=== PATIENT | male | born 1945 | race Caucasian/White ===

== ENCOUNTER 2017-11-22 08:45 | Day surgery (SDC) | payer OTHER ==
[2017-11-22] MEDS ORDERED: NS 1,000 ML IV (09:00)
[2017-11-22] MEDS ORDERED: PROPOFOL 200 MG/20 ML VIAL As Ordered (10:19)
[2017-11-22] MEDS ORDERED: LIDOCAINE 2% INJ 100 MG/5 ML SDV (FOR ANES.) As Ordered (10:19)
== END 2017-11-22 11:26 | disposition home or self-care (01) ==
LOC: M OPP 08:45
DX: Z12.11 Encounter for screening for malignant neoplasm of colon (principal); D12.3 Benign neoplasm of transverse colon; K64.0 First degree hemorrhoids; K57.30 Diverticulosis of large intestine without perforation or abscess without bleeding; I25.10 Atherosclerotic heart disease of native coronary artery without angina pectoris; I10 Essential (primary) hypertension; I25.2 Old myocardial infarction; Z95.5 Presence of coronary angioplasty implant and graft; E78.5 Hyperlipidemia, unspecified; I73.9 Peripheral vascular disease, unspecified; R23.3 Spontaneous ecchymoses; M19.90 Unspecified osteoarthritis, unspecified site; J44.9 Chronic obstructive pulmonary disease, unspecified; F17.210 Nicotine dependence, cigarettes, uncomplicated; Z79.82 Long term (current) use of aspirin; Z79.899 Other long term (current) drug therapy
CPT/HCPCS: 45385

== ENCOUNTER 2020-08-03 09:31 | Emergency (ER) | payer MEDICARE, OTHER ==
[~2020-08-03] VITALS: Ht 170.2 cm; Wt 62.2 kg
[~2020-08-03 09:31] MED LIST: AMLO1TAB24; ASPI-255; CILO100T; METO1TAB7; PRESCAP6 PO; ROSU20TA5
[2020-08-03 10:20] LABS: BASO % 0.2 % (0.0-1.0); HEMOGLOBIN 12.3 g/dl (13.5-17.5); LYMPH # 0.7 10^3/uL (1.5-5.0); LYMPH % 4.9 % (24.0-44.0); MEAN CORPUSCULAR HEMOGLOBIN 28.7 pg (27.0-33.0); MEAN CORPUSCULAR HGB CONC 32.4 g/dl (32.0-36.5); MEAN CORPUSCULAR VOLUME 88.8 fl (80.0-96.0); MONO % 6.7 % (0.0-5.0); NEUTROPHILS # 12.5 10^3/uL (1.5-8.5); NEUTROPHILS % 87.8 % (36.0-66.0); PLATELET COUNT, AUTOMATED 436 10^3/uL (150-450); RED BLOOD COUNT 4.28 10^6/uL (4.30-6.10); WHITE BLOOD COUNT 14.2 10^3/uL (4.0-10.0)
--- NOTE | 2020-08-03 10:38 | REP ---
INDICATION: CHEST PAIN. COMPARISON: Comparison chest x-rays, the most recent of which is from September 14, 2012.. TECHNIQUE: Single portable chest x-ray. FINDINGS: There is a nodular opacity in the right upper perihilar region measuring approximately 2.7 cm. There is blunting of the right lateral pleural angle and some fibrotic changes are seen at the right base suggesting chronic blunting. There is some pleural thickening along the right lateral chest wall. The azygos vein region is somewhat prominent in the right paratracheal zone suggesting adenopathy. These findings are new compared with the 2012 prior exam. The left lung is clear. Heart is not enlarged. The aorta is calcific and somewhat tortuous. There is slight fullness in the azygos node region of the mediastinum on the right. Mild degenerative changes are seen in the thoracic spine. IMPRESSION: 2.7 cm nodular opacity in the right upper lobe with a fullness in the right mediastinum question lung malignancy. Recommend chest CT study, preferably with IV contrast. <Electronically signed by Kenneth Hazel > 08/03/20 [id number]
[2020-08-03 10:58] LABS: ALBUMIN 2.9 GM/DL (3.2-5.2); BILIRUBIN,DIRECT 0.2 MG/DL (0.0-0.2); BILIRUBIN,TOTAL 0.5 MG/DL (0.2-1.0); FREE T4 1.23 NG/DL (0.76-1.46); THYROID STIMULATING HORMONE 1.36 uIU/ML (0.358-3.740); TOTAL PROTEIN 7.5 GM/DL (6.4-8.2)
[2020-08-03] MEDS ORDERED: ISOVUE-370 76% 100ML VIAL As Ordered ONE (11:20)
--- NOTE | 2020-08-03 11:59 | REP ---
INDICATION: dyspnea, nodularity. COMPARISON: None. TECHNIQUE: CT angiogram chest performed following the intravenous administration of 100 cc of Isovue 370. Sagittal and coronal reconstruction images are performed. FINDINGS: The contrast opacified pulmonary arteries demonstrate no evidence of filling defect, and no evidence of pulmonary embolism. There is no thoracic aortic aneurysm or dissection. Heart is normal in size. There are atherosclerotic calcifications of the thoracic aorta. There is a large right paratracheal lymph node 3.4 x 2.4 cm. There is adjacent confluent right hilar adenopathy extending into the right infrahilar region. No Left hilar adenopathy is seen. There is mild right pleural fluid and thickening. There is minor pericardial fluid and thickening. There is biapical pleural thickening. A lobulated irregular soft tissue mass is seen in the right perihilar region superiorly measuring about 4.1 by 4.0 x 3.1 cm. There are diffuse fibro atelectatic changes in both lungs. There are degenerative changes of the spine. There is mild diffuse thickening of the adrenal glands. IMPRESSION: No CT evidence of pulmonary embolism.There is a large right paratracheal lymph node 3.4 x 2.4 cm. There is adjacent confluent right hilar adenopathy extending into the right infrahilar region. A lobulated irregular soft tissue mass is seen in the right perihilar region superiorly measuring about 4.1 by 4.0 x 3.1 cm. <Electronically signed by Enoch Wells > 08/03/20 [id number]
[2020-08-03] MEDS ORDERED: GI COCKTAIL 50ML BTL(HYOSCYAMINE/MAALOX/LIDOCAINE VISCOUS)(1:3:1) PO ONE (12:15)
[2020-08-03] MEDS ORDERED: OMEP40CA97 PO (12:40)
[2020-08-03 12:45] VITALS: BP 139/63
--- NOTE | 2020-08-04 09:16 | ECGEPIP ---
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
== END 2020-08-03 12:56 | disposition home or self-care (01) ==
LOC: M ED 09:31
DX: K29.70 Gastritis, unspecified, without bleeding (principal); R07.89 Other chest pain; R91.8 Other nonspecific abnormal finding of lung field; R06.02 Shortness of breath; I10 Essential (primary) hypertension; E78.5 Hyperlipidemia, unspecified; I25.2 Old myocardial infarction; J44.9 Chronic obstructive pulmonary disease, unspecified; Z95.5 Presence of coronary angioplasty implant and graft; I71.9 Aortic aneurysm of unspecified site, without rupture; F17.210 Nicotine dependence, cigarettes, uncomplicated; Z86.79 Personal history of other diseases of the circulatory system; Z88.0 Allergy status to penicillin; Z79.899 Other long term (current) drug therapy; Z79.82 Long term (current) use of aspirin
CPT/HCPCS: 36415; 71045; 71275; 80047; 80076; 83605; 83690; 83880; 84439; 84443; 84484; 85025; 93005; 93041; 94760; 99285; Q9967

== ENCOUNTER → 2020-08-16 | Outpatient (CLI) | payer MEDICARE ==
[~2020-08-16] MED LIST changes: +OMEP40CA97 PO
== END ==
LOC: M LABSMTC 11:22
PROVIDERS: ATTEND Internal Medicine Pulmonary Disease
DX: Z01.812 Encounter for preprocedural laboratory examination (principal); Z20.828 Contact with and (suspected) exposure to other viral communicable diseases

== ENCOUNTER → 2020-09-09 | Outpatient (CLI) | payer MEDICARE ==
--- NOTE | 2020-09-09 14:18 | RADONC.CN ---
Radiation Oncology Hx/Consult Radiation Oncology Consult Date of Service: Sep 09, 2020 Pt Identifier Leander Troncoso is a 74 year old male former 60 pack year smoker with prior CAD/NC, who was recently diagnosed with [id number] NSCLC of the RUL and mediastinum. He is seen for consideration of chemoradiation. Diagnosis/Treatment History Oncologic History Patient smoked 1 ppd for 60 years. On 08/01/20 he was hunting and became SOB, later in the day he had epigastric pain, this led to an ED visit the following day during which he underwent CT chest showing a RUL mass lesion right level 4 and 10 adenopathy. He underwent EBUS biopsy on 08/21/20 at [facility] which showed adenocarcinoma. He was referred to [facility] to pursue treatment closer to home. PET-CT 09/15/20 pending MRI head 09/18/20 pending PFTs 08/12/20 FEV1/FVC 59% FEV1 81% FVC 103% DLCO 54% Interval History Reports he feels well. Chest discomfort has subsided. HOOVER remains, noticeable going up stairs. No HOOVER when he walks on a level surface. He lost 10lbs this year. Recently though has gained 4-5 lbs back. Appetite and weight are stable. He has an occasional cough, productive of clear mucus, no hemoptysis. No fevers or chills. Past Medical History: AAA CAD/NC with stents 1996 HPL HTN Past Surgical History: Cataract surgery PCI Colonoscopy Appendectomy Family History: No family history of cancer Social History: Former smoker quit 07/2020 smoked for 60+ years Drinks per 4-5 cans per week Allergies / Meds Allergies: Coded Allergies: Penicillins (Verified Allergy, Intermediate, itch, 08/03/20) Home Meds Reported Medications Preservision Areds 2 (Preservision Areds 2) 1 Cap Cap, 1 CAP PO BID, CAP 11/16/17 Aspirin (Aspirin EC) 325 Mg Tabec, DAILY 11/16/17 Amlodipine Besylate (Amlodipine Besylate) 5 Mg Tab, DAILY 11/16/17 Cilostazol (Cilostazol) 100 Mg Tab, BID 11/16/17 Rosuvastatin Calcium (Rosuvastatin Calcium) 20 Mg Tab, DAILY 11/16/17 Metoprolol Succinate (Metoprolol Succinate) 50 Mg Tab, DAILY 11/16/17 Discontinued Scripts Omeprazole (Omeprazole) 40 Mg Capsule., 1 CAP PO DAILY for 30 Days, #30 CAP Prov:EMI ROJAS DO 08/03/20 Review of Systems Constitutional: Denies: Chills, Fever, Night Sweats Eyes: Denies: Pain, Vision change HEENT: Denies: Head Aches, Dysphagia, Sore Throat Skin: Denies: Rash, Lesions, Bruising Pulmonary: Reports: Dyspnea; Denies: Cough, Pleuritic Chest Pain Cardiovascular: Denies: Chest Pain, Palpitations, Edema Gastrointestinal: Denies: Nausea, Vomiting, Abdominal Pain, Diarrhea Genitourinary: Denies: Dysuria, Frequency, Incontinence Hematologic: Denies: Bruising, Petecchia, Enlarged Lymph Nodes Musculoskeletal: Denies: Neck pain, Back pain Neurological: Denies: Weakness, Numbness, Incoordination Psych: Reports: Mood Normal; Denies: Memory Issues, Thoughts of Self Harm Vital Signs Ht 67" Wt 138 lb BMI 21.6 T 97.2 P 77 RR 18 BP 156/75 O2 100% General Exam: Positive: Alert, Cooperative, No Acute Distress Eye Exam: Positive: PERRLA, EOMI ENT EXAM: Positive: Mucous membr. moist/pink, Pharynx Normal Neck Exam: Negative: Thyromegaly, Lymphadenopathy Chest Exam: Positive: Normal air movement; Negative: Rales, Rhonchi, Wheezing Heart Exam: Positive: Rate Normal, Regular Rhythm Abdomen Exam: Positive: Soft; Negative: Tenderness, Mass Extremity Exam: Negative: Edema, Tenderness Skin Exam: Positive: Nl turgor and temperature; Negative: Rash Neuro Exam: Positive: Normal Gait, Normal Speech, Cranial Nerves 3-12 NL Psych Exam: Positive: Mental status NL, Mood NL, Memory Intact Diagnostic and Laboratory Diagnostic Review Radiologic images, relevant labs and pathology reports were personally reviewed and discussed with Mr. Troncoso. Assessment and Plan Impression Mr. Troncoso is a 74 year old male former 60 pack year smoker with prior CAD/NC, who was recently diagnosed with [id number] NSCLC of the RUL and mediastinum. He is seen for consideration of chemoradiation. Stage [id number] Stage IIIA NSCLC of the RUL Performance Status ECOG 0 Plan We had an extensive discussion with Mr. Troncoso regarding the diagnosis at hand and available therapeutic options. He is quite functional, and minimally symptomatic from his tumor. He has staging studies, PET and MRI brain next week. Barring evidence of distant disease on these he is a stage IIIA I recommend chemoradiation 60 Gy in 30 fractions with 4DCT/ITV simulation to minimize dose to normal lung and VMAT planning to spare adjacent critical structures including heart (he has an NC history), esophagus, and great vessels. I will place referral to medical oncology here for this. I also explained that he may be eligible for adjuvant immunotherapy post chemoradiation and that his medical oncologist would consider this. We discussed the logistics of receiving radiation therapy in detail including the need for a 1-time planning session. Planning can proceed as soon as next week after his staging scans are complete. We reviewed the side effects of treatment including fatigue, pneumonitis, fibrosis and esophagitis. After discussing the risks, benefits and alternatives to radiation therapy, Mr. Troncoso was amenable to pursuing radiotherapy. All questions were answered to the patient's satisfaction. We instructed the patient that if there were any questions,concerns or changes in clinical status in the interim to contact us. Recommendations Chemoradiation 60 Gy in 30 fractions with 4DCT/VMAT Simulation in the coming week Referral to medical oncology KEILY CAMPUZANO MD Sep 09, 2020 14:18
== END ==
LOC: M ONCR 12:37
PROVIDERS: ATTEND General Practice
DX: C34.90 Malignant neoplasm of unspecified part of unspecified bronchus or lung (principal)

== ENCOUNTER → 2020-09-15 | Outpatient (CLI) | payer MEDICARE ==
[~2020-09-15] MED LIST changes: -AMLO1TAB24; +AMLO1TAB24 PO; -ASPI-255; +ASPI-255 PO; -CILO100T; +CILO100T PO; +DECA4TAB PO; -METO1TAB7; +METO1TAB7 PO; +ONDA8TAB8 PO; +PRES10CA2 PO; -ROSU20TA5; +ROSU20TA5 PO
--- NOTE | 2020-09-16 11:05 | REP ---
INDICATION: STAGING LUNG CANCER C34.91. Large right perihilar adenocarcinoma. This is unchanged from comparison sonography September 24, 2018. COMPARISON: Comparison CT study of the chest August 03, 2020.. TECHNIQUE: Fifty minutes following the intravenous injection of a 7.95 mCi dose of F-18 FDG, three-dimensional PET scintigraphy is acquired from the skull base to the proximal thighs. Triplanar noncontrast CT scanning is acquired through the same anatomic range for attenuation correction, and image registration with scan parameters optimized to minimize radiation exposure to the patient. PET scintigraphy and CT datasets were fused and displayed on a workstation with multiplanar and projection display capability. FINDINGS: Incidental findings include a 4.2 x 4.5 cm infrarenal abdominal aortic aneurysm. This is unchanged from comparison sonography September 24, 2018. Head and neck soft tissues are unremarkable. There is non hypermetabolic mild biapical pleuroparenchymal fibrosis right more so than left. The large right upper lobe perihilar mass is hypermetabolic, maximum standard uptake value 6.12. There is hypermetabolic right hilar adenopathy with maximum standard uptake value 4.99. There is hypermetabolic precarinal and subcarinal adenopathy, maximum SUV value 3.96 and 4.86 respectively. There is also some visible pleural thickening and pleural at FDG accumulation at the base of the major fissure on the right adjacent to the middle lobe where maximum SUV values 2.14 and in the right posterior pleural space where maximum SUV values 2.37. There is no abnormal adrenal uptake. In the abdomen and pelvis, normal hepatic, splenic, gastrointestinal, and genitourinary FDG accumulation is seen. No abnormal hypermetabolic uptake focus is seen in the abdomen or pelvis. IMPRESSION: Hypermetabolic uptake noted in the large right upper lobe perihilar mass as well as hypermetabolic right hilar and mediastinal lymphadenopathy. There also some ipsilateral pleural changes on the right with visible but not frankly hypermetabolic fluoro deoxy glucose accumulation. I cannot exclude early no other abnormal hypermetabolic uptake is seen. Pleural involvement. <Electronically signed by Kenneth Hazel > 09/16/20 [id number]
== END ==
LOC: M PLARAD 12:31
PROVIDERS: ATTEND Radiology Radiation Oncology
DX: C34.11 Malignant neoplasm of upper lobe, right bronchus or lung (principal)
CPT/HCPCS: 78815; A9552

== ENCOUNTER → 2020-09-18 | Outpatient (CLI) | payer MEDICARE ==
[~2020-09-18] MED LIST changes: +PROHANCE 279.3MG/ML 15ML VIAL As Ordered ONE
--- NOTE | 2020-09-18 09:30 | REPVR ---
PROCEDURE INFORMATION: Exam: MR Head Without and With Contrast Exam date and time: 09/18/2020 8:36 AM Age: 74 years old Clinical indication: Condition or disease; History of cancer (specify primary cancer site): ; Patient HX: Lung CA possible mets; Additional info: Lung CA, mets? TECHNIQUE: Imaging protocol: MR of the head without and with intravenous contrast. Contrast material: PROHANCE; Contrast volume: 12 ml; Contrast route: INTRAVENOUS (IV); COMPARISON: No relevant prior studies available. FINDINGS: Brain: Generalized parenchymal atrophy. Scattered foci of T2/FLAIR signal prolongation involving periventricular and subcortical white matter bilaterally likely represent sequela of microvascular ischemic disease. No enhancing intracranial masses Cerebral ventricles: Normal. No ventriculomegaly. Bones/joints: Unremarkable. Paranasal sinuses: Normal as visualized. No acute sinusitis. Mastoid air cells: Normal as visualized. No mastoid effusion. Orbits: Unremarkable. Soft tissues: Unremarkable. IMPRESSION: No acute intracranial pathology. Electronically signed by: Aneesh Garrett On 09/18/2020 09:30:31 AM
== END ==
LOC: M RAD 07:11
PROVIDERS: ATTEND Radiology Radiation Oncology
DX: C34.91 Malignant neoplasm of unspecified part of right bronchus or lung (principal)
CPT/HCPCS: 70553; A9576

== ENCOUNTER → 2020-09-24 | Outpatient (CLI) | payer MEDICARE ==
[~2020-09-24] MED LIST changes: +LIDOCAINE 1% MDV 20ML VIAL As Ordered ONE; +MIDAZOLAM INJ 2MG/2ML VIAL (J2250 PER 1MG) As Ordered ONE; -PROHANCE 279.3MG/ML 15ML VIAL As Ordered ONE; +VANCOMYCIN 500MG/10ML VIAL As Ordered ONE; +diphenhydrAMINE 50MG/ML VIAL (J1200) As Ordered ONE; +fentaNYL 100 MCG/2 ML INJECTION (J3010) As Ordered ONE
--- NOTE | 2020-09-24 08:35 | IRHP ---
[facility] IR Pre-Procedure H & P General Date of Service: Sep 24, 2020 Procedure: Same Day Surgery Interval History and Physical I have seen the patient and reviewed last H & P performed within 30 days. There is no significant interval change. History of Present Illness Chief Complaint The patient is a 74-year-old male admitted with a reason for visit of Rt Lung Ca. PRE-PROCEDURE DIAGNOSIS:lung cancer HEART: normal rate. LUNGS: normal breathing at rest. ASA Classification ASA Classification: III-Severe systemic dis. Mallampati Score: II NPO: Yes Problems with prior sedation: No Obstructive Sleep Apnea: No Plan moderate sedation Allergies Coded Allergies: Penicillins (Verified Allergy, Intermediate, itch, 08/03/20) Home Medications Scheduled Amlodipine Besylate (Amlodipine Besylate), 1 TAB PO DAILY, (Reported) Aspirin (Aspirin EC), 1 TAB PO DAILY, (Reported) Cilostazol (Cilostazol), 1 TAB PO BID, (Reported) Dexamethasone (Decadron), 2 TAB PO BID Metoprolol Succinate (Metoprolol Succinate), 1 TAB PO DAILY, (Reported) Ondansetron (Ondansetron Odt), 8 MG PO TID Rosuvastatin Calcium (Rosuvastatin Calcium), 1 TAB PO DAILY, (Reported) Vit C/E/Zn/Coppr/Lutein/Zeaxan (Preservision Areds 2 Softgel), 1 EACH PO DAILY, (Reported) VS, I&O, 24H, Fishbone Vital Signs/I&O Vital Signs Date Time Temp Pulse Resp B/P (MAP) Pulse Ox O2 Delivery O2 Flow Rate FiO2 09/24/20 07:30 97.5 85 18 99 Room Air EDEL MOHAMUD MD Sep 24, 2020 08:35
[2020-09-24 11:20] VITALS: BP 121/62
--- NOTE | 2020-09-25 09:35 | POST-OPPD ---
Postoperative Procedure Note Date Of Procedure: Sep 24, 2020 Time Of Procedure: 16:00 IR ultrasound and fluoroscopy guided port placement IR Ultrasound of the neck. IR Moderate sedation. Clinical indication: Lung cancer. Physician: Dr. Burt. Procedure: The patient was advised of the benefits, risks, and alternatives of the procedure and informed consent was obtained. A time-out was performed with verification of the patient's name, MRN, site of procedure and type of procedure to be performed. The patient was positioned in the supine position on the angiographic table. The site was prepped and draped in the usual sterile fashion. Moderate sedation was performed by the physician including the presence of an independent trained RN who assisted and monitored the patient's level of consciousness and physiologic status. Following the administration of fentanyl and Versed , the physician spent 45 minutes of continuous face to face time with the patient. Ultrasound of the neck reveals a patent and compressible right internal jugular vein. A vendor management consultant radiograph reveals right lung mass. The neck and anterior chest wall were anesthetized with lidocaine. The right internal jugular vein was accessed using a microintroducer needle under ultrasound guidance, via a lateral approach. An 018 wire was advanced into the superior vena cava, the needle was removed and a microsheath was placed. An Amplatz wire was then passed into the inferior vena cava. An incision at the internal jugular vein access site and anterior chest wall were made using a scalpel. An incision was made at the anterior chest wall. A small pocket was created using a combination of blunt and sharp dissection. A tunneling device was then used to pass the catheter from the pocket to the neck puncture site. An 8- [place] Ang[employer] [place] [employer] Smart power port was then positioned in the pocket. The catheter was then measured and cut. The introducer sheath was exchanged for a peel-away sheath. The catheter was passed through the peel-away sheath into the internal jugular vein and the peel- away sheath was removed. The port tip was positioned at the cavoatrial junction. The port was then accessed with a Garland needle. The port flushes and aspirates well. The puncture site in the neck was closed. The chest wall incision was then closed with 2-0 Vicryl and 4-0 Monocryl. Glue and Steri- Strips were applied. A sterile dressing was then applied. The patient tolerated the procedure well and was returned to the PRU in stable condition. Estimated blood loss: <5 ml. Complications: None. Conclusion: 1. Successful placement of an 8-Lao [employer] Smart power port via the right internal jugular vein. The port is ready for immediate use. 2. Patient to follow up in IR clinic in 2 weeks. Thank you for this referral. EDEL BURT MD Sep 25, 2020 09:35
== END ==
LOC: M IRPRO 07:17
PROVIDERS: ATTEND Internal Medicine Hematology & Oncology
DX: C34.91 Malignant neoplasm of unspecified part of right bronchus or lung (principal)
CPT/HCPCS: 36561; 99152; 99153; C1769; C1788; C1894; J1200; J1642; J1644; J2250; J3010; J3370

== ENCOUNTER → 2020-10-08 | Outpatient (RCR) | payer MEDICARE ==
--- NOTE | 2020-09-22 10:12 | RADENCPD ---
Date/Time of Encounter Date of Encounter: Sep 22, 2020 Time of Encounter: 10:11 Encounter MRI and PET-CT results to patient and his , no brain metastases, no extrathoracic disease. Will proceed with chemoradiation as planned. KEILY CAMPUZANO MD Sep 22, 2020 10:12
[~2020-10-08] MED LIST changes: -LIDOCAINE 1% MDV 20ML VIAL As Ordered ONE; +MAGICMW PO; +METO5TAB2 PO; -MIDAZOLAM INJ 2MG/2ML VIAL (J2250 PER 1MG) As Ordered ONE; -VANCOMYCIN 500MG/10ML VIAL As Ordered ONE; -diphenhydrAMINE 50MG/ML VIAL (J1200) As Ordered ONE; -fentaNYL 100 MCG/2 ML INJECTION (J3010) As Ordered ONE
== END ==
LOC: M ONCR 09-16 08:14
PROVIDERS: ATTEND General Practice
DX: C34.11 Malignant neoplasm of upper lobe, right bronchus or lung (principal)

== ENCOUNTER → 2020-10-13 | Outpatient (POV) | payer MEDICARE ==
--- NOTE | 2020-10-19 12:41 | IRPN ---
[facility] IR Progress Note IR Progress Note DATE: Oct 13, 2020 Patient agreed to this telephone follow-up. Duration of call 5 minutes. FOLLOW-UP: Patient status post port placement. Patient denies any fevers, chills, pain at site or discharge. Patient states port was used without any issues. ON EXAMINATION: No video on patient side. IMPRESSION: Status post port placement, patient doing well. No further follow-up scheduled unless initiated by patient and/or referring provider. Thank you for this referral Allergies Coded Allergies: Penicillins (Verified Allergy, Intermediate, itch, 08/03/20) EDEL MOHAMUD MD Oct 19, 2020 12:41
== END ==
LOC: M TMIRPOV 11:31
PROVIDERS: ATTEND Radiology Diagnostic Radiology
DX: Z45.2 Encounter for adjustment and management of vascular access device (principal)

== ENCOUNTER 2020-11-06 13:53 | Outpatient (RCR) | payer MEDICARE ==
[~2020-11-06 13:53] MED LIST changes: +PEPC1TAB5 PO
== END 2020-11-08 ==
LOC: M ONCR 13:53
PROVIDERS: ATTEND General Practice
DX: C34.11 Malignant neoplasm of upper lobe, right bronchus or lung (principal)

== ENCOUNTER 2020-11-11 13:57 | Outpatient (RCR) | payer MEDICARE | END 2020-12-06 | LOC: M ONCR 13:57 | PROVIDERS: ATTEND General Practice | DX: C34.11 Malignant neoplasm of upper lobe, right bronchus or lung (principal) ==

== ENCOUNTER 2020-12-23 13:07 | Inpatient (IN) | payer MEDICARE ==
[~2020-12-23] VITALS: Ht 170.2 cm; Wt 59.0 kg
[2020-12-23] MEDS: IPRATROPIUM 0.5MG/ALBUTEROL 2.5MG INH SOL UD 3ML (DUONEB) NEB SCH (05:54)
[~2020-12-23 13:07] MED LIST changes: +ROLLMIS8 XX
[2020-12-23] MEDS ORDERED: GUAISYP9 PO (13:51)
[2020-12-23] MEDS ORDERED: FAMO1TAB11 PO (13:51)
[2020-12-23] MEDS ORDERED: NS 1,000 ML IV ONE ×3 (13:55→17:15)
[2020-12-23 14:07] LABS: BASO % 1.1 % (0.0-1.0); HEMATOCRIT 23.2 % (42.0-52.0); HEMOGLOBIN 7.3 g/dl (13.5-17.5); LYMPH # 0.1 10^3/uL (1.5-5.0); LYMPH % 6.7 % (24.0-44.0); MEAN CORPUSCULAR HEMOGLOBIN 28.1 pg (27.0-33.0); MEAN CORPUSCULAR HGB CONC 31.5 g/dl (32.0-36.5); MEAN CORPUSCULAR VOLUME 89.2 fl (80.0-96.0); MONO # 0.3 10^3/uL (0.0-0.8); MONO % 31.5 % (2.0-8.0); NEUTROPHILS % 60.7 % (36.0-66.0); PLATELET COUNT, AUTOMATED 275 10^3/uL (150-450)
--- NOTE | 2020-12-23 14:16 | REP ---
INDICATION: weakness, RUL Ca. COMPARISON: 08/03/2020. TECHNIQUE: Upright PA and lateral chest. FINDINGS: There is a faintly visible lung nodule in the right suprahilar zone. This appears slightly decreased in size from the comparison study. There is a right IJ Xbgyue-L-Aumu catheter with the tip in the superior vena cava in satisfactory position, as an interval change. There is diffuse interstitial coarsening as an interval change. There are no focal infiltrates or pleural effusions. The cardiac size is normal. The shell, mediastinum, and skeletal structures are unremarkable. IMPRESSION: Right lung nodule as described. New right IJ Niduiv-H-Ryrm catheter. Diffuse bilateral interstitial coarsening. <Electronically signed by Enoch Bartholomew > 12/23/20 [id number]
[2020-12-23 14:29] LABS: BLOOD UREA NITROGEN 35 MG/DL (7-18); CALCIUM LEVEL 9.2 MG/DL (8.8-10.2); CARBON DIOXIDE LEVEL 24 MEQ/L (21-32); CHLORIDE LEVEL 102 MEQ/L (98-107); CREATININE FOR GFR 1.07 MG/DL (0.70-1.30); GLOMERULAR FILTRATION RATE > 60.0 (>42); GLUCOSE, FASTING 165 MG/DL (70-100); POTASSIUM SERUM 3.5 MEQ/L (3.5-5.1); SODIUM LEVEL 136 MEQ/L (136-145)
[2020-12-23 14:57] LABS: NEUTROPHILS # 0.5 10^3/uL (1.5-8.5)
[2020-12-23 15:00] LABS: WHITE BLOOD COUNT 0.9 10^3/uL (4.0-10.0)
[2020-12-23] MEDS ORDERED: SODIUM CHLORIDE 0.9% INJ 10 ML SYR IV PRN (15:05)
[2020-12-23] MEDS ORDERED: ONDA8TAB8 PO (18:41)
[2020-12-23 19:28] LABS: RSV AMPLIFICATION NEGATIVE (NEGATIVE)
[2020-12-23] MEDS ORDERED: ALBUTEROL SULFATE 2.5 MG/0.5 ML INH NEB SOLN NEB SCH (20:00)
[2020-12-23] MEDS ORDERED: LR 1,000 ML IV ONE (20:00)
[2020-12-23] MEDS ORDERED: MAALOX 30 ML SUSP *UDC PO PRN (20:00)
[2020-12-23] MEDS ORDERED: ACETAMINOPHEN TAB 650MG DOSE (2X325MG) PO PRN (20:00)
[2020-12-23] MEDS ORDERED: MOM 30ML SUSPENSION UDC PO PRN (20:00)
--- NOTE | 2020-12-23 20:18 | HPEPDOC ---
[facility] Medical History & Physical Date of Admission Dec 23, 2020 Date of Service: Dec 23, 2020 Primary Care Physician: Shannon Monge Attending Physician: AURELIO MENARD MD History and Physical TIME OF SERVICE: 837pm CHIEF COMPLAINT: malaise HISTORY OF PRESENT ILLNESS: This 75 yr old M was sent from office for evaluation because in his words he has been feeling blah for 4 days. While walking down the stairs out on the way to his appointment he slipped on and landed on the stairs in a sitting position. He didnt hit his head or loose consciousness. He denied hull ving chest pain, feeling dizzy, vomiting, having blood in his stools or having dark sticky stools. His denied noticing that he looked more pale than usual. The patient admitted to feeling more short of breath for the last 4 days and added that he has COPD but doesnt use inhalers at home; he reported not eating anythign for the last few days because his appetite has decreased. After completing radiation therapy he developed a cough which was told was likely a side-effect of radiation. diagnosed him with symptomatic anemia ordered 1unit of PRBCs. REVIEW OF SYSTEMS: 12-point review of systems negative except as listed in HPI PAST MEDICAL/ SURGICAL HISTORY: Stage 2a / T2N2 RUL PDL-1 neg, EGFR neg BRAF neg adenocarcinoma of the lung (s/p 30 sessions of radiation therapy and 76 sessions of chemo (his last session of chemo is on January 07)). 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 He doesnt drink alcohol. FAMILY HISTORY: Mother of CAD, Father in WW2, Uncle as a result of a ruptured aorta ALLERGIES: Please see below. HOME MEDICATIONS: Please see below. PHYSICAL EXAMINATION: Vital Signs Date Time Temp Pulse Resp B/P (MAP) Pulse Ox O2 Delivery O2 Flow Rate FiO2 12/23/20 13:07 98.1 133 15 99/52 (68) 93 Room Air 12/23/20 19:45 1.0 GENERAL APPEARANCE: well nourished and developed/ NAD HEENT: EOMI / NC in place CARDIOVASCULAR: tachycardic / NMRG LUNGS: occasionally coughs / not using accessory muscles / tachypneic / has expiratory wheezing MUSCULOSKELETAL: NCAT/ BHUPINDER x 4 INTEGUMENT: not pale / extremities acyanotic NEUROLOGICAL: CN 2-12 except hearing grossly intact PSYCHIATRIC: A&Ox 3 / able to understand and follow all commands LABORATORY DATA: 12/23/20 13:52 Immature Granulocyte % (Auto) 0.0, Neutrophils (%) (Auto) 60.7, Lymphocytes (%) (Auto) 6.7L, Monocytes (%) (Auto) 31.5H, Eosinophils (%) (Auto) 0.0, Basophils (%) (Auto) 1.1H, Neutrophils # (Auto) 0.5L, Lymphocytes # (Auto) 0.1L, Monocytes # (Auto) 0.3, Eosinophils # (Auto) 0.0, Basophils # (Auto) 0.0, Nucleated Red Blood Cells % (auto) 0.0, Anion Gap 10, Glomerular Filtration Rate > 60.0, Lactic Acid Level 2.5*H, Calcium Level 9.2 12/23/20 16:31: Urine Color SERA, Urine Appearance CLOUDYH, Urine pH 5.0, Urine Specific [place] 1.019, Urine Protein 2+H, Urine Glucose (UA) 1+H, Urine Ketones TRACEH, Urine Blood NEGATIVE, Urine Nitrite NEGATIVE, Urine Bilirubin NEGATIVE, Urine Urobilinogen 4.0H, Urine Leukocyte Esterase NEGATIVE, Urine WBC (Auto) 5H, Urine RBC (Auto) 3, Urine Hyaline Casts (Auto) 2, Urine Bacteria (Auto) NEGATIVE, Urine Squamous Epithelial Cells 1, Urine Amorphous Sediment SMALLH, Urine Gra nular Casts (Auto) 5, Urine Mucus (Auto) SMALL, Urine Sperm (Auto) IMAGING: Chest xray IMPRESSION: Right lung nodule as described. New right IJ Fznmzl-Q-Wzve catheter. Diffuse bilateral interstitial coarsening. MICROBIOLOGY: Coronavirus (COVID-19)(PCR) NEGATIVE, Influenza Type A (RT-PCR) NEGATIVE, Influenza Type B (RT-PCR) NEGATIVE, Respiratory Syncytial Virus (PCR) NEGATIVE / blood cx pending ASSESSMENT: is a 75 yr old w a hx of COPD, lung adenocarcinoma, HTN, & CAD who was sent from office for evaluation of malaise and will be admitted for management of symptomatic anemia, acute COPD and dehydration. PLAN: 1 Symptomatic normocytic normochromic anemia I suspect this is likely due to a combination of chemo and cancer associated anemia At the time of my visit the 1st unit of PRBCs was running Plan: admit to medical floor / f/u serial Hg (target Hg 8) / pending iron studies, ferritin, stool occult and soluble transferrin receptor (sTfR) the day time team may consider Venofer 2 Acute COPD Trigger may be bacterial infection or aspiration or change in the whether Plan: admit to PCU / supplemental O2 / continuous pulse oximetry / aspiration precautions / COPD diet / f/u VBG / Solumedrol now and switch to PO Prednisone tomorrow w PPI / DuoNeb Q6H, Albuterol Q1HP/ Tessalon Pearls PRN / the pt should be referred Pulmonary Rehab when he is ready for discharge which has been shown to reduce exacerbation & mortality if patient attends within 4 weeks of an episode of acute COPD / he can f/u with his PCP for his vaccines 3 Dehydration 2/2 to poor PO intake He has hyaline casts Plan: IVF 4 SIRS SIRS criteria include tachycardia and neutropenia. The UA, chest xray and respiratory panel were unrevealing He doesnt have a fever; if he develops a fever that is sustained for 15 min we will treat him for neutropenic fever. 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 Plan: rosuvastatin 9 GERD Plan: hold famotidine while he is on a PPI DVT px w SCDs Dispo: home after at least 2 midnights stay Home Medications Scheduled Amlodipine Besylate (Amlodipine Besylate) 5 Mg Tab, 5 MG PO DAILY Aspirin (Aspirin EC) 325 Mg Tabec, 325 MG PO DAILY Cilostazol (Cilostazol) 100 Mg Tab, 100 MG PO BID Famotidine (Famotidine) 20 Mg Tablet, 20 MG PO BID Metoprolol Succinate (Metoprolol Succinate) 50 Mg Tab, 50 MG PO DAILY Pantoprazole Sodium (Pantoprazole Sodium) 40 Mg Tablet.dr, 40 MG PO DAILY Rosuvastatin Calcium (Rosuvastatin Calcium) 20 Mg Tab, 20 MG PO DAILY Tiotropium [place] (Spiriva) 18 Mcg Cap.w.dev, 18 MCG INH DAILY Vit C/E/Zn/Coppr/Lutein/Zeaxan (Preservision Areds 2 Softgel) 1 Each Capsule, 1 EACH PO BID Scheduled PRN Albuterol Sulfate (Ventolin Hfa) 18 Gm Hfa.aer.ad, 2 PUFF INH Q4-6HP PRN for wheezing Codeine Phosphate/Guaifenesin (Guaiatussin AC Liquid) 118 Ml Liquid, 5 ML PO Q6H PRN for COUGH Ondansetron (Ondansetron Odt) 8 Mg Tab.rapdis, 8 MG PO TID PRN for NAUSEA OR VOMITING Allergies Coded Allergies: Penicillins (Verified Allergy, Intermediate, itch, 08/03/20) A-FIB/CHADSVASC A-FIB History Current/History of A-Fib/PAF?: No Current PO Anticoag Therapy: No AURELIO MENARD MD Dec 23, 2020 20:18
[2020-12-23 20:30] VITALS: BP 124/62
[2020-12-23 20:45] VITALS: BP 126/61
[2020-12-23 20:47] LABS: INR 1.17; PROTHROMBIN TIME 15.2 SECONDS (12.5-14.3)
[2020-12-23 20:48] LABS: PARTIAL THROMBOPLASTIN TIME 47.4 SECONDS (24.2-38.5)
[2020-12-23 20:57] LABS: FERRITIN 5770 NG/ML (26-388); IRON (FE) 18 UG/DL (65-175); PERCENT SATURATION 13.6 % (19.7-50.0); TOTAL IRON BINDING CAPACITY 132 UG/DL (250-450); VITAMIN B12 LEVEL 1786 PG/ML
[2020-12-23] MEDS ORDERED: methylPREDNISolone 125MG 2ML VIAL IV STA (21:26)
[2020-12-23 21:55] VITALS: BP 124/60
[2020-12-23] MEDS ORDERED: LR 1,000 ML IV SCH (22:00)
[2020-12-23 22:10] VITALS: BP 124/60
[2020-12-23 22:11] VITALS: O2SAT 90
[2020-12-23 23:00] VITALS: O2SAT 95
[2020-12-23] MEDS ORDERED: ALBUTEROL SULFATE 2.5 MG/0.5 ML INH NEB SOLN NEB PRN (23:00)
[2020-12-23] MEDS ORDERED: BENZONATATE 100 MG CAP PO PRN (23:00)
[2020-12-24] VITALS (19 sets, daily range): BP systolic 101–127; BP diastolic 55–61; O2SAT 93–95
--- NOTE | 2020-12-24 01:01 | ECGEPIP ---
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
[2020-12-24 01:48] LABS: NT-PRO BNP 799 PG/ML (<450); TROPONIN I < 0.02 NG/ML (< 0.10)
[2020-12-24] MEDS: IPRATROPIUM 0.5MG/ALBUTEROL 2.5MG INH SOL UD 3ML (DUONEB) NEB SCH ×3 (05:55→13:20)
[2020-12-24 07:13] LABS: VENOUS BASE EXCESS -2.1 (-2.0-2.0); VENOUS HCO3 21.5 MEQ/L (23.0-27.0); VENOUS O2 SATURATION 93.5 % (60.0-80.0); VENOUS PARTIAL PRESSURE CO2 32.5 mmHg (38.0-50.0); VENOUS PARTIAL PRESSURE O2 66.3 mmHg (30.0-50.0); VENOUS PH 7.439 UNITS (7.330-7.430); VENOUS STANDARD HCO3 22.7 MEQ/L; VENOUS TOTAL CO2 22.5 MEQ/L (24.0-28.0)
[2020-12-24 07:26] LABS: HEMATOCRIT 27.5 % (42.0-52.0); HEMOGLOBIN 9.2 g/dl (13.5-17.5); MEAN CORPUSCULAR HEMOGLOBIN 28.9 pg (27.0-33.0); MEAN CORPUSCULAR HGB CONC 33.5 g/dl (32.0-36.5); MEAN CORPUSCULAR VOLUME 86.5 fl (80.0-96.0); PLATELET COUNT, AUTOMATED 221 10^3/uL (150-450); RED BLOOD COUNT 3.18 10^6/uL (4.30-6.10)
[2020-12-24] MEDS ORDERED: CILOSTAZOL 100 MG TAB (PLETAL) PO SCH (07:30)
[2020-12-24 07:46] LABS: BLOOD UREA NITROGEN 28 MG/DL (7-18); CALCIUM LEVEL 8.2 MG/DL (8.8-10.2); CARBON DIOXIDE LEVEL 24 MEQ/L (21-32); CHLORIDE LEVEL 110 MEQ/L (98-107); CREATININE FOR GFR 0.63 MG/DL (0.70-1.30); GLOMERULAR FILTRATION RATE > 60.0 (>42); GLUCOSE, FASTING 169 MG/DL (70-100); POTASSIUM SERUM 3.5 MEQ/L (3.5-5.1); SODIUM LEVEL 142 MEQ/L (136-145)
[2020-12-24] MEDS ORDERED: ROSUVASTATIN 10 MG TAB (CRESTOR) PO SCH (09:00)
[2020-12-24] MEDS ORDERED: METOPROLOL SUCC (TopROL XL) 50MG **XL** TAB PO SCH (09:00)
[2020-12-24] MEDS ORDERED: ASPIRIN ENTERIC 325 MG TAB PO SCH (09:00)
[2020-12-24] MEDS ORDERED: predniSONE 20 MG TAB PO SCH (09:00)
[2020-12-24] MEDS ORDERED: PANTOPRAZOLE 40MG TAB (PROTONIX) PO SCH (09:00)
[2020-12-24] MEDS ORDERED: VENTAER INH (13:03)
[2020-12-24] MEDS ORDERED: PANT40TA29 PO (13:03)
[2020-12-24] MEDS ORDERED: SPIR1CAP INH (13:04)
--- NOTE | 2020-12-24 16:55 | DS.PDOC ---
Discharge Summary General Date of Admission Dec 23, 2020 at 20:00 Date of Discharge 12/24/20 Discharge Summary PROCEDURES PERFORMED DURING STAY: [None]. ADMITTING DIAGNOSES: Symptomatic normocytic normochromic anemia Acute COPD Dehydration 2/2 to poor PO intake SIRS Lactic acidosis Stage 2a / T2N2 RUL PDL-1 neg, EGFR neg BRAF neg adenocarcinoma of the lung Essential HTN CAD/DE w placement of stent / DLP GERD DISCHARGE DIAGNOSES: Symptomatic normocytic normochromic anemia Acute COPD Dehydration 2/2 to poor PO intake SIRS Lactic acidosis Stage 2a / T2N2 RUL PDL-1 neg, EGFR neg BRAF neg adenocarcinoma of the lung Essential HTN CAD/DE w placement of stent / DLP GERD COMPLICATIONS/CHIEF COMPLAINT: Dehydrated,Lactic Acid Acidosis, Sirs. HISTORY OF PRESENT ILLNESS:This 75 yr old M was sent from office for evaluation because in his words he has been feeling blah for 4 days. While walking down the stairs out on the way to his appointment he slipped on and landed on the stairs in a sitting position. He didnt hit his head or loose consciousness. He denied having chest pain, feeling dizzy, vomiting, having blood in his stools or having dark sticky stools. His denied noticing that he looked more pale than usual. The patient admitted to feeling more short of breath for the last 4 days and added that he has COPD but doesnt use inhalers at home; he reported not eating anythign for the last few days because his appetite has decreased. After completing radiation therapy he developed a cough which was told was likely a side-effect of radiation. diagnosed him with symptomatic anemia ordered 1unit of PRBCs. HOSPITAL COURSE: During the hospital stay following showed addressed 1 Symptomatic normocytic normochromic anemia combination of chemo and cancer associated anemia Patient received 1st unit of PRBCs. Hemoglobin in the morning 9.2 2 Acute COPD Trigger may be bacterial infection or aspiration or change in the whether Patient received inhalers with positive effect 3 Dehydration 2/2 to poor PO intake He has hyaline casts IVF 4 SIRS SIRS criteria include tachycardia and neutropenia. The UA, chest xray and respiratory panel were unrevealing He doesnt have a fever. Stage 2a / T2N2 RUL PDL-1 neg, EGFR neg BRAF neg adenocarcinoma of the lung (s/p 30 sessions of radiation therapy and 76 sessions of chemo (his last session of chemo is on January 07)) Plan: f/u w Oncologist as scheduled DISCHARGE MEDICATIONS: Please see below. ALLERGIES: Please see below. PHYSICAL EXAMINATION ON DISCHARGE: VITAL SIGNS: Please see below. GENERAL APPEARANCE: well nourished and developed/ NAD HEENT: EOMI / NC in place CARDIOVASCULAR: S1-S2 LUNGS: occasionally coughs / not using accessory muscles / tachypneic / has expiratory wheezing MUSCULOSKELETAL: NCAT/ BHUPINDER x 4 INTEGUMENT: not pale / extremities acyanotic NEUROLOGICAL: CN 2-12 except hearing grossly intact PSYCHIATRIC: A&Ox 3 / able to understand and follow all commands LABORATORY DATA: Please see below. IMAGING: [facility] NAME: GISELA VILLA DATE OF : 1945 AGE: 75 SEX: M REPORT #: [id number] ROOM: ED TECHNOLOGIST: JAIR DOCTOR: Antonio Adan M.D. Ordered for Date&Time: 12/23/20 1347 cc: [~ rep ct ivnm] Service Date&Time: This report is in Signed status. If this report is in a DRAFT status it has not yet been reviewed by the radiologist for accuracy. Thank you for having your radiology procedures performed at [facility] RADIOLOGY REPORT Date&Time printed: [~ rep prt dt last] [~ rep prt tm last] Page 2 of 2 [place] [address] RADIOLOGY REPORT This report is in Signed status. If this report is in a DRAFT status it has not yet been reviewed by the radiologist for accuracy. Thank you for having your radiology procedures performed at [facility] RADIOLOGY REPORT Date&Time printed: [~ rep prt dt last] [~ rep prt tm last] Page 1 of 1 COMPARISON: 08/03/2020. TECHNIQUE: Upright PA and lateral chest. FINDINGS: There is a faintly visible lung nodule in the right suprahilar zone. This appears slightly decreased in size from the comparison study. There is a right IJ Jygkbd-P-Dblw catheter with the tip in the superior vena c sita in satisfactory position, as an interval change. There is diffuse interstitial coarsening as an interval change. There are no focal infiltrates or pleural effusions. The cardiac size is normal. The shell, mediastinum, and skeletal structures are unremarkable. IMPRESSION: Right lung nodule as described. New right IJ Qvrges-A-Qeqg catheter. Diffuse bilateral interstitial coarsening. <Electronically signed by Enoch Bartholomew > 12/23/201411 DD: Enoch Bartholomew MD 12/23/201406 DT: TESSY 12/23/201411 DS: EBONIE 12/23/20140612/23/20 140 [~ rep ct labl] PROGNOSIS: Guarded ACTIVITY: [As tolerated]. DIET: Cardiac DISPOSITION: 06 Home Health Service. DISCHARGE INSTRUCTIONS: Continue physical therapy for next week's ITEMS TO FOLLOWUP ON ON OUTPATIENT: Follow-up with oncologist and PCP DISCHARGE CONDITION: [Stable]. TIME SPENT ON DISCHARGE: 30 minutes. Vital Signs/I&Os Vital Signs Date Time Temp Pulse Resp B/P (MAP) Pulse Ox O2 Delivery O2 Flow Rate FiO2 12/24/20 12:00 1.0 12/24/20 11:40 97.8 105 18 123/56 (78) 91 Room Air I&O- Last 24 Hours up to 6 AM 12/24/20 06:00 Intake Total 4400 ml Output Total 450 ml Balance 3950 ml Laboratory Data Labs 24H Laboratory Tests 2 12/23/20 18:37: Coronavirus (COVID-19)(PCR) NEGATIVE, Influenza Type A (RT-PCR) NEGATIVE, Influenza Type B (RT-PCR) NEGATIVE, Respiratory Syncytial Virus (PCR) NEGATIVE 12/23/20 20:39: Prothrombin Time 15.2H, Prothromb Time International Ratio 1.17, Activated Partial Thromboplast Time 47.4H 12/24/20 00:06: Lactic Acid Level 1.1 12/24/20 01:20: Bedside Glucose (Misc Panel) 128H 12/24/20 06:41: Bedside Glucose (Misc Panel) 170H 12/24/20 06:44: 12/24/20 07:07: Nucleated Red Blood Cells % (auto) 0.0, Blood Gas Puncture Site UNKNOWN, Blood Gas Bicarbonate Standard 22.7, Venous Blood pH 7.439H, Venous Blood Partial Pressure CO2 32.5L, Venous Blood Partial Pressure O2 66.3H, Venous Blood Total Carbon Dioxide 22.5L, Venous Blood HCO3 21.5L, Venous Blood Oxygen Saturation 93.5H, Venous Blood Base Excess -2.1L, Anion Gap 8, Glomerular Filtration Rate > 60.0, Calcium Level 8.2L CBC/BMP Laboratory Tests 12/24/20 00:06 12/24/20 07:07 FSBS Laboratory Tests Test 12/24/20 01:20 12/24/20 06:41 Range/Units Bedside Glucose (Misc Panel) 128 170 83-110 MG/DL Microbiology Microbiology 12/23/20 Blood Culture - Preliminary, Resulted No growth after 24 hours . All specim... 12/23/20 Blood Culture - Preliminary, Resulted No growth after 24 hours . All specim... Discharge Medications Scheduled Amlodipine Besylate (Amlodipine Besylate) 5 Mg Tab, 5 MG PO DAILY, (Reported) Aspirin (Aspirin EC) 325 Mg Tabec, 325 MG PO DAILY, (Reported) Cilostazol (Cilostazol) 100 Mg Tab, 100 MG PO BID, (Reported) Famotidine (Famotidine) 20 Mg Tablet, 20 MG PO BID, (Reported) Metoprolol Succinate (Metoprolol Succinate) 50 Mg Tab, 50 MG PO DAILY, (Reporte d) Pantoprazole Sodium (Pantoprazole Sodium) 40 Mg Tablet.dr, 40 MG PO DAILY Rosuvastatin Calcium (Rosuvastatin Calcium) 20 Mg Tab, 20 MG PO DAILY, (Reported) Tiotropium [place] (Spiriva) 18 Mcg Cap.w.dev, 18 MCG INH DAILY Vit C/E/Zn/Coppr/Lutein/Zeaxan (Preservision Areds 2 Softgel) 1 Each Capsule, 1 EACH PO BID, (Reported) Scheduled PRN Albuterol Sulfate (Ventolin Hfa) 18 Gm Hfa.aer.ad, 2 PUFF INH Q4-6HP PRN for wheezing Codeine Phosphate/Guaifenesin (Guaiatussin AC Liquid) 118 Ml Liquid, 5 ML PO Q6H PRN for COUGH, (Reported) Ondansetron (Ondansetron Odt) 8 Mg Tab.rapdis, 8 MG PO TID PRN for NAUSEA OR VOMITING, (Reported) Allergies Coded Allergies: Penicillins (Verified Allergy, Intermediate, itch, 08/03/20) VIVIAN LAGOS DO Dec 24, 2020 16:55
== END 2020-12-24 14:56 | disposition home health service (06) | DRG 812 ==
LOC: M ED 13:07 → M ED INP 20:00 → M PCU 21:55
PROVIDERS: ADMIT Internal Medicine; ATTEND Internal Medicine
PROC: 30233N1 Transfusion of Nonautologous Red Blood Cells into Peripheral Vein, Percutaneous Approach (ICD-10-PCS; principal; 2020-12-23)
DX: D64.81 Anemia due to antineoplastic chemotherapy (principal); J44.1 Chronic obstructive pulmonary disease with (acute) exacerbation; C34.91 Malignant neoplasm of unspecified part of right bronchus or lung; E87.2 Acidosis; D63.0 Anemia in neoplastic disease; I10 Essential (primary) hypertension; I25.10 Atherosclerotic heart disease of native coronary artery without angina pectoris; K21.9 Gastro-esophageal reflux disease without esophagitis; I25.2 Old myocardial infarction; H35.30 Unspecified macular degeneration; Z90.49 Acquired absence of other specified parts of digestive tract; Z98.49 Cataract extraction status, unspecified eye; Z95.5 Presence of coronary angioplasty implant and graft; Z20.822 Contact with and (suspected) exposure to COVID-19; E86.0 Dehydration; Z79.82 Long term (current) use of aspirin; Z79.899 Other long term (current) drug therapy; Z88.0 Allergy status to penicillin; Z95.828 Presence of other vascular implants and grafts

== ENCOUNTER 2020-12-26 08:32 | Inpatient (IN) | payer MEDICARE ==
[2020-12-26] VITALS (10 sets, daily range): BP systolic 118–161; BP diastolic 61–84; O2SAT 88–93
[~2020-12-26] VITALS: Ht 170.2 cm; Wt 51.9 kg
[~2020-12-26 08:32] MED LIST changes: +FAMO1TAB11 PO; +GUAISYP9 PO; +PANT40TA29 PO; +SPIR1CAP INH; +VENTAER INH
[2020-12-26] MEDS ORDERED: PANTOPRAZOLE 40MG TAB (PROTONIX) PO SCH (09:00)
[2020-12-26 09:27] LABS: ABG BASE EXCESS 1.4 (-2.0-2.0); ABG HCO3 23.9 MEQ/L (22.0-26.0); ABG O2 SATURATION 90.9 % (95.0-99.0); ABG PARTIAL PRESSURE CO2 30.7 mmHg (35.0-45.0); ABG STANDARD HCO3 25.6 MEQ/L (22.0-26.0); ABG TOTAL CO2 24.8 MEQ/L (23.0-31.0); ABG pH (ARTERIAL) 7.509 UNITS (7.350-7.450)
[2020-12-26] MEDS ORDERED: ISOVUE-370 76% 100ML VIAL As Ordered ONE (09:33)
--- NOTE | 2020-12-26 09:38 | REP ---
INDICATION: DYSPNEA/COUGH. COMPARISON: Portable chest dated 12/23/2020. TECHNIQUE: Portable AP chest with the patient sitting. FINDINGS: There is a focal infiltrate in the right upper lobe as an interval change. There is a focal infiltrate inferiorly in the right lung as an interval change. There is a focal infiltrate medially in the left upper lobe as an interval change. The patient's right upper lobe lung nodule is obscured by the infiltrate. The right IJ Qqkobt-R-Okbi catheter is unchanged with the tip in the superior vena cava. No pleural effusions are identified. IMPRESSION: Bilateral infiltrates as described as an interval change. <Electronically signed by Enoch Bartholomew > 12/26/20 0934
[2020-12-26 09:46] LABS: HEMATOCRIT 32.4 % (42.0-52.0); HEMOGLOBIN 10.5 g/dl (13.5-17.5); MEAN CORPUSCULAR HEMOGLOBIN 28.6 pg (27.0-33.0); MEAN CORPUSCULAR HGB CONC 32.4 g/dl (32.0-36.5); MEAN CORPUSCULAR VOLUME 88.3 fl (80.0-96.0); PLATELET COUNT, AUTOMATED 237 10^3/uL (150-450); RED BLOOD COUNT 3.67 10^6/uL (4.30-6.10)
[2020-12-26 09:55] LABS: INR 1.28; PROTHROMBIN TIME 16.3 SECONDS (12.5-14.3)
[2020-12-26 10:19] LABS: ALBUMIN 1.8 GM/DL (3.2-5.2); ALT/SGPT 248 U/L (12-78); BILIRUBIN,DIRECT 0.6 MG/DL (0.0-0.2); BILIRUBIN,TOTAL 0.7 MG/DL (0.2-1.0); BLOOD UREA NITROGEN 21 MG/DL (7-18); CALCIUM LEVEL 8.2 MG/DL (8.8-10.2); CARBON DIOXIDE LEVEL 28 MEQ/L (21-32); CHLORIDE LEVEL 107 MEQ/L (98-107); CPK CREATINE PHOSPHOKINASE 53 U/L (39-308); CREATININE FOR GFR 0.74 MG/DL (0.70-1.30); GLOMERULAR FILTRATION RATE > 60.0 (>42); GLUCOSE, FASTING 145 MG/DL (70-100); MB/CK RELATIVE INDEX 3.77 (< OR =4); NT-PRO BNP 3765 PG/ML (<450); POTASSIUM SERUM 3.1 MEQ/L (3.5-5.1); SODIUM LEVEL 142 MEQ/L (136-145); THYROID STIMULATING HORMONE 0.798 uIU/ML (0.358-3.740); THYROXINE (T4) 9.1 UG/DL (4.5-12.0); TOTAL PROTEIN 5.4 GM/DL (6.4-8.2); TROPONIN I 0.02 NG/ML (< 0.10)
--- NOTE | 2020-12-26 10:27 | REP ---
INDICATION: hypoxia, recent hospitalization. COMPARISON: Chest CT with IV contrast dated 08/03/2020. TECHNIQUE: Chest CT with IV contrast. FINDINGS: There are no emboli in the pulmonary trunk or central pulmonary arteries. There are no emboli in the pulmonary artery lobar segment branches. There is a right suprahilar mass, right paratracheal mass and right hilar adenopathy, all cyst not significantly changed. There is a small right pleural effusion, slightly increased in size. However, there are now bilateral upper lobe infiltrates The thoracic aorta is unremarkable. Cardiac size is normal. There is no pericardial effusion. The visualized upper abdominal contents are unremarkable except for fatty atrophy of the pancreas. This is unchanged. There is no adrenal mass or nodule. And bilateral lower lobe infiltrates as changes from the comparison study. There is a tiny left pleural effusion as an interval change. IMPRESSION: There are bilateral upper lobe and bilateral lower lobe infiltrates as interval changes. There is a small right pleural effusion is slightly increased There is a small left pleural effusion as an interval change. The known right suprahilar lung mass, paratracheal mass and right hilar adenopathy are unchanged. There are no pulmonary emboli. <Electronically signed by Enoch Bartholomew > 12/26/20 1029
[2020-12-26 10:40] LABS: DOHLE BODIES 1+; LYMPHOCYTES 4 % (16-44); METAMYELOCYTES 1 % (0-0); MONOCYTES 1 % (0-5); MYELOCYTES 1 % (0-0); NEUTROPHILS 82 % (28-66); PLATELET ESTIMATE NORMAL (NORMAL); TOXIC GRANULATION 1+
[2020-12-26 10:41] LABS: ANISOCYTOSIS 1+; POLYCHROMASIA 1+
[2020-12-26 10:42] LABS: OVALOCYTES 1+; POIKILOCYTOSIS 1+
[2020-12-26] MEDS ORDERED: NS 500 ML IV ONE (11:45)
[2020-12-26] MEDS ORDERED: CEFEPIME HCL 2 GM in D5W MINI-BAG PLUS 50 ML IV ONE (11:45)
[2020-12-26] MEDS ORDERED: MEROPENEM INJ 500 MG in IV 1 EA IV SCH (12:05)
[2020-12-26] MEDS ORDERED: POTASSIUM CHLORIDE 10 MEQ SR TABLET PO ONE (12:30)
[2020-12-26] MEDS ORDERED: metOLazone 5 MG TAB PO ONE (13:00)
[2020-12-26] MEDS ORDERED: ENOXAPARIN 40MG/0.4ML SYRINGE (J1650 PER 10MG) SC ONE (13:00)
[2020-12-26] MEDS ORDERED: FUROSEMIDE 100MG/10ML VIAL (J1940) IV ONE (13:30)
[2020-12-26] MEDS ORDERED: TIOT18INH INH (13:32)
[2020-12-26] MEDS ORDERED: PANT-23 PO (13:32)
[2020-12-26] MEDS ORDERED: VENTAER INH (13:32)
[2020-12-26] MEDS ORDERED: SLF 3 ML SYR IV PRN (15:30)
[2020-12-26] MEDS: VANCOMYCIN HCL 1,000 MG, VIAL MATE ADAPTER 1 EACH in NS 250 ML IV SCH (16:05)
[2020-12-26] MEDS ORDERED: guaiFENesin/CODEINE SYRUP 5 ML UDC PO PRN (16:15)
[2020-12-26] MEDS ORDERED: ONDANSETRON 4 MG ORAL DISINTEGRATING TAB PO PRN (16:15)
[2020-12-26] MEDS: ROSUVASTATIN 10 MG TAB (CRESTOR) PO SCH (16:43)
[2020-12-26] MEDS: ASPIRIN ENTERIC 325 MG TAB PO SCH (16:43)
[2020-12-26] MEDS ORDERED: atenoloL 25 MG TAB PO ONE (17:00)
[2020-12-26] MEDS: MEROPENEM INJ 1 GM in IV 1 EA IV SCH (18:18)
[2020-12-26] MEDS: CILOSTAZOL 100 MG TAB (PLETAL) PO SCH (18:19)
[2020-12-26 18:52] LABS: BLOOD UREA NITROGEN 20 MG/DL (7-18); CALCIUM LEVEL 8.4 MG/DL (8.8-10.2); CARBON DIOXIDE LEVEL 29 MEQ/L (21-32); CHLORIDE LEVEL 104 MEQ/L (98-107); CK-MB VALUE MASS 1.4 NG/ML (<3.6); CPK CREATINE PHOSPHOKINASE 64 U/L (39-308); CREATININE FOR GFR 0.92 MG/DL (0.70-1.30); GLOMERULAR FILTRATION RATE > 60.0 (>42); GLUCOSE, FASTING 138 MG/DL (70-100); MB/CK RELATIVE INDEX 2.19 (< OR =4); POTASSIUM SERUM 3.1 MEQ/L (3.5-5.1); SODIUM LEVEL 143 MEQ/L (136-145); TROPONIN I 0.03 NG/ML (< 0.10)
--- NOTE | 2020-12-26 18:52 | HPEPDOC ---
[facility] Medical History & Physical Date of Admission Dec 26, 2020 Date of Service: Dec 26, 2020 History and Physical H&P dictated job#[id number]. 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 a/p: HCAP copd exacerbation possible fluid overload with new onset CHF,unknown EF qizpa1M adenoca of lung HTN dyslipidemia h/o CAD/coronary stents lowk,mg, ca plan: iv meropenem iv vanco-dc if mrsa neg iv solumedrol strict i/o weigh daily fluid restrict supplemented electrolytes. titrate o2 90-92% Vital Signs Vital Signs Date Time Temp Pulse Resp B/P (MAP) Pulse Ox O2 Delivery O2 Flow Rate FiO2 12/26/20 18:00 91 Nasal Cannula 6.0 12/26/20 17:27 132 119/66 12/26/20 16:00 98.6 20 Laboratory Data Labs 24H Laboratory Tests 2 12/26/20 09:07: Immature Granulocyte % (Auto) , Neutrophils (%) (Auto) , Nucleated Red Blood Cells % (auto) 0.5H, Neutrophils 82H, Band Neutrophils 11, Lymphocytes (Manual) 4L, Monocytes (Manual) 1, Metamyelocytes 1H, Myelocytes 1H, Polychromasia 1+, Poikilocytosis 1+, Basophilic Stippling 1+, Anisocytosis 1+, Ovalocytes 1+, Toxic Granulation 1+, Dohle Bodies 1+, Platelet Estimate NORMAL, Prothrombin Time 16.3H, Prothromb Time International Ratio 1.28, Anion Gap 7L, Glomerular Filtration Rate > 60.0, Lactic Acid Level 2.1*H, Calcium Level 8.2L, Total Bilirubin 0.7, Direct Bilirubin 0.6H, Aspartate Amino Transf (AST/SGOT) 189H, Alanine Aminotransferase (ALT/SGPT) 248H, Alkaline Phosphatase 192H, Total Creatine Kinase 53, Creatine Kinase MB 2.0, Creatine Kinase MB Relative Index 3.77, Troponin I 0.02, HA-Fub-V-Type Natriuretic Peptide 3765H, Total Protein 5.4L, Albumin 1.8L, Albumin/Globulin Ratio 0.5, Thyroid Stimulating Hormone (TSH) 0.798, Thyroxine (T4) 9.1 12/26/20 09:13: Blood Gas Bicarbonate Standard 25.6, Arterial Blood pH 7.509H, Arterial Blood Partial Pressure CO2 30.7L, Arterial Blood Partial Pressure O2 57.0L, Arterial Blood Total CO2 24.8, Arterial Blood HCO3 23.9, Arterial Blood Base Excess 1.4, Arterial Blood Oxygen Saturation 90.9L 12/26/20 09:24: POC Glucose (Misc Panel) 147H, POC Sodium (Misc Panel) 142, POC Potassium (Misc Panel) 2.9*L, POC Chloride (Misc Panel) 100, POC Total CO2 (Misc Panel) 29.0H, POC Blood Urea Nitrogen (Misc Panel 18, POC Ionized Calcium (Misc Panel) 4.7, POC Creatinine (Misc Panel) 0.7, POC Hematocrit (Misc Panel) 31.0L 12/26/20 14:38: Lactic Acid Followup at 4 Hours 1.7 12/26/20 18:02: Whole Blood Ionized Calcium 4.4L, Magnesium Level 1.4L CBC/BMP Laboratory Tests 12/26/20 09:07 Microbiology Microbiology 12/26/20 Respiratory Virus Panel (PCR) (CHARLETTE) - Final, Complete 12/26/20 Blood Culture, Received Pending 12/26/20 Gram Stain - Final, Resulted 12/26/20 Sputum Culture, Resulted Pending 12/26/20 Blood Culture, Received Pending Home Medications Scheduled Amlodipine Besylate (Amlodipine Besylate) 5 Mg Tab, 5 MG PO DAILY Aspirin (Aspirin EC) 325 Mg Tabec, 325 MG PO DAILY Cilostazol (Cilostazol) 100 Mg Tab, 100 MG PO BID Famotidine (Famotidine) 20 Mg Tablet, 20 MG PO BID Metoprolol Succinate (Metoprolol Succinate) 50 Mg Tab, 50 MG PO DAILY Pantoprazole Sodium (Pantoprazole Sodium) 40 Mg Tablet.dr, 40 MG PO DAILY Rosuvastatin Calcium (Rosuvastatin Calcium) 20 Mg Tab, 20 MG PO DAILY Tiotropium [place] Monohydrate (Spiriva) 18 Mcg Cap.w.dev, 1 PUFF INH DAILY Vit C/E/Zn/Coppr/Lutein/Zeaxan (Preservision Areds 2 Softgel) 1 Each Capsule, 1 EACH PO BID Scheduled PRN Albuterol Sulfate (Ventolin Hfa) 18 Gm Hfa.aer.ad, 2 PUFF INH QID PRN for SOB/WHEEZING Codeine Phosphate/Guaifenesin (Guaiatussin AC Liquid) 118 Ml Liquid, 5 ML PO Q6H PRN for COUGH Ondansetron (Ondansetron Odt) 8 Mg Tab.rapdis, 8 MG PO TID PRN for NAUSEA OR VOMITING Allergies Coded Allergies: Penicillins (Verified Allergy, Intermediate, itch, 08/03/20) A-FIB/CHADSVASC A-FIB History Current/History of A-Fib/PAF?: No Age/Risk Factor Scoring CHADSVASC: CHADSVASC Response (Comments) Value Age Risk Factor Age >/= 75 years old 2 Gender Risk Factor Male 0 Hx of CHF No 0 Hx of HTN Yes 1 Hx of Stroke/TIA/or VTE No 0 Hx of Diabetes No 0 Hx of Vascular Disease No 0 Total 3 Treatment Treatment ordered: NONE JEREMIAS TIAN MD Dec 26, 2020 18:52
[2020-12-26] MEDS: methylPREDNISolone 125MG 2ML VIAL IV SCH (19:35)
[2020-12-26] MEDS ORDERED: MAG SULF 1GM/100ML (MAG RUN) 1 GM in IV 1 EA IV ONE (20:00)
--- NOTE | 2020-12-26 20:12 | HPE ---
HISTORY AND PHYSICAL DATE OF ADMISSION: 12/26/2020 CHIEF COMPLAINT: Cough, shortness of breath. HISTORY OF PRESENT ILLNESS: This is a 75-year-old male with a history of stage IIA adenocarcinoma of the lung, undergoing chemotherapy, status post radiation, COPD, hypertension, CAD and mild dyslipidemia, stent, thoracic aortic aneurysm, reflux, macular degeneration, presents to the emergency room after being recently admitted for symptomatic anemia, now with cough which is dry, difficult to expectorate with chills and shortness of breath at rest. The patient denies any headaches, nausea, vomiting, diarrhea. He admits to decrease in appetite and some weight loss but he did not quantify how much weight loss. He denies any dysuria, urgency, frequency, denies any changes in vision. In the ER, CT chest shows no pulmonary embolism but bilateral infiltrates. He is saturating 92% on chronic six liters of oxygen, was found to be tachycardic with sinus tachycardia, rate of 132, slight white count of 13,000 and was given intravenous cefepime in the ER and continued on meropenem and vancomycin with MRSA screen pending on hospital admission. The patient is being admitted for HCAP. PAST MEDICAL HISTORY: 1. Stage IIA lung cancer, undergoing chemoradiation, follows at the [facility]. Next chemo will be in two weeks. 2. COPD. 3. Hypertension. 4. Chronic hypoxic respiratory failure on six liters of oxygen. 5. Hypertension. 6. Thoracic aneurysm. 7. CAD, [place], stent. 8. Dyslipidemia. 9. Reflux. 10. Macular degeneration. PAST SURGICAL HISTORY: 1. Coronary stents. 2. Appendectomy. 3. Cataract surgery. 4. Gvfjvo-s-Dwkt. HOME MEDICATIONS: 1. Albuterol two puffs q.i.d. as needed. 2. Norvasc 5 mg daily. 3. Spiriva one puff inhaled daily. 4. PreserVision AREDS one p.o. b.i.d. 5. Aspirin 81 daily. 6. colace 100 b.i.d. 7. Guaifenesin AC liquid 5 mL q.6 as needed. 8. Famotidine 20 b.i.d. 9. Metoprolol 50 daily. 10. Zofran 8 mg b.i.d. as needed. 11. Protonix 40 daily. 12. Rosuvastatin 20 mg daily. ALLERGIES: PENICILLIN CAUSING RASH. SOCIAL HISTORY: Former smoker, two packs a day for over 60 years, 120 pack year history of smoking, no alcohol, recreational drug use. FAMILY HISTORY: Mother of CAD. Father in World War II due to ruptured aorta. REVIEW OF SYSTEMS: As per HPI, 12-point system otherwise negative. PHYSICAL EXAMINATION: VITAL SIGNS: Temperature 98.6, pulse 132, sinus rhythm, respiratory rate 20, blood pressure 119/66, 90% on six liters nasal cannula. GENERAL: The patient is in distress, mild, positive use of respiratory accessory muscles but able to speak in full sentences with eight word conversational dyspnea, NECK: No JVD, no thyromegaly, no stridor or carotid bruits. HEART: S1, S2, tachycardic, irregular. LUNGS: Diminished bilateral crackles, faint expiratory wheezing. ABDOMEN: Soft, nontender, nondistended. Positive bowel sounds. EXTREMITIES: No cyanosis, clubbing or pitting edema. LABORATORY DATA: White count 13, hemoglobin 10, hematocrit 32, platelet count 237. Sodium 142, potassium 3.1, chloride 107, bicarb 28, BUN 21, creatinine 0.74, glucose 145. Lactic acid 2.1, calcium 8.2, T bili 0.7, direct bili 0.6. AST 189, ALT 248, alk phos 192, total CK 53, MB fraction 2. Troponin 0.02, BNP 3765, total protein 5.4, albumin 1.8. Repeat lactic acid 1.7, ionized calcium 4.4, magnesium of 1.4. IMAGING STUDIES: CT, chest: No pulmonary embolism, bilateral infiltrates. ASSESSMENT AND PLAN: This is a 75-year-old male with history of CAD, coronary stents, COPD, hypertension, 120 pack history of smoking, stage II lung CA, adenocarcinoma, undergoing chemotherapy and radiation, hypertension, thoracic aneurysm, reflux, macular degeneration, presents to the emergency room with complaints of cough which is dry, shortness of breath since last , admitted for possible healthcare-associated pneumonia due to recent hospital admission. IMPRESSION: 1. Healthcare-associated pneumonia. The patient has been given intravenous meropenem due to penicillin allergy and vancomycin. If MRSA screen is negative, vancomycin can be discontinued. Respiratory panel is negative. 2. Electrolyte abnormalities with hypokalemia, hypomagnesemia, hypocalcemia. The patient has been given supplemental potassium, magnesium and ionized calcium intravenously. 3. COPD with wheezing on examination. The patient had been given Solu-Medrol 60 IV q.6 hourly and antibiotics as well. 4. Elevated BNP, possible fluid overload with congested liver with abnormal liver function tests. The patient does not have any known history of liver metastasis but currently has congested liver with elevated beta natriuretic peptide of 3765. Troponins are negative. EKG had no acute ST-T wave changes. The patient has been given one dose of Zaroxolyn and Lasix, strict Is and Os daily with two liter of fluid restriction due to lactic acidosis an active infection. We will clinically reassess him to determine the need for further Lasix. Strict Is and Os will be kept as well as monitoring of patient's electrolytes which we will supplement if needed. The patient is kept on telemetry and cardiac markers will be cycled q.6 hours. 5. Sinus tachycardia most likely due to MAT due to worsening respiratory distress from his lung cancer, COPD. CT, chest is negative for PE. 6. Lactic acidosis. The patient has been given IV antibiotics. Repeat lactic acid is within normal limits. 7. Hypertension. Monitor patient's blood pressure q.6 hourly and hold further diuretics until he is reassessed in the morning. 8. History of CAD, dyslipidemia, coronary stents. The patient is resumed on his home medications, metoprolol, rosuvastatin. 9. Gastroesophageal reflux disease on PPI. 10. DVT prophylaxis with SCD. DISPOSITION: The patient will need an inpatient stay due to significant owoap-fo-[id number] hypoxic respiratory failure and healthcare-associated pneumonia. We will await blood cultures and sputum culture results prior to hospital discharge. [place]
[2020-12-26] MEDS ORDERED: CALCIUM GLUCONATE 1,000 MG in D5W MINI-BAG PLUS 100 ML IV ONE (21:00)
[2020-12-26] MEDS: FAMOTIDINE 20 MG TAB PO SCH (21:45)
[2020-12-26] MEDS: SLF 3 ML SYR IV SCH (23:03)
[2020-12-27] VITALS (13 sets, daily range): BP systolic 88–150; BP diastolic 51–70; O2SAT 90–92
[2020-12-27 00:41] LABS: MB/CK RELATIVE INDEX 2.27 (< OR =4); TROPONIN I 0.03 NG/ML (< 0.10)
--- NOTE | 2020-12-27 00:58 | ECGEPIP ---
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
[2020-12-27] MEDS: MEROPENEM INJ 1 GM in IV 1 EA IV SCH ×3 (02:53→18:26)
[2020-12-27] MEDS: methylPREDNISolone 125MG 2ML VIAL IV SCH (02:54)
[2020-12-27] MEDS: VANCOMYCIN HCL 1,000 MG, VIAL MATE ADAPTER 1 EACH in NS 250 ML IV SCH (05:08)
[2020-12-27] MEDS: SLF 3 ML SYR IV SCH ×3 (05:09→20:56)
[2020-12-27 05:35] LABS: HEMATOCRIT 33.3 % (42.0-52.0); HEMOGLOBIN 10.7 g/dl (13.5-17.5); MEAN CORPUSCULAR HGB CONC 32.1 g/dl (32.0-36.5); MEAN CORPUSCULAR VOLUME 87.2 fl (80.0-96.0); PLATELET COUNT, AUTOMATED 227 10^3/uL (150-450); RED BLOOD COUNT 3.82 10^6/uL (4.30-6.10); WHITE BLOOD COUNT 16.1 10^3/uL (4.0-10.0)
[2020-12-27 06:15] LABS: BLOOD UREA NITROGEN 23 MG/DL (7-18); CALCIUM LEVEL 8.3 MG/DL (8.8-10.2); CARBON DIOXIDE LEVEL 30 MEQ/L (21-32); CHLORIDE LEVEL 103 MEQ/L (98-107); CK-MB VALUE MASS < 1.0 NG/ML (<3.6); CPK CREATINE PHOSPHOKINASE 46 U/L (39-308); CREATININE FOR GFR 0.87 MG/DL (0.70-1.30); GLOMERULAR FILTRATION RATE > 60.0 (>42); GLUCOSE, FASTING 163 MG/DL (70-100); MAGNESIUM LEVEL 1.8 MG/DL (1.8-2.4); MB/CK RELATIVE INDEX 2.17 (< OR =4); POTASSIUM SERUM 2.7 MEQ/L (3.5-5.1); SODIUM LEVEL 143 MEQ/L (136-145); TROPONIN I < 0.02 NG/ML (< 0.10)
[2020-12-27] MEDS ORDERED: KCL 10MEQ/100ML SWI (KRUN) 10 MEQ in IV 1 EA IV ONE (06:20)
[2020-12-27] MEDS ORDERED: POTASSIUM CHLORIDE 10 MEQ SR TABLET PO ONE (06:20)
[2020-12-27 06:52] LABS: LYMPHOCYTES 4 % (16-44); MYELOCYTES 1 % (0-0); NEUTROPHILS 85 % (28-66)
[2020-12-27 06:53] LABS: PLATELET ESTIMATE NORMAL (NORMAL)
[2020-12-27 06:54] LABS: ANISOCYTOSIS 1+; MICROCYTOSIS 1+; OVALOCYTES 1+; POIKILOCYTOSIS 1+
--- NOTE | 2020-12-27 08:10 | REP ---
INDICATION: sob. COMPARISON: 12/26/2020. TECHNIQUE: Portable AP chest with the patient sitting. FINDINGS: The right upper lung infiltrate is unchanged. The infiltrate inferiorly in the right lung is slightly less dense than on the comparison study. The infiltrate superiorly in the left lung has increased in size and density. No new infiltrates are identified. No pleural effusions are identified. The right IJ central venous catheter is unchanged. IMPRESSION: Bilateral infiltrates with changes as described. <Electronically signed by Enoch Bartholomew > 12/27/20 [id number]
--- NOTE | 2020-12-27 08:12 | ECGEPIP ---
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
[2020-12-27] MEDS ORDERED: LEVALBUTEROL 1.25 MG/0.5 ML CONCENTRATE NEB INH PRN (08:25)
--- NOTE | 2020-12-27 08:25 | IPNPDOC ---
Date Seen The patient was seen on 12/27/20. Progress Note Hospitalist progress note dictated job #[id number]. 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 VS, I&O, 24H, Fishbone Vital Signs/I&O Vital Signs Date Time Temp Pulse Resp B/P (MAP) Pulse Ox O2 Delivery O2 Flow Rate FiO2 12/27/20 07:19 96.9 102 19 113/53 (73) 90 Nasal Cannula 6.0 I&O- Last 24 Hours up to 6 AM 12/27/20 06:00 Intake Total 0 ml Output Total 2600 ml Balance -2600 ml Laboratory Data 24H LABS Laboratory Tests 2 12/26/20 09:07: Immature Granulocyte % (Auto) , Neutrophils (%) (Auto) , Nucleated Red Blood Cells % (auto) 0.5H, Neutrophils 82H, Band Neutrophils 11, Lymphocytes (Manual) 4L, Monocytes (Manual) 1, Metamyelocytes 1H, Myelocytes 1H, Polychromasia 1+, Poikilocytosis 1+, Basophilic Stippling 1+, Anisocytosis 1+, Ovalocytes 1+, Toxic Granulation 1+, Dohle Bodies 1+, Platelet Estimate NORMAL, Prothrombin Time 16.3H, Prothromb Time International Ratio 1.28, Anion Gap 7L, Glomerular Filtration Rate > 60.0, Lactic Acid Level 2.1*H, Calcium Level 8.2L, Total Bilirubin 0.7, Direct Bilirubin 0.6H, Aspartate Amino Transf (AST/SGOT) 189H, Alanine Aminotransferase (ALT/SGPT) 248H, Alkaline Phosphatase 192H, Total Creatine Kinase 53, Creatine Kinase MB 2.0, Creatine Kinase MB Relative Index 3.77, Troponin I 0.02, MM-Vhv-R-Type Natriuretic Peptide 3765H, Total Protein 5.4L, Albumin 1.8L, Albumin/Globulin Ratio 0.5, Thyroid Stimulating Hormone (TSH) 0.798, Thyroxine (T4) 9.1 12/26/20 09:13: Blood Gas Bicarbonate Standard 25.6, Arterial Blood pH 7.509H, Arterial Blood Partial Pressure CO2 30.7L, Arterial Blood Partial Pressure O2 57.0L, Arterial Blood Total CO2 24.8, Arterial Blood HCO3 23.9, Arterial Blood Base Excess 1.4, Arterial Blood Oxygen Saturation 90.9L 12/26/20 09:24: POC Glucose (Misc Panel) 147H, POC Sodium (Misc Panel) 142, POC Potassium (Misc Panel) 2.9*L, POC Chloride (Misc Panel) 100, POC Total CO2 (Misc Panel) 29.0H, POC Blood Urea Nitrogen (Misc Panel 18, POC Ionized Calcium (Misc Panel) 4.7, POC Creatinine (Misc Panel) 0.7, POC Hematocrit (Misc Panel) 31.0L 12/26/20 14:38: Lactic Acid Followup at 4 Hours 1.7 12/26/20 18:02: Anion Gap 10, Glomerular Filtration Rate > 60.0, Lactic Acid Level 2.2*H, Calcium Level 8.4L, Whole Blood Ionized Calcium 4.4L, Magnesium Level 1.4L, Total Creatine Kinase 64, Creatine Kinase MB 1.4, Creatine Kinase MB Relative Index 2.19, Troponin I 0.03# 12/26/20 22:22: Lactic Acid Followup at 4 Hours 1.8 12/26/20 23:56: Total Creatine Kinase 44, Creatine Kinase MB 1.0, Creatine Kinase MB Relative Index 2.27, Troponin I 0.03 12/27/20 04:53: Anion Gap 10, Glomerular Filtration Rate > 60.0, Calcium Level 8.3L, Magnesium Level 1.8, Total Creatine Kinase 46, Creatine Kinase MB < 1.0, Creatine Kinase MB Relative Index 2.17, Troponin I < 0.02#, Immature Granulocyte % (Auto) , Neutrophils (%) (Auto) , Nucleated Red Blood Cells % (auto) 0.1H, Neutrophils 85H, Band Neutrophils 10, Lymphocytes (Manual) 4L, Myelocytes 1H, Poikilocytosis 1+, Anisocytosis 1+, Microcytosis 1+, Ovalocytes 1+, Platelet Estimate NORMAL CBC/BMP Laboratory Tests 12/26/20 09:07 12/26/20 18:02 12/27/20 04:53 Microbiology Microbiology 12/26/20 Respiratory Virus Panel (PCR) ([facility]) - Final, Complete 12/26/20 Blood Culture, Received Pending 12/26/20 Gram Stain - Final, Resulted 12/26/20 Sputum Culture, Resulted Pending 12/26/20 Blood Culture, Received Pending JEREMIAS TIAN MD Dec 27, 2020 08:25
[2020-12-27] MEDS ORDERED: metOLazone 5 MG TAB PO ONE (08:30)
[2020-12-27] MEDS: ROSUVASTATIN 10 MG TAB (CRESTOR) PO SCH (08:40)
[2020-12-27] MEDS: FAMOTIDINE 20 MG TAB PO SCH ×2 (08:40→20:57)
[2020-12-27] MEDS: METOPROLOL SUCC (TopROL XL) 50MG **XL** TAB PO SCH ×2 (08:41→20:57)
[2020-12-27] MEDS: ASPIRIN ENTERIC 325 MG TAB PO SCH (08:41)
[2020-12-27] MEDS: ENOXAPARIN 40MG/0.4ML SYRINGE (J1650 PER 10MG) SC SCH (08:42)
[2020-12-27] MEDS ORDERED: METOPROLOL SUCC (TopROL XL) 50MG **XL** TAB PO SCH (09:00)
[2020-12-27] MEDS ORDERED: MAG SULF 1GM/100ML (MAG RUN) 1 GM in IV 1 EA IV ONE (09:00)
[2020-12-27] MEDS ORDERED: FUROSEMIDE 100MG/10ML VIAL (J1940) IV ONE (09:00)
[2020-12-27] MEDS: LEVALBUTEROL 1.25 MG/0.5 ML CONCENTRATE NEB INH SCH ×3 (11:08→20:56)
[2020-12-27] MEDS: methylPREDNISolone 40MG 1ML VIAL IV SCH ×2 (12:09→18:26)
[2020-12-27] MEDS: CILOSTAZOL 100 MG TAB (PLETAL) PO SCH ×2 (12:10→16:47)
--- NOTE | 2020-12-27 14:08 | IPN ---
PROGRESS NOTE DATE: 12/27/2020 SUBJECTIVE: The patient says that he feels better today. His lungs are clear. He is diuresed 2.15 liters yesterday with current weight of 62.2 kilograms, no chest pain, pressure, tightness. He has a cough productive of thick white sputum, no chills. Telemetry was sinus tachycardia, improved on one dose of atenolol. He is continued on metoprolol 50 mg b.i.d. The patient's blood pressure is well maintained at 113 systolic. He otherwise denies any lightheadedness or dizziness but has not ambulated out of bed this morning. OBJECTIVE: PHYSICAL EXAM: Vitals: Temperature 96.9, pulse 102, sinus, respiratory rate 19, blood pressure 113/53, 90% on six liters nasal cannula. General: The patient is awake, alert and oriented to person, place and time, answering questions appropriately. He has no conversational dyspnea, no pursed lips, no tripod positioning. Neck: No JVD, thyromegaly or cervical lymphadenopathy. HEENT: Dry mucous membranes. Lungs: Diminished. Fine crackles at the bases but no wheezing or rales. Heart: S1, S2, sinus tachycardia. Abdomen: Soft, nontender and nondistended. Extremities: He has no pitting edema. LABORATORY DATA: White count 16.1, hemoglobin 10, hematocrit 33, platelet count of 27, 85% neutrophils. Sodium 143, potassium 2.7, chloride 103, bicarb 30, BUN 23, creatinine 0.87, glucose of 163, calcium of 8.3, magnesium 1.8. Troponin less than 0.02. Respiratory panel, 12/26: Negative for coronavirus. Blood culture is pending. Sputum culture pending. Many gram positive cocci in pairs and clusters. Moderate WBCs, many gram negative cocci. IMAGING STUDIES: 12/27/2020 chest x-ray: Bilateral infiltrates with changes, no pleural effusions, no infiltrates. Infiltrate superiorly in the left lung has increased in size and density. The infiltrate inferiorly in the right lung is slightly less than seen on the comparison. Right upper lung infiltrate is unchanged. Beta natriuretic peptide was 3765. Echocardiogram is pending. ASSESSMENT AND PLAN: This is a 75-year-old male with stage IIA adenocarcinoma of the lung, undergoing chemotherapy and radiation, COPD, hypertension, CAD, dyslipidemia, stent, thoracic aortic aneurysm, macular degeneration, admitted on 12/26/2020 due to worsening shortness of breath, was found to have bilateral infiltrates on CT of chest, admitted for healthcare-associated pneumonia with possible fluid overload and BNP level of 2765. IMPRESSION: 1. Efwxr-gy-mfbhkgr hypoxic respiratory failure secondary to healthcare-associated pneumonia, possible COPD exacerbation and new onset of congestive heart failure with fluid overload. The patient is currently receiving intravenous antibiotics, vancomycin and meropenem due to penicillin allergy. Vancomycin can be discontinued if MRSA is negative. We are awaiting sputum culture. Blood cultures are still negative. 2. COPD exacerbation. The patient had wheezing on examination yesterday with sputum production and shortness of breath. The patient's Solu-Medrol will be decreased today from 60 mg IV q.6 hourly to 40 mg IV q.8 hourly. The patient is continued on supplemental oxygen, antibiotics. No albuterol will be given due to significant sinus tachycardia. The patient may receive Xopenex q.i.d. while awake and q.1 hourly as needed for wheezing. 3. Stage IIA lung CA, outpatient chemoradiation. The patient is due for radiation in two weeks time. The patient will need to complete seven days of antibiotics for HCAP. 4. Hypokalemia secondary to Lasix. The patient will be given potassium, magnesium supplementation. 5. History of CAD, coronary stents. Troponins are negative. 6. Dyslipidemia. Continued on home medications. 7. History of thoracic aortic aneurysm, currently with controlled blood pressure. 8. DVT prophylaxis with compression stockings and Lovenox 40 mg subcu daily. MTDD
[2020-12-27] MEDS: POTASSIUM CHLORIDE 10 MEQ SR TABLET PO SCH ×2 (16:47→20:57)
[2020-12-28] MEDS: methylPREDNISolone 40MG 1ML VIAL IV SCH (02:01)
[2020-12-28] MEDS: MEROPENEM INJ 1 GM in IV 1 EA IV SCH ×3 (02:01→17:38)
[2020-12-28] MEDS: SLF 3 ML SYR IV SCH ×3 (02:02→20:42)
[2020-12-28 06:00] VITALS: BP 126/66
[2020-12-28 06:25] LABS: HEMATOCRIT 31.3 % (42.0-52.0); HEMOGLOBIN 10.3 g/dl (13.5-17.5); MEAN CORPUSCULAR HEMOGLOBIN 28.7 pg (27.0-33.0); MEAN CORPUSCULAR HGB CONC 32.9 g/dl (32.0-36.5); MEAN CORPUSCULAR VOLUME 87.2 fl (80.0-96.0); PLATELET COUNT, AUTOMATED 215 10^3/uL (150-450); RED BLOOD COUNT 3.59 10^6/uL (4.30-6.10); WHITE BLOOD COUNT 28.9 10^3/uL (4.0-10.0)
[2020-12-28 06:46] LABS: ANISOCYTOSIS 1+; NEUTROPHILS 100 % (28-66); PLATELET ESTIMATE NORMAL (NORMAL)
[2020-12-28 06:47] LABS: OVALOCYTES 1+
[2020-12-28 06:51] LABS: CALCIUM LEVEL 8.4 MG/DL (8.8-10.2); CREATININE FOR GFR 1.76 MG/DL (0.70-1.30); GLOMERULAR FILTRATION RATE 40.2 (>42); POTASSIUM SERUM 2.8 MEQ/L (3.5-5.1)
[2020-12-28] MEDS: LEVALBUTEROL 1.25 MG/0.5 ML CONCENTRATE NEB INH SCH ×4 (07:01→20:13)
[2020-12-28] MEDS ORDERED: NS 1,000 ML IV SCH (07:15)
[2020-12-28] MEDS: CILOSTAZOL 100 MG TAB (PLETAL) PO SCH ×2 (07:47→17:38)
[2020-12-28] MEDS ORDERED: POTASSIUM CHLORIDE 10 MEQ SR TABLET PO ONE ×2 (08:00→09:00)
[2020-12-28] MEDS: METOPROLOL SUCC (TopROL XL) 50MG **XL** TAB PO SCH (09:00)
--- NOTE | 2020-12-28 09:15 | IPNPDOC ---
Date Seen The patient was seen on 12/28/20. Progress Note Hospitalist progress has been dictated . If note is needed urgently. Please have breaker unit assembler call hyper-type at [phone] stat resolution rep VS, I&O, 24H, Fishbone Vital Signs/I&O Vital Signs Date Time Temp Pulse Resp B/P (MAP) Pulse Ox O2 Delivery O2 Flow Rate FiO2 12/28/20 06:00 97.4 98 18 126/66 (86) 88 Nasal Cannula 5.0 I&O- Last 24 Hours up to 6 AM 12/28/20 06:00 Intake Total 1010 ml Output Total 500 ml Balance 510 ml Laboratory Data 24H LABS Laboratory Tests 2 12/27/20 12:20: Methicillin-Resist S.aureus DNA PCR NOT DETECTED 12/28/20 05:53: Immature Granulocyte % (Auto) , Neutrophils (%) (Auto) , Nucleated Red Blood Cells % (auto) 0.1H, Neutrophils 100H, Anisocytosis 1+, Ovalocytes 1+, Platelet Estimate NORMAL, Anion Gap 9, Glomerular Filtration Rate 40.2L, Calcium Level 8.4L, Magnesium Level 2.0 CBC/BMP Laboratory Tests 12/28/20 05:53 Microbiology Microbiology 12/26/20 Respiratory Virus Panel (PCR) ([facility]) - Final, Complete 12/26/20 Blood Culture - Preliminary, Resulted No growth after 24 hours . All specim... 12/26/20 Gram Stain - Final, Resulted 12/26/20 Sputum Culture, Resulted Pending 12/26/20 Blood Culture - Preliminary, Resulted No growth after 24 hours . All specim... JEREMIAS TIAN MD Dec 28, 2020 09:15
[2020-12-28] MEDS: predniSONE 20 MG TAB PO SCH (09:34)
[2020-12-28] MEDS: FAMOTIDINE 20 MG TAB PO SCH ×2 (09:34→20:42)
[2020-12-28] MEDS: ROSUVASTATIN 10 MG TAB (CRESTOR) PO SCH (09:34)
[2020-12-28] MEDS: ASPIRIN ENTERIC 325 MG TAB PO SCH (09:34)
[2020-12-28] MEDS: ENOXAPARIN 40MG/0.4ML SYRINGE (J1650 PER 10MG) SC SCH (09:35)
[2020-12-28 09:37] VITALS: BP 99/54
--- NOTE | 2020-12-28 09:56 | IPN ---
PROGRESS NOTE DATE: 12/28/2020 SUBJECTIVE: Patient is seen and examined at the bedside. Chart has been reviewed. The patient complains of a productive cough of yellow thick sputum which is decreased from yesterday. Shortness of breath is improved. He complains of fatigue and generalized weakness without fever or chills, chest pain, pressure, tightness, lightheadedness or dizziness, nausea, vomiting, or diarrhea. He is tolerating a diet well but with decreased appetite and does not like hospital food. He has requested his to bring in food from home. OBJECTIVE: VITAL SIGNS: Temperature is 97.4, pulse 98, respiratory rate 18, blood pressure 126/66, 88% on 5 liters nasal cannula. GENERAL: The patient is awake, alert and oriented x3. Positive use of respiratory accessory muscles. Mild conversational dyspnea. Able to speak about seven words and become dyspneic and has to take 2 seconds to 3 seconds to recover. HEENT: Patient has no pursed lips. No tripod positioning. He is not cyanotic. There is no pallor. There is no icterus or jaundice. NECK: No JVD. LUNGS: Diminished, bilateral crackles, air entry is equal. HEART: S1 and S2, sinus rhythm but tachycardic. No murmurs, rubs or gallops. ABDOMEN: Soft, nontender, nondistended. Positive bowel sounds. EXTREMITIES: No cyanosis, clubbing or pitting edema. Output yesterday was 650. Patient is incontinent of urine. Current weight is 58.4 kg. LABORATORY DATA: White count is 28.9, hemoglobin is 10, hematocrit 31, platelet count 215,000. Sodium is 140, potassium is 2.8, chloride 101, bicarbonate is 30, BUN is 38, creatinine is 1.76, glucose of 277. ASSESSMENT AND PLAN: This is a 75-year-old male with Stage IIA adenocarcinoma of the lung undergoing chemotherapy and radiation, COPD, hypertension, CAD, dyslipidemia, stent, thoracic aortic aneurysm, macular degeneration, chronic hypoxic respiratory failure, admitted on 12/26/2020 due to worsening shortness of breath, found to have bilateral infiltrates and CT of chest and BNP of 2765. Patient was given two doses of diuretics, Lasix and Zaroxolyn with interval development of acute kidney injury. IMPRESSION: 1. Acute on chronic hypoxic respiratory secondary to health care associated pneumonia, possible COPD exacerbation. Patient was given IV Vancomycin and Meropenem due to penicillin allergy, MRSA screen was negative and Vancomycin was discontinued. We are awaiting a sputum culture result. Blood culture results are still negative. 2. Acute COPD exacerbation, improved on IV Solu-Medrol but developed significant leukocytosis and hyperglycemia, currently with no wheezing on exam and IV Solu-Medrol has been discontinued and currently now on p.o. Prednisone 40 mg, supplemental oxygen to keep saturation 88 to 92%. 3. Stage IIA lung CA, outpatient chemoradiation. Patient is due for chemo again in two weeks time, being treated for HCAP. 4. Hypokalemia secondary to Lasix diuresis, given potassium and magnesium supplementation. Continue on telemetry monitoring. 5. Elevated BNP with questionable fluid overload. Patient received two doses of Zaroxolyn and Lasix, now developed acute kidney injury with a creatinine of 1.7. No further diuresis, awaiting echocardiogram. 6. Acute kidney injury secondary to Lasix. Patient will be given IV fluids over the next 24 hours, repeat basic metabolic panel this evening. 7. History of CAD and coronary stents, troponins are negative. 8. Dyslipidemia, continued on home medications. 9. History of thoracic aortic aneurysm, control blood pressure. 10.DVT prophylaxis with compression stockings and Lovenox. MTDD
--- NOTE | 2020-12-28 10:12 | ECHO ---
DATE OF PROCEDURE: 12/27/2020 Age: 75 Gender: Male REFERRING PHYSICIAN: Marian Berger MD PATIENT LOCATION: Room 3213. REASON FOR STUDY: Congestive heart failure. 2D MEASUREMENTS: IVS 0.8 cm LV 5.1cm LVPW 0.9 cm LA 2.6 cm Aorta 3.4 cm RV 2.2 cm IVC 1.6 cm DOPPLER MEASUREMENT Peak velocity across the aortic valve 1.0 m/s Peak velocity across the LVOT 1.0 m/s Mitral E 0.5 Mitral A 0.77 with a ratio of 0.6 Maximum tricuspid valve velocity 2.9 m/s 2D COMMENTS: 1. Normal left ventricular size, wall thickness, and normal global left ventricular systolic function. The estimated left ventricular systolic ejection fraction is 60% to 65%. 2. Normal left atrium. Normal right atrium and right ventricle. 3. The atrial septum appeared to be normal without evidence of defect or shunt. 4. Normal aortic root. 5. Trace pericardial effusion noted. No evidence of cardiac tamponade. 6. Mildly calcified aortic valve with normal leaflet excursion. Normal mitral valve, tricuspid valve, and pulmonic valve. The proximal pulmonary artery branches were not well visualized. The inferior vena cava was normal in size, central venous pressure is most likely normal. DOPPLER: It detects mild aortic regurgitation, trace mitral regurgitation, mild tricuspid regurgitation. The calculated pulmonary artery systolic pressure varies between 30 to 40 mmHg. Abnormal relaxation pattern was noted across the mitral valve leaflets, as well as the mitral valve annulus consistent with features of grade 1 left ventricular diastolic dysfunction. IMPRESSION: 1. Normal global left ventricular systolic function. Not mentioned above, the basal portion of the posterior wall appeared to be hypokinetic. 2. There are features of left ventricular diastolic dysfunction manifested by abnormal relaxation, grade 1. 3. Aortic valve sclerosis with mild aortic regurgitation. 4. Trace mitral regurgitation. 5. Mild tricuspid regurgitation with mild pulmonary hypertension. 6. Trace pericardial effusion, no evidence of cardiac tamponade. [facility]
--- NOTE | 2020-12-28 12:50 | IPNPDOC ---
Date Seen The patient was seen on 12/28/20. Progress Note RN called re: HR 140-150 , sbp99/54, 84%on room air plan: -dc ivfluids -midodrine to increase blood pressure -iv digoxin and tx to [facility] tele. -12lead ekg -cxr r/o fluid overload -ct chest: no PE. VS, I&O, 24H, Fishbone Vital Signs/I&O Vital Signs Date Time Temp Pulse Resp B/P (MAP) Pulse Ox O2 Delivery O2 Flow Rate FiO2 12/28/20 09:37 101 99/54 (69) 12/28/20 06:00 97.4 18 88 Nasal Cannula 5.0 I&O- Last 24 Hours up to 6 AM 12/28/20 06:00 Intake Total 1010 ml Output Total 500 ml Balance 510 ml Laboratory Data 24H LABS Laboratory Tests 2 12/28/20 05:53: Immature Granulocyte % (Auto) , Neutrophils (%) (Auto) , Nucleated Red Blood Cells % (auto) 0.1H, Neutrophils 100H, Anisocytosis 1+, Ovalocytes 1+, Platelet Estimate NORMAL, Anion Gap 9, Glomerular Filtration Rate 40.2L, Calcium Level 8.4L, Magnesium Level 2.0 CBC/BMP Laboratory Tests 12/28/20 05:53 Microbiology Microbiology 12/26/20 Respiratory Virus Panel (PCR) ([facility]) - Final, Complete 12/26/20 Blood Culture - Preliminary, Resulted No Growth after 48 hours. All Specime... 12/26/20 Gram Stain - Final, Resulted 12/26/20 Sputum Culture, Resulted Pending 12/26/20 Blood Culture - Preliminary, Resulted No Growth after 48 hours. All Specime... JEREMIAS TIAN MD Dec 28, 2020 12:50
[2020-12-28] MEDS ORDERED: DIGOXIN INJ 0.5 MG/2 ML AMP (J1160) IV ONE (13:00)
--- NOTE | 2020-12-28 13:08 | REP ---
INDICATION: sob. COMPARISON: 12/27/2020. TECHNIQUE: SINGLE PORTABLE AP VIEW OF THE CHEST WAS PERFORMED. FINDINGS: There are diffuse bilateral infiltrates unchanged. The heart and mediastinum unchanged. There is a right central venous catheter with the tip in the superior vena cava. IMPRESSION: Stable diffuse bilateral infiltrates. <Electronically signed by Enoch Wells > 12/28/20 [id number]
[2020-12-28] MEDS: MIDODRINE 5 MG TAB PO SCH ×2 (13:15→15:53)
[2020-12-28 13:51] VITALS: BP 99/54
[2020-12-28] MEDS ORDERED: AMIODARONE HCL 150 MG in IV 1 EA IV ONE (14:00)
[2020-12-28] MEDS ORDERED: AMIODARONE HCL 360 MG in IV 1 EA IV ONE ×2 (14:20→20:21)
[2020-12-28] MEDS: OMEPRAZOLE 20 MG CAP PO SCH (15:53)
[2020-12-28 16:00] VITALS: BP 99/52
[2020-12-28 18:35] LABS: CALCIUM LEVEL 8.6 MG/DL (8.8-10.2); CREATININE FOR GFR 1.82 MG/DL (0.70-1.30); GLOMERULAR FILTRATION RATE 38.6 (>42); POTASSIUM SERUM 3.5 MEQ/L (3.5-5.1)
--- NOTE | 2020-12-28 19:20 | ECGEPIP ---
[facility] Test Date: 2020-12-28 Pat Name: GISELA VILLA Department: Room: [place] [address] Gender: Male Search Specialist: steven : 1945 Requested By: JEREMIAS Carreon Order Number: [id number] Reading MD: Joe Contreras Measurements Intervals [place] Rate: 134 P: DE: QRS: 54 QRSD: 78 T: 5 QT: 290 QTc: 433 Interpretive Statements Atrial flutter/fibrillation with rapid ventricular response with premature ventricular or aberrantly conducted complexes Nonspecific ST and T wave abnormality Compared to prior tracing of 12/26/2020, there is an apparent rhythm change Electronically Signed on 12-28-2020 19:19:46 EDT by Joe Contreras
[2020-12-28 20:00] VITALS: BP 126/59
[2020-12-28] MEDS: APIXABAN 2.5 MG TAB (ELIQUIS) PO SCH (20:42)
[2020-12-28] MEDS ORDERED: APIXABAN 5 MG TAB (ELIQUIS) PO SCH (21:00)
[2020-12-29] VITALS (10 sets, daily range): BP systolic 93–137; BP diastolic 54–62; O2SAT 88–99
[2020-12-29] MEDS: MEROPENEM INJ 1 GM in IV 1 EA IV SCH ×2 (02:51→08:33)
[2020-12-29 04:28] LABS: HEMOGLOBIN 9.2 g/dl (13.5-17.5); MEAN CORPUSCULAR HEMOGLOBIN 27.5 pg (27.0-33.0); MEAN CORPUSCULAR HGB CONC 31.7 g/dl (32.0-36.5); MEAN CORPUSCULAR VOLUME 86.8 fl (80.0-96.0); PLATELET COUNT, AUTOMATED 204 10^3/uL (150-450); RED BLOOD COUNT 3.34 10^6/uL (4.30-6.10)
[2020-12-29 04:33] LABS: WHITE BLOOD COUNT 33.5 10^3/uL (4.0-10.0)
[2020-12-29 05:02] LABS: CALCIUM LEVEL 8.5 MG/DL (8.8-10.2); CREATININE FOR GFR 1.79 MG/DL (0.70-1.30); DIGOXIN LEVEL 0.5 NG/ML (0.5-2.0); GLOMERULAR FILTRATION RATE 39.4 (>42); MAGNESIUM LEVEL 1.9 MG/DL (1.8-2.4); POTASSIUM SERUM 3.1 MEQ/L (3.5-5.1)
[2020-12-29 05:29] LABS: ATYPICAL LYMPH 1 % (0-5); LYMPHOCYTES 2 % (16-44); MONOCYTES 1 % (0-5); NEUTROPHILS 95 % (28-66)
[2020-12-29 05:30] LABS: ANISOCYTOSIS 1+; PLATELET ESTIMATE NORMAL (NORMAL); POIKILOCYTOSIS 1+; POLYCHROMASIA 1+
[2020-12-29 05:31] LABS: OVALOCYTES 1+
[2020-12-29] MEDS: SLF 3 ML SYR IV SCH ×3 (05:47→20:50)
[2020-12-29] MEDS: FAMOTIDINE 20 MG TAB PO SCH ×2 (07:38→20:50)
[2020-12-29] MEDS: ASPIRIN ENTERIC 325 MG TAB PO SCH (07:38)
[2020-12-29] MEDS: OMEPRAZOLE 20 MG CAP PO SCH (07:38)
[2020-12-29] MEDS: APIXABAN 2.5 MG TAB (ELIQUIS) PO SCH ×2 (07:39→20:50)
[2020-12-29] MEDS: predniSONE 20 MG TAB PO SCH (07:39)
[2020-12-29] MEDS: CILOSTAZOL 100 MG TAB (PLETAL) PO SCH ×2 (07:39→16:58)
[2020-12-29] MEDS: MIDODRINE 5 MG TAB PO SCH ×2 (07:39→11:55)
[2020-12-29] MEDS: ROSUVASTATIN 10 MG TAB (CRESTOR) PO SCH (07:39)
[2020-12-29] MEDS: LEVALBUTEROL 1.25 MG/0.5 ML CONCENTRATE NEB INH SCH ×4 (07:43→20:32)
[2020-12-29] MEDS: guaiFENesin ER 600 MG TAB PO SCH ×2 (08:32→20:49)
[2020-12-29] MEDS: POTASSIUM CHLORIDE 10 MEQ SR TABLET PO SCH ×2 (08:32→11:45)
[2020-12-29] MEDS ORDERED: ATOVAQUONE SUSP 750MG/5ML 210 ML BTL PO SCH (09:00)
[2020-12-29 09:05] LABS: ABG HCO3 28.2 MEQ/L (22.0-26.0); ABG O2 SATURATION 84.1 % (95.0-99.0); ABG PARTIAL PRESSURE CO2 31.8 mmHg (35.0-45.0); ABG STANDARD HCO3 29.7 MEQ/L (22.0-26.0); ABG TOTAL CO2 29.1 MEQ/L (23.0-31.0); ABG pH (ARTERIAL) 7.565 UNITS (7.350-7.450)
[2020-12-29 09:08] LABS: ABG PARTIAL PRESSURE O2 46.2 mmHg (75.0-100.0)
--- NOTE | 2020-12-29 09:24 | REP ---
INDICATION: worsening SOB. COMPARISON: Comparison chest x-ray December 28, 2020 and December 27, 2020. TECHNIQUE: Two views.. FINDINGS: There is a right-sided [id number] remaining in place and monitoring electrodes are seen. Extensive infiltrates are again noted bilaterally in the upper and lower lung odom in a distribution similar to the previous studies. There appears to be more perihilar consolidation or opacification on the left consistent with an interval increase [place] infiltrate. Extensive consolidation persists in the right upper lobe and both lower lobes which allowing for differences in technique are felt to be essentially unchanged. Pleural angles remain sharp. Heart is not enlarged. IMPRESSION: Increased parenchymal infiltrate in the left perihilar region.. <Electronically signed by Kenneth Hazel > 12/29/20 [id number]
[2020-12-29] MEDS ORDERED: VANCOMYCIN HCL 750 MG, VIAL MATE ADAPTER 1 EACH in NS 250 ML IV ONE (10:00)
[2020-12-29] MEDS ORDERED: FUROSEMIDE 100MG/10ML VIAL (J1940) IV ONE (10:00)
[2020-12-29] MEDS ORDERED: VANCOMYCIN HCL 500 MG in D5W MINI-BAG PLUS 100 ML IV ONE (11:00)
[2020-12-29] MEDS: methylPREDNISolone 40MG 1ML VIAL IV SCH ×2 (11:09→18:09)
[2020-12-29 11:31] LABS: CALCIUM LEVEL 8.6 MG/DL (8.8-10.2); CREATININE FOR GFR 1.65 MG/DL (0.70-1.30); GLOMERULAR FILTRATION RATE 43.3 (>42); POTASSIUM SERUM 3.2 MEQ/L (3.5-5.1)
[2020-12-29] MEDS: HumaLOG INSULIN (NovoLOG) PER UNIT SC SCH ×2 (12:00→16:58)
--- NOTE | 2020-12-29 14:23 | IPNPDOC ---
Date Seen The patient was seen on 12/29/20. Progress Note SUBJECTIVE: Worsened respiratory alkalosis on ABG, BNP not worsened, PE ruled out on CTA chest several days ago. CXR done today showed Increased parenchymal infiltrate in the left perihilar region. Added vancomycin to meropenem, consulted pulmonary and ID to evaluate while waiting on sputum cx. Patient started on vapotherm, appears more comfortable but still lethargic. Had level of care discussion with pulmonary (Dr. Lebron) who confirmed he wants to be DNR/DNI, updated MOLST form completed. He denies chest pain, fevers, chills, n/v/d. OBJECTIVE: PHYSICAL EXAM: VITAL SIGNS: Please see below GENERAL: lethargic but awake, O x3. SOB with conversation. HEENT: AT/NC, PERRLA, EOM intact NECK: No JVD. LUNGS: Diminished, bilateral crackles in post lung odom. No wheezing, rhonchi, rales HEART: S1 and S2, sinus tachycardia. No murmurs, rubs or gallops. ABDOMEN: Soft, nontender, nondistended. Positive bowel sounds. EXTREMITIES: No cyanosis, clubbing or pitting edema. NEURO: CN 2-12 intact, no focal deficits. LABORATORY: Please see below MICROBIOLOGY: BCx NG x 2 sets at 72 H Sputum GS: QUALITY: GOOD, MODERATE WBCS, MANY GRAM POSITIVE COCCI IN PAIRS AND CHAINS, MANY GRAM NEGATIVE COCCI Sputum Cx: pending IMAGING: CXR: Increased parenchymal infiltrate in the left perihilar region. Echocardiogram 12/26/20: EF 60-65% Normal global left ventricular systolic function. Not mentioned above, the basal portion of the posterior wall appeared to be hypokinetic. There are features of left ventricular diastolic dysfunction manifested by abnormal relaxation, grade 1. Aortic valve sclerosis with mild aortic regurgitation. Trace mitral regurgitation. Mild tricuspid regurgitation with mild pulmonary hypertension. Trace pericardial effusion, no evidence of cardiac tamponade. ASSESSMENT: 75-year-old male with Stage IIA adenocarcinoma of the lung undergoing chemotherapy and radiation, COPD, hypertension, CAD, HLD, stent, thoracic aortic aneurysm, macular degeneration, chronic hypoxic respiratory failure, admitted on 12/26/2020 for acute on chronic hypoxic respiratory failure likely multifactorial 2/2 to HCAP, COPD exacerbation, CHF exacerbation, r/o developing ARDS. PLAN: Acute on chronic hypoxic respiratory failure likely multifactorial 2/2 to HCAP, COPD exacerbation, CHF exacerbation, r/o developing ARDS. -Currently worsening respiratory alkalosis on ABG this AM, increasing O2 demand -CXR worsened above -Currently saturating well on 20% Vapotherm -Pulmonary consulted and following closely -Please see individual treatment of issues below CAP vs. HCAP, r/o developing ARDs , sepsis -WBC worsened at 33.5K, despite decreased steroids, worsened CXR above, tachycardia, afebrile -MRSA neg; however, discussed with pulmonary and suggested adding vancomycin to meropenem while awaiting sputum cx results -BCx NG -F/u sputum culture, lactic acid -C/w abx above, f/u ID input Acute COPD exacerbation -Previously on higher steroids, restarted by pulmonary -Started back on methylprednisone 40 mg IV Q8H, levalbuterol ATC and PRN -Monitor for uncontrolled BS as previously HFpEF with mild exacerbation possible -BNP 3700--> 2200 today -Worsening CXR -Echo above: preserved EF, grade 1 diastolic dysfunction -Given one time dose 60 mg IV lasix today, patterson catheter placed -Monitor I&O's closely, daily wt Acute kidney injury secondary to medications -received lasix previously early admission -Cr improving; however, with current CXR and issues above will give another 60 mg IV x 1 -Monitor daily labs, U/O closely -Avoid other nephrotoxic medications. If worsens, consider nephrology consult Atrial fibrillation with RVR possibly 2/2 to sepsis- resolved -Currently HR 101, NSR -Transferred to PCU overnight for atrial fib with RVR, HR 150's -Given amiodarone gtt, IV digoxin -TSH wnl this hospital stay -BP improved once controlled. -Monitor on tele -Currently on eliquis BID, renally dosed. Hypotension likely 2/2 to atrial fib with RVR- resolved -midodrine started to help with this overnight? -Will d/c today and see what pressures look like -With sepsis, monitor closely Hyperglycemia likely 2/2 to steroid use -BS 170's today ;however, up to >300 this hospital stay -F/u HbA1c, lipid panel -Restarted methylprednisolone today so anticipate this increasing -Started on ISS Q6H while NPO except ice chips, FS. Hypokalemia secondary to diuresis, poor PO intake -K 3.1 this AM -Supplemented 60 mEq -Follow BID electrolytes with diuresis again occuring -Monitor on tele Transaminitis -No known hx of liver issues -No pain on exam of abdomen -Seen on 12/26/20 labs, not been checked since -F/u CMP today, liver ultrasound Stage IIA lung CA -Treated o/p with chemoradiation History of CAD and coronary stents -Stable, c/w current meds Dyslipidemia -Holding statin with transaminitis History of thoracic aortic aneurysm -BP controlled -No abdominal pain GERD -PPI DVT px -Eliquis BID, teds, SCD DISPOSITION: Discussed case with ID and Pulmonary, both who are consulted. Re fredo in PCU, level of care changed to DNR/DNI with updated MOLST. VS, I&O, 24H, Fishbone Vital Signs/I&O Vital Signs Date Time Temp Pulse Resp B/P (MAP) Pulse Ox O2 Delivery O2 Flow Rate FiO2 12/29/20 12:00 97.5 119 20 110/57 (74) 96 HVNI-Vapotherm 15.0 100 I&O- Last 24 Hours up to 6 AM 12/29/20 06:00 Intake Total 1410 ml Output Total 200 ml Balance 1210 ml Laboratory Data 24H LABS Laboratory Tests 2 12/28/20 17:43: Anion Gap 9, Glomerular Filtration Rate 38.6L, Calcium Level 8.6L 12/29/20 03:35: Anion Gap 7L, Glomerular Filtration Rate 39.4L, Calcium Level 8.5L, Neutrophils (%) (Auto) , Nucleated Red Blood Cells % (auto) 0.1H, Neutrophils 95H, Band Neutrophils 1, Lymphocytes (Manual) 2L, Monocytes (Manual) 1, Atypical Lymphocytes 1, Polychromasia 1+, Poikilocytosis 1+, Anisocytosis 1+, Ovalocytes 1+, Platelet Estimate NORMAL, Magnesium Level 1.9, Lactate Dehydrogenase 442H, UL-Gtl-P-Type Natriuretic Peptide 2293H, Digoxin Level 0.5 12/29/20 07:39: 12/29/20 08:53: Blood Gas Bicarbonate Standard 29.7H, Arterial Blood pH 7.565H, Arterial Blood Partial Pressure CO2 31.8L, Arterial Blood Partial Pressure O2 46.2*L, Arterial Blood Total CO2 29.1, Arterial Blood HCO3 28.2H, Arterial Blood Base Excess 6.0H, Arterial Blood Oxygen Saturation 84.1L 12/29/20 10:14: Anion Gap 6L, Glomerular Filtration Rate 43.3, Calcium Level 8.6L CBC/BMP Laboratory Tests 12/28/20 17:43 12/29/20 03:35 12/29/20 10:14 Microbiology Microbiology 12/26/20 Respiratory Virus Panel (PCR) (CHARLETTE) - Final, Complete 12/26/20 Blood Culture - Preliminary, Resulted No Growth after 72 hours. All specime... 12/26/20 Gram Stain - Final, Resulted 12/26/20 Sputum Culture - Preliminary, Resulted Streptococcus Pneumoniae Strep Agalactiae Group B 12/26/20 Blood Culture - Preliminary, Resulted No Growth after 72 hours. All specime... Current Medications Current Medications Medications (Trade) Dose Ordered Sig/Laura Route PRN Reason Start Time Stop Time Status Last Admin Dose Admin Apixaban (Eliquis) 2.5 mg BID PO 12/28/20 21:00 12/29/20 07:39 Apixaban (Eliquis) 5 mg BID PO 12/28/20 21:00 12/28/20 14:50 DC Aspirin (Ecotrin) 325 mg DAILY PO 12/26/20 09:00 12/29/20 07:38 Atovaquone (Mepron 750mg/ 5ml Suspension) 1,500 mg DAILY PO 12/29/20 09:00 12/29/20 11:45 Cilostazol (Pletal) 100 mg BID@0730,1730 PO 12/26/20 17:30 12/29/20 07:39 Codeine Phosphate/ Guaifenesin (Robitussin Ac) 5 ml Q6H PRN PO COUGH 12/26/20 16:15 12/26/20 17:27 Enoxaparin Sodium (Lovenox) 40 mg DAILY SC 12/27/20 09:00 12/28/20 14:46 DC 12/28/20 09:35 Famotidine (Pepcid) 20 mg BID PO 12/26/20 21:00 12/29/20 07:38 Guaifenesin (Mucinex Tab Er) 1,200 mg BID PO 12/29/20 09:00 12/29/20 08:32 Home Med (Med Rec Complete!) ASDIRECTED XX 12/26/20 13:35 12/26/20 13:39 DC Levalbuterol HCl (Xopenex Neb) 1.25 mg Q1HP PRN INH SHORTNESS OF BREATH 12/27/20 08:25 Levalbuterol HCl (Xopenex Neb) 1.25 mg RQID INH 12/27/20 12:00 12/29/20 11:28 Meropenem 1 gm/IV Miscellaneous Supplies 50 ml @ 100 mls/hr Q12H IV 12/29/20 20:00 01/02/21 08:29 Meropenem 1 gm/IV Miscellaneous Supplies 50 ml @ 100 mls/hr Q8H IV 12/26/20 18:00 12/29/20 09:30 DC 12/29/20 08:33 Meropenem 500 mg/ IV Miscellaneous Supplies 50 ml @ 100 mls/hr Q8H IV 12/26/20 12:05 12/26/20 13:26 DC Methylprednisolone (SOLU medrol) 40 mg Q8H IV 12/27/20 11:00 12/28/20 07:23 DC 12/28/20 02:01 Methylprednisolone (SOLU medrol) 40 mg Q8H IV 12/29/20 11:00 12/29/20 11:09 Methylprednisolone (SOLUmedrol) 60 mg Q6H IV 12/26/20 20:00 12/27/20 08:23 DC 12/27/20 02:54 Metoprolol Succinate (TopROL XL) 50 mg BID PO 12/27/20 07:20 12/28/20 12:48 DC 12/27/20 20:57 Metoprolol Succinate (TopROL XL) 50 mg DAILY PO 12/27/20 09:00 12/27/20 07:17 DC Midodrine (Proamatine) 10 mg 08,12,16 PO 12/28/20 12:00 12/29/20 11:55 Omeprazole (PriLOSEC) 40 mg DAILY PO 12/28/20 09:00 12/29/20 07:38 Ondansetron HCl (Zofran Odt) 8 mg TID PRN PO NAUSEA OR VOMITING 12/26/20 16:15 Pantoprazole Sodium (Protonix) 40 mg DAILY PO 12/26/20 09:00 12/27/20 07:18 DC 12/26/20 16:43 Potassium Chloride (Micro-K Extencaps) 30 meq BID@0900,1200 PO 12/29/20 09:00 12/29/20 12:01 DC 12/29/20 11:45 Potassium Chloride (Micro-K Extencaps) 40 meq TID PO 12/27/20 16:00 12/28/20 07:16 DC 12/27/20 20:57 Prednisone (Deltasone) 40 mg DAILY PO 12/28/20 09:00 12/29/20 10:34 DC 12/29/20 07:39 Rosuvastatin Calcium (Crestor) 20 mg DAILY PO 12/26/20 09:00 12/29/20 07:39 Sodium Chloride 1,000 ml @ 100 mls/hr Q10H IV 12/28/20 07:15 12/28/20 12:46 DC 12/28/20 07:48 Sodium Chloride (Saline Lock Flush) 2 ml ASDIRECTED PRN IV SEE LABEL COMMENTS 12/26/20 15:30 Sodium Chloride (Saline Lock Flush) 2 ml SLF IV 12/26/20 22:00 12/29/20 11:55 Vancomycin HCl 1000 mg/IV Miscellaneous Supplies 1 each/ Sodium Chloride 270 ml @ 270 mls/hr Q12H IV 12/26/20 16:00 12/27/20 15:10 DC 12/27/20 05:08 Vancomycin HCl 1000 mg/IV Miscellaneous Supplies 1 each/ Sodium Chloride 270 ml @ 270 mls/hr Q24H IV 12/30/20 10:00 Allergies Coded Allergies: Penicillins (Verified Allergy, Intermediate, itch, 08/03/20) Evelia Gonzalez MD Dec 29, 2020 14:23
[2020-12-29] MEDS ORDERED: DEXTROSE 50% 50 ML SYRINGE IV PRN (14:30)
[2020-12-29] MEDS ORDERED: GLUCAGON INJ 1MG VIAL SC PRN (14:30)
[2020-12-29] MEDS ORDERED: GLUCOSE 4GM CHEW TABLET PO PRN (14:30)
[2020-12-29 14:40] LABS: C REACTIVE PROTEIN QUANTITATIV 11.8 MG/DL (0.00-0.30)
[2020-12-29 15:19] LABS: ALBUMIN 1.7 GM/DL (3.2-5.2); BILIRUBIN,TOTAL 0.5 MG/DL (0.2-1.0); CHOLESTEROL RISK RATIO 6.23 (<5); TOTAL PROTEIN 5.2 GM/DL (6.4-8.2)
[2020-12-29] MEDS ORDERED: HumaLOG INSULIN (NovoLOG) PER UNIT SC SCH ×2 (17:30→21:00)
[2020-12-29] MEDS: cefTRIAXone SOD 2 GM in D5W MINI-BAG PLUS 50 ML IV SCH (18:09)
[2020-12-29 18:37] LABS: ALBUMIN 1.7 GM/DL (3.2-5.2); BILIRUBIN,TOTAL 0.4 MG/DL (0.2-1.0); CALCIUM LEVEL 8.6 MG/DL (8.8-10.2); CREATININE FOR GFR 1.84 MG/DL (0.70-1.30); GLOMERULAR FILTRATION RATE 38.2 (>42); POTASSIUM SERUM 3.3 MEQ/L (3.5-5.1); TOTAL PROTEIN 5.2 GM/DL (6.4-8.2)
[2020-12-29] MEDS ORDERED: POTASSIUM CHLORIDE 10 MEQ SR TABLET PO ONE (19:30)
[2020-12-29] MEDS ORDERED: MEROPENEM INJ 1 GM in IV 1 EA IV SCH (20:00)
[2020-12-30] VITALS (18 sets, daily range): BP systolic 99–113; BP diastolic 51–56; O2SAT 93–99
--- NOTE | 2020-12-30 00:43 | REPVR ---
PROCEDURE INFORMATION: Exam: US Abdomen, Limited; Right Upper Quadrant Exam date and time: 12/30/2020 12:13 AM Age: 75 years old Clinical indication: Abnormal findings; Abnormal lab test; Other: Transaminitis TECHNIQUE: Imaging protocol: US abdomen. Real time ultrasound with image documentation. Limited exam focused on the right upper quadrant. COMPARISON: PT PET/CT Skull/mid thigh 09/15/2020 2:17 PM FINDINGS: Liver: Unremarkable. Gallbladder: No gallstones. No gallbladder wall thickening or pericholecystic fluid. Negative sonographic Small's sign, as per the performing tooth cutter spur. Common bile duct: No stones. No ductal dilatation. Pancreas: Unremarkable as visualized. Right kidney: No mass. No definite stones. No hydronephrosis. IMPRESSION: No acute sonographic findings. Electronically signed by: Matt Palacio On 12/30/2020 00:43:15 AM
[2020-12-30] MEDS: HumaLOG INSULIN (NovoLOG) PER UNIT SC SCH ×5 (00:49→23:35)
[2020-12-30] MEDS: methylPREDNISolone 40MG 1ML VIAL IV SCH ×3 (03:50→18:15)
[2020-12-30 05:04] LABS: HEMATOCRIT 27.1 % (42.0-52.0); HEMOGLOBIN 8.8 g/dl (13.5-17.5); MEAN CORPUSCULAR HGB CONC 32.5 g/dl (32.0-36.5); MEAN CORPUSCULAR VOLUME 86.3 fl (80.0-96.0); PLATELET COUNT, AUTOMATED 192 10^3/uL (150-450); RED BLOOD COUNT 3.14 10^6/uL (4.30-6.10); WHITE BLOOD COUNT 28.5 10^3/uL (4.0-10.0)
[2020-12-30] MEDS: SLF 3 ML SYR IV SCH ×3 (05:23→20:59)
[2020-12-30 05:28] LABS: ALBUMIN 1.7 GM/DL (3.2-5.2); BILIRUBIN,TOTAL 0.4 MG/DL (0.2-1.0); CALCIUM LEVEL 8.4 MG/DL (8.8-10.2); CREATININE FOR GFR 1.66 MG/DL (0.70-1.30); MAGNESIUM LEVEL 1.7 MG/DL (1.8-2.4); POTASSIUM SERUM 3.3 MEQ/L (3.5-5.1); TOTAL PROTEIN 5.1 GM/DL (6.4-8.2)
[2020-12-30] MEDS ORDERED: SODIUM CHLORIDE HYPERTONIC 3% 15ML NEB SOL INH ONE (06:00)
[2020-12-30 06:24] LABS: ANISOCYTOSIS 1+; MONOCYTES 1 % (0-5); NEUTROPHILS 97 % (28-66); PLATELET ESTIMATE NORMAL (NORMAL)
[2020-12-30] MEDS: LEVALBUTEROL 1.25 MG/0.5 ML CONCENTRATE NEB INH SCH ×4 (07:14→20:49)
[2020-12-30] MEDS ORDERED: POTASSIUM CHLORIDE 10 MEQ SR TABLET PO ONE ×2 (07:30→08:00)
[2020-12-30] MEDS: OMEPRAZOLE 20 MG CAP PO SCH (08:00)
[2020-12-30] MEDS: CILOSTAZOL 100 MG TAB (PLETAL) PO SCH ×2 (08:00→20:51)
[2020-12-30] MEDS: guaiFENesin ER 600 MG TAB PO SCH ×2 (08:00→20:51)
[2020-12-30] MEDS ORDERED: MAG SULF 1GM/100ML (MAG RUN) 1 GM in IV 1 EA IV ONE ×4 (08:00)
[2020-12-30] MEDS: APIXABAN 2.5 MG TAB (ELIQUIS) PO SCH ×2 (08:00→20:51)
[2020-12-30] MEDS: FAMOTIDINE 20 MG TAB PO SCH ×2 (08:00→20:51)
[2020-12-30] MEDS: ASPIRIN ENTERIC 325 MG TAB PO SCH (08:00)
--- NOTE | 2020-12-30 09:13 | CR ---
PULMONARY CONSULTATION DATE: 12/29/2020 CHIEF COMPLAINT: Hypoxia. HISTORY OF PRESENT ILLNESS: Mr. Troncoso is a 75-year-old male with a history of initially diagnosed 2A adenocarcinoma of the right lung, status post radiation and currently undergoing chemotherapy, COPD, hypertension, coronary artery disease, history of thoracic aortic aneurysm, who had presented with complaints of chills, shortness of breath and a cough. The patient had recently been admitted as well for anemia and neutropenia. He was given Neupogen at his previous admission. Initially on admission the patient was treated for pneumonia with Meropenem. His MRSA screen was negative so his initial Vancomycin was discontinued. The patient also was noted to have an elevated BNP and there was a possibility of fluid overload. He was given Lasix initially which was then discontinued due to worsening acute kidney injury. He was given IV fluids instead. The patient was the noted to have worsening hypoxic respiratory failure and requiring increasing O2 supplementation. The patient was noted to be more hypoxic this morning and noted as well to have increasing leukocytosis and worsening findings on chest x-ray. Pulmonary was consulted, given his worsening hypoxic respiratory failure. The patient continues to report shortness of breath and dyspnea. He also continues to have a cough which is somewhat difficult to expectorate mucous. When he is able to bring up mucous, he states it is yellow in color. He does notice some coughing at times after eating and drinking. He denies any significant chest pain or other pain. He does admit to feeling fatigue as well as continue to have some chills but no reported fever. He has noticed any significant lower extremity edema. Upon further questioning about his code status, the patient states he had thought that he had already brought in a MOLST form stating that he was a DNR/DNI which we do not have a copy of currently. PAST MEDICAL HISTORY: The patient's past medical history is significant for: 1. Stage 2A right lung cancer status post radiation and undergoing chemotherapy currently. 2. COPD. 3. Hypertension. 4. History of chronic hypoxemic respiratory failure. 5. Thoracic aneurysm. 6. Coronary artery disease, status post stent. 7. Hyperlipidemia. 8. Gastroesophageal reflux disease. 9. Macular degeneration. PAST SURGICAL HISTORY: The patient's past surgical history is significant for: 1. Coronary stent placement. 2. Appendectomy. 3. Cataract surgery. 4. Infusaport. FAMILY HISTORY: Mother with a history of coronary artery disease. Father in World War II from a ruptured aorta. SOCIAL HISTORY: Former smoker with 2 packs a day for over 60 years. Denies any history of alcohol or other drug use. HOME MEDICATIONS: 1. Albuterol. 2. Norvasc. 3. Spiriva. 4. Aspirin. 5. Colace. 6. Mucinex. 7. Famotidine. 8. Metoprolol. 9. Zofran. 10. Protonix. 11. Rosuvastatin. ALLERGIES: PENICILLIN. PHYSICAL EXAMINATION: VITAL SIGNS: Temperature 97.0, pulse 100, respirations 20, blood pressure 130/58, O2 sat 86% on 6 liters nasal cannula. INTAKE AND OUTPUT: In's 1.4 liters, out 300 mL. GENERAL APPEARANCE: The patient is an elderly male, is sitting in the bed, appears pale and mildly tachypneic. He is using some accessory muscles for respiration. HEENT: Normocephalic and atraumatic. Pupils are reactive to light bilaterally. Moist mucous membranes noted. NECK: Supple. Trachea is midline. Unable to fully palpate any cervical adenopathy. CARDIAC: Tachycardic, regular rate and rhythm, normal S1, S2. Unable to clearly appreciate any murmurs. LUNGS: Diminished breath sounds bilaterally with crackles more in the bases bilaterally and occasional rhonchi. No wheezing noted. ABDOMEN: Soft, nontender, nondistended. No palpable masses. EXTREMITIES: There is no significant pitting lower extremity edema or sacral edema. LABORATORY STUDIES: WBC 33.5, hemoglobin 9.2, platelets are 204. Chemistries - sodium is 141, potassium is 2.1, chloride is 103, bicarbonate is 31, BUN is 45, creatinine is 1.79, glucose is 273, calcium is 8.5, magnesium is 1.9. BNP was 3765, repeat was 2293. AST 124, ALT 163, alkaline phosphatase is 204, CRP is 11.8. Albumin is 1.7, LDH is 442. Procalcitonin 2.21. ABG: PH of 7.565, pco2 of 31.8, pO2 of 46.2. Microbiology Sputum culture positive for strep pneumoniae. IMAGING: CT angio on 12/26/20 showed no evidence of P.E. There is apical scarring. There is diffuse ground glass opacity with some areas of consolidation in the upper lobes bilaterally. Some of the ground glass is along the fissure. There is a spiculated mass in the right upper lobe as well as an area of perihilar infiltrate and right hilar adenopathy. There are ground glass opacities and intralobular septal thickening with some areas of consolidation on superimposed emphysematous changes. There are small bilateral pleural effusions. There is some contrast refluxing into the hepatic veins. Chest x-ray 12/29/20 Compared to initial chest x-ray, there are increasing interstitial markings diffusely with increased left perihilar and upper lobe opacity. There is some improvement in the denser consolidation in the right lower lobe but there are continued generalized increased interstitial markings and suggestion of pulmonary vascular congestion. IMPRESSION AND PLAN: 1. Mr. Troncoso is a 75-year-old male with a past medical history of coronary artery disease, hypertension, hyperlipidemia, chronic obstructive pulmonary disease, with history of chronic hypoxemic respiratory failure, stage 2A lung cancer, undergoing chemotherapy and radiation who presented with complaints of worsening shortness of breath, cough and chills. The patient had recent hospitalization for anemia as well as neutropenia thought secondary to his chemotherapy. He did receive Neupogen injections. He is here now with [id number] hypoxemic respiratory failure. He was started on broad spectrum antibiotics initially with Meropenem. He has however continued to have worsening hypoxia and increasing 02 requirements and Pulmonary was consulted. His initial CT had not shown any evidence of P.E. There was diffuse ground glass opacities noted as well as some areas of consolidation and increased intralobular septal thickening superimposed on some chronic emphysema and scarring. There is also the previously noted right upper lobe spiculated mass and perihilar opacity and right hilar adenopathy. He also was found to have small bilateral pleural effusions which are increased compared to prior imaging. He did have significantly elevated BNP on admission as well with a BNP up in the 3,000 range. At his last hospitalization, his BNP was only 799. The patient likely has a degree of pulmonary edema contributing to his worsening hypoxia. He does also have increased leukocytosis and with his neutropenia, likely also has healthcare associated pneumonia. He was on Meropenem and so initially he was broadened to Vancomycin while his sputum cultures were pending. There was also the possibility of PCP although less likely given his immunocompromised state as he does not appear to have a history of chronic steroid use and his ground glass was thought more to be in the setting of pulmonary edema then PCP pneumonia. Now that his sputum cultures have grown positive for strep pneumonia, can likely deescalate his antibiotics. 2. The patient was placed on Vapotherm with improvement in his oxygenation, and he did report symptomatic improvement in his dyspnea as well. We will continue with Vapotherm and titrate to maintain O2 sat above 90%. The patient would be a good candidate for non-invasive positive pressure ventilation, as he is already alkalotic on his ABG secondary to respiratory alkalosis, and he does also have issues with clearing his secretion and with cough and possible aspiration. 3. Would continue aspiration precautions and would have the patient be n.p.o. for today, given his worsening respiratory status. He does report some coughing at times after eating and drinking. 4. Would re-start the patient on diuretics. His diuretics were initially held in the setting of acute kidney injury, however there is a possibility that he may have a component of hepatorenal syndrome. Would give a one-time of Lasix for now and monitor his in's and out's and renal function. Would need to aggressively replete his electrolytes as he is already hypokalemic. 5. The patient was also started on Prednisone given his history of chronic obstructive pulmonary disease with a possible exacerbation. There is a possibility that some of the findings on imaging are related to an inflammatory response. He did get radiation on the right lung previously, so there may be a potential component of some radiation pneumonitis there, although not classic on his imaging currently. Would increase his Solu-Medrol for now to 40 mg IV q. 8 and wean down depending on his respiratory status. 6. Appreciate Infectious Disease consult recommendations. As his sputum culture did grow strep pneumoniae, would deescalate his antibiotics to Ceftriaxone. His procalcitonin is elevated, consistent with pneumonia. 7. Would continue to monitor blood pressure. He did have issues previously with hypotension thought to be in the setting of his atrial fibrillation with rapid ventricular response, which has improved with improved rate control. His initial echocardiogram had shown some evidence of diastolic dysfunction and trace mitral regurgitation as well as likely mild pulmonary hypertension. The proximal pulmonary artery branches however were not well visualized. We will rate control medications as per Primary Team and can continue with Eliquis. Would monitor his blood pressure closely. DVT prophylaxis - Eliquis. GI prophylaxis - PPI. CODE STATUS: After discussion with the patient and his family, the patient stated that he did have previous wishes stating he is a DNR/DNI. A MOLST form was updated and his code status was changed in the system. [place]
[2020-12-30] MEDS ORDERED: FUROSEMIDE 40MG/4ML VIAL (J1940) IV ONE (09:45)
[2020-12-30] MEDS ORDERED: VANCOMYCIN HCL 1,000 MG, VIAL MATE ADAPTER 1 EACH in NS 250 ML IV SCH (10:00)
--- NOTE | 2020-12-30 14:01 | IPNPDOC ---
Date Seen The patient was seen on 12/30/20. Progress Note SUBJECTIVE: Remains on vapotherm. Replaced potassium, magnesium. WBC and Cr improving. Chest physiotherapy started. He denies chest pain, fevers, chills, n/v/d. OBJECTIVE: PHYSICAL EXAM: VITAL SIGNS: Please see below GENERAL: AAOx 3, resting in bed HEENT: AT/NC, PERRLA, EOM intact NECK: No JVD. LUNGS: improved aeration, bilateral crackles in post lung odom improved. No wheezing, rhonchi, rales HEART: S1 and S2, sinus tachycardia. No murmurs, rubs or gallops. ABDOMEN: Soft, nontender, nondistended. Positive bowel sounds. EXTREMITIES: No cyanosis, clubbing or pitting edema. NEURO: CN 2-12 intact, no focal deficits. LABORATORY: Please see below MICROBIOLOGY: BCx NG x 2 sets at 72 H Sputum GS: QUALITY: GOOD, MODERATE WBCS, MANY GRAM POSITIVE COCCI IN PAIRS AND CHAINS, MANY GRAM NEGATIVE COCCI Sputum Cx: Organism 1 STREPTOCOCCUS PNEUMONIAE QUANTITY OF GROWTH HEAVY Organism 2 HAEMOPHILUS INFLUENZAE QUANTITY OF GROWTH HEAVY Organism 3 STREP AGALACTIAE GROUP B QUANTITY OF GROWTH HEAVY Repeat Sputum GS: QUALITY: GOOD, MODERATE WBCS, FEW EPITHELIAL CELLS, NO ORGANISMS SEEN Repeat Sputum Cx: Pending IMAGING: Liver US: No acute sonographic findings. CXR: Increased parenchymal infiltrate in the left perihilar region. Echocardiogram 12/26/20: EF 60-65% Normal global left ventricular systolic function. Not mentioned above, the basal portion of the posterior wall appeared to be hypokinetic. There are features of left ventricular diastolic dysfunction manifested by abnormal relaxation, grade 1. Aortic valve sclerosis with mild aortic regurgitation. Trace mitral regurgitation. Mild tricuspid regurgitation with mild pulmonary hypertension. Trace pericardial effusion, no evidence of cardiac tamponade. ASSESSMENT: 75-year-old male with Stage IIA adenocarcinoma of the lung undergoing chemotherapy and radiation, COPD, hypertension, CAD, HLD, stent, thoracic aortic aneurysm, macular degeneration, chronic hypoxic respiratory failure, admitted on 12/26/2020 for acute on chronic hypoxic respiratory failure likely multifactorial 2/2 to HCAP, COPD exacerbation, CHF exacerbation, r/o developing ARDS. PLAN: Acute on chronic hypoxic respiratory failure likely multifactorial 2/2 to HCAP, COPD exacerbation, CHF exacerbation, r/o developing ARDS. -Appears more comfortable today, remain on Vapotherm, saturating well -Recent CXR above -Pulmonary consulted and following closely -Please see individual treatment of issues below CAP vs. HCAP, r/o developing ARDs , sepsis -WBC improving- some of this incr may be steroid induced. Recent CXR above, mild tachycardia, afebrile -MRSA neg -BCx NG -Sputum cx above with three microbes: STREPTOCOCCUS PNEUMONIAE, HAEMOPHILUS INFLUENZAE, STREP AGALACTIAE GROUP B -Repeat Sputum culture ordered by ID, f/u final culture -Continue with ceftriaxone for now, f/u ID input Acute COPD exacerbation -Remains on 20% Vapotherm, 90% -Starting on chest physiotherapy, C/w methylprednisone 40 mg IV Q8H, levalbuterol ATC and PRN -Monitor for uncontrolled BS as previously HFpEF with mild exacerbation possible -Neg fluid balance 2.4/24 H -BNP 3700--> 2200 today -Worsening CXR -Echo above: preserved EF, grade 1 diastolic dysfunction -Given another one time dose lasix today, patterson catheter in place -Monitor I&O's closely, daily wt Acute kidney injury secondary to medications- improving -Improving despite intermittent diuresis -Monitor daily labs, U/O closely -Avoid other nephrotoxic medications. If worsens, consider nephrology consult Atrial fibrillation, resolved RVR -Currently HR 100-105 -Given amiodarone gtt, IV digoxin -TSH wnl this hospital stay -BP improved once controlled. -Monitor on tele -Currently on eliquis BID, renally dosed. Hyperglycemia likely 2/2 to steroid use -BS 170's today ;however, up to >300 this hospital stay -HbA1c 7.0 -On methylprednisolone so monitor -Started on ISS Hypokalemia secondary to diuresis, poor PO intake -K supplemented -Follow with diuresis -Monitor on tele Transaminitis, improving -No known hx of liver issues -No pain on exam of abdomen -Seen on 12/26/20 labs, not been checked since -F/u CMP today, liver ultrasound Stage IIA lung CA -Treated o/p with chemoradiation History of CAD and coronary stents -Stable, c/w current meds Dyslipidemia -Holding statin with transaminitis History of thoracic aortic aneurysm -BP controlled -No abdominal pain GERD -PPI DVT px -Eliquis BID, teds, SCD Resolved issues: Hypotension likely 2/2 to atrial fib with RVR DISPOSITION: PT/OT ordered. ID and Pulmonary consulted. Remains in PCU. DNR/DNI with updated MOLST. VS, I&O, 24H, Fishbone Vital Signs/I&O Vital Signs Date Time Temp Pulse Resp B/P (MAP) Pulse Ox O2 Delivery O2 Flow Rate FiO2 12/30/20 11:09 97.3 102 18 109/53 (71) 98 HVNI-Vapotherm 20.0 90 I&O- Last 24 Hours up to 6 AM 12/30/20 06:00 Intake Total 745 ml Output Total 3475 ml Balance -2730 ml Laboratory Data 24H LABS Laboratory Tests 2 12/29/20 16:49: Bedside Glucose (Misc Panel) 200H 12/29/20 17:56: Anion Gap 8, Glomerular Filtration Rate 38.2L, Calcium Level 8.6L, Total Bilirubin 0.4, Aspartate Amino Transf (AST/SGOT) 93H, Alanine Aminotransferase (ALT/SGPT) 147H, Alkaline Phosphatase 192H, Total Protein 5.2L, Albumin 1.7L, Albumin/Globulin Ratio 0.5 12/30/20 00:41: Bedside Glucose (Misc Panel) 139H 12/30/20 04:15: Anion Gap 7L, Glomerular Filtration Rate 43.0, Calcium Level 8.4L, Total Bilirubin 0.4, Aspartate Amino Transf (AST/SGOT) 74H, Alanine Aminotransferase (ALT/SGPT) 126H, Alkaline Phosphatase 186H, Total Protein 5.1L, Albumin 1.7L, Albumin/Globulin Ratio 0.5, Neutrophils (%) (Auto) , Nucleated Red Blood Cells % (auto) 0.0, Neutrophils 97H, Band Neutrophils 2, Monocytes (Manual) 1, Anisocytosis 1+, Platelet Estimate NORMAL, Magnesium Level 1.7L 12/30/20 05:19: Bedside Glucose (Misc Panel) 114H 12/30/20 11:49: Bedside Glucose (Misc Panel) 129H CBC/BMP Laboratory Tests 12/29/20 17:56 12/30/20 04:15 Microbiology Microbiology 12/30/20 Gram Stain - Final, Resulted 12/30/20 Sputum Culture, Resulted Pending 12/26/20 Respiratory Virus Panel (PCR) (CHARLETTE) - Final, Complete 12/26/20 Blood Culture - Preliminary, Resulted No Growth after 72 hours. All specime... 12/26/20 Gram Stain - Final, Complete 12/26/20 Sputum Culture - Final, Complete Streptococcus Pneumoniae Haemophilus Influenzae Strep Agalactiae Group B 12/26/20 Blood Culture - Preliminary, Resulted No Growth after 72 hours. All specime... Current Medications Current Medications Medications (Trade) Dose Ordered Sig/Laura Route PRN Reason Start Time Stop Time Status Last Admin Dose Admin Apixaban (Eliquis) 2.5 mg BID PO 12/28/20 21:00 12/30/20 08:00 Apixaban (Eliquis) 5 mg BID PO 12/28/20 21:00 12/28/20 14:50 DC Aspirin (Ecotrin) 325 mg DAILY PO 12/26/20 09:00 12/30/20 08:00 Atovaquone (Mepron 750mg/ 5ml Suspension) 1,500 mg DAILY PO 12/29/20 09:00 12/29/20 16:56 DC 12/29/20 11:45 Ceftriaxone Sodium 2 gm/ Dextrose 50 ml @ 100 mls/hr Q24H IV 12/29/20 18:00 12/29/20 18:09 Cilostazol (Pletal) 100 mg BID@0730,1730 PO 12/26/20 17:30 12/30/20 08:00 Codeine Phosphate/ Guaifenesin (Robitussin Ac) 5 ml Q6H PRN PO COUGH 12/26/20 16:15 12/26/20 17:27 Dextrose (Dextrose 50%) 25 ml ASDIRECTED PRN IV SEE LABEL COMMENTS 12/29/20 14:30 Enoxaparin Sodium (Lovenox) 40 mg DAILY SC 12/27/20 09:00 12/28/20 14:46 DC 12/28/20 09:35 Famotidine (Pepcid) 20 mg BID PO 12/26/20 21:00 12/30/20 08:00 Glucagon (Glucagon) 1 mg ASDIRECTED PRN SC SEE LABEL COMMENTS 12/29/20 14:30 Glucose (Glucose) 16 GM ASDIRECTED PRN PO SEE LABEL COMMENTS 12/29/20 14:30 Guaifenesin (Mucinex Tab Er) 1,200 mg BID PO 12/29/20 09:00 12/30/20 08:00 Home Med (Med Rec Complete!) ASDIRECTED XX 12/26/20 13:35 12/26/20 13:39 DC Insulin Human Lispro (HumaLOG INSULIN) SEE PROTOCOL TABLE AC ND 12/29/20 17:30 12/29/20 14:40 DC Insulin Human Lispro (HumaLOG INSULIN) SEE PROTOCOL TABLE Q6H ND 12/29/20 12:00 12/30/20 05:22 Insulin Human Lispro (HumaLOG INSULIN) SEE PROTOCOL TABLE QHS ND 12/29/20 21:00 12/29/20 14:41 DC Levalbuterol HCl (Xopenex Neb) 1.25 mg Q1HP PRN INH SHORTNESS OF BREATH 12/27/20 08:25 Levalbuterol HCl (Xopenex Neb) 1.25 mg RQID INH 12/27/20 12:00 12/30/20 11:17 Meropenem 1 gm/IV Miscellaneous Supplies 50 ml @ 100 mls/hr Q12H IV 12/29/20 20:00 12/29/20 16:56 DC Meropenem 1 gm/IV Miscellaneous Supplies 50 ml @ 100 mls/hr Q8H IV 12/26/20 18:00 12/29/20 09:30 DC 12/29/20 08:33 Meropenem 500 mg/ IV Miscellaneous Supplies 50 ml @ 100 mls/hr Q8H IV 12/26/20 12:05 12/26/20 13:26 DC Methylprednisolone (SOLU medrol) 40 mg Q8H IV 12/27/20 11:00 12/28/20 07:23 DC 12/28/20 02:01 Methylprednisolone (SOLU medrol) 40 mg Q8H IV 12/29/20 11:00 12/30/20 10:21 Methylprednisolone (SOLUmedrol) 60 mg Q6H IV 12/26/20 20:00 12/27/20 08:23 DC 12/27/20 02:54 Metoprolol Succinate (TopROL XL) 50 mg BID PO 12/27/20 07:20 12/28/20 12:48 DC 12/27/20 20:57 Metoprolol Succinate (TopROL XL) 50 mg DAILY PO 12/27/20 09:00 12/27/20 07:17 DC Midodrine (Proamatine) 10 mg 08,12,16 PO 12/28/20 12:00 12/29/20 14:51 DC 12/29/20 11:55 Omeprazole (PriLOSEC) 40 mg DAILY PO 12/28/20 09:00 12/30/20 08:00 Ondansetron HCl (Zofran Odt) 8 mg TID PRN PO NAUSEA OR VOMITING 12/26/20 16:15 Pantoprazole Sodium (Protonix) 40 mg DAILY PO 12/26/20 09:00 12/27/20 07:18 DC 12/26/20 16:43 Potassium Chloride (Micro-K Extencaps) 30 meq BID@0900,1200 PO 12/29/20 09:00 12/29/20 12:01 DC 12/29/20 11:45 Potassium Chloride (Micro-K Extencaps) 40 meq TID PO 12/27/20 16:00 12/28/20 07:16 DC 12/27/20 20:57 Prednisone (Deltasone) 40 mg DAILY PO 12/28/20 09:00 12/29/20 10:34 DC 12/29/20 07:39 Rosuvastatin Calcium (Crestor) 20 mg DAILY PO 12/26/20 09:00 12/29/20 14:45 DC 12/29/20 07:39 Sodium Chloride 1,000 ml @ 100 mls/hr Q10H IV 12/28/20 07:15 12/28/20 12:46 DC 12/28/20 07:48 Sodium Chloride (Saline Lock Flush) 2 ml ASDIRECTED PRN IV SEE LABEL COMMENTS 12/26/20 15:30 Sodium Chloride (Saline Lock Flush) 2 ml SLF IV 12/26/20 22:00 12/30/20 13:14 Vancomycin HCl 1000 mg/IV Miscellaneous Supplies 1 each/ Sodium Chloride 270 ml @ 270 mls/hr Q12H IV 12/26/20 16:00 12/27/20 15:10 DC 12/27/20 05:08 Vancomycin HCl 1000 mg/IV Miscellaneous Supplies 1 each/ Sodium Chloride 270 ml @ 270 mls/hr Q24H IV 12/30/20 10:00 12/29/20 16:56 DC Allergies Coded Allergies: Penicillins (Verified Adverse Reaction, Mild, itch, 12/29/20) Evelia Gonzalez MD Dec 30, 2020 14:01
[2020-12-30 15:52] LABS: CALCIUM LEVEL 9.4 MG/DL (8.8-10.2); CREATININE FOR GFR 1.92 MG/DL (0.70-1.30); GLOMERULAR FILTRATION RATE 36.3 (>42); POTASSIUM SERUM 3.3 MEQ/L (3.5-5.1)
[2020-12-30] MEDS: cefTRIAXone SOD 2 GM in D5W MINI-BAG PLUS 50 ML IV SCH (18:15)
[2020-12-30 19:11] LABS: ALBUMIN 2.1 GM/DL (3.2-5.2); BILIRUBIN,TOTAL 0.5 MG/DL (0.2-1.0); CALCIUM LEVEL 8.9 MG/DL (8.8-10.2); CREATININE FOR GFR 2.11 MG/DL (0.70-1.30); GLOMERULAR FILTRATION RATE 32.6 (>42); POTASSIUM SERUM 3.4 MEQ/L (3.5-5.1); TOTAL PROTEIN 6.1 GM/DL (6.4-8.2)
[2020-12-31] VITALS (17 sets, daily range): BP systolic 106–133; BP diastolic 54–64; O2SAT 88–99
[2020-12-31] MEDS: methylPREDNISolone 40MG 1ML VIAL IV SCH ×2 (04:04→15:25)
[2020-12-31 05:19] LABS: BASO # 0.1 10^3/uL (0.0-0.2); BASO % 0.2 % (0.0-1.0); HEMATOCRIT 27.2 % (42.0-52.0); HEMOGLOBIN 8.6 g/dl (13.5-17.5); LYMPH # 0.2 10^3/uL (1.5-5.0); LYMPH % 0.8 % (24.0-44.0); MEAN CORPUSCULAR HEMOGLOBIN 27.6 pg (27.0-33.0); MEAN CORPUSCULAR HGB CONC 31.6 g/dl (32.0-36.5); MEAN CORPUSCULAR VOLUME 87.2 fl (80.0-96.0); MONO # 0.5 10^3/uL (0.0-0.8); MONO % 1.6 % (2.0-8.0); NEUTROPHILS # 26.6 10^3/uL (1.5-8.5); NEUTROPHILS % 93.7 % (36.0-66.0); PLATELET COUNT, AUTOMATED 189 10^3/uL (150-450); RED BLOOD COUNT 3.12 10^6/uL (4.30-6.10); WHITE BLOOD COUNT 28.4 10^3/uL (4.0-10.0)
[2020-12-31] MEDS: HumaLOG INSULIN (NovoLOG) PER UNIT SC SCH ×4 (06:22→21:00)
[2020-12-31] MEDS: SLF 3 ML SYR IV SCH ×3 (06:22→21:43)
[2020-12-31 06:44] LABS: ALBUMIN 1.7 GM/DL (3.2-5.2); BILIRUBIN,TOTAL 0.5 MG/DL (0.2-1.0); CALCIUM LEVEL 8.9 MG/DL (8.8-10.2); CREATININE FOR GFR 1.63 MG/DL (0.70-1.30); GLOMERULAR FILTRATION RATE 43.9 (>42); MAGNESIUM LEVEL 2.1 MG/DL (1.8-2.4); POTASSIUM SERUM 3.4 MEQ/L (3.5-5.1); TOTAL PROTEIN 6.1 GM/DL (6.4-8.2)
[2020-12-31] MEDS: LEVALBUTEROL 1.25 MG/0.5 ML CONCENTRATE NEB INH SCH ×4 (07:12→20:12)
[2020-12-31] MEDS: FAMOTIDINE 20 MG TAB PO SCH ×2 (08:55→21:33)
[2020-12-31] MEDS: APIXABAN 2.5 MG TAB (ELIQUIS) PO SCH ×2 (08:55→21:34)
[2020-12-31] MEDS: guaiFENesin ER 600 MG TAB PO SCH ×2 (08:55→21:34)
[2020-12-31] MEDS: ASPIRIN ENTERIC 325 MG TAB PO SCH (08:55)
[2020-12-31] MEDS: OMEPRAZOLE 20 MG CAP PO SCH (08:55)
[2020-12-31] MEDS: POTASSIUM CHLORIDE 10 MEQ SR TABLET PO SCH ×2 (08:56→21:34)
--- NOTE | 2020-12-31 09:06 | IPN ---
PROGRESS NOTE DATE: 12/30/2020 SUBJECTIVE: The patient was seen and examined this morning during bedside rounds. With the Vapotherm, he has reported improvement in his shortness of breath and dyspnea. The patient has been able to maintain his O2 sats above 90% with only 20 liters on the Vapotherm and 90% FiO2. He does continue to have some cough and mucous production, which can be difficult to expectorate. He has not had any fevers or chills overnight. He did have good urine output with the Lasix administered yesterday. OBJECTIVE: VITAL SIGNS: Temperature 97.9, pulse 104, respirations 18, blood pressure 99/55, O2 saturation 95% on 20 liters/minute at 90% FiO2. INTAKE AND OUTPUT: In 775, out 3.2 liters, net negative 2.4 liters. GENERAL: The patient is an elderly male who is sitting in the bed and is drowsy, but arousable and answers questions appropriately. He appears less tachypneic and is not using as many accessory muscles for respiration. HEENT: Normocephalic, atraumatic. Pupils are reactive to light bilaterally. Moist mucous membranes noted. NECK: Supple. Trachea is midline. Unable to palpate any cervical adenopathy. CARDIAC: Tachycardic. Regular rate and rhythm. Normal S1, S2. Unable to clearly appreciate murmurs. LUNGS: There is diminished breath sounds bilaterally with crackles at the bases and occasional rhonchi. No wheezing noted. ABDOMEN: Soft, nontender, and nondistended with no palpable masses. EXTREMITIES: There is no significant pitting lower extremity edema or sacral edema. LABORATORY DATA: WBC 28.5, hemoglobin 8.8, platelets 192,000. Chemistries: Sodium 142, potassium 3.3, chloride 101, bicarb 34, BUN 44, creatinine 1.66, glucose 112. Magnesium is 1.7, calcium 8.4, AST and ALT 74 and 126, albumin is 1.7. ASSESSMENT AND PLAN: Mr. Troncoso is a 75-year-old male with a past medical history of coronary artery disease (CAD), hypertension, hyperlipidemia, chronic obstructive pulmonary disease (COPD) with chronic hypoxemic respiratory failure, prior history of stage IIA lung cancer currently undergoing chemotherapy and radiation who presented with worsening shortness of breath, cough, and chills. The patient had a recent hospitalization for anemia, as well as neutropenia thought to be secondary to his chemotherapy. He did receive Neupogen injections at his previous hospitalization. He is here now with acute on chronic hypoxemic respiratory failure and leukocytosis with concern initially of pneumonia. The patient was requiring increasing amounts of O2 requirements and was having worsening hypoxia and so pulmonary was consulted yesterday. The patient was thought on his initial imaging to have suspicion of possible pulmonary edema. He did have significantly elevated BNP, which was more than his previous hospitalization. He had initially been given Lasix, but due to worsening renal function his Lasix was on hold. The patient was given Lasix yesterday as there was thought to be a degree of pulmonary edema contributing to his hypoxia. He has had very good urine output and his creatinine has actually improved after the diuresis. - The patient will be continued on Vapotherm and we will continue to titrate down his FiO2 and then slowly wean down his flow rates to maintain O2 sat above 90%. - The patient does have some cough and occasional rhonchi and does report difficulty expectorating mucous; so we will start him on a percussion vest if tolerated to help with mucous clearance. - The patient also had previously reported some symptoms of coughing at times after eating and drinking. He was kept n.p.o. yesterday given his worsening respiratory status, but will have a speech and swallow evaluation today and advance his diet as tolerated. - The patient was given a one time dose of Lasix 60 mg IV yesterday with very good diuresis. Will give him 40 mg IV today, but will also repeat his electrolytes; particularly his potassium and his magnesium. Would follow-up a repeat chemistry in the afternoon to continue to replete his electrolytes. - Will continue the patient on Solu-Medrol 40 mg IV q. 8 and will taper down if he does have further clinical improvement. He was started on prednisone initially for possible COPD exacerbation, although there is also the possibility that some of his findings on imaging may be due to more of an inflammatory process. He did have radiation previously so there may be a degree of radiation pneumonitis; although it does not appear localized to just the one side of his lung so is somewhat less likely. There is the possibility that he does have other pneumonitis related to his chemotherapy, but suspect these findings on imaging are more due to possible pneumonia, as well as pulmonary edema. - Appreciate ID consult and recommendations. His sputum culture had grown strep pneumonia, as well as Streptococcus agalactiae. His antibiotics were deescalated to ceftriaxone. Will continue to monitor and trend procalcitonin to aid in discontinuation of antibiotics. - The patient's blood pressure has been on the low side, but he has not been hypotensive. If he does have episodes of hypotension can consider albumin for intravascular repletion, as he is significantly hypoalbuminemic instead of using normal saline, due to concern for third spacing; particularly as we are trying to diurese him. - Will continue the rest of his home medications and rate control medication as per primary team. 2. Deep vein thrombosis (DVT) prophylaxis on Eliquis. 3. Gastrointestinal (GI) prophylaxis with proton pump inhibitor (PPI). 4. Code status: DO NOT RESUSCITATE (DNR) / DO NOT INTUBATE (DNI).
[2020-12-31] MEDS: CILOSTAZOL 100 MG TAB (PLETAL) PO SCH ×2 (10:31→16:59)
[2020-12-31] MEDS: FUROSEMIDE 40 MG TAB PO SCH (10:32)
--- NOTE | 2020-12-31 12:43 | IPNPDOC ---
Date Seen The patient was seen on 12/31/20. Progress Note SUBJECTIVE: Remains on vapotherm, decreased FiO2 at 70%. PT/OT asked to see patient. WBC 28K; however, on high dose methylprednisolone but decreased frequency. He denies increased SOB, chest pain, fevers, chills, n/v/d and feels slightly improved. OBJECTIVE: PHYSICAL EXAM: VITAL SIGNS: Please see below GENERAL: AAOx 3, resting in bed HEENT: AT/NC, PERRLA, EOM intact, nasal cannula in place NECK: No JVD. LUNGS: improved aeration, bilateral crackles in post lung odom improved. crackles in lower post lungs. No wheezing, rhonchi, rales HEART: S1 and S2, sinus tachycardia. No murmurs, rubs or gallops. ABDOMEN: Soft, nontender, nondistended. Positive bowel sounds. EXTREMITIES: No cyanosis, clubbing or pitting edema. NEURO: CN 2-12 intact, no focal deficits. LABORATORY: Please see below MICROBIOLOGY: BCx NG x 2 sets at 72 H Sputum GS: QUALITY: GOOD, MODERATE WBCS, MANY GRAM POSITIVE COCCI IN PAIRS AND CHAINS, MANY GRAM NEGATIVE COCCI Sputum Cx: Organism 1 STREPTOCOCCUS PNEUMONIAE QUANTITY OF GROWTH HEAVY Organism 2 HAEMOPHILUS INFLUENZAE QUANTITY OF GROWTH HEAVY Organism 3 STREP AGALACTIAE GROUP B QUANTITY OF GROWTH HEAVY Repeat Sputum GS: QUALITY: GOOD, MODERATE WBCS, FEW EPITHELIAL CELLS, NO ORGANISMS SEEN Repeat Sputum Cx: yeast IMAGING: Liver US: No acute sonographic findings. CXR: Increased parenchymal infiltrate in the left perihilar region. Echocardiogram 12/26/20: EF 60-65% Normal global left ventricular systolic function. Not mentioned above, the basal portion of the posterior wall appeared to be hypokinetic. There are features of left ventricular diastolic dysfunction manifested by abnormal relaxation, grade 1. Aortic valve sclerosis with mild aortic regurgitation. Trace mitral regurgitation. Mild tricuspid regurgitation with mild pulmonary hypertension. Trace pericardial effusion, no evidence of cardiac tamponade. ASSESSMENT: 75-year-old male with Stage IIA adenocarcinoma of the lung undergoin g chemotherapy and radiation, COPD, hypertension, CAD, HLD, stent, thoracic aortic aneurysm, macular degeneration, chronic hypoxic respiratory failure, admitted on 12/26/2020 for acute on chronic hypoxic respiratory failure likely multifactorial 2/2 to HCAP, COPD exacerbation, CHF exacerbation, r/o developing ARDS. PLAN: Acute on chronic hypoxic respiratory failure likely multifactorial 2/2 to HCAP, COPD exacerbation, Hx of lung Ca, plueral effusions, CHF exacerbation -Appears more comfortable today, remain on Vapotherm at lower FiO2 70%, saturating >90% -Recent CXR above -Pulmonary consulted -Please see individual treatment of issues below CAP vs. HCAP, sepsis -WBC 28K- some of this incr may be steroid induced. -Recent CXR above, mild tachycardia, afebrile -MRSA neg -BCx NG -Sputum cx above with three microbes: STREPTOCOCCUS PNEUMONIAE, HAEMOPHILUS INFLUENZAE, STREP AGALACTIAE GROUP B -Repeat Sputum culture ordered by ID: [id number] -Discussed with ID. C/w ceftriaxone (Day 3), to complete 10 day treatment course Acute COPD exacerbation -Remains on Vapotherm, FiO2 90%--> 70% today. appears more comfortable -Less wheezing, improved b/l lung aeration -Starting on chest physiotherapy,decreased methylprednisone 40 mg IV Q12H, levalbuterol ATC and PRN -Monitor for uncontrolled BS as previously HFpEF with mild exacerbation possible -Neg fluid balance daily, decreasing O2 demand -BNP 3700--> 2200 -Echo above: preserved EF, grade 1 diastolic dysfunction -Lasix daily, holding CCB due to soft BP -Monitor I&O's closely, daily wt Acute kidney injury secondary to medications -Cr 1.63, improving slowly. BL is wnl -Monitor daily labs, U/O closely -Avoid other nephrotoxic medications. If worsens, consider nephrology consult Atrial fibrillation, paroxysmal -Currently HR 103-113, rate controlled -Given amiodarone gtt, IV digoxin -TSH wnl this hospital stay -Echocardiogram above -Monitor on tele -Currently on eliquis BID, renally dosed. Restart CCB at low dose when able DM type II -BS <200 -HbA1c 7.0 -On methylprednisolone so monitor -On ISS, consistent carb diet, FS AC/HS Hypokalemia secondary to diuresis, poor PO intake -K supplemented -Follow with diuresis -Monitor on tele Transaminitis, improving -No known hx of liver issues -No pain on exam of abdomen -Liver US neg for acute findings -F/u CMP Stage IIA lung CA -Treated o/p with chemoradiation History of CAD and coronary stents -Stable, c/w current meds Dyslipidemia -Holding statin with transaminitis History of thoracic aortic aneurysm -BP controlled -No abdominal pain GERD -PPI DVT px -Eliquis BID, teds, SCD Resolved issues: Hypotension likely 2/2 to atrial fib with RVR DISPOSITION: F/u PT/OT. ID and Pulmonary following. Remains in PCU. DNR/DNI with updated MOLST. VS, I&O, 24H, Fishbone Vital Signs/I&O Vital Signs Date Time Temp Pulse Resp B/P (MAP) Pulse Ox O2 Delivery O2 Flow Rate FiO2 12/31/20 11:50 94 HVNI-Vapotherm 20.0 70 12/31/20 11:30 96.9 111 18 108/58 (75) I&O- Last 24 Hours up to 6 AM 12/31/20 06:00 Intake Total 150 ml Output Total 2110 ml Balance -1960 ml Laboratory Data 24H LABS Laboratory Tests 2 12/30/20 15:02: Anion Gap 6L, Glomerular Filtration Rate 36.3L, Calcium Level 9.4 12/30/20 17:53: Bedside Glucose (Misc Panel) 260H 12/30/20 18:05: Anion Gap 9, Glomerular Filtration Rate 32.6L, Calcium Level 8.9, Total Bilirubin 0.5, Aspartate Amino Transf (AST/SGOT) 65H, Alanine Aminotransferase (ALT/SGPT) 132H, Alkaline Phosphatase 221H, Total Protein 6.1L, Albumin 2.1#L, Albumin/Globulin Ratio 0.5 12/30/20 23:30: Bedside Glucose (Misc Panel) 161H 12/31/20 04:46: Immature Granulocyte % (Auto) 3.7H, Neutrophils (%) (Auto) 93.7H, Lymphocytes (%) (Auto) 0.8L, Monocytes (%) (Auto) 1.6L, Eosinophils (%) (Auto) 0.0, Basophils (%) (Auto) 0.2, Neutrophils # (Auto) 26.6H, Lymphocytes # (Auto) 0.2L, Monocytes # (Auto) 0.5, Eosinophils # (Auto) 0.0, Basophils # (Auto) 0.1, Nucleated Red Blood Cells % (auto) 0.0, Anion Gap 8, Glomerular Filtration Rate 43.9, Calcium Level 8.9, Magnesium Level 2.1, Total Bilirubin 0.5, Aspartate Amino Transf (AST/SGOT) 54H, Alanine Aminotransferase (ALT/SGPT) 103H, Alkaline Phosphatase 189H, Total Protein 6.1L, Albumin 1.7L, Albumin/Globulin Ratio 0.4 12/31/20 06:17: Bedside Glucose (Misc Panel) 136H 12/31/20 11:23: Bedside Glucose (Misc Panel) 193H CBC/BMP Laboratory Tests 12/30/20 15:02 12/30/20 18:05 12/31/20 04:46 Microbiology Microbiology 12/30/20 Gram Stain - Final, Resulted 12/30/20 Sputum Culture - Preliminary, Resulted Yeast Like Organism 12/26/20 Respiratory Virus Panel (PCR) (CHARLETTE) - Final, Complete 12/26/20 Blood Culture - Final, Complete NO GROWTH AFTER 5 DAYS 12/26/20 Gram Stain - Final, Complete 12/26/20 Sputum Culture - Final, Complete Streptococcus Pneumoniae Haemophilus Influenzae Strep Agalactiae Group B 12/26/20 Blood Culture - Final, Complete NO GROWTH AFTER 5 DAYS Current Medications Current Medications Medications (Trade) Dose Ordered Sig/Laura Route PRN Reason Start Time Stop Time Status Last Admin Dose Admin Apixaban (Eliquis) 2.5 mg BID PO 12/28/20 21:00 12/31/20 08:55 Apixaban (Eliquis) 5 mg BID PO 12/28/20 21:00 12/28/20 14:50 DC Aspirin (Ecotrin) 325 mg DAILY PO 12/26/20 09:00 12/31/20 08:55 Atovaquone (Mepron 750mg/ 5ml Suspension) 1,500 mg DAILY PO 12/29/20 09:00 12/29/20 16:56 DC 12/29/20 11:45 Ceftriaxone Sodium 2 gm/ Dextrose 50 ml @ 100 mls/hr Q24H IV 12/29/20 18:00 12/30/20 18:15 Cilostazol (Pletal) 100 mg BID@0730,1730 PO 12/26/20 17:30 12/31/20 10:31 Codeine Phosphate/ Guaifenesin (Robitussin Ac) 5 ml Q6H PRN PO COUGH 12/26/20 16:15 12/31/20 12:38 DC 12/26/20 17:27 Dextrose (Dextrose 50%) 25 ml ASDIRECTED PRN IV SEE LABEL COMMENTS 12/29/20 14:30 Enoxaparin Sodium (Lovenox) 40 mg DAILY SC 12/27/20 09:00 12/28/20 14:46 DC 12/28/20 09:35 Famotidine (Pepcid) 20 mg BID PO 12/26/20 21:00 12/31/20 08:55 Furosemide (Lasix) 40 mg DAILY PO 12/31/20 09:00 12/31/20 10:32 Glucagon (Glucagon) 1 mg ASDIRECTED PRN SC SEE LABEL COMMENTS 12/29/20 14:30 Glucose (Glucose) 16 GM ASDIRECTED PRN PO SEE LABEL COMMENTS 12/29/20 14:30 Guaifenesin (Mucinex Tab Er) 1,200 mg BID PO 12/29/20 09:00 12/31/20 08:55 Home Med (Med Rec Complete!) ASDIRECTED XX 12/26/20 13:35 12/26/20 13:39 DC Insulin Human Lispro (HumaLOG INSULIN) SEE PROTOCOL TABLE AC GA 12/29/20 17:30 12/29/20 14:40 DC Insulin Human Lispro (HumaLOG INSULIN) SEE PROTOCOL TABLE Q6H GA 12/29/20 12:00 12/31/20 06:22 Insulin Human Lispro (HumaLOG INSULIN) SEE PROTOCOL TABLE QHS GA 12/29/20 21:00 12/29/20 14:41 DC Levalbuterol HCl (Xopenex Neb) 1.25 mg Q1HP PRN INH SHORTNESS OF BREATH 12/27/20 08:25 Levalbuterol HCl (Xopenex Neb) 1.25 mg RQID INH 12/27/20 12:00 12/31/20 11:58 Meropenem 1 gm/IV Miscellaneous Supplies 50 ml @ 100 mls/hr Q12H IV 12/29/20 20:00 12/29/20 16:56 DC Meropenem 1 gm/IV Miscellaneous Supplies 50 ml @ 100 mls/hr Q8H IV 12/26/20 18:00 12/29/20 09:30 DC 12/29/20 08:33 Meropenem 500 mg/ IV Miscellaneous Supplies 50 ml @ 100 mls/hr Q8H IV 12/26/20 12:05 12/26/20 13:26 DC Methylprednisolone (SOLU medrol) 40 mg Q12H IV 12/31/20 15:00 Methylprednisolone (SOLU medrol) 40 mg Q8H IV 12/27/20 11:00 12/28/20 07:23 DC 12/28/20 02:01 Methylprednisolone (SOLU medrol) 40 mg Q8H IV 12/29/20 11:00 12/31/20 09:39 DC 12/31/20 04:04 Methylprednisolone (SOLUmedrol) 60 mg Q6H IV 12/26/20 20:00 12/27/20 08:23 DC 12/27/20 02:54 Metoprolol Succinate (TopROL XL) 50 mg BID PO 12/27/20 07:20 12/28/20 12:48 DC 12/27/20 20:57 Metoprolol Succinate (TopROL XL) 50 mg DAILY PO 12/27/20 09:00 12/27/20 07:17 DC Midodrine (Proamatine) 10 mg 08,12,16 PO 12/28/20 12:00 12/29/20 14:51 DC 12/29/20 11:55 Omeprazole (PriLOSEC) 40 mg DAILY PO 12/28/20 09:00 12/31/20 08:55 Ondansetron HCl (Zofran Odt) 8 mg TID PRN PO NAUSEA OR VOMITING 12/26/20 16:15 Pantoprazole Sodium (Protonix) 40 mg DAILY PO 12/26/20 09:00 12/27/20 07:18 DC 12/26/20 16:43 Potassium Chloride (Micro-K Extencaps) 30 meq BID PO 12/31/20 09:00 12/31/20 08:56 Potassium Chloride (Micro-K Extencaps) 30 meq BID@0900,1200 PO 12/29/20 09:00 12/29/20 12:01 DC 12/29/20 11:45 Potassium Chloride (Micro-K Extencaps) 40 meq TID PO 12/27/20 16:00 12/28/20 07:16 DC 12/27/20 20:57 Prednisone (Deltasone) 40 mg DAILY PO 12/28/20 09:00 12/29/20 10:34 DC 12/29/20 07:39 Rosuvastatin Calcium (Crestor) 20 mg DAILY PO 12/26/20 09:00 12/29/20 14:45 DC 12/29/20 07:39 Sodium Chloride 1,000 ml @ 100 mls/hr Q10H IV 12/28/20 07:15 12/28/20 12:46 DC 12/28/20 07:48 Sodium Chloride ([place] Nasal [place]) 2 spray BID NA 12/31/20 09:00 Sodium Chloride (Saline Lock Flush) 2 ml ASDIRECTED PRN IV SEE LABEL COMMENTS 12/26/20 15:30 Sodium Chloride (Saline Lock Flush) 2 ml SLF IV 12/26/20 22:00 12/31/20 06:22 Vancomycin HCl 1000 mg/IV Miscellaneous Supplies 1 each/ Sodium Chloride 270 ml @ 270 mls/hr Q12H IV 12/26/20 16:00 12/27/20 15:10 DC 12/27/20 05:08 Vancomycin HCl 1000 mg/IV Miscellaneous Supplies 1 each/ Sodium Chloride 270 ml @ 270 mls/hr Q24H IV 12/30/20 10:00 12/29/20 16:56 DC Allergies Coded Allergies: Penicillins (Verified Adverse Reaction, Mild, itch, 12/29/20) Evelia Gonzalez MD Dec 31, 2020 12:43
--- NOTE | 2020-12-31 12:53 | CR ---
INFECTIOUS DISEASE CONSULTATION DATE: 12/29/2020 REQUESTING PHYSICIAN: Dr. Evelia Gonzalez. REASON FOR CONSULTATION: Sepsis, healthcare associated pneumonia in immunocompromised patient. HISTORY OF PRESENT ILLNESS: George is a pleasant 75-year-old male with notable medical history of stage IIA adenocarcinoma of the lung, chronic obstructive pulmonary disease (COPD), coronary artery disease with myocardial infarction (OR) and status post stents, who presented to the [facility] emergency department (ED) on 12/26/20 after a home oxygen saturation reading of 74% prompted concern in his to call emergency medical services (EMS). Of note, the patient had just been discharged from [facility] two days prior, on 12/24/20, after being admitted for symptomatic anemia. Upon this admission, he was started on intravenous (IV) meropenem due to penicillin allergy, as well as vancomycin, IV Solu-Medrol for possible COPD exacerbation. Over the past 24-48 hours, he has had increasing respiratory effort with worsening hypoxic respiratory failure and worsening respiratory alkalosis on arterial blood gas (ABG). He was having trouble maintaining saturations above 88% on 6 liters nasal cannula supplemental oxygen and was just subsequently switched over to Vapotherm. A chest x-ray this morning showed continued bilateral infiltrates with worsening interval change of the left perihilar infiltrate. A sputum culture obtained on 12/26/20 showed heavy growth of both Streptococcus agalactiae and Streptococcus pneumoniae. The patient's primary hospitalist physician subsequently consulted the infectious disease service for apparent worsening of healthcare-associated pneumonia in the setting of an immunocompromised state due to malignancy and ongoing chemotherapy. George was seen and examined this afternoon in the progressive care unit. He reports doing much better from a respiratory standpoint after being switched over to the Vapotherm. He had been having increased work of breathing and dyspnea, which he says has steadily gotten better in the hours since he was switched to Vapotherm. He has an accompanying intermittent productive cough of yellow sputum. He denies any recent fever, chills, night sweats, pleuritic chest pain, hemoptysis, palpitations, nausea, vomiting, diarrhea, dysuria, hematuria or blood in stool. While his appetite is good at this time, he has had nothing since a light breakfast in preparation for an upcoming liver ultrasound. He is accompanied in the room today by his , Emerita. PAST MEDICAL HISTORY: 1. Stage IIA/T2N2 right upper lobe PDL-1 negative, VRAF negative, EGFR negative adenocarcinoma of the lung status post 30 sessions of radiation and seven sessions of chemotherapy. His most recent chemotherapy occurred on 12/17/2020 in the form of cycle 2 of carboplatin and Taxol. He was also given pegfilgrastim on 12/18/2020. He follows at the [facility] for outpatient treatment. He had been following with Dr. Matthew Salazar and has now switched over to Dr. Med Whelan diagnosed in September 2020. 2. Chronic obstructive pulmonary disease (COPD). 3. Coronary artery disease with history of myocardial infarction (OR) status post stent placement. 4. History of thoracic aneurysm. 5. Hypertension. 6. Dyslipidemia. 7. Gastroesophageal reflux disease (GERD). 8. Macular degeneration. PAST SURGICAL HISTORY: 1. Coronary artery stents. 2. Infusaport in right upper chest. 3. Cataract surgery. 4. Appendectomy. SOCIAL HISTORY: Patient is ('s name is Emerita). He is a former cigarette smoker, having quit in September upon the time of his diagnosis. Patient has at least a 120 pack year history, having smoked two packs per day for at least 60 years. He has no significant alcohol history and denies any illicit drug use. FAMILY HISTORY: Father is , having in WWII. Mother is , history of coronary artery disease. Uncle due to ruptured aorta. ALLERGIES: A reported mild allergy to PENICILLINS in the form of pruritus. That was when patient was a child. CURRENT HOME MEDICATIONS: - Ventolin as needed inhaler two puffs four times a day - amlodipine 5 mg by mouth daily - aspirin 325 mg by mouth daily - cilostazol 100 mg by mouth twice a day - codeine phosphate/guaifenesin 5 mL by mouth every 6 hours for cough - famotidine 20 mg by mouth twice a day - metoprolol succinate 50 mg by mouth daily - ondansetron 8 mg by mouth three times a day as needed for nausea or vomiting - pantoprazole 40 mg by mouth daily - rosuvastatin 20 mg by mouth daily - Spiriva one puff daily INPATIENT MEDICATIONS: - vancomycin IV day #4 - meropenem IV every 12 hours day #4 - atovaquone 1500 mg daily by mouth - Solu-Medrol 40 mg every 8 hours IV - guaifenesin 1200 mg by mouth twice a day - Eliquis by mouth twice a day - omeprazole 40 mg by mouth daily - Xopenex 1.25 mg scheduled inhaler four times a day - Xopenex nebulizer every 1 hour as needed for shortness of breath - famotidine 20 mg by mouth twice a day - cilostazol 100 mg by mouth twice a day - Robitussin 5 mL every 6 hours as needed for cough - ondansetron 8 mg three times a day as needed - aspirin 325 mg by mouth daily REVIEW OF SYSTEMS: Please see history of present illness (HPI) for pertinent positives and negatives. A full and complete 10 point review of systems was conducted and other than specified in the history of present illness, all were negative. PHYSICAL EXAMINATION: VITAL SIGNS: Temperature 97.5, heart rate 119, respiratory rate 20, blood pressure 110/57, SpO2 96% on Vapotherm high flow oxygen with FiO2 of 100% and flow rate of 20. GENERAL: Pleasant, elderly male lying upright in bed on Vapotherm high flow oxygen. Alert and oriented times three. HEENT: Normocephalic, atraumatic. Noninjected anicteric sclerae. Wearing eyeglasses. ORAL CAVITY: There is no pharyngeal erythema. There is, however, a yellow-colored exudate over the lips and roof of the mouth and posterior pharynx. Patient is wearing both upper and lower dentures. NECK: Supple. No lymphadenopathy appreciated. Trachea midline. CARDIOVASCULAR: Heart sounds are fainter in general. Tachycardic rate. Regular rhythm. Normal S1, S2. Difficult to appreciate for murmurs with ambient Vapotherm noise and distant heart sounds. RESPIRATORY: Patient is breathing on Vapotherm with above listed settings. There does not appear to be significant accessory muscle use. There are diminished breath sounds bilaterally with some possible mild crackles in the bases bilaterally. Otherwise, no adventitious breath sounds are appreciated. He is speaking in full sentences. Symmetric chest expansion. GASTROINTESTINAL: Abdomen is soft, nontender. Some mild distention. There is no rigidity or guarding. Normoactive bowel sounds present throughout. No significant hepatosplenomegaly appreciated. CHEST: No chest tenderness. There is a port present in the right upper chest. EXTREMITIES: Bilateral lower extremities are free of edema. Lower extremities have no hair growth and are quite smooth. Radial and posterior tibial pulses 2+ bilaterally. NEUROLOGIC: Patient is awake, alert and oriented times three. No focal deficits appreciated. Nondysarthric speech. LABORATORY DATA: CBC: WBC 33.5, hemoglobin 9.2, hematocrit 29, MCV 86, platelet count 204,000, neutrophil predominant 95% with 1% bands. CMP: Sodium 141, potassium 3.2, chloride 103, bicarbonate 32, BUN 45, creatinine 1.65, glucose 179, calcium 8.5. Hemoglobin A1C 7.0. Total bilirubin 0.5, AST 124, ALT 163, alkaline phosphatase 204, LDH 442. C-reactive protein (CRP) 11.8. BNP 2293. Total protein 5.2, albumin 1.7, triglycerides 151, total cholesterol 81, LDL 38. Procalcitonin 2.21. Arterial blood gas this morning with results of pH 7.565, pCO2 31.8, pO2 46.2, bicarbonate 32. This ABG done on 6 liters nasal cannula supplemental oxygen. Two initial blood cultures obtained on day of admission (12/26/2020) show no growth after 72 hours. Expectorated sputum culture positive for heavy growth of both Streptococcus pneumoniae and Streptococcus agalactiae (group B Streptococcus (GBS)). Respiratory viral panel negative. IMAGING DATA: Most recent imaging occurred this morning in the form of a 2-view chest x-ray showing extensive bilateral infiltrates in both the upper and lower lung odom with increased interval infiltrate in the left perihilar region. IMPRESSION AND PLAN: 1. Streptococcus pneumonia and group B Streptococcus healthcare-associated multifocal pneumonia. Sputum culture showed growth of both Streptococcus pneumoniae and group B Streptococcus. Methicillin-resistant Staphylococcus aureus (MRSA) PCR screen was negative. As a result of the culture and MRSA PCR, we have discontinued the patient's vancomycin. Also, the sensitivity has returned on the sputum culture and as a result of his listed penicillin allergy, we have stopped the meropenem allergy and switched to ceftriaxone. We have ordered the ceftriaxone to be given in 2 gram doses due to his multifocal pneumonia. This will cover for both his group B Streptococcus and Streptococcus pneumoniae. 2. Worsening hypoxia. Patient's respiratory failure is likely multifactorial due to fluid overload as well as possible COPD exacerbation in the setting of his current bilateral pneumonia. It is important to note that he got better relatively quickly after being given IV furosemide. This quicker response points more to fluid than pneumonia being the primary culprit of his worsening hypoxia as usually pneumonia would not be as quick to respond. 3. Leukocytosis. This is likely multifactorial due to the current and recent IV steroids the patient has been given for is COPD exacerbation, as well as the dose of pegfilgrastim he received on 12/18/2020. Because the patient also got chemotherapy the day before, this could have stunted the onset of the pegfilgrastim. On speaking with oncology, they said it is very common to have a delayed increased in white count while receiving coterminous chemotherapy. Obviously as well, a component of the leukocytosis can also be due to the bilateral pneumonia. In addition, while his white count was 1 on 12/24/20, it rebounded nicely when he was admitted two days later on 12/26/20 and his calculated absolute neutrophil count was around 600. Thus, he was not neutropenic and has remained so throughout this admission. As a result, we have discontinued the PCP prophylactic mepron (atovaquone) medication that had been added earlier today. 4. Stage IIA adenocarcinoma of the lung. He is currently following with Dr. Med Whelan in the [facility] here at [facility]. He received his most recent chemotherapy dose of carboplatin and Taxol, cycle 2, on 12/17/2020 and received bone marrow stimulator, pegfilgrastim, growth colony stimulating factor pegfilgrastim on 12/18/2020. He is status post radiation. Thank you for the opportunity for participating in the care of George. We will continue to follow along. [facility]
[2020-12-31] MEDS: SODIUM CHLORIDE NASAL 0.65% SPRAY BTL (OCEAN) SCH ×2 (13:00→21:34)
[2020-12-31 14:09] LABS: BODY FLUID CULTURE Not indicated. (.); LEGIONELLA ANTIGEN URINE Negative (Negative); ORGANISM ID Not indicated. (.); SPECIMEN SOURCE Urine (.); URINE STREP PNEUMONIAE ANTIGEN Negative (Negative)
--- NOTE | 2020-12-31 15:17 | IPN ---
PROGRESS NOTE DATE: 12/31/2020 SUBJECTIVE: The patient was seen and examined this morning during bedside rounds. The patient is on Vapotherm at settings of 20 liters a minute and had been weaned down to an FIO2 of 70%. He was sitting in the chair today and he reports his breathing has been doing slightly better. He does get short of breath still at times and has difficulty still with cough and occasional mucous production. He denies any chest pain. He has not had any fevers or chills. He does not have any abdominal pain. No nausea or vomiting. He was seen by Speech Pathology yesterday and was able to start a regular diet. OBJECTIVE: VITAL SIGNS: Temperature is 97.6, pulse is 107, respirations are 18, blood pressure is 124/84, O2 saturation 97% on 20 liter per minute and 70% FIO2. INPUT AND INPUT: Ins 270, out 1.8 liters, net negative 1.590 liters. GENERAL APPEARANCE: The patient is an elderly male who is sitting in the chair and is awake and alert. He appears less tachypneic and is not using any accessory muscles for respiration. He does have an occasional cough during our examination. HEENT: Normocephalic, atraumatic. Pupils are reactive to light bilaterally. Moist mucous membranes noted. NECK: Supple. Trachea is midline. No palpable cervical adenopathy. CARDIAC: Tachycardic. Regular rate and rhythm. Normal S1 and S2, unable to clearly appreciate murmurs. LUNGS: Diminished breath sounds bilaterally with improvement in the previously noted crackles. There is still some mild crackles at the bases but no significant wheezing or rhonchi noted. ABDOMEN: Soft, nontender and nondistended with no palpable masses. EXTREMITIES: There is no significant pitting lower extremity bilaterally. LABORATORY DATA: WBC 28.4, hemoglobin is 8.6, platelets are 189,000. Chemistries: Sodium is 139, potassium is 3.4, chloride is 100, bicarbonate is 31, BUN is 49, creatinine 1.63. Glucose is 110. Calcium is 8.9. Magnesium is 2.1. AST and ALT is 54 and 103. Alkaline phosphatase is 189. Albumin is 1.7. The patient's previous sputum culture had grown Strep pneumoniae and Strep agalactiae. He also now grew haemophilus influenza from his initial sputum culture. Repeat sputum culture shows yeast organisms. ASSESSMENT AND PLAN: Mr. Troncoso his a 75-year-old male with a past medical history of CAD, hypertension, hyperlipidemia, and COPD, and a prior history of Stage IIA lung cancer currently undergoing chemotherapy and radiation who presented with shortness of breath, cough and chills. The patient had a recent hospitalization for anemia and neutropenia thought to be secondary to his chemotherapy. He did previously receive Neupogen at his prior hospitalization. Patient presented with acute on chronic hypoxemic respiratory failure. The patient had previously not required oxygen supplementation but he was discharged on nasal cannula oxygen at his last hospitalization. The patient was initially treated for possible pneumonia given his leukocytosis and findings on imaging. Pulmonary was consulted as he was noted to have worsening hypoxia and increasing oxygen requirements. The patient did have significantly elevated BNP on admission which was more than from his previous hospitalization a few days prior. He also on baseline imaging had a suspicion of possible pulmonary edema and so he was started on IV Lasix with good urine output and diuresis. With diuresis, his oxygen requirements have been improving. Will continue the patient on Vapotherm. Will continue to titrate down his FIO2 and his flow rate to maintain O2 sat above 90%. When the patient is able to wean down to a regular nasal cannula, would ensure that he has bubble humidifier if he has flow rate requirements more than 3 to 4 liters per minute. Will continue the percussion vest as it has been helping with his mucous clearance. Will continue nebulized bronchodilators as well with his percussion vest. Patient is complaining of some increased nasal dryness as well as occasional nose-bleeding. Will start him on saline nasal sprays to help with the dryness with the nasal cannula oxygen. He had been on fairly high doses previously with regular nasal cannula and with no humidity. The patient was seen by Speech Pathology yesterday and did not have overt evidence of aspiration. He was able to advance his diet to a regular diet. Will also add Ensure Enlive for increased protein supplementation as he has hypoalbuminemia. The patient was given Lasix 40 mg IV yesterday and has had good urine output. Will transition him to p.o. Lasix today and continue with diuresis with close monitoring of his renal function and electrolytes. He is getting potassium repletion. Will continue Solumedrol but will taper down to 40 mg b.i.d. If patient is continuing to improve, would taper him from Solumedrol down to prednisone. ID had been consulted. His initial sputum culture had grown Strep pneumonia as well as Strep agalactiae. He now also has evidence of haemophilus influenza in his sputum culture. They all appear sensitive to Ceftriaxone so can continue with the Ceftriaxone. His repeat sputum culture has shown yeast only. The patient's blood pressures have remained stable. He had been hypotensive initially but has not had any issues currently. If he does have hypotension, would consider albumin for intravascular repletion given his hypoalbuminemia and not normal saline due to concern for third spacing. Continue the rest of his home medications and rate control medications as per primary team. DVT prophylaxis with Eliquis. GI prophylaxis with Protonix. Code status: DNR/DNI. Please do not hesitate to call if any further questions or concerns.
[2020-12-31] MEDS: cefTRIAXone SOD 2 GM in D5W MINI-BAG PLUS 50 ML IV SCH (18:00)
[2020-12-31 18:29] LABS: ALBUMIN 2.1 GM/DL (3.2-5.2); BILIRUBIN,TOTAL 0.5 MG/DL (0.2-1.0); CALCIUM LEVEL 9.2 MG/DL (8.8-10.2); CREATININE FOR GFR 1.94 MG/DL (0.70-1.30); GLOMERULAR FILTRATION RATE 35.9 (>42); POTASSIUM SERUM 3.5 MEQ/L (3.5-5.1); TOTAL PROTEIN 6.7 GM/DL (6.4-8.2)
--- NOTE | 2020-12-31 22:58 | IPNPDOC ---
Text Note Date of Service The patient was seen on 12/31/20. NOTE INFECTIOUS DISEASE PROGRESS NOTE SUBJECTIVE: George was feeling somewhat better this afternoon. We saw him as he was receiving vibration-vest therapy. He was able to move from his bed to the chair with assistance. He stated that he was producing only a small yellow-brown colored phlegm from the therapy, less than a tablespoon. He did not have his hearing aids in due to the vibration therapy, and updates were given by his . He has no acute events overnight, has no fever, chills, sweats, pleuritic chest pain, hemoptysis, nausea or vomiting. While the Vapotherm has reduced his effort of respiration, he continues to struggle to breath and has maintained an oxygen saturation in the low 90s. Patient;s Awan catheter was removed today. OBJECTIVE: VITALS: See below GENERAL: Patient is a pleasant man, sitting comfortable in his chair after vibration therapy was completed. He is on a Vapotherm with high flow oxygen. . HEENT: Normocephalic, atraumatic. CARDIOVASCULAR: Tachycardic with a regular rhythm. Normal S1, S2. No murmurs, gallops or rubs were appreciated, though it was difficult to isolate heart sounds over respiratory effort and Vapotherm. RESPIRATORY: Wheezes are noted in all lung odom bilaterally, and crackles hard at the bases bilaterally. Patient does not seem to be using accessory muscles to breathe. Patient is breathing on Vapotherm with above listed settings. Chest rise is symmetric, and he is speaking in full sentences. EXTREMITIES: Capillary refill <3s. Lower extremities have an absence of hair, though there is no edema. NEUROLOGIC: No focal deficits noted. Alert and oriented times three LABORATORY DATA: CBC: WBC 28.4, hemoglobin 8.6, hematocrit 27.7, MCV 87, platelet count 189, neutrophil 93.7% with 2% bands. CMP: Sodium 138, potassium 3.5, chloride 97, bicarbonate 32, BUN 57, creatinine 1.94, glucose 266, calcium 9.2 Total bilirubin 0.5, AST 45, ALT 102, alkaline phosphatase 200 Sputum cultures obtained on 12/26/2020 grew S. pneumonia, H. influenza and Group B Strep. Sputum culture from 12/30/2020 grew a yeast-like organism. IMPRESSION: 1. Streptococcus pneumonia / Hflu and group B Streptococcus healthcare- associated multifocal pneumonia. On 12/29, we started 2gm ceftriaxone, which will cover all pathogens. His white blood count is decreasing, and has reduced from 35 to 28 over the course of our involvement with the case. Yeast-like organism is likely commensal colonization and does not need TX, he is improving on antibacterial coverage. 2. Worsening hypoxia. The patient's pneumonia is complicated by COPD exacerbation, fluid overload, and adenocarcinoma of the lung. His breathing is much improved today after treatment with lasix. 3. Stage IIA adenocarcinoma of the lung. The patient is following with Dr. Med Whelan in the [facility] here at [facility]. His most recent chemotherapy session was 12/17/2020, and he is status post radiation treatment. PLAN: 1. Continue 2gm ceftriaxone IV for a total of six weeks after negative cultures. As the patient has been improving on antibacterial coverage, Continue with daily blood draws for CBC with differential, BMP, and CRP. Continue with vibration vest therapy daily to break up mucus collection. 2. Continue treating with Vapotherm to ease work of respiration. Patient was unable to reach an oxygen saturation of 90% on regular nasal cannula, and has been doing well with the Vapotherm. 3. Patient will be treated outpatient with Dr. Whelan. VS,Michaelbone, I+O VS, Fishbone, I+O Laboratory Tests 12/31/20 04:46 12/31/20 17:41 Vital Signs Date Time Temp Pulse Resp B/P (MAP) Pulse Ox O2 Delivery O2 Flow Rate FiO2 12/31/20 20:13 93 HVNI-Vapotherm 15.0 60 12/31/20 20:00 97.0 57 18 133/60 (84) I&O- Last 24 Hours up to 6 AM 12/31/20 06:00 Intake Total 150 ml Output Total 2110 ml Balance -1960 ml GME ATTESTATION GME ATTESTATION My faculty preceptor for this patient encounter was physically present during the encounter and was fully available. All aspects of the patient interview, examination, medical decision making process, and medical care plan development were reviewed and approved by the faculty preceptor. The faculty preceptor is aware and concurs with the plan as stated in the body of this note and will att est to such by his/her cosignature. EUGENIO MENDEZ Dec 31, 2020 22:58 Kali Cee MD Jan 01, 2021 13:54
[2021-01-01] VITALS: BP 116/58
[2021-01-01] MEDS: methylPREDNISolone 40MG 1ML VIAL IV SCH ×2 (03:47→15:54)
[2021-01-01 04:00] VITALS: BP 115/59
[2021-01-01 05:28] LABS: BASO # 0.1 10^3/uL (0.0-0.2); BASO % 0.2 % (0.0-1.0); HEMATOCRIT 26.4 % (42.0-52.0); HEMOGLOBIN 8.3 g/dl (13.5-17.5); LYMPH # 0.3 10^3/uL (1.5-5.0); LYMPH % 1.2 % (24.0-44.0); MEAN CORPUSCULAR HEMOGLOBIN 27.3 pg (27.0-33.0); MEAN CORPUSCULAR HGB CONC 31.4 g/dl (32.0-36.5); MEAN CORPUSCULAR VOLUME 86.8 fl (80.0-96.0); MONO # 0.4 10^3/uL (0.0-0.8); MONO % 1.8 % (2.0-8.0); NEUTROPHILS # 20.9 10^3/uL (1.5-8.5); NEUTROPHILS % 94.3 % (36.0-66.0); PLATELET COUNT, AUTOMATED 196 10^3/uL (150-450); RED BLOOD COUNT 3.04 10^6/uL (4.30-6.10); WHITE BLOOD COUNT 22.2 10^3/uL (4.0-10.0)
[2021-01-01 05:50] LABS: ALBUMIN 1.9 GM/DL (3.2-5.2); BILIRUBIN,TOTAL 0.5 MG/DL (0.2-1.0); CALCIUM LEVEL 8.5 MG/DL (8.8-10.2); CREATININE FOR GFR 1.64 MG/DL (0.70-1.30); GLOMERULAR FILTRATION RATE 43.6 (>42); POTASSIUM SERUM 3.9 MEQ/L (3.5-5.1); TOTAL PROTEIN 5.4 GM/DL (6.4-8.2)
[2021-01-01] MEDS: SLF 3 ML SYR IV SCH ×3 (06:10→21:39)
[2021-01-01] MEDS: LEVALBUTEROL 1.25 MG/0.5 ML CONCENTRATE NEB INH SCH ×4 (07:11→19:50)
[2021-01-01 08:00] VITALS: BP 119/58
[2021-01-01] MEDS: HumaLOG INSULIN (NovoLOG) PER UNIT SC SCH ×4 (08:38→21:00)
[2021-01-01] MEDS: OMEPRAZOLE 20 MG CAP PO SCH (08:38)
[2021-01-01] MEDS: guaiFENesin ER 600 MG TAB PO SCH ×2 (08:39→21:28)
[2021-01-01] MEDS: APIXABAN 2.5 MG TAB (ELIQUIS) PO SCH ×2 (08:39→21:29)
[2021-01-01] MEDS: ASPIRIN ENTERIC 325 MG TAB PO SCH (08:39)
[2021-01-01] MEDS: POTASSIUM CHLORIDE 10 MEQ SR TABLET PO SCH ×2 (08:39→21:29)
[2021-01-01] MEDS: FAMOTIDINE 20 MG TAB PO SCH ×2 (08:39→21:28)
[2021-01-01] MEDS: CILOSTAZOL 100 MG TAB (PLETAL) PO SCH ×2 (08:39→18:04)
[2021-01-01] MEDS: FUROSEMIDE 40 MG TAB PO SCH (08:39)
[2021-01-01] MEDS: SODIUM CHLORIDE NASAL 0.65% SPRAY BTL (OCEAN) SCH ×2 (08:40→21:37)
[2021-01-01 12:00] VITALS: BP 118/62
--- NOTE | 2021-01-01 14:12 | IPNPDOC ---
Date Seen The patient was seen on 01/01/21. Progress Note SUBJECTIVE: Remains on vapotherm, decreased FiO2 further to 60%. PT/OT asked to see patient. WBC 28K; however, on high dose methylprednisolone but decreased frequency. He denies increased SOB, chest pain, fevers, chills, n/v/d and feels slightly improved. OBJECTIVE: PHYSICAL EXAM: VITAL SIGNS: Please see below GENERAL: AAOx 3, resting in bed HEENT: AT/NC, PERRLA, EOM intact, nasal cannula in place NECK: No JVD. LUNGS: improved aeration, bilateral crackles in post lung odom improved. crackles in lower post lungs. No wheezing, rhonchi, rales HEART: S1 and S2, sinus tachycardia. No murmurs, rubs or gallops. ABDOMEN: Soft, nontender, nondistended. Positive bowel sounds. EXTREMITIES: No cyanosis, clubbing or pitting edema. NEURO: CN 2-12 intact, no focal deficits. LABORATORY: Please see below MICROBIOLOGY: BCx NG x 2 sets at 72 H Sputum GS: QUALITY: GOOD, MODERATE WBCS, MANY GRAM POSITIVE COCCI IN PAIRS AND CHAINS, MANY GRAM NEGATIVE COCCI Sputum Cx: Organism 1 STREPTOCOCCUS PNEUMONIAE QUANTITY OF GROWTH HEAVY Organism 2 HAEMOPHILUS INFLUENZAE QUANTITY OF GROWTH HEAVY Organism 3 STREP AGALACTIAE GROUP B QUANTITY OF GROWTH HEAVY Repeat Sputum GS: QUALITY: GOOD, MODERATE WBCS, FEW EPITHELIAL CELLS, NO ORGANISMS SEEN Repeat Sputum Cx: yeast IMAGING: Liver US: No acute sonographic findings. CXR: Increased parenchymal infiltrate in the left perihilar region. Echocardiogram 12/26/20: EF 60-65% Normal global left ventricular systolic function. Not mentioned above, the basal portion of the posterior wall appeared to be hypokinetic. There are features of left ventricular diastolic dysfunction manifested by abnormal relaxation, grade 1. Aortic valve sclerosis with mild aortic regurgitation. Trace mitral regurgitation. Mild tricuspid regurgitation with mild pulmonary hypertension. Trace pericardial effusion, no evidence of cardiac tamponade. ASSESSMENT: 75-year-old male with Stage IIA adenocarcinoma of the lung u ndergoing chemotherapy and radiation, COPD, hypertension, CAD, HLD, stent, thoracic aortic aneurysm, macular degeneration, chronic hypoxic respiratory failure, admitted on 12/26/2020 for acute on chronic hypoxic respiratory failure likely multifactorial 2/2 to HCAP, COPD exacerbation, CHF exacerbation, r/o developing ARDS. PLAN: Acute on chronic hypoxic respiratory failure likely multifactorial 2/2 to HCAP, COPD exacerbation, Hx of lung Ca, plueral effusions, CHF exacerbation -Appears more comfortable today, remain on Vapotherm at lower FiO2 70%, saturating >90% -Recent CXR above -Pulmonary has evaluated and will f/u o/p -Please see individual treatment of issues below Acute COPD exacerbation -Slowly improvign -Remains on Vapotherm, FiO2 90%--> 60% today. appears more comfortable -Less wheezing, improved b/l lung aeration -Starting on chest physiotherapy, hoping to stop IV methylprednisolone 01/02/21 if continues to improve, will start on PO prednisone taper. C/w levalbuterol ATC and PRN -Monitor for uncontrolled BS as previously CAP vs. HCAP, resolved sepsis -WBC 28K- likely still markedly elevated 2/2 to steroids -Recent CXR above, mild tachycardia, afebrile -MRSA neg -BCx NG -Sputum cx above with three microbes: STREPTOCOCCUS PNEUMONIAE, HAEMOPHILUS INFLUENZAE, STREP AGALACTIAE GROUP B -Repeat Sputum culture ordered by ID: yeast -Discussed with ID. C/w ceftriaxone (Day 4), to complete 10 day treatment course. can likely transition off IV to PO cefdinir HFpEF with mild exacerbation possible -Neg fluid balance daily -BNP repeat 2200, improving -Echo above: preserved EF, grade 1 diastolic dysfunction -Lasix daily, low dose CCB -Monitor I&O's closely, daily wt Acute kidney injury secondary to medications -Cr 1.64. BL is wnl -Monitor daily labs, U/O closely -Avoid other nephrotoxic medications. If worsens, consider nephrology consult Atrial fibrillation, paroxysmal -Currently HR 85-113, mostly rate controlled -TSH wnl this hospital stay -Echocardiogram above -Monitor on tele -Currently on eliquis BID, low dose CCB DM type II -BS slightly elevated today but starting to deescalate steroids, will likely start to improve slowly -HbA1c 7.0 -On methylprednisolone so monitor -On ISS, consistent carb diet, FS AC/HS Hypokalemia secondary to diuresis, poor PO intake -K supplemented BID -Today 3.9 -Follow with diuresis, decrease supplement if need to -Monitor on tele Transaminitis, improving -No known hx of liver issues -No pain on exam of abdomen -Liver US neg for acute findings -F/u CMP Stage IIA lung CA -Treated o/p with chemoradiation History of CAD and coronary stents -Stable, c/w current meds Dyslipidemia -Holding statin with transaminitis History of thoracic aortic aneurysm -BP controlled -No abdominal pain GERD -PPI DVT px -Eliquis BID, teds, SCD Resolved issues: Hypotension likely 2/2 to atrial fib with RVR DISPOSITION: PT : Would benefit from continued rehab after d/c, will determine after weekend if this will be inpatient vs. at home. Remains in PCU. DNR/DNI with updated MOLST. VS, I&O, 24H, Fishbone Vital Signs/I&O Vital Signs Date Time Temp Pulse Resp B/P (MAP) Pulse Ox O2 Delivery O2 Flow Rate FiO2 01/01/21 12:00 96.9 85 16 118/62 (80) 92 HVNI-Vapotherm 15.0 60 I&O- Last 24 Hours up to 6 AM0 01/01/21 06:00 Intake Total 890 ml Output Total 1050 ml Balance -160 ml Laboratory Data 24H LABS Laboratory Tests 2 12/31/20 16:49: Bedside Glucose (Misc Panel) 211H 12/31/20 17:41: Anion Gap 9, Glomerular Filtration Rate 35.9L, Calcium Level 9.2, Total Bilirubin 0.5, Aspartate Amino Transf (AST/SGOT) 45H, Alanine Aminotransferase (ALT/SGPT) 102H, Alkaline Phosphatase 200H, Total Protein 6.7, Albumin 2.1#L, Albumin/Globulin Ratio 0.5 12/31/20 21:26: Bedside Glucose (Misc Panel) 185H 01/01/21 04:48: Anion Gap 6L, Glomerular Filtration Rate 43.6, Calcium Level 8.5L, Total Bilirubin 0.5, Aspartate Amino Transf (AST/SGOT) 35, Alanine Aminotransferase (ALT/SGPT) 84H, Alkaline Phosphatase 172H, Total Protein 5.4L, Albumin 1.9L, Albumin/Globulin Ratio 0.5, Immature Granulocyte % (Auto) 2.5, Neutrophils (%) (Auto) 94.3H, Lymphocytes (%) (Auto) 1.2L, Monocytes (%) (Auto) 1.8L, Eosinophils (%) (Auto) 0.0, Basophils (%) (Auto) 0.2, Neutrophils # (Auto) 20.9 H, Lymphocytes # (Auto) 0.3L, Monocytes # (Auto) 0.4, Eosinophils # (Auto) 0.0, Basophils # (Auto) 0.1, Nucleated Red Blood Cells % (auto) 0.0, Magnesium Level 2.0 01/01/21 11:38: Bedside Glucose (Misc Panel) 226H CBC/BMP Laboratory Tests 12/31/20 17:41 01/01/21 04:48 Microbiology Microbiology 12/30/20 Gram Stain - Final, Complete 12/30/20 Sputum Culture - Final, Complete Yeast Like Organism 12/26/20 Respiratory Virus Panel (PCR) (CHARLETTE) - Final, Complete 12/26/20 Blood Culture - Final, Complete NO GROWTH AFTER 5 DAYS 12/26/20 Gram Stain - Final, Complete 12/26/20 Sputum Culture - Final, Complete Streptococcus Pneumoniae Haemophilus Influenzae Strep Agalactiae Group B 12/26/20 Blood Culture - Final, Complete NO GROWTH AFTER 5 DAYS Current Medications Current Medications Medications (Trade) Dose Ordered Sig/Laura Route PRN Reason Start Time Stop Time Status Last Admin Dose Admin Apixaban (Eliquis) 2.5 mg BID PO 12/28/20 21:00 01/01/21 08:39 Apixaban (Eliquis) 5 mg BID PO 12/28/20 21:00 12/28/20 14:50 DC Aspirin (Ecotrin) 325 mg DAILY PO 12/26/20 09:00 01/01/21 08:39 Atovaquone (Mepron 750mg/ 5ml Suspension) 1,500 mg DAILY PO 12/29/20 09:00 12/29/20 16:56 DC 12/29/20 11:45 Ceftriaxone Sodium 2 gm/ Dextrose 50 ml @ 100 mls/hr Q24H IV 12/29/20 18:00 12/31/20 18:00 Cilostazol (Pletal) 100 mg BID@0730,1730 PO 12/26/20 17:30 01/01/21 08:39 Codeine Phosphate/ Guaifenesin (Robitussin Ac) 5 ml Q6H PRN PO COUGH 12/26/20 16:15 12/31/20 12:38 DC 12/26/20 17:27 Dextrose (Dextrose 50%) 25 ml ASDIRECTED PRN IV SEE LABEL COMMENTS 12/29/20 14:30 Enoxaparin Sodium (Lovenox) 40 mg DAILY SC 12/27/20 09:00 12/28/20 14:46 DC 12/28/20 09:35 Famotidine (Pepcid) 20 mg BID PO 12/26/20 21:00 01/01/21 08:39 Furosemide (Lasix) 40 mg DAILY PO 12/31/20 09:00 01/01/21 08:39 Glucagon (Glucagon) 1 mg ASDIRECTED PRN SC SEE LABEL COMMENTS 12/29/20 14:30 Glucose (Glucose) 16 GM ASDIRECTED PRN PO SEE LABEL COMMENTS 12/29/20 14:30 Guaifenesin (Mucinex Tab Er) 1,200 mg BID PO 12/29/20 09:00 01/01/21 08:39 Home Med (Med Rec Complete!) ASDIRECTED XX 12/26/20 13:35 12/26/20 13:39 DC Insulin Human Lispro (HumaLOG INSULIN) SEE PROTOCOL TABLE AC NE 12/29/20 17:30 12/29/20 14:40 DC Insulin Human Lispro (HumaLOG INSULIN) SEE PROTOCOL TABLE AC NE 12/31/20 12:00 01/01/21 13:04 Insulin Human Lispro (HumaLOG INSULIN) SEE PROTOCOL [facility] 12/29/20 12:00 12/31/20 12:53 DC 12/31/20 06:22 Insulin Human Lispro (HumaLOG INSULIN) SEE PROTOCOL TABLE QHS NE 12/29/20 21:00 12/29/20 14:41 DC Insulin Human Lispro (HumaLOG INSULIN) SEE PROTOCOL TABLE QHS NE 12/31/20 21:00 Levalbuterol HCl (Xopenex Neb) 1.25 mg Q1HP PRN INH SHORTNESS OF BREATH 12/27/20 08:25 Levalbuterol HCl (Xopenex Neb) 1.25 mg RQID INH 12/27/20 12:00 01/01/21 07:11 Meropenem 1 gm/IV Miscellaneous Supplies 50 ml @ 100 mls/hr Q12H IV 12/29/20 20:00 12/29/20 16:56 DC Meropenem 1 gm/IV Miscellaneous Supplies 50 ml @ 100 mls/hr Q8H IV 12/26/20 18:00 12/29/20 09:30 DC 12/29/20 08:33 Meropenem 500 mg/ IV Miscellaneous Supplies 50 ml @ 100 mls/hr Q8H IV 12/26/20 12:05 12/26/20 13:26 DC Methylprednisolone (SOLU medrol) 40 mg Q12H IV 12/31/20 15:00 01/01/21 03:47 Methylprednisolone (SOLU medrol) 40 mg Q8H IV 12/27/20 11:00 12/28/20 07:23 DC 12/28/20 02:01 Methylprednisolone (SOLU medrol) 40 mg Q8H IV 12/29/20 11:00 12/31/20 09:39 DC 12/31/20 04:04 Methylprednisolone (SOLUmedrol) 60 mg Q6H IV 12/26/20 20:00 12/27/20 08:23 DC 12/27/20 02:54 Metoprolol Succinate (TopROL XL) 50 mg BID PO 12/27/20 07:20 12/28/20 12:48 DC 12/27/20 20:57 Metoprolol Succinate (TopROL XL) 50 mg DAILY PO 12/27/20 09:00 12/27/20 07:17 DC Midodrine (Proamatine) 10 mg 08,12,16 PO 12/28/20 12:00 12/29/20 14:51 DC 12/29/20 11:55 Omeprazole (PriLOSEC) 40 mg DAILY PO 12/28/20 09:00 01/01/21 08:38 Ondansetron HCl (Zofran Odt) 8 mg TID PRN PO NAUSEA OR VOMITING 12/26/20 16:15 Pantoprazole Sodium (Protonix) 40 mg DAILY PO 12/26/20 09:00 12/27/20 07:18 DC 12/26/20 16:43 Potassium Chloride (Micro-K Extencaps) 30 meq BID PO 12/31/20 09:00 01/01/21 08:39 Potassium Chloride (Micro-K Extencaps) 30 meq BID@0900,1200 PO 12/29/20 09:00 12/29/20 12:01 DC 12/29/20 11:45 Potassium Chloride (Micro-K Extencaps) 40 meq TID PO 12/27/20 16:00 12/28/20 07:16 DC 12/27/20 20:57 Prednisone (Deltasone) 40 mg DAILY PO 12/28/20 09:00 12/29/20 10:34 DC 12/29/20 07:39 Rosuvastatin Calcium (Crestor) 20 mg DAILY PO 12/26/20 09:00 12/29/20 14:45 DC 12/29/20 07:39 Sodium Chloride 1,000 ml @ 100 mls/hr Q10H IV 12/28/20 07:15 12/28/20 12:46 DC 12/28/20 07:48 Sodium Chloride ([place] Nasal [place]) 2 spray BID NA 12/31/20 09:00 01/01/21 08:40 Sodium Chloride (Saline Lock Flush) 2 ml ASDIRECTED PRN IV SEE LABEL COMMENTS 12/26/20 15:30 Sodium Chloride (Saline Lock Flush) 2 ml SLF IV 12/26/20 22:00 01/01/21 06:10 Vancomycin HCl 1000 mg/IV Miscellaneous Supplies 1 each/ Sodium Chloride 270 ml @ 270 mls/hr Q12H IV 12/26/20 16:00 12/27/20 15:10 DC 12/27/20 05:08 Vancomycin HCl 1000 mg/IV Miscellaneous Supplies 1 each/ Sodium Chloride 270 ml @ 270 mls/hr Q24H IV 12/30/20 10:00 12/29/20 16:56 DC Allergies Coded Allergies: Penicillins (Verified Adverse Reaction, Mild, itch, 12/29/20) Evelia Gonzalez MD Jan 01, 2021 14:12
--- NOTE | 2021-01-01 14:40 | IPNPDOC ---
Text Note Date of Service The patient was seen on 01/01/21. NOTE INFECTIOUS DISEASE PROGRESS NOTE SUBJECTIVE: George was seen at bedside this afternoon, and is feeling better. He is eating soft foods, including two packs of peaches. His oxygen saturation has improved today, and he is saturating at 95% on the Vapotherm. He is continuing to cough up a small amount of sputum. He has had no acute events overnight, has no fever, chills, sweats, pleuritic chest pain, hemoptysis, nausea or vomiting. OBJECTIVE: VITALS: See below GENERAL: Patient is a pleasant man, sitting comfortably in his chair. He is on a Vapotherm with high flow oxygen. . HEENT: Normocephalic, atraumatic. He is wearing glasses. CARDIOVASCULAR: Tachycardic with a regular rhythm. Normal S1, S2. No murmurs, gallops or rubs were appreciated. RESPIRATORY: Wheezes are noted in all lung odom bilaterally, and crackles hard at the bases bilaterally. Patient does not appear to be using accessory muscles to breathe. Patient is breathing high-flow Vapotherm. Chest rise is symmetric, and he is speaking in full sentences. EXTREMITIES: Capillary refill <2s. Lower extremities have an absence of hair, and there is no edema. NEUROLOGIC: No focal deficits noted. Alert and oriented times three LABORATORY DATA: CBC: WBC 22.2, hemoglobin 8.3, hematocrit 26.4, MCV 86.8, platelet count 196, neutrophil 94.3% with 2% bands. CMP: Sodium 142, potassium 3.9, chloride 99, bicarbonate 37, BUN 55, creatinine 1.64, glucose 156, calcium 8.5 Total bilirubin 0.5, AST 35, ALT 84, alkaline phosphatase 172 Sputum cultures obtained on 12/26/2020 grew S. pneumonia, H. influenza and Group B Strep. Sputum culture from 12/30/2020 grew a yeast-like organism. IMPRESSION: 1. Streptococcus pneumonia, Hflu and group B Streptococcus healthcare-associated multifocal pneumonia. We are treating with 2gm ceftriaxone, which will cover all pathogens. His white blood count continues to decrease, and has reduced from 35 to 22 over the course of our involvement with the case. Yeast-like organism from his second sputum culture is likely commensal colonization and does not need treatment. 2. Worsening hypoxia. The patient's pneumonia is complicated by COPD exacerbation, fluid overload, and adenocarcinoma of the lung. He is breathing well today after continued use of Vapotherm and lasix. 3. Stage IIA adenocarcinoma of the lung. The patient is following with Dr. Med Whelan in the [facility] here at [facility]. His most recent chemotherapy session was 12/17/2020, and he is status post radiation treatment. PLAN: 1. Continue 2gm ceftriaxone IV, could switch to cefdinireventually as he continues to improve. Continue with vibration vest therapy daily to break up mucus collection. 2. Continue treating with Vapotherm tolerating decreasing O2 VS,Fishbone, I+O VS, Fishbone, I+O Laboratory Tests 12/31/20 17:41 01/01/21 04:48 Vital Signs Date Time Temp Pulse Resp B/P (MAP) Pulse Ox O2 Delivery O2 Flow Rate FiO2 01/01/21 12:00 96.9 85 16 118/62 (80) 92 HVNI-Vapotherm 15.0 60 I&O- Last 24 Hours up to 6 AM 01/01/21 06:00 Intake Total 890 ml Output Total 1050 ml Balance -160 ml GME ATTESTATION GME ATTESTATION My faculty preceptor for this patient encounter was physically present during the encounter and was fully available. All aspects of the patient interview, examination, medical decision making process, and medical care plan development were reviewed and approved by the faculty preceptor. The faculty preceptor is aware and concurs with the plan as stated in the body of this note and will attest to such by his/her cosignature. EUGENIO MENDEZ Jan 01, 2021 14:40 Kali Cee MD Jan 01, 2021 15:56
[2021-01-01] MEDS: amLODIPine 5 MG TAB PO SCH (15:56)
[2021-01-01 16:00] VITALS: BP 117/63
[2021-01-01] MEDS: cefTRIAXone SOD 2 GM in D5W MINI-BAG PLUS 50 ML IV SCH (18:04)
[2021-01-01 20:00] VITALS: BP 113/56
[2021-01-02] VITALS: BP 129/60
[2021-01-02] MEDS: methylPREDNISolone 40MG 1ML VIAL IV SCH (03:41)
[2021-01-02 04:00] VITALS: BP 125/70
[2021-01-02 05:26] LABS: HEMATOCRIT 27.5 % (42.0-52.0); HEMOGLOBIN 8.6 g/dl (13.5-17.5); MEAN CORPUSCULAR HEMOGLOBIN 27.5 pg (27.0-33.0); MEAN CORPUSCULAR HGB CONC 31.3 g/dl (32.0-36.5); MEAN CORPUSCULAR VOLUME 87.9 fl (80.0-96.0); PLATELET COUNT, AUTOMATED 222 10^3/uL (150-450); RED BLOOD COUNT 3.13 10^6/uL (4.30-6.10)
[2021-01-02 05:54] LABS: BILIRUBIN,TOTAL 0.5 MG/DL (0.2-1.0); CALCIUM LEVEL 8.6 MG/DL (8.8-10.2); CREATININE FOR GFR 1.39 MG/DL (0.70-1.30); GLOMERULAR FILTRATION RATE 52.7 (>42); MAGNESIUM LEVEL 1.8 MG/DL (1.8-2.4); POTASSIUM SERUM 3.2 MEQ/L (3.5-5.1); TOTAL PROTEIN 5.5 GM/DL (6.4-8.2)
[2021-01-02] MEDS: CILOSTAZOL 100 MG TAB (PLETAL) PO SCH ×2 (06:45→18:15)
[2021-01-02] MEDS: SLF 3 ML SYR IV SCH ×3 (06:50→21:45)
[2021-01-02 08:00] VITALS: BP 113/56
[2021-01-02] MEDS: LEVALBUTEROL 1.25 MG/0.5 ML CONCENTRATE NEB INH SCH ×4 (08:12→19:47)
[2021-01-02] MEDS: ASPIRIN ENTERIC 325 MG TAB PO SCH (08:25)
[2021-01-02] MEDS: POTASSIUM CHLORIDE 10 MEQ SR TABLET PO SCH ×2 (08:25→20:59)
[2021-01-02] MEDS: FAMOTIDINE 20 MG TAB PO SCH ×2 (08:26→20:58)
[2021-01-02] MEDS: guaiFENesin ER 600 MG TAB PO SCH ×2 (08:26→20:59)
[2021-01-02] MEDS: APIXABAN 2.5 MG TAB (ELIQUIS) PO SCH ×2 (08:26→20:59)
[2021-01-02] MEDS: OMEPRAZOLE 20 MG CAP PO SCH (08:26)
[2021-01-02] MEDS: predniSONE 20 MG TAB PO SCH (08:26)
[2021-01-02] MEDS: FUROSEMIDE 40 MG TAB PO SCH (08:27)
[2021-01-02] MEDS: SODIUM CHLORIDE NASAL 0.65% SPRAY BTL (OCEAN) SCH ×2 (08:27→20:59)
[2021-01-02] MEDS: amLODIPine 5 MG TAB PO SCH (08:28)
[2021-01-02] MEDS: HumaLOG INSULIN (NovoLOG) PER UNIT SC SCH ×4 (08:29→21:00)
[2021-01-02 12:00] VITALS: BP 115/60
[2021-01-02 16:00] VITALS: BP 105/52
--- NOTE | 2021-01-02 17:25 | IPNPDOC ---
Date Seen The patient was seen on 01/02/21. Progress Note SUBJECTIVE: Remains on vapotherm, decreased FiO2 further to 40%. WBC 27K, stopped methylprednisolone but started high dose prednisone today. He denies increased SOB, chest pain, fevers, chills, n/v/d and feels slightly improved. OBJECTIVE: PHYSICAL EXAM: VITAL SIGNS: Please see below GENERAL: AAOx 3, resting in bed HEENT: AT/NC, PERRLA, EOM intact, nasal cannula in place NECK: No JVD. LUNGS: improved aeration, bilateral crackles in post lung odom improved. crackles in lower post lungs. No wheezing, rhonchi, rales HEART: S1 and S2, sinus tachycardia. No murmurs, rubs or gallops. ABDOMEN: Soft, nontender, nondistended. Positive bowel sounds. EXTREMITIES: No cyanosis, clubbing or pitting edema. NEURO: CN 2-12 intact, no focal deficits. LABORATORY: Please see below MICROBIOLOGY: BCx NG x 2 sets at 72 H Sputum GS: QUALITY: GOOD, MODERATE WBCS, MANY GRAM POSITIVE COCCI IN PAIRS AND CHAINS, MANY GRAM NEGATIVE COCCI Sputum Cx: Organism 1 STREPTOCOCCUS PNEUMONIAE QUANTITY OF GROWTH HEAVY Organism 2 HAEMOPHILUS INFLUENZAE QUANTITY OF GROWTH HEAVY Organism 3 STREP AGALACTIAE GROUP B QUANTITY OF GROWTH HEAVY Repeat Sputum GS: QUALITY: GOOD, MODERATE WBCS, FEW EPITHELIAL CELLS, NO ORGANISMS SEEN Repeat Sputum Cx: yeast IMAGING: Liver US: No acute sonographic findings. CXR: Increased parenchymal infiltrate in the left perihilar region. Echocardiogram 12/26/20: EF 60-65% Normal global left ventricular systolic function. Not mentioned above, the basal portion of the posterior wall appeared to be hypokinetic. There are features of left ventricular diastolic dysfunction manifested by abnormal relaxation, grade 1. Aortic valve sclerosis with mild aortic regurgitation. Trace mitral regurgitation. Mild tricuspid regurgitation with mild pulmonary hypertension. Trace pericardial effusion, no evidence of cardiac tamponade. ASSESSMENT: 75-year-old male with Stage IIA adenocarcinoma of the lung undergoing chemotherapy and radiation, COPD, hypertension, CAD, HLD, stent, thoracic aortic aneurysm, macular degeneration, chronic hypoxic respiratory failure, admitted on 12/26/2020 for acute on chronic hypoxic respiratory fa ilure likely multifactorial 2/2 to HCAP, COPD exacerbation, CHF exacerbation, r/o developing ARDS. PLAN: Acute on chronic hypoxic respiratory failure likely multifactorial 2/2 to HCAP, COPD exacerbation, Hx of lung Ca, plueral effusions, CHF exacerbation -Remains on Vapotherm at lower FiO2 60%, saturating >90% -Recent CXR above -Pulmonary has evaluated and will f/u o/p -Please see individual treatment of issues below Acute COPD exacerbation -Slowly improving -Remains on Vapotherm, FiO2 90%--> 60% today. -Less wheezing, improved b/l lung aeration -C/w chest physiotherapy, PO prednisone, levalbuterol ATC and PRN -Monitor for uncontrolled BS as previously CAP vs. HCAP, resolved sepsis -WBC 27K- likely still markedly elevated 2/2 to steroids -Recent CXR above, mild tachycardia, afebrile -MRSA neg -BCx NG -Sputum cx above with three microbes: STREPTOCOCCUS PNEUMONIAE, HAEMOPHILUS INFLUENZAE, STREP AGALACTIAE GROUP B -Repeat Sputum culture ordered by ID: yeast -Discussed with ID. C/w ceftriaxone (Day 5), to complete 10 day treatment course. can likely transition off IV to PO cefdinir in next 24-48 hrs if continues to improve HFpEF with mild exacerbation possible -Neg fluid balance daily -BNP improving -Echo above: preserved EF, grade 1 diastolic dysfunction -Lasix daily, low dose CCB -Monitor I&O's closely, daily wt Acute kidney injury secondary to medications -Cr 1.39, BL is wnl -Monitor daily labs, U/O closely -Avoid other nephrotoxic medications. Atrial fibrillation, paroxysmal -TSH wnl this hospital stay -Echocardiogram above -Monitor on tele -Currently on eliquis BID, CCB DM type II -BS slightly elevated today but starting to deescalate steroids, will likely start to improve slowly -HbA1c 7.0 -On methylprednisolone so monitor -On ISS, consistent carb diet, FS AC/HS Hypokalemia secondary to diuresis, poor PO intake -K supplemented BID -Today 3.2 -Follow with diuresis, decrease supplement if need to -Monitor on tele Transaminitis, improving -No known hx of liver issues -No pain on exam of abdomen -Liver US neg for acute findings -F/u CMP Stage IIA lung CA -Treated o/p with chemoradiation History of CAD and coronary stents -Stable, c/w current meds Dyslipidemia -Holding statin with transaminitis History of thoracic aortic aneurysm -BP controlled -No abdominal pain GERD -PPI DVT px -Eliquis BID, teds, SCD Resolved issues: Hypotension likely 2/2 to atrial fib with RVR DISPOSITION: PT : Would benefit from continued rehab after d/c, will determine after weekend if this will be inpatient vs. at home. Remains in PCU. DNR/DNI with updated MOLST. VS, I&O, 24H, Fishbone Vital Signs/I&O Vital Signs Date Time Temp Pulse Resp B/P (MAP) Pulse Ox O2 Delivery O2 Flow Rate FiO2 01/02/21 16:00 97.8 127 18 105/52 (69) 90 HVNI-Vapotherm 6.0 40 I&O- Last 24 Hours up to 6 AM 01/02/21 06:00 Intake Total 980 ml Output Total 2000 ml Balance -1020 ml Laboratory Data 24H LABS Laboratory Tests 2 01/01/21 18:10: Bedside Glucose (Misc Panel) 104 01/01/21 21:21: Bedside Glucose (Misc Panel) 205H 01/02/21 04:45: Nucleated Red Blood Cells % (auto) 0.0, Anion Gap 7L, Glomerular Filtration Rate 52.7, Calcium Level 8.6L, Magnesium Level 1.8, Total Bilirubin 0.5, Aspartate Amino Transf (AST/SGOT) 20, Alanine Aminotransferase (ALT/SGPT) 65, Alkaline Phosphatase 166H, Total Protein 5.5L, Albumin 2.0L, Albumin/Globulin Ratio 0.6 01/02/21 11:55: Bedside Glucose (Misc Panel) 177H CBC/BMP Laboratory Tests 01/02/21 04:45 Microbiology Microbiology 01/01/21 Stool Occult Blood (CHARLETTE) - Final, Complete 12/30/20 Gram Stain - Final, Complete 12/30/20 Sputum Culture - Final, Complete Yeast Like Organism 12/26/20 Respiratory Virus Panel (PCR) (CHARLETTE) - Final, Complete 12/26/20 Blood Culture - Final, Complete NO GROWTH AFTER 5 DAYS 12/26/20 Gram Stain - Final, Complete 12/26/20 Sputum Culture - Final, Complete Streptococcus Pneumoniae Haemophilus Influenzae Strep Agalactiae Group B 12/26/20 Blood Culture - Final, Complete NO GROWTH AFTER 5 DAYS Current Medications Current Medications Medications (Trade) Dose Ordered Sig/Laura Route PRN Reason Start Time Stop Time Status Last Admin Dose Admin Amlodipine Besylate (Norvasc) 5 mg DAILY PO 01/01/21 09:00 01/02/21 08:28 Apixaban (Eliquis) 2.5 mg BID PO 12/28/20 21:00 01/02/21 08:26 Apixaban (Eliquis) 5 mg BID PO 12/28/20 21:00 12/28/20 14:50 DC Aspirin (Ecotrin) 325 mg DAILY PO 12/26/20 09:00 01/02/21 08:25 Atovaquone (Mepron 750mg/ 5ml Suspension) 1,500 mg DAILY PO 12/29/20 09:00 12/29/20 16:56 DC 12/29/20 11:45 Ceftriaxone Sodium 2 gm/ Dextrose 50 ml @ 100 mls/hr Q24H IV 12/29/20 18:00 01/01/21 18:04 Cilostazol (Pletal) 100 mg BID@0730,1730 PO 12/26/20 17:30 01/02/21 06:45 Codeine Phosphate/ Guaifenesin (Robitussin Ac) 5 ml Q6H PRN PO COUGH 12/26/20 16:15 12/31/20 12:38 DC 12/26/20 17:27 Dextrose (Dextrose 50%) 25 ml ASDIRECTED PRN IV SEE LABEL COMMENTS 12/29/20 14:30 Enoxaparin Sodium (Lovenox) 40 mg DAILY SC 12/27/20 09:00 12/28/20 14:46 DC 12/28/20 09:35 Famotidine (Pepcid) 20 mg BID PO 12/26/20 21:00 01/02/21 08:26 Furosemide (Lasix) 40 mg DAILY PO 12/31/20 09:00 01/02/21 08:27 Glucagon (Glucagon) 1 mg ASDIRECTED PRN SC SEE LABEL COMMENTS 12/29/20 14:30 Glucose (Glucose) 16 GM ASDIRECTED PRN PO SEE LABEL COMMENTS 12/29/20 14:30 Guaifenesin (Mucinex Tab Er) 1,200 mg BID PO 12/29/20 09:00 01/02/21 08:26 Home Med (Med Rec Complete!) ASDIRECTED XX 12/26/20 13:35 12/26/20 13:39 DC Insulin Human Lispro (HumaLOG INSULIN) SEE PROTOCOL TABLE AC ME 12/29/20 17:30 12/29/20 14:40 DC Insulin Human Lispro (HumaLOG INSULIN) SEE PROTOCOL TABLE AC ME 12/31/20 12:00 01/02/21 12:51 Insulin Human Lispro (HumaLOG INSULIN) SEE PROTOCOL TABLE Q6H ME 12/29/20 12:00 12/31/20 12:53 DC 12/31/20 06:22 Insulin Human Lispro (HumaLOG INSULIN) SEE PROTOCOL TABLE QHS ME 12/29/20 21:00 12/29/20 14:41 DC Insulin Human Lispro (HumaLOG INSULIN) SEE PROTOCOL TABLE QHS ME 12/31/20 21:00 Levalbuterol HCl (Xopenex Neb) 1.25 mg Q1HP PRN INH SHORTNESS OF BREATH 12/27/20 08:25 Levalbuterol HCl (Xopenex Neb) 1.25 mg RQID INH 12/27/20 12:00 01/02/21 15:05 Meropenem 1 gm/IV Miscellaneous Supplies 50 ml @ 100 mls/hr Q12H IV 12/29/20 20:00 12/29/20 16:56 DC Meropenem 1 gm/IV Miscellaneous Supplies 50 ml @ 100 mls/hr Q8H IV 12/26/20 18:00 12/29/20 09:30 DC 12/29/20 08:33 Meropenem 500 mg/ IV Miscellaneous Supplies 50 ml @ 100 mls/hr Q8H IV 12/26/20 12:05 12/26/20 13:26 DC Methylprednisolone (SOLU medrol) 40 mg Q12H IV 12/31/20 15:00 01/02/21 07:59 DC 01/02/21 03:41 Methylprednisolone (SOLU medrol) 40 mg Q8H IV 12/27/20 11:00 12/28/20 07:23 DC 12/28/20 02:01 Methylprednisolone (SOLU medrol) 40 mg Q8H IV 12/29/20 11:00 12/31/20 09:39 DC 12/31/20 04:04 Methylprednisolone (SOLUmedrol) 60 mg Q6H IV 12/26/20 20:00 12/27/20 08:23 DC 12/27/20 02:54 Metoprolol Succinate (TopROL XL) 50 mg BID PO 12/27/20 07:20 12/28/20 12:48 DC 12/27/20 20:57 Metoprolol Succinate (TopROL XL) 50 mg DAILY PO 12/27/20 09:00 12/27/20 07:17 DC Midodrine (Proamatine) 10 mg 08,12,16 PO 12/28/20 12:00 12/29/20 14:51 DC 12/29/20 11:55 Omeprazole (PriLOSEC) 40 mg DAILY PO 12/28/20 09:00 01/02/21 08:26 Ondansetron HCl (Zofran Odt) 8 mg TID PRN PO NAUSEA OR VOMITING 12/26/20 16:15 01/02/21 10:32 Pantoprazole Sodium (Protonix) 40 mg DAILY PO 12/26/20 09:00 12/27/20 07:18 DC 12/26/20 16:43 Potassium Chloride (Micro-K Extencaps) 30 meq BID PO 12/31/20 09:00 01/02/21 08:25 Potassium Chloride (Micro-K Extencaps) 30 meq BID@0900,1200 PO 12/29/20 09:00 12/29/20 12:01 DC 12/29/20 11:45 Potassium Chloride (Micro-K Extencaps) 40 meq TID PO 12/27/20 16:00 12/28/20 07:16 DC 12/27/20 20:57 Prednisone (Deltasone) 40 mg DAILY PO 12/28/20 09:00 12/29/20 10:34 DC 12/29/20 07:39 Prednisone (Deltasone) 60 mg DAILY PO 01/02/21 09:00 01/02/21 08:26 Rosuvastatin Calcium (Crestor) 20 mg DAILY PO 12/26/20 09:00 12/29/20 14:45 DC 12/29/20 07:39 Sodium Chloride 1,000 ml @ 100 mls/hr Q10H IV 12/28/20 07:15 12/28/20 12:46 DC 12/28/20 07:48 Sodium Chloride ([place] Nasal M[place]onnell) 2 spray BID NA 12/31/20 09:00 01/02/21 08:27 Sodium Chloride (Saline Lock Flush) 2 ml ASDIRECTED PRN IV SEE LABEL COMMENTS 12/26/20 15:30 Sodium Chloride (Saline Lock Flush) 2 ml SLF IV 12/26/20 22:00 01/02/21 06:50 Vancomycin HCl 1000 mg/IV Miscellaneous Supplies 1 each/ Sodium Chloride 270 ml @ 270 mls/hr Q12H IV 12/26/20 16:00 12/27/20 15:10 DC 12/27/20 05:08 Vancomycin HCl 1000 mg/IV Miscellaneous Supplies 1 each/ Sodium Chloride 270 ml @ 270 mls/hr Q24H IV 12/30/20 10:00 12/29/20 16:56 DC Allergies Coded Allergies: Penicillins (Verified Adverse Reaction, Mild, itch, 12/29/20) Evelia Gonzalez MD Jan 02, 2021 17:25
[2021-01-02] MEDS: cefTRIAXone SOD 2 GM in D5W MINI-BAG PLUS 50 ML IV SCH (18:15)
[2021-01-02 20:00] VITALS: BP 102/56
[2021-01-03] VITALS (10 sets, daily range): BP systolic 103–123; BP diastolic 56–60; O2SAT 90–99
[2021-01-03 05:54] LABS: HEMATOCRIT 30.9 % (42.0-52.0); HEMOGLOBIN 9.4 g/dl (13.5-17.5); MEAN CORPUSCULAR HEMOGLOBIN 27.6 pg (27.0-33.0); MEAN CORPUSCULAR HGB CONC 30.4 g/dl (32.0-36.5); MEAN CORPUSCULAR VOLUME 90.6 fl (80.0-96.0); PLATELET COUNT, AUTOMATED 259 10^3/uL (150-450); RED BLOOD COUNT 3.41 10^6/uL (4.30-6.10); WHITE BLOOD COUNT 26.9 10^3/uL (4.0-10.0)
[2021-01-03] MEDS: SLF 3 ML SYR IV SCH ×3 (06:00→21:03)
[2021-01-03 06:03] LABS: BILIRUBIN,TOTAL 0.5 MG/DL (0.2-1.0); CALCIUM LEVEL 8.4 MG/DL (8.8-10.2); CREATININE FOR GFR 1.45 MG/DL (0.70-1.30); GLOMERULAR FILTRATION RATE 50.2 (>42); POTASSIUM SERUM 3.4 MEQ/L (3.5-5.1); TOTAL PROTEIN 5.6 GM/DL (6.4-8.2)
[2021-01-03] MEDS: LEVALBUTEROL 1.25 MG/0.5 ML CONCENTRATE NEB INH SCH ×4 (07:30→20:44)
[2021-01-03] MEDS: HumaLOG INSULIN (NovoLOG) PER UNIT SC SCH ×4 (07:30→20:05)
[2021-01-03] MEDS: amLODIPine 5 MG TAB PO SCH (09:00)
[2021-01-03] MEDS ORDERED: POTASSIUM CHLORIDE 10 MEQ SR TABLET PO ONE ×2 (09:00→10:00)
--- NOTE | 2021-01-03 09:17 | REP ---
INDICATION: Worsening Shortness of Breath. COMPARISON: Comparison chest x-ray December 29, 2020. TECHNIQUE: Portable upright AP chest radiograph. FINDINGS: A right-sided [id number]-[id number] catheter remains in place. There is been some interval improvement in the bilateral upper lobe infiltrate pattern. Interstitial markings remain increased in the bases bilaterally and in the upper lobes but there are improved. Heart is not enlarged. No new area of consolidation is seen. Monitoring electrodes and oxygen delivery tubing are seen.. IMPRESSION: Infiltrates have improved since December 29, 2020.. <Electronically signed by Kenneth Hazel > 01/03/21 0913
[2021-01-03] MEDS: ASPIRIN ENTERIC 325 MG TAB PO SCH (10:12)
[2021-01-03] MEDS: POTASSIUM CHLORIDE 10 MEQ SR TABLET PO SCH (10:12)
[2021-01-03] MEDS: OMEPRAZOLE 20 MG CAP PO SCH (10:12)
[2021-01-03] MEDS: SODIUM CHLORIDE NASAL 0.65% SPRAY BTL (OCEAN) SCH ×2 (10:13→21:03)
[2021-01-03] MEDS: predniSONE 20 MG TAB PO SCH (10:13)
[2021-01-03] MEDS: guaiFENesin ER 600 MG TAB PO SCH (10:14)
[2021-01-03] MEDS: APIXABAN 2.5 MG TAB (ELIQUIS) PO SCH ×2 (10:14→21:03)
[2021-01-03] MEDS: FUROSEMIDE 40 MG TAB PO SCH (10:14)
[2021-01-03] MEDS: FAMOTIDINE 20 MG TAB PO SCH ×2 (10:14→21:03)
[2021-01-03] MEDS: CILOSTAZOL 100 MG TAB (PLETAL) PO SCH ×2 (10:29→17:42)
--- NOTE | 2021-01-03 14:40 | IPNPDOC ---
Date Seen The patient was seen on 01/03/21. Progress Note SUBJECTIVE: 3 episodes of diarrhea overnight, c. diff ordered. Increased SOB today, sudden. CXR appears improved from last and he was weaned down further on FiO2 Vapotherm during the day to 50%. Poor u/o today, encouraging Po fluids if possible. Still on steroids, afebrile, WBC 27K. Appears lethargic today but denies increased chest pain, fevers, chills, n/v/d and feels slightly improved. OBJECTIVE: PHYSICAL EXAM: VITAL SIGNS: Please see below GENERAL: lethargic today, AAOx 3, resting in bed HEENT: AT/NC, PERRLA, EOM intact, nasal cannula in place NECK: No JVD. LUNGS: improved aeration,improving bilateral crackles in post lung odom. No wheezing, rhonchi, rales HEART: S1 and S2, sinus tachycardia. No murmurs, rubs or gallops. CHEST: RIGHT side infusaport ABDOMEN: Soft, nontender, nondistended. Positive bowel sounds. EXTREMITIES: No cyanosis, clubbing or pitting edema. NEURO: CN 2-12 intact, no focal deficits. LABORATORY: Please see below MICROBIOLOGY: BCx NG x 2 sets at 72 H Sputum GS: QUALITY: GOOD, MODERATE WBCS, MANY GRAM POSITIVE COCCI IN PAIRS AND CHAINS, MANY GRAM NEGATIVE COCCI Sputum Cx: Organism 1 STREPTOCOCCUS PNEUMONIAE QUANTITY OF GROWTH HEAVY Organism 2 HAEMOPHILUS INFLUENZAE QUANTITY OF GROWTH HEAVY Organism 3 STREP AGALACTIAE GROUP B QUANTITY OF GROWTH HEAVY Repeat Sputum GS: QUALITY: GOOD, MODERATE WBCS, FEW EPITHELIAL CELLS, NO ORGANISMS SEEN Repeat Sputum Cx: yeast IMAGING: CXR 01/03/21: A right-sided Dplyeo-[id number]-[id number] catheter remains in place. There is been some interval improvement in the bilateral upper lobe infiltrate pattern. Interstitial markings remain increased in the bases bilaterally and in the upper lobes but there are improved. Heart is not enlarged. No new area of consolidation is seen. Monitoring electrodes and oxygen delivery tubing are seen.. Liver US: No acute sonographic findings. CXR: Increased parenchymal infiltrate in the left perihilar region. Echocardiogram 12/26/20: EF 60-65% Normal global left ventricular systolic function. Not mentioned above, the basal portion of the posterior wall appeared to be hypokinetic. There are features of left ventricular diastolic dysfunction manifested by abnormal relaxation, grade 1. Aortic valve sclerosis with mild aortic regurgitation. Trace mitral regurgitation. Mild tricuspid regurgitation with mild pulmonary hypertension. Trace pericardial effusion, no evidence of cardiac tamponade. ASSESSMENT: 75-year-old male with Stage IIA adenocarcinoma of the lung undergoing chemotherapy and radiation, COPD, hypertension, CAD, HLD, stent, thoracic aortic aneurysm, macular degeneration, chronic hypoxic respiratory f ailure, admitted on 12/26/2020 for acute on chronic hypoxic respiratory failure likely multifactorial 2/2 to HCAP, COPD exacerbation, CHF exacerbation, r/o developing ARDS. PLAN: Acute on chronic hypoxic respiratory failure likely multifactorial 2/2 to HCAP, COPD exacerbation, Hx of lung Ca, plueral effusions, CHF exacerbation -Episode of increased SOB, increased O2 demand but improved and now on 50% FiO2, comfortable, Vapotherm -CXR from 01/03/21 above -Pulmonary has evaluated and will f/u o/p -Please see individual treatment of issues below Diarrhea, acute r/o C. diff -3 episodes overnight, 1 today -not on stool softners -C. diff test pending to be sent -Probiotic Acute COPD exacerbation -Vapotherm, FiO2 50%, improving slowly -Less wheezing, improved b/l lung aeration -Improved CXR today -C/w chest physiotherapy, PO prednisone, levalbuterol ATC and PRN -Monitor for uncontrolled BS as previously CAP vs. HCAP, resolved sepsis -WBC 27K- likely still markedly elevated 2/2 to steroids -Recent CXR above, mild tachycardia, afebrile -MRSA neg -BCx NG -Sputum cx above with three microbes: STREPTOCOCCUS PNEUMONIAE, HAEMOPHILUS INFLUENZAE, STREP AGALACTIAE GROUP B -Repeat Sputum culture ordered by ID: yeast -Discussed with ID. C/w ceftriaxone (Day 6), to complete 10 day treatment course. can likely transition off IV to PO cefdinir in next 24-48 hrs if continues to improve HFpEF with mild exacerbation possible -Neg fluid balance daily -BNP improving -Echo above: preserved EF, grade 1 diastolic dysfunction -Holding lasix daily for now until diarrhea resolves then resume- low dose CCB -Monitor I&O's closely, daily wt Acute kidney injury secondary to medications -Cr 1.45, BL is wnl -Monitor daily labs, U/O closely -Avoid other nephrotoxic medications. Hypokalemia secondary to diuresis, poor PO intake - worsened by diarreha likely -K supplemented BID plus extra 30 mEq PO -Follow with diuresis, decrease supplement if need to -Monitor on tele Atrial fibrillation, paroxysmal -Rate controlled -TSH wnl this hospital stay -Echocardiogram above -Monitor on tele -Currently on eliquis BID, CCB DM type II -BS slightly elevated . As starting to deescalate steroids, will likely start to improve slowly -HbA1c 7.0 -On ISS, consistent carb diet, FS AC/HS Transaminitis, improving -No known hx of liver issues -No pain on exam of abdomen -Liver US neg for acute findings -F/u CMP Stage IIA lung CA -Treated o/p with chemoradiation History of CAD and coronary stents -Stable, c/w current meds Dyslipidemia -Holding statin with transaminitis History of thoracic aortic aneurysm -BP controlled -No abdominal pain GERD -PPI DVT px -Eliquis BID, teds, SCD Resolved issues: Hypotension likely 2/2 to atrial fib with RVR DISPOSITION: PT : Would benefit from continued rehab after d/c, will determine after weekend if this will be inpatient vs. at home. Remains in PCU. DNR/DNI with updated MOLST. VS, I&O, 24H, Fishbone Vital Signs/I&O Vital Signs Date Time Temp Pulse Resp B/P (MAP) Pulse Ox O2 Delivery O2 Flow Rate FiO2 01/03/21 12:00 97.5 120 18 103/59 (74) 94 HVNI-Vapotherm 12.0 50 I&O- Last 24 Hours up to 6 AM 01/03/21 06:00 Intake Total 660 ml Output Total 750 ml Balance -90 ml Laboratory Data 24H LABS Laboratory Tests 2 01/02/21 17:03: Bedside Glucose (Misc Panel) 242H 01/02/21 20:52: Bedside Glucose (Misc Panel) 203H 01/03/21 05:00: Nucleated Red Blood Cells % (auto) 0.0, Anion Gap 6L, Glomerular Filtration Rate 50.2, Calcium Level 8.4L, Total Bilirubin 0.5, Aspartate Amino Transf (AST/SGOT) 14, Alanine Aminotransferase (ALT/SGPT) 49, Alkaline Phosphatase 155H, Total Protein 5.6L, Albumin 2.0L, Albumin/Globulin Ratio 0.6 01/03/21 11:39: Bedside Glucose (Misc Panel) 220H CBC/BMP Laboratory Tests 01/03/21 05:00 Microbiology Microbiology 01/01/21 Stool Occult Blood (CHARLETTE) - Final, Complete 12/30/20 Gram Stain - Final, Complete 12/30/20 Sputum Culture - Final, Complete Yeast Like Organism 12/26/20 Respiratory Virus Panel (PCR) (CHARLETTE) - Final, Complete 12/26/20 Blood Culture - Final, Complete NO GROWTH AFTER 5 DAYS 12/26/20 Gram Stain - Final, Complete 12/26/20 Sputum Culture - Final, Complete Streptococcus Pneumoniae Haemophilus Influenzae Strep Agalactiae Group B 12/26/20 Blood Culture - Final, Complete NO GROWTH AFTER 5 DAYS Current Medications Current Medications Medications (Trade) Dose Ordered Sig/Laura Route PRN Reason Start Time Stop Time Status Last Admin Dose Admin Amlodipine Besylate (Norvasc) 5 mg DAILY PO 01/01/21 09:00 01/02/21 08:28 Apixaban (Eliquis) 2.5 mg BID PO 12/28/20 21:00 01/03/21 10:14 Apixaban (Eliquis) 5 mg BID PO 12/28/20 21:00 12/28/20 14:50 DC Aspirin (Ecotrin) 325 mg DAILY PO 12/26/20 09:00 01/03/21 10:12 Atovaquone (Mepron 750mg/ 5ml Suspension) 1,500 mg DAILY PO 12/29/20 09:00 12/29/20 16:56 DC 12/29/20 11:45 Ceftriaxone Sodium 2 gm/ Dextrose 50 ml @ 100 mls/hr Q24H IV 12/29/20 18:00 01/02/21 18:15 Cilostazol (Pletal) 100 mg BID@0730,1730 PO 12/26/20 17:30 01/03/21 10:29 Codeine Phosphate/ Guaifenesin (Robitussin Ac) 5 ml Q6H PRN PO COUGH 12/26/20 16:15 12/31/20 12:38 DC 12/26/20 17:27 Dextrose (Dextrose 50%) 25 ml ASDIRECTED PRN IV SEE LABEL COMMENTS 12/29/20 14:30 Enoxaparin Sodium (Lovenox) 40 mg DAILY SC 12/27/20 09:00 12/28/20 14:46 DC 12/28/20 09:35 Famotidine (Pepcid) 20 mg BID PO 12/26/20 21:00 01/03/21 10:14 Furosemide (Lasix) 40 mg DAILY PO 12/31/20 09:00 01/03/21 10:14 Glucagon (Glucagon) 1 mg ASDIRECTED PRN SC SEE LABEL COMMENTS 12/29/20 14:30 Glucose (Glucose) 16 GM ASDIRECTED PRN PO SEE LABEL COMMENTS 12/29/20 14:30 Guaifenesin (Mucinex Tab Er) 1,200 mg BID PO 12/29/20 09:00 01/03/21 10:14 Home Med (Med Rec Complete!) ASDIRECTED XX 12/26/20 13:35 12/26/20 13:39 DC Insulin Human Lispro (HumaLOG INSULIN) SEE PROTOCOL TABLE AC [place] 12/29/20 17:30 12/29/20 14:40 DC Insulin Human Lispro (HumaLOG INSULIN) SEE PROTOCOL TABLE AC HI 12/31/20 12:00 01/03/21 13:37 Insulin Human Lispro ([facility]umaLOG INSULIN) [id number] 12/29/20 12:00 12/31/20 12:53 DC 12/31/20 06:22 Insulin Human Lispro (HumaLOG INSULIN) SEE PROTOCOL TABLE QHS [place] 12/29/20 21:00 12/29/20 14:41 DC Insulin Human Lispro (HumaLOG INSULIN) SEE PROTOCOL TABLE QHS [place] 12/31/20 21:00 Levalbuterol HCl (Xopenex Neb) 1.25 mg Q1HP PRN INH SHORTNESS OF BREATH 12/27/20 08:25 Levalbuterol HCl (Xopenex Neb) 1.25 mg RQID INH 12/27/20 12:00 01/03/21 11:21 Meropenem 1 gm/IV Miscellaneous Supplies 50 ml @ 100 mls/hr Q12H IV 12/29/20 20:00 12/29/20 16:56 DC Meropenem 1 gm/IV Miscellaneous Supplies 50 ml @ 100 mls/hr Q8H IV 12/26/20 18:00 12/29/20 09:30 DC 12/29/20 08:33 Meropenem 500 mg/ IV Miscellaneous Supplies 50 ml @ 100 mls/hr Q8H IV 12/26/20 12:05 12/26/20 13:26 DC Methylprednisolone (SOLU medrol) 40 mg Q12H IV 12/31/20 15:00 01/02/21 07:59 DC 01/02/21 03:41 Methylprednisolone (SOLU medrol) 40 mg Q8H IV 12/27/20 11:00 12/28/20 07:23 DC 12/28/20 02:01 Methylprednisolone (SOLU medrol) 40 mg Q8H IV 12/29/20 11:00 12/31/20 09:39 DC 12/31/20 04:04 Methylprednisolone (SOLUmedrol) 60 mg Q6H IV 12/26/20 20:00 12/27/20 08:23 DC 12/27/20 02:54 Metoprolol Succinate (TopROL XL) 50 mg BID PO 12/27/20 07:20 12/28/20 12:48 DC 12/27/20 20:57 Metoprolol Succinate (TopROL XL) 50 mg DAILY PO 12/27/20 09:00 12/27/20 07:17 DC Midodrine (Proamatine) 10 mg 08,12,16 PO 12/28/20 12:00 12/29/20 14:51 DC 12/29/20 11:55 Omeprazole (PriLOSEC) 40 mg DAILY PO 12/28/20 09:00 01/03/21 10:12 Ondansetron HCl (Zofran Odt) 8 mg TID PRN PO NAUSEA OR VOMITING 12/26/20 16:15 01/02/21 10:32 Pantoprazole Sodium (Protonix) 40 mg DAILY PO 12/26/20 09:00 12/27/20 07:18 DC 12/26/20 16:43 Potassium Chloride (Micro-K Extencaps) 30 meq BID PO 12/31/20 09:00 01/03/21 10:12 Potassium Chloride (Micro-K Extencaps) 30 meq BID@0900,1200 PO 12/29/20 09:00 12/29/20 12:01 DC 12/29/20 11:45 Potassium Chloride (Micro-K Extencaps) 40 meq TID PO 12/27/20 16:00 12/28/20 07:16 DC 12/27/20 20:57 Prednisone (Deltasone) 40 mg DAILY PO 12/28/20 09:00 12/29/20 10:34 DC 12/29/20 07:39 Prednisone (Deltasone) 60 mg DAILY PO 01/02/21 09:00 01/03/21 10:13 Rosuvastatin Calcium (Crestor) 20 mg DAILY PO 12/26/20 09:00 12/29/20 14:45 DC 12/29/20 07:39 Sodium Chloride 1,000 ml @ 100 mls/hr Q10H IV 12/28/20 07:15 12/28/20 12:46 DC 12/28/20 07:48 Sodium Chloride ([place] Nasal [place]) 2 spray BID NA 12/31/20 09:00 01/03/21 10:13 Sodium Chloride (Saline Lock Flush) 2 ml ASDIRECTED PRN IV SEE LABEL COMMENTS 12/26/20 15:30 Sodium Chloride (Saline Lock Flush) 2 ml SLF IV 12/26/20 22:00 01/03/21 06:00 Vancomycin HCl 1000 mg/IV Miscellaneous Supplies 1 each/ Sodium Chloride 270 ml @ 270 mls/hr Q12H IV 12/26/20 16:00 12/27/20 15:10 DC 12/27/20 05:08 Vancomycin HCl 1000 mg/IV Miscellaneous Supplies 1 each/ Sodium Chloride 270 ml @ 270 mls/hr Q24H IV 12/30/20 10:00 12/29/20 16:56 DC Allergies Coded Allergies: Penicillins (Verified Adverse Reaction, Mild, itch, 12/29/20) Evelia Gonzalez MD Jan 03, 2021 14:40
[2021-01-03] MEDS: cefTRIAXone SOD 2 GM in D5W MINI-BAG PLUS 50 ML IV SCH (17:41)
[2021-01-03] MEDS: LACTOBACILLUS ACIDOPHILUS CAP (BACID) PO SCH (17:42)
[2021-01-03] MEDS: POTASSIUM CHLORIDE 10% LIQ 20 MEQ/15 ML UDC PO SCH (21:02)
[2021-01-04] VITALS (22 sets, daily range): BP systolic 108–123; BP diastolic 59–65; O2SAT 87–99
[2021-01-04] MEDS: guaiFENesin SYRUP 200 MG/10 ML UDC PO SCH ×4 (00:28→17:45)
[2021-01-04 02:55] LABS: CLOSTRIDIUM DIFFICILE PCR POSITIVE (NEGATIVE)
[2021-01-04] MEDS: SLF 3 ML SYR IV SCH ×3 (05:16→21:58)
[2021-01-04] MEDS: VANCOMYCIN ORAL SOL 250MG/5ML ORAL SYRINGE PO SCH ×3 (05:16→17:45)
[2021-01-04 05:18] LABS: HEMATOCRIT 30.8 % (42.0-52.0); HEMOGLOBIN 9.6 g/dl (13.5-17.5); MEAN CORPUSCULAR HGB CONC 31.2 g/dl (32.0-36.5); MEAN CORPUSCULAR VOLUME 89.8 fl (80.0-96.0); PLATELET COUNT, AUTOMATED 274 10^3/uL (150-450); RED BLOOD COUNT 3.43 10^6/uL (4.30-6.10); WHITE BLOOD COUNT 25.9 10^3/uL (4.0-10.0)
[2021-01-04 05:44] LABS: ALBUMIN 1.9 GM/DL (3.2-5.2); BILIRUBIN,TOTAL 0.4 MG/DL (0.2-1.0); CALCIUM LEVEL 8.3 MG/DL (8.8-10.2); CREATININE FOR GFR 1.34 MG/DL (0.70-1.30); POTASSIUM SERUM 4.3 MEQ/L (3.5-5.1); TOTAL PROTEIN 5.6 GM/DL (6.4-8.2)
[2021-01-04] MEDS: LEVALBUTEROL 1.25 MG/0.5 ML CONCENTRATE NEB INH SCH ×4 (07:02→20:53)
[2021-01-04] MEDS: HumaLOG INSULIN (NovoLOG) PER UNIT SC SCH ×4 (09:13→21:00)
[2021-01-04] MEDS: POTASSIUM CHLORIDE 10% LIQ 20 MEQ/15 ML UDC PO SCH ×2 (09:14→21:58)
[2021-01-04] MEDS: amLODIPine 5 MG TAB PO SCH (09:14)
[2021-01-04] MEDS: CEFDINIR 300 MG CAP (OMNICEF) PO SCH ×2 (09:15→21:58)
[2021-01-04] MEDS: CILOSTAZOL 100 MG TAB (PLETAL) PO SCH ×2 (09:15→17:45)
[2021-01-04] MEDS: predniSONE 20 MG TAB PO SCH (09:15)
[2021-01-04] MEDS: ASPIRIN ENTERIC 325 MG TAB PO SCH (09:15)
[2021-01-04] MEDS: APIXABAN 2.5 MG TAB (ELIQUIS) PO SCH ×2 (09:15→21:58)
[2021-01-04] MEDS: FAMOTIDINE 20 MG TAB PO SCH ×2 (09:15→21:58)
[2021-01-04] MEDS: OMEPRAZOLE 20 MG CAP PO SCH (09:15)
[2021-01-04] MEDS: LACTOBACILLUS ACIDOPHILUS CAP (BACID) PO SCH ×2 (09:15→17:45)
[2021-01-04] MEDS: SODIUM CHLORIDE NASAL 0.65% SPRAY BTL (OCEAN) SCH ×2 (09:16→21:58)
--- NOTE | 2021-01-04 12:57 | IPNPDOC ---
Date Seen The patient was seen on 01/04/21. Progress Note SUBJECTIVE: Diarrhea overnight, c. diff positive. Vancomycin and probiotic started. FiO2 Vapotherm during the day to 50%. U/o improving, encouraging Po fluids if possible. Still appears lethargic today but denies increased chest pain, fevers, chills, n/v/d. OBJECTIVE: PHYSICAL EXAM: VITAL SIGNS: Please see below GENERAL: lethargic , AAOx 3, resting in bed HEENT: AT/NC, PERRLA, EOM intact, nasal cannula in place NECK: No JVD. LUNGS: improved aeration,improving bilateral crackles in post lung odom. No wheezing, rhonchi, rales HEART: S1 and S2, sinus tachycardia. No murmurs, rubs or gallops. CHEST: RIGHT side infusaport ABDOMEN: Soft, nontender, nondistended. Positive bowel sounds. EXTREMITIES: No cyanosis, clubbing or pitting edema. NEURO: CN 2-12 intact, no focal deficits. LABORATORY: Please see below MICROBIOLOGY: C diff + BCx NG x 2 sets at 72 H Sputum GS: QUALITY: GOOD, MODERATE WBCS, MANY GRAM POSITIVE COCCI IN PAIRS AND CHAINS, MANY GRAM NEGATIVE COCCI Sputum Cx: Organism 1 STREPTOCOCCUS PNEUMONIAE QUANTITY OF GROWTH HEAVY Organism 2 HAEMOPHILUS INFLUENZAE QUANTITY OF GROWTH HEAVY Organism 3 STREP AGALACTIAE GROUP B QUANTITY OF GROWTH HEAVY Repeat Sputum GS: QUALITY: GOOD, MODERATE WBCS, FEW EPITHELIAL CELLS, NO ORGANISMS SEEN Repeat Sputum Cx: yeast IMAGING: CXR 01/03/21: A right-sided Iqvyna-V-Hdrm catheter remains in place. There is been some interval improvement in the bilateral upper lobe infiltrate pattern. Interstitial markings remain increased in the bases bilaterally and in the upper lobes but there are improved. Heart is not enlarged. No new area of consolidation is seen. Monitoring electrodes and oxygen delivery tubing are seen.. Liver US: No acute sonographic findings. CXR: Increased parenchymal infiltrate in the left perihilar region. Echocardiogram 12/26/20: EF 60-65% Normal global left ventricular systolic function. Not mentioned above, the basal portion of the posterior wall appeared to be hypokinetic. There are features of left ventricular diastolic dysfunction manifested by abnormal relaxation, grade 1. Aortic valve sclerosis with mild aortic regurgitation. Trace mitral regurgitation. Mild tricuspid regurgitation with mild pulmonary hypertension. Trace pericardial effusion, no evidence of cardiac tamponade. ASSESSMENT: 75-year-old male with Stage IIA adenocarcinoma of the lung undergoing chemotherapy and radiation, COPD, hypertension, CAD, HLD, stent, thoracic aortic aneurysm, macular degeneration, chronic hypoxic respiratory failure, admitted on 12/26/2020 for acute on chronic hypoxic respiratory failure likely multifactorial 2/2 to HCAP, COPD exacerbation, CHF exacerbation, r/o developing ARDS. PLAN: C. difficile infection -WBC 25.9, afebrile -prolonged hospital stay, immunocompromised baseline, has been on abx here -5 BM overnight, decreased frequency today -Encouraging PO intake of fluids -C/w PO vancomycin, probiotic -ID will be updated Acute on chronic hypoxic respiratory failure likely multifactorial 2/2 to HCAP, COPD exacerbation, Hx of lung Ca, plueral effusions, CHF exacerbation -Remains on 50% FiO2, comfortable, Vapotherm -CXR from 01/03/21 above -Pulmonary has evaluated and will f/u o/p -Please see individual treatment of issues below Acute COPD exacerbation -Vapotherm, FiO2 50%, improving slowly -Less wheezing, improved b/l lung aeration -Improved CXR 01/03/21 -C/w chest physiotherapy, PO prednisone, levalbuterol ATC and PRN -Monitor for uncontrolled BS as previously CAP vs. HCAP, resolved sepsis -WBC 25.9K- likely still markedly and likely driven by PNA, c. diff infection and steroids combined -Recent CXR above, mild tachycardia, afebrile -MRSA neg -BCx NG -Sputum cx above with three microbes: STREPTOCOCCUS PNEUMONIAE, HAEMOPHILUS INFLUENZAE, STREP AGALACTIAE GROUP B -Repeat Sputum culture ordered by ID: yeast -Discussed with ID. C/w ceftriaxone (Day 7), to complete 10 day treatment course. On PO cefdinir HFpEF with mild exacerbation possible -Neg fluid balance daily -BNP improving -Echo above: preserved EF, grade 1 diastolic dysfunction -D/teresa lasix daily 01/03/21 until diarrhea resolves then resume -c/w low dose CCB -Monitor I&O's closely, daily wt Acute kidney injury secondary to medications -Cr 1.45, BL is wnl -Monitor daily labs, U/O closely -Avoid other nephrotoxic medications. Hypokalemia, acute -K wnl today -C/w supplemented BID -Monitor on tele Atrial fibrillation, paroxysmal -Rate controlled, waxes and wanes above HR goal 110 bpm -TSH wnl this hospital stay -Echocardiogram above -Monitor on tele -Currently on eliquis BID, CCB DM type II -BS better controlled with decreasing steroids -HbA1c 7.0 -On ISS, consistent carb diet, FS AC/HS Transaminitis, improving -No known hx of liver issues -No pain on exam of abdomen -Liver US neg for acute findings -F/u CMP Stage IIA lung CA -Treated o/p with chemoradiation History of CAD and coronary stents -Stable, c/w current meds Dyslipidemia -Holding statin with transaminitis History of thoracic aortic aneurysm -BP controlled -No abdominal pain GERD -PPI DVT px -Eliquis BID, teds, SCD Resolved issues: Hypotension likely 2/2 to atrial fib with RVR DISPOSITION: PT : Would benefit from continued rehab after d/c, will determine after weekend if this will be inpatient vs. at home. Remains in PCU. DNR/DNI with updated MOLST. VS, I&O, 24H, [facility] Vital Signs/I&O Vital Signs Date Time Temp Pulse Resp B/P (MAP) Pulse Ox O2 Delivery O2 Flow Rate FiO2 01/04/21 11:38 97.6 121 18 115/61 (79) 95 HVNI-Vapotherm 12.0 01/04/21 06:00 50 I&O- Last 24 Hours up to 6 AM 01/04/21 06:00 Intake Total 700 ml Output Total 1075 ml Balance -375 ml Laboratory Data 24H LABS Laboratory Tests 2 01/03/21 17:10: Bedside Glucose (Misc Panel) 138H 01/03/21 19:51: Bedside Glucose (Misc Panel) 200H 01/04/21 01:30: Clostridium difficile [id number] PRESUMPTIVE NEGATIVE, Clostridium difficile Toxin (PCR) POSITIVEA 01/04/21 04:42: Nucleated Red Blood Cells % (auto) 0.0, Anion Gap 4L, Glomerular Filtration Rate 55.0, Calcium Level 8.3L, Total Bilirubin 0.4, Aspartate Amino Transf (AST/SGOT) 15, Alanine Aminotransferase (ALT/SGPT) 40, Alkaline Phosphatase 144H, Total Protein 5.6L, Albumin 1.9L, Albumin/Globulin Ratio 0.5 01/04/21 12:24: Bedside Glucose (Misc Panel) 118H CBC/BMP Laboratory Tests 01/04/21 04:42 Microbiology Microbiology 01/01/21 Stool Occult Blood (CHARLETTE) - Final, Complete 12/30/20 Gram Stain - Final, Complete 12/30/20 Sputum Culture - Final, Complete Yeast Like Organism 12/26/20 Respiratory Virus Panel (PCR) (CHARLETTE) - Final, Complete 12/26/20 Blood Culture - Final, Complete NO GROWTH AFTER 5 DAYS 12/26/20 Gram Stain - Final, Complete 12/26/20 Sputum Culture - Final, Complete Streptococcus Pneumoniae Haemophilus Influenzae Strep Agalactiae Group B 12/26/20 Blood Culture - Final, Complete NO GROWTH AFTER 5 DAYS Current Medications Current Medications Medications (Trade) Dose Ordered Sig/Laura Route PRN Reason Start Time Stop Time Status Last Admin Dose Admin Amlodipine Besylate (Norvasc) 5 mg DAILY PO 01/01/21 09:00 01/04/21 09:14 Apixaban (Eliquis) 2.5 mg BID PO 12/28/20 21:00 01/04/21 09:15 Apixaban (Eliquis) 5 mg BID PO 12/28/20 21:00 12/28/20 14:50 DC Aspirin (Ecotrin) 325 mg DAILY PO 12/26/20 09:00 01/04/21 09:15 Atovaquone (Mepron 750mg/ 5ml Suspension) 1,500 mg DAILY PO 12/29/20 09:00 12/29/20 16:56 DC 12/29/20 11:45 Cefdinir (Omnicef) 300 mg BID PO 01/04/21 09:00 01/04/21 09:15 Ceftriaxone Sodium 2 gm/ Dextrose 50 ml @ 100 mls/hr Q24H IV 12/29/20 18:00 01/04/21 08:26 DC 01/03/21 17:41 Cilostazol (Pletal) 100 mg BID@0730,1730 PO 12/26/20 17:30 01/04/21 09:15 Codeine Phosphate/ Guaifenesin (Robitussin Ac) 5 ml Q6H PRN PO COUGH 12/26/20 16:15 12/31/20 12:38 DC 12/26/20 17:27 Dextrose (Dextrose 50%) 25 ml ASDIRECTED PRN IV SEE LABEL COMMENTS 12/29/20 14:30 Enoxaparin Sodium (Lovenox) 40 mg DAILY SC 12/27/20 09:00 12/28/20 14:46 DC 12/28/20 09:35 Famotidine (Pepcid) 20 mg BID PO 12/26/20 21:00 01/04/21 09:15 Furosemide (Lasix) 40 mg DAILY PO 12/31/20 09:00 01/03/21 14:38 DC 01/03/21 10:14 Glucagon (Glucagon) 1 mg ASDIRECTED PRN SC SEE LABEL COMMENTS 12/29/20 14:30 Glucose (Glucose) 16 GM ASDIRECTED PRN PO SEE LABEL COMMENTS 12/29/20 14:30 Guaifenesin (Mucinex Tab Er) 1,200 mg BID PO 12/29/20 09:00 01/03/21 21:51 DC 01/03/21 10:14 Guaifenesin (Robitussin) 10 ml Q6H PO 01/04/21 00:00 01/04/21 12:38 Home Med (Med Rec Complete!) ASDIRECTED XX 12/26/20 13:35 12/26/20 13:39 DC Insulin Human Lispro (HumaLOG INSULIN) SEE PROTOCOL TABLE AC [place] 12/29/20 17:30 12/29/20 14:40 DC Insulin Human Lispro (HumaLOG INSULIN) SEE PROTOCOL TABLE AC [place] 12/31/20 12:00 01/04/21 09:13 Insulin Human Lispro (HumaLOG INSULIN) SEE PROTOCOL TABLE Q6H [place] 12/29/20 12:00 12/31/20 12:53 DC 12/31/20 06:22 Insulin Human Lispro (HumaLOG INSULIN) SEE PROTOCOL TABLE QHS [place] 12/29/20 21:00 12/29/20 14:41 DC Insulin Human Lispro (HumaLOG INSULIN) SEE PROTOCOL TABLE QHS [place] 12/31/20 21:00 Lactobacillus Acidophilus (Bacid) 1 ea BIDWM PO 01/03/21 18:00 01/04/21 09:15 Levalbuterol HCl (Xopenex Neb) 1.25 mg Q1HP PRN INH SHORTNESS OF BREATH 12/27/20 08:25 Levalbuterol HCl (Xopenex Neb) 1.25 mg RQID INH 12/27/20 12:00 01/04/21 11:15 Meropenem 1 gm/IV Miscellaneous Supplies 50 ml @ 100 mls/hr Q12H IV 12/29/20 20:00 12/29/20 16:56 DC Meropenem 1 gm/IV Miscellaneous Supplies 50 ml @ 100 mls/hr Q8H IV 12/26/20 18:00 12/29/20 09:30 DC 12/29/20 08:33 Meropenem 500 mg/ IV Miscellaneous Supplies 50 ml @ 100 mls/hr Q8H IV 12/26/20 12:05 12/26/20 13:26 DC Methylprednisolone (SOLU medrol) 40 mg Q12H IV 12/31/20 15:00 01/02/21 07:59 DC 01/02/21 03:41 Methylprednisolone (SOLU medrol) 40 mg Q8H IV 12/27/20 11:00 12/28/20 07:23 DC 12/28/20 02:01 Methylprednisolone (SOLU medrol) 40 mg Q8H IV 12/29/20 11:00 12/31/20 09:39 DC 12/31/20 04:04 Methylprednisolone (SOLUmedrol) 60 mg Q6H IV 12/26/20 20:00 12/27/20 08:23 DC 12/27/20 02:54 Metoprolol Succinate (TopROL XL) 50 mg BID PO 12/27/20 07:20 12/28/20 12:48 DC 12/27/20 20:57 Metoprolol Succinate (TopROL XL) 50 mg DAILY PO 12/27/20 09:00 12/27/20 07:17 DC Midodrine (Proamatine) 10 mg 08,12,16 PO 12/28/20 12:00 12/29/20 14:51 DC 12/29/20 11:55 Omeprazole (PriLOSEC) 40 mg DAILY PO 12/28/20 09:00 01/04/21 09:15 Ondansetron HCl (Zofran Odt) 8 mg TID PRN PO NAUSEA OR VOMITING 12/26/20 16:15 01/02/21 10:32 Pantoprazole Sodium (Protonix) 40 mg DAILY PO 12/26/20 09:00 12/27/20 07:18 DC 12/26/20 16:43 Potassium Chloride (Micro-K Extencaps) 30 meq BID PO 12/31/20 09:00 01/03/21 20:05 DC 01/03/21 10:12 Potassium Chloride (Micro-K Extencaps) 30 meq BID@0900,1200 PO 12/29/20 09:00 12/29/20 12:01 DC 12/29/20 11:45 Potassium Chloride (Micro-K Extencaps) 40 meq TID PO 12/27/20 16:00 12/28/20 07:16 DC 12/27/20 20:57 Potassium Chloride (Potassium Chloride Liquid) 30 meq BID PO 01/03/21 21:00 01/04/21 09:14 Prednisone (Deltasone) 40 mg DAILY PO 12/28/20 09:00 12/29/20 10:34 DC 12/29/20 07:39 Prednisone (Deltasone) 60 mg DAILY PO 01/02/21 09:00 01/04/21 09:15 Rosuvastatin Calcium (Crestor) 20 mg DAILY PO 12/26/20 09:00 12/29/20 14:45 DC 12/29/20 07:39 Sodium Chloride 1,000 ml @ 100 mls/hr Q10H IV 12/28/20 07:15 12/28/20 12:46 DC 12/28/20 07:48 Sodium Chloride ([place] Nasal [place]) 2 spray BID NA 12/31/20 09:00 01/04/21 09:16 Sodium Chloride (Saline Lock Flush) 2 ml ASDIRECTED PRN IV SEE LABEL COMMENTS 12/26/20 15:30 Sodium Chloride (Saline Lock Flush) 2 ml SLF IV 12/26/20 22:00 01/04/21 05:16 Vancomycin HCl (First-Vancomycin 50(Firvanq)- 250mg/5ml) 250 mg Q6H PO 01/04/21 06:00 01/04/21 12:38 Vancomycin HCl 1000 mg/IV Miscellaneous Supplies 1 each/ Sodium Chloride 270 ml @ 270 mls/hr Q12H IV 12/26/20 16:00 12/27/20 15:10 DC 12/27/20 05:08 Vancomycin HCl 1000 mg/IV Miscellaneous Supplies 1 each/ Sodium Chloride 270 ml @ 270 mls/hr Q24H IV 12/30/20 10:00 12/29/20 16:56 DC Allergies Coded Allergies: Penicillins (Verified Adverse Reaction, Mild, itch, 12/29/20) Evelia Gonzalez MD Jan 04, 2021 12:57
[2021-01-05] VITALS (9 sets, daily range): BP systolic 104–131; BP diastolic 57–74; O2SAT 95
[2021-01-05] MEDS: VANCOMYCIN ORAL SOL 250MG/5ML ORAL SYRINGE PO SCH ×3 (00:36→11:43)
[2021-01-05] MEDS: guaiFENesin SYRUP 200 MG/10 ML UDC PO SCH ×5 (00:36→23:32)
[2021-01-05] MEDS ORDERED: MAGIC MOUTHWASH SUSPENSION BTL SS PRN (03:30)
[2021-01-05] MEDS: SLF 3 ML SYR IV SCH ×3 (05:18→20:19)
[2021-01-05 05:56] LABS: HEMATOCRIT 30.1 % (42.0-52.0); HEMOGLOBIN 9.6 g/dl (13.5-17.5); MEAN CORPUSCULAR HEMOGLOBIN 28.5 pg (27.0-33.0); MEAN CORPUSCULAR HGB CONC 31.9 g/dl (32.0-36.5); MEAN CORPUSCULAR VOLUME 89.3 fl (80.0-96.0); PLATELET COUNT, AUTOMATED 275 10^3/uL (150-450); RED BLOOD COUNT 3.37 10^6/uL (4.30-6.10); WHITE BLOOD COUNT 23.1 10^3/uL (4.0-10.0)
[2021-01-05 06:17] LABS: ALBUMIN 1.8 GM/DL (3.2-5.2); ALT/SGPT 34 U/L (12-78); BILIRUBIN,TOTAL 0.4 MG/DL (0.2-1.0); BLOOD UREA NITROGEN 40 MG/DL (7-18); CALCIUM LEVEL 8.5 MG/DL (8.8-10.2); CARBON DIOXIDE LEVEL 33 MEQ/L (21-32); CHLORIDE LEVEL 103 MEQ/L (98-107); CREATININE FOR GFR 1.21 MG/DL (0.70-1.30); GLOMERULAR FILTRATION RATE > 60.0 (>42); GLUCOSE, FASTING 131 MG/DL (70-100); POTASSIUM SERUM 3.9 MEQ/L (3.5-5.1); SODIUM LEVEL 140 MEQ/L (136-145); TOTAL PROTEIN 5.7 GM/DL (6.4-8.2)
[2021-01-05] MEDS: LEVALBUTEROL 1.25 MG/0.5 ML CONCENTRATE NEB INH SCH ×4 (07:20→20:28)
[2021-01-05] MEDS: HumaLOG INSULIN (NovoLOG) PER UNIT SC SCH ×4 (08:43→20:18)
--- NOTE | 2021-01-05 08:43 | IPN ---
PROGRESS NOTE DATE: 01/04/2021 Mr. Aba zarate is doing a little better today. Yesterday, overnight he had 4 episodes of watery diarrhea with some incontinence. He did not have any more diarrhea today. He is currently day #2 of by mouth vancomycin for Clostridium (C) difficile colitis. He denied having any abdominal pain, nausea, or vomiting. His appetite is fair. Chest x-ray done on 01/03/2021 for worsening shortness of breath showed a right-sided Zhohxo-w-Facq with interval improvement in bilateral upper lobe infiltrates. Interstitial markings remain increased in the bases bilaterally and upper lobes, but these also have improved. There is no new areas of consolidation. He has had no fever or chills. PHYSICAL EXAMINATION: Temperature is 97, pulse 128, respirations 18, oxygen saturation 93% on 12 liters Vapotherm and FiO2 of 40%. Heart: Normal, S1, S2, distant. Lungs: Diminished breath sounds bilaterally, few crackles at the bases. Abdomen: Soft, nontender, no hepatosplenomegaly. Extremities: No edema. Right chest wall Adcmww-o-[id number]. LABORATORY DATA: White count is 25.1, hemoglobin 9.6, hematocrit 30.8, platelets 274, sodium 141, potassium 4.3, chloride 100, bicarbonate 37, BUN 41, creatinine 1.34, glucose 122, calcium 8.3, AST 15, ALT 40, alkaline phosphatase 144. He is currently day #9 of antibiotics, initially with 3 days of meropenem, then Rocephin, and currently on by mouth Cefdinir. He is day #2 of vancomycin 125 mg by mouth four times a day. IMPRESSION: 1. Community-acquired pneumonia with Haemophilus influenza and pneumococcus and group B Streptococcus, on broad-spectrum antibiotic, was doing well, he was switched to by mouth Cefdinir, currently day #10 out of 14 of antibiotics. Chest x-rays have improved. 2. Clostridium (C) difficile colitis, on by mouth vancomycin, improving. Would avoid prolonged course of broad-spectrum antibiotics to decrease his risk of recurrent C. difficile. 3. Lung cancer. Immunocompromised, currently chemotherapy on hold. 4. Persistent leukocytosis, possibly steroid-induced, persistent infection and now C. difficile colitis. He is currently on prednisone 60 mg by mouth daily. PLAN: Suggest discontinuing by mouth Cefdinir on 01/08/2021. Continue vancomycin for a total of 14 days. Encourage use of probiotics and yogurt. Patient will definitely benefit from IV bezlotoxumab as an outpatient to decrease his risk of recurrent C. difficile as he is at very high risk with broad-spectrum antibiotics and chemotherapy that will be restarted once he feels better. Please obtain prior authorization for IV Zinplava at the dose of 600 mg IV to be given on discharge. MTDD
[2021-01-05] MEDS: POTASSIUM CHLORIDE 10% LIQ 20 MEQ/15 ML UDC PO SCH ×2 (08:44→20:19)
[2021-01-05] MEDS: ASPIRIN ENTERIC 325 MG TAB PO SCH (08:45)
[2021-01-05] MEDS: CEFDINIR 300 MG CAP (OMNICEF) PO SCH ×2 (08:45→20:19)
[2021-01-05] MEDS: OMEPRAZOLE 20 MG CAP PO SCH (08:45)
[2021-01-05] MEDS: predniSONE 20 MG TAB PO SCH (08:45)
[2021-01-05] MEDS: FAMOTIDINE 20 MG TAB PO SCH ×2 (08:45→20:19)
[2021-01-05] MEDS: LACTOBACILLUS ACIDOPHILUS CAP (BACID) PO SCH ×2 (08:45→18:00)
[2021-01-05] MEDS: CILOSTAZOL 100 MG TAB (PLETAL) PO SCH ×2 (08:45→18:39)
[2021-01-05] MEDS: APIXABAN 2.5 MG TAB (ELIQUIS) PO SCH ×2 (08:46→20:19)
[2021-01-05] MEDS: SODIUM CHLORIDE NASAL 0.65% SPRAY BTL (OCEAN) SCH ×2 (08:47→20:18)
[2021-01-05] MEDS: amLODIPine 5 MG TAB PO SCH (08:55)
[2021-01-05] MEDS: NS 1,000 ML IV SCH (14:05)
--- NOTE | 2021-01-05 14:12 | IPNPDOC ---
Date Seen The patient was seen on 01/05/21. Progress Note SUBJECTIVE: Multiple BM overnight and 3 thus far today. Appears lethargic. HR incr, on vancomycin, cefdinir and probiotic. Resp status is stable. Starting on gentle IVF hydration to see if this helps with tachycardia. Denies increased chest pain, fevers, chills, n/v/d. OBJECTIVE: PHYSICAL EXAM: VITAL SIGNS: Please see below GENERAL: lethargic , AAOx 3, resting in bed HEENT: AT/NC, PERRLA, EOM intact, nasal cannula in place NECK: No JVD. LUNGS: improved aeration,improving bilateral crackles in post lung odom. No wheezing, rhonchi, rales HEART: S1 and S2, sinus tachycardia. No murmurs, rubs or gallops. CHEST: RIGHT side infusaport ABDOMEN: Soft, nontender, nondistended. Positive bowel sounds. EXTREMITIES: No cyanosis, clubbing or pitting edema. NEURO: CN 2-12 intact, no focal deficits. LABORATORY: Please see below MICROBIOLOGY: C diff + BCx NG x 2 sets at 72 H Sputum GS: QUALITY: GOOD, MODERATE WBCS, MANY GRAM POSITIVE COCCI IN PAIRS AND CHAINS, MANY GRAM NEGATIVE COCCI Sputum Cx: Organism 1 STREPTOCOCCUS PNEUMONIAE QUANTITY OF GROWTH HEAVY Organism 2 HAEMOPHILUS INFLUENZAE QUANTITY OF GROWTH HEAVY Organism 3 STREP AGALACTIAE GROUP B QUANTITY OF GROWTH HEAVY Repeat Sputum GS: QUALITY: GOOD, MODERATE WBCS, FEW EPITHELIAL CELLS, NO ORGANISMS SEEN Repeat Sputum Cx: yeast IMAGING: CXR 01/03/21: A right-sided Huuzbi-X-Byij catheter remains in place. There is been some interval improvement in the bilateral upper lobe infiltrate pattern. Interstitial markings remain increased in the bases bilaterally and in the upper lobes but there are improved. Heart is not enlarged. No new area of consolidation is seen. Monitoring electrodes and oxygen delivery tubing are seen.. Liver US: No acute sonographic findings. CXR: Increased parenchymal infiltrate in the left perihilar region. Echocardiogram 12/26/20: EF 60-65% Normal global left ventricular systolic function. Not mentioned above, the basal portion of the posterior wall appeared to be hypokinetic. There are features of left ventricular diastolic dysfunction manifested by abnormal relaxation, grade 1. Aortic valve sclerosis with mild aortic regurgitation. Trace mitral regurgitation. Mild tricuspid regurgitation with mild pulmonary hypertension. Trace pericardial effusion, no evidence of cardiac tamponade. ASSESSMENT: 75-year-old male with Stage IIA adenocarcinoma of the lung undergoing chemotherapy and radiation, COPD, hypertension, CAD, HLD, stent, thoracic aortic aneurysm, macular degeneration, chronic hypoxic respiratory failure, admitted on 12/26/2020 for acute on chronic hypoxic respiratory failure likely multifactorial 2/2 to HCAP, COPD exacerbation, CHF exacerbation, r/o developing ARDS. PLAN: C. difficile infection, sepsis -WBC 23.1, afebrile, Multiple bowel movements overnight and today -prolonged hospital stay, immunocompromised baseline, has been on abx here -Encouraging PO intake of fluids -Started on gentle fluid hydration with NSS at 80 cc/hr -F/u daily labs, lactic acid -C/w PO vancomycin, probiotic. Remains on cefdinir (treatment day 08/22) -ID following CAP vs. HCAP, sepsis -WBC 23.1- likely still markedly and likely driven by PNA, c. diff infection and steroids combined -Recent CXR above, tachycardia, afebrile -MRSA neg -BCx NG -Sputum cx above with three microbes: STREPTOCOCCUS PNEUMONIAE, HAEMOPHILUS INFLUENZAE, STREP AGALACTIAE GROUP B -Repeat Sputum culture ordered by ID: yeast -Discussed with ID. On cefdinir (Treatment day 08/22) Acute on chronic hypoxic respiratory failure likely multifactorial 2/2 to HCAP, COPD exacerbation, Hx of lung Ca, plueral effusions, CHF exacerbation -Remains on 40% FiO2, comfortable, Vapotherm -CXR from 01/03/21 above -Pulmonary has evaluated and will f/u o/p -Please see individual treatment of issues Acute COPD exacerbation -Less wheezing, improved b/l lung aeration -Improved CXR 01/03/21 -C/w chest physiotherapy, PO prednisone, levalbuterol ATC and PRN -Monitor for uncontrolled BS as previously Atrial fibrillation, paroxysmal -Currently sinus tachycardia likely driven by sepsis above -TSH wnl this hospital stay -Echocardiogram above -Monitor on tele -Currently on eliquis BID, CCB -See if tachycardia improves with IVFs- careful not to overload with recent CHF exacerbation HFpEF with mild exacerbation -BNP improving -Echo above: preserved EF, grade 1 diastolic dysfunction -Monitor while having diarrhea and patient needs to be on IVFs -D/teresa lasix daily 01/03/21 until diarrhea improves and off IVF -c/w low dose CCB -Monitor I&O's closely, daily wt Acute kidney injury secondary to medications -Cr wnl, BL is wnl -Monitor daily labs, U/O closely -Avoid other nephrotoxic medications. Hypokalemia, acute -K wnl today -C/w supplemented BID -Monitor on tele DM type II -BS waxing and waning -HbA1c 7.0 -On ISS, consistent carb diet, FS AC/HS Transaminitis, improving -No known hx of liver issues -No pain on exam of abdomen -Liver US neg for acute findings -F/u CMP Stage IIA lung CA -Treated o/p with chemoradiation History of CAD and coronary stents -Stable, c/w current meds Dyslipidemia -Holding statin with transaminitis History of thoracic aortic aneurysm -BP controlled -No abdominal pain GERD -PPI DVT px -Eliquis BID, teds, SCD Resolved issues: Hypotension likely 2/2 to atrial fib with RVR DISPOSITION: PT : Would benefit from continued rehab after d/c, will determine after weekend if this will be inpatient vs. at home. Remains in PCU. DNR/DNI with updated MOLST. VS, I&O, 24H, Fishbone Vital Signs/I&O Vital Signs Date Time Temp Pulse Resp B/P (MAP) Pulse Ox O2 Delivery O2 Flow Rate FiO2 01/05/21 12:53 12.0 40 01/05/21 12:27 95.9 134 24 118/63 (81) 94 HVNI-Vapotherm I&O- Last 24 Hours up to 6 AM 01/05/21 06:00 Intake Total 800 ml Output Total 500 ml Balance 300 ml Laboratory Data 24H LABS Laboratory Tests 2 01/04/21 17:35: Bedside Glucose (Misc Panel) 303H 01/04/21 20:40: Bedside Glucose (Misc Panel) 138H 01/05/21 05:08: Nucleated Red Blood Cells % (auto) 0.0, Anion Gap 4L, Glomerular Filtration Rate > 60.0, Calcium Level 8.5L, Total Bilirubin 0.4, Aspartate Amino Transf (AST/SGOT) 15, Alanine Aminotransferase (ALT/SGPT) 34, Alkaline Phosphatase 130 H, Total Protein 5.7L, Albumin 1.8L, Albumin/Globulin Ratio 0.5 01/05/21 11:39: Bedside Glucose (Misc Panel) 108 CBC/BMP Laboratory Tests 01/05/21 05:08 Microbiology Microbiology 01/01/21 Stool Occult Blood (CHARLETTE) - Final, Complete 12/30/20 Gram Stain - Final, Complete 12/30/20 Sputum Culture - Final, Complete Yeast Like Organism 12/26/20 Respiratory Virus Panel (PCR) (CHARLETTE) - Final, Complete 12/26/20 Blood Culture - Final, Complete NO GROWTH AFTER 5 DAYS 12/26/20 Gram Stain - Final, Complete 12/26/20 Sputum Culture - Final, Complete Streptococcus Pneumoniae Haemophilus Influenzae Strep Agalactiae Group B 12/26/20 Blood Culture - Final, Complete NO GROWTH AFTER 5 DAYS Current Medications Current Medications Medications (Trade) Dose Ordered Sig/Laura Route PRN Reason Start Time Stop Time Status Last Admin Dose Admin Amlodipine Besylate (Norvasc) 5 mg DAILY PO 01/01/21 09:00 01/04/21 09:14 Apixaban (Eliquis) 2.5 mg BID PO 12/28/20 21:00 01/05/21 08:46 Apixaban (Eliquis) 5 mg BID PO 12/28/20 21:00 12/28/20 14:50 DC Aspirin (Ecotrin) 325 mg DAILY PO 12/26/20 09:00 01/05/21 08:45 Atovaquone (Mepron 750mg/ 5ml Suspension) 1,500 mg DAILY PO 12/29/20 09:00 12/29/20 16:56 DC 12/29/20 11:45 Cefdinir (Omnicef) 300 mg BID PO 01/04/21 09:00 01/05/21 08:45 Ceftriaxone Sodium 2 gm/ Dextrose 50 ml @ 100 mls/hr Q24H IV 12/29/20 18:00 01/04/21 08:26 DC 01/03/21 17:41 Cilostazol (Pletal) 100 mg BID@0730,1730 PO 12/26/20 17:30 01/05/21 08:45 Codeine Phosphate/ Guaifenesin (Robitussin Ac) 5 ml Q6H PRN PO COUGH 12/26/20 16:15 12/31/20 12:38 DC 12/26/20 17:27 Dextrose (Dextrose 50%) 25 ml ASDIRECTED PRN IV SEE LABEL COMMENTS 12/29/20 14:30 Enoxaparin Sodium (Lovenox) 40 mg DAILY SC 12/27/20 09:00 12/28/20 14:46 DC 12/28/20 09:35 Famotidine (Pepcid) 20 mg BID PO 12/26/20 21:00 01/05/21 08:45 Furosemide (Lasix) 40 mg DAILY PO 12/31/20 09:00 01/03/21 14:38 DC 01/03/21 10:14 Glucagon (Glucagon) 1 mg ASDIRECTED PRN SC SEE LABEL COMMENTS 12/29/20 14:30 Glucose (Glucose) 16 GM ASDIRECTED PRN PO SEE LABEL COMMENTS 12/29/20 14:30 Guaifenesin (Mucinex Tab Er) 1,200 mg BID PO 12/29/20 09:00 01/03/21 21:51 DC 01/03/21 10:14 Guaifenesin (Robitussin) 10 ml Q6H PO 01/04/21 00:00 01/05/21 06:06 Home Med (Med Rec Complete!) ASDIRECTED XX 12/26/20 13:35 12/26/20 13:39 DC Insulin Human Lispro (HumaLOG INSULIN) SEE PROTOCOL TABLE AC TN 12/29/20 17:30 12/29/20 14:40 DC Insulin Human Lispro (HumaLOG INSULIN) SEE PROTOCOL TABLE AC TN 12/31/20 12:00 01/05/21 08:43 Insulin Human Lispro (HumaLOG INSULIN) SEE PROTOCOL TABLE Q6H TN 12/29/20 12:00 12/31/20 12:53 DC 12/31/20 06:22 Insulin Human Lispro (HumaLOG INSULIN) SEE PROTOCOL TABLE QHS TN 12/29/20 21:00 12/29/20 14:41 DC Insulin Human Lispro (HumaLOG INSULIN) SEE PROTOCOL TABLE QHS TN 12/31/20 21:00 Lactobacillus Acidophilus (Bacid) 1 ea BIDWM PO 01/03/21 18:00 01/05/21 08:45 Levalbuterol HCl (Xopenex Neb) 1.25 mg Q1HP PRN INH SHORTNESS OF BREATH 12/27/20 08:25 Levalbuterol HCl (Xopenex Neb) 1.25 mg RQID INH 12/27/20 12:00 01/05/21 11:03 Lidocaine/ Diphenhydr/Alum/ Mg/Simeth (Magic Mouthwash) 5ML Q4HP PRN SS DISCOMFORT 01/05/21 03:30 Meropenem 1 gm/IV Miscellaneous Supplies 50 ml @ 100 mls/hr Q12H IV 12/29/20 20:00 12/29/20 16:56 DC Meropenem 1 gm/IV Miscellaneous Supplies 50 ml @ 100 mls/hr Q8H IV 12/26/20 18:00 12/29/20 09:30 DC 12/29/20 08:33 Meropenem 500 mg/ IV Miscellaneous Supplies 50 ml @ 100 mls/hr Q8H IV 12/26/20 12:05 12/26/20 13:26 DC Methylprednisolone (SOLU medrol) 40 mg Q12H IV 12/31/20 15:00 01/02/21 07:59 DC 01/02/21 03:41 Methylprednisolone (SOLU medrol) 40 mg Q8H IV 12/27/20 11:00 12/28/20 07:23 DC 12/28/20 02:01 Methylprednisolone (SOLU medrol) 40 mg Q8H IV 12/29/20 11:00 12/31/20 09:39 DC 12/31/20 04:04 Methylprednisolone (SOLUmedrol) 60 mg Q6H IV 12/26/20 20:00 12/27/20 08:23 DC 12/27/20 02:54 Metoprolol Succinate (TopROL XL) 50 mg BID PO 12/27/20 07:20 12/28/20 12:48 DC 12/27/20 20:57 Metoprolol Succinate (TopROL XL) 50 mg DAILY PO 12/27/20 09:00 12/27/20 07:17 DC Midodrine (Proamatine) 10 mg 08,12,16 PO 12/28/20 12:00 12/29/20 14:51 DC 12/29/20 11:55 Omeprazole (PriLOSEC) 40 mg DAILY PO 12/28/20 09:00 01/05/21 08:45 Ondansetron HCl (Zofran Odt) 8 mg TID PRN PO NAUSEA OR VOMITING 12/26/20 16:15 01/02/21 10:32 Pantoprazole Sodium (Protonix) 40 mg DAILY PO 12/26/20 09:00 12/27/20 07:18 DC 12/26/20 16:43 Potassium Chloride (Micro-K Extencaps) 30 meq BID PO 12/31/20 09:00 01/03/21 20:05 DC 01/03/21 10:12 Potassium Chloride (Micro-K Extencaps) 30 meq BID@0900,1200 PO 12/29/20 09:00 12/29/20 12:01 DC 12/29/20 11:45 Potassium Chloride (Micro-K Extencaps) 40 meq TID PO 12/27/20 16:00 12/28/20 07:16 DC 12/27/20 20:57 Potassium Chloride (Potassium Chloride Liquid) 30 meq BID PO 01/03/21 21:00 01/05/21 08:44 Prednisone (Deltasone) 40 mg DAILY PO 12/28/20 09:00 12/29/20 10:34 DC 12/29/20 07:39 Prednisone (Deltasone) 60 mg DAILY PO 01/02/21 09:00 01/05/21 08:45 Rosuvastatin Calcium (Crestor) 20 mg DAILY PO 12/26/20 09:00 12/29/20 14:45 DC 12/29/20 07:39 Sodium Chloride 1,000 ml @ 100 mls/hr Q10H IV 12/28/20 07:15 12/28/20 12:46 DC 12/28/20 07:48 Sodium Chloride ([place] Nasal [place]) 2 spray BID NA 12/31/20 09:00 01/05/21 08:47 Sodium Chloride (Saline Lock Flush) 2 ml ASDIRECTED PRN IV SEE LABEL COMMENTS 12/26/20 15:30 Sodium Chloride (Saline Lock Flush) 2 ml SLF IV 12/26/20 22:00 01/05/21 13:29 Vancomycin HCl (First-Vancomycin 50(Firvanq)- 250mg/5ml) 250 mg Q6H PO 01/04/21 06:00 01/05/21 11:43 Vancomycin HCl 1000 mg/IV Miscellaneous Supplies 1 each/ Sodium Chloride 270 ml @ 270 mls/hr Q12H IV 12/26/20 16:00 12/27/20 15:10 DC 12/27/20 05:08 Vancomycin HCl 1000 mg/IV Miscellaneous Supplies 1 each/ Sodium Chloride 270 ml @ 270 mls/hr Q24H IV 12/30/20 10:00 12/29/20 16:56 DC Allergies Coded Allergies: Penicillins (Verified Adverse Reaction, Mild, itch, 12/29/20) Evelia Gonzalez MD Jan 05, 2021 14:12
[2021-01-05] MEDS: FIDAXOMICIN 200 MG TAB (DIFICID) PO SCH (20:19)
--- NOTE | 2021-01-05 21:03 | IPNPDOC ---
Text Note Date of Service The patient was seen on 01/05/21. NOTE INFECTIOUS DISEASE PROGRESS NOTE SUBJECTIVE: Mr. Troncoso is feeling worse today than yesterday. He is on day three of oral vancomycin for C. difficile colitis. Today he has experienced severe diarrhea, and had six bowel movements today before he was seen. He states that every time he has so much as a sip of water he has diarrhea, and as such had decided to reduce his fluid intake. Though oxygenation remains high, his work of breathing has increased. He continues to cough up approximately a tablespoon of yellow-brown fluid during the night. He has no pain, no nausea and no vomiting. He is afebrile, and his white count is elevated but decreased from yesterday. He denies fevers, chills, dizziness. OBJECTIVE: VITALS: See below GENERAL: Patient is a kind, thin gentleman seen lying in bed. He is breathing harder than the last time we saw him, and is speaking in 3-4 word sentences before needing to take a breath. HEAD: Normocephalic, atraumatic HEART: Normal S1 and S2. Regular rate and rhythm. No murmurs, rubs or gallops were noted. LUNGS: Lung auscultation shows marked improvement in respiration, with reduced crackling of all lung odom. Faint wheezing is heard at the lung bases bilaterally. Patient is breathing with increased inspiratory effort but is not u sing accessory muscles. Chest rise is symmetric on inhalation. Abdomen: Soft, nontender, no hepatosplenomegaly. Extremities: No edema. LABORATORY DATA: CBC: White count is 23.1, hemoglobin 9.6, hematocrit 30.1, platelets 275 BMP: sodium 140, potassium 3.9, chloride 103, bicarbonate 33, BUN 40, creatinine 1.21, glucose 131, calcium 8.5, Liver Function Tests: AST 15, ALT 34, alkaline phosphatase 130. MEDS: day #10 of antibiotics. He was started with 3 days of meropenem, then Rocephin, and currently on oral Cefdinir. D#2 oral vancomycin four times a day. IMPRESSION 1. Community-Acquired Pneumonia with H. influenza and pneumococcus an Group B streptococcus, currently treated with broad spectrum antibiotics. His pulmonary symptoms are much improved, both clinically and by X-ray will DC antibiotics . 2- C. difficile colitis with worsening diarrhea today, will switch to dificid we and advise avoiding a prolonged course of broad-spectrum antibiotics to decrease his risk of recurrent and worsening C. difficile. 3. Lung cancer. Immunocompromised, and chemotherapy is currently on hold. 4. Persistent leukocytosis. Likely multifactorial, as the patient has been treated with steroids, and has had persistent pulmonary infection and has not developed C. difficile colitis. He is currently taking oral prednisone, 60mg per day. PLAN: As the patients pneumonia has improved, and he has completed 10 days of [place], we advise discontinuing Cefdinir. Discontinue vancomycin and switch to PO mg PO BID. Outpatient if authorized consider using zinplava 600 mg IVx 1 dose to decrease risk of recurrent C. difficile colitis. Encourage the patient to eat yogurt and take probiotics. Chemotherapy will be managed by his oncologist as an outpatient, patient wishes is stop chemotherapy VS,Fishbone, I+O VS, Fishbone, I+O Laboratory Tests 01/05/21 05:08 Vital Signs Date Time Temp Pulse Resp B/P (MAP) Pulse Ox O2 Delivery O2 Flow Rate FiO2 01/05/21 20:28 100 HVNI-Vapotherm 10.0 40 01/05/21 20:20 97.1 126 20 109/57 (74) I&O- Last 24 Hours up to 6 AM 01/05/21 06:00 Intake Total 800 ml Output Total 500 ml Balance 300 ml GME ATTESTATION GME ATTESTATION My faculty preceptor for this patient encounter was physically present during the encounter and was fully available. All aspects of the patient interview, examination, medical decision making process, and medical care plan development were reviewed and approved by the faculty preceptor. The faculty preceptor is aware and concurs with the plan as stated in the body of this note and will attest to such by his/her cosignature. EUGENIO MENDEZ Jan 05, 2021 21:03 Kali Cee MD Jan 05, 2021 22:30
[2021-01-05] MEDS ORDERED: SODIUM CHLORIDE 0.9% 1000ML IV ONE (21:55)
[2021-01-05 22:30] LABS: MAGNESIUM LEVEL 1.6 MG/DL (1.8-2.4); POTASSIUM SERUM 4.3 MEQ/L (3.5-5.1)
[2021-01-05] MEDS ORDERED: MAG SULF 1GM/100ML (MAG RUN) 1 GM in IV 1 EA IV ONE (23:10)
[2021-01-06] VITALS (15 sets, daily range): BP systolic 108–125; BP diastolic 20–62; O2SAT 92–98
[2021-01-06] MEDS: guaiFENesin SYRUP 200 MG/10 ML UDC PO SCH ×3 (04:34→18:00)
[2021-01-06] MEDS: NS 1,000 ML IV SCH (04:34)
[2021-01-06] MEDS: SLF 3 ML SYR IV SCH ×3 (04:34→21:07)
[2021-01-06 05:51] LABS: HEMATOCRIT 29.1 % (42.0-52.0); HEMOGLOBIN 8.9 g/dl (13.5-17.5); MEAN CORPUSCULAR HGB CONC 30.6 g/dl (32.0-36.5); MEAN CORPUSCULAR VOLUME 91.5 fl (80.0-96.0); PLATELET COUNT, AUTOMATED 263 10^3/uL (150-450); RED BLOOD COUNT 3.18 10^6/uL (4.30-6.10); WHITE BLOOD COUNT 20.9 10^3/uL (4.0-10.0)
[2021-01-06 06:14] LABS: ALBUMIN 1.6 GM/DL (3.2-5.2); ALT/SGPT 28 U/L (12-78); BILIRUBIN,TOTAL 0.4 MG/DL (0.2-1.0); BLOOD UREA NITROGEN 29 MG/DL (7-18); CALCIUM LEVEL 7.8 MG/DL (8.8-10.2); CARBON DIOXIDE LEVEL 28 MEQ/L (21-32); CHLORIDE LEVEL 111 MEQ/L (98-107); CREATININE FOR GFR 0.94 MG/DL (0.70-1.30); GLOMERULAR FILTRATION RATE > 60.0 (>42); GLUCOSE, FASTING 100 MG/DL (70-100); SODIUM LEVEL 144 MEQ/L (136-145); TOTAL PROTEIN 5.1 GM/DL (6.4-8.2)
[2021-01-06] MEDS: LEVALBUTEROL 1.25 MG/0.5 ML CONCENTRATE NEB INH SCH ×4 (07:25→19:17)
[2021-01-06] MEDS: HumaLOG INSULIN (NovoLOG) PER UNIT SC SCH ×4 (07:30→21:00)
[2021-01-06] MEDS: CILOSTAZOL 100 MG TAB (PLETAL) PO SCH ×2 (07:30→18:36)
[2021-01-06 08:18] LABS: PHOSPHORUS LEVEL 3.3 MG/DL (2.5-4.9)
[2021-01-06] MEDS: POTASSIUM CHLORIDE 10% LIQ 20 MEQ/15 ML UDC PO SCH ×2 (09:39→21:07)
[2021-01-06] MEDS: ASPIRIN ENTERIC 325 MG TAB PO SCH (09:40)
[2021-01-06] MEDS: OMEPRAZOLE 20 MG CAP PO SCH (09:40)
[2021-01-06] MEDS: predniSONE 20 MG TAB PO SCH (09:40)
[2021-01-06] MEDS: LACTOBACILLUS ACIDOPHILUS CAP (BACID) PO SCH ×2 (09:40→18:36)
[2021-01-06] MEDS: amLODIPine 5 MG TAB PO SCH (09:40)
[2021-01-06] MEDS: FAMOTIDINE 20 MG TAB PO SCH ×2 (09:40→21:07)
[2021-01-06] MEDS: SODIUM CHLORIDE NASAL 0.65% SPRAY BTL (OCEAN) SCH ×2 (09:41→21:07)
[2021-01-06] MEDS: APIXABAN 2.5 MG TAB (ELIQUIS) PO SCH ×2 (09:41→21:07)
[2021-01-06] MEDS: FIDAXOMICIN 200 MG TAB (DIFICID) PO SCH ×2 (10:02→21:07)
[2021-01-06] MEDS: NYSTATIN 500,000 U/5 ML SUSP UDC SS SCH ×2 (12:13→18:36)
--- NOTE | 2021-01-06 14:54 | IPNPDOC ---
Date Seen The patient was seen on 01/06/21. Progress Note SUBJECTIVE: Decreasing BM. Resp status improving. Decreased steroids and stopped cefdinir, IVFs as patient completed 11 days. Still lethargic, weak. Denies increased chest pain, fevers, chills, n/v/d. OBJECTIVE: PHYSICAL EXAM: VITAL SIGNS: Please see below GENERAL: lethargic , AAOx 3, resting in bed HEENT: AT/NC, PERRLA, EOM intact, nasal cannula in place NECK: No JVD. LUNGS: improved aeration,improving bilateral crackles in post lung odom. No wheezing, rhonchi, rales HEART: S1 and S2, sinus tachycardia. No murmurs, rubs or gallops. CHEST: Right side infusaport ABDOMEN: Soft, nontender, nondistended. Positive bowel sounds. EXTREMITIES: No cyanosis, clubbing or pitting edema. NEURO: CN 2-12 intact, no focal deficits. LABORATORY: Please see below MICROBIOLOGY: C diff + BCx NG x 2 sets at 72 H Sputum GS: QUALITY: GOOD, MODERATE WBCS, MANY GRAM POSITIVE COCCI IN PAIRS AND CHAINS, MANY GRAM NEGATIVE COCCI Sputum Cx: Organism 1 STREPTOCOCCUS PNEUMONIAE QUANTITY OF GROWTH HEAVY Organism 2 HAEMOPHILUS INFLUENZAE QUANTITY OF GROWTH HEAVY Organism 3 STREP AGALACTIAE GROUP B QUANTITY OF GROWTH HEAVY Repeat Sputum GS: QUALITY: GOOD, MODERATE WBCS, FEW EPITHELIAL CELLS, NO ORGANISMS SEEN Repeat Sputum Cx: yeast IMAGING: CXR 01/03/21: A right-sided [id number] catheter remains in place. There is been some interval improvement in the bilateral upper lobe infiltrate pattern. Interstitial markings remain increased in the bases bilaterally and in the upper lobes but there are improved. Heart is not enlarged. No new area of consolidation is seen. Monitoring electrodes and oxygen delivery tubing are seen.. Liver US: No acute sonographic findings. CXR: Increased parenchymal infiltrate in the left perihilar region. Echocardiogram 12/26/20: EF 60-65% Normal global left ventricular systolic function. Not mentioned above, the basal portion of the posterior wall appeared to be hypokinetic. There are features of left ventricular diastolic dysfunction manifested by abnormal relaxation, grade 1. Aortic valve sclerosis with mild aortic regurgitation. Trace mitral regurgitation. Mild tricuspid regurgitation with mild pulmonary hypertension. Trace pericardial effusion, no evidence of cardiac tamponade. ASSESSMENT: 75-year-old male with Stage IIA adenocarcinoma of the lung undergoing chemotherapy and radiation, COPD, hypertension, CAD, HLD, stent, thoracic aortic aneurysm, macular degeneration, chronic hypoxic respiratory failure, admitted on 12/26/2020 for acute on chronic hypoxic respiratory failure likely multifactorial 2/2 to HCAP, COPD exacerbation, CHF exacerbation, r/o developing ARDS. PLAN: C. difficile infection, sepsis -WBC 20.9, afebrile, BM decreased, Hr remains elevated -Prolonged hospital stay, immunocompromised baseline, has been on abx here -Encouraging PO intake of fluids -Stopped IVFs, cefdinir. -Switched to dificid, c/w probiotic. -F/u daily labs -ID following CAP vs. HCAP, sepsis -WBC 20.9- likely still markedly and likely driven by PNA, c. diff infection and steroids combined -Recent CXR above, tachycardia, afebrile -MRSA neg -BCx NG -Sputum cx above with three microbes: STREPTOCOCCUS PNEUMONIAE, HAEMOPHILUS INFLUENZAE, STREP AGALACTIAE GROUP B -Repeat Sputum culture ordered by ID: yeast -Completed 11 days cefdinir -Encouraging IS Acute on chronic hypoxic respiratory failure likely multifactorial 2/2 to HCAP, COPD exacerbation, Hx of lung Ca, plueral effusions, CHF exacerbation -Remains on 40% FiO2, down to 10L, comfortable, Vapotherm -CXR from 01/03/21 above -Pulmonary has evaluated and will f/u o/p -Please see individual treatment of issues Acute COPD exacerbation -Less wheezing, improved b/l lung aeration -Improved CXR 01/03/21 -C/w chest physiotherapy, PO prednisone decreased further today, levalbuterol ATC and PRN -Monitor for uncontrolled BS as previously Atrial fibrillation, paroxysmal -Currently sinus tachycardia , unknown if high at baseline -TSH wnl -Echocardiogram above -Monitor on tele -Tachycardia did not improve with IVFs so not due to dehydration -Currently on eliquis BID, metoprolol BID HFpEF with mild exacerbation -BNP improving -Echo above: preserved EF, grade 1 diastolic dysfunction -Monitor while having diarrhea and patient needs to be on IVFs -Hold off on lasix as this is first day patient has had decreased diarrhea, c/w BB BID -Monitor I&O's closely, daily wt Acute kidney injury secondary to medications -Cr wnl, BL is wnl -Monitor daily labs, U/O closely -Avoid other nephrotoxic medications. Hypokalemia, acute -K wnl today -C/w supplemented BID -Monitor on tele DM type II -BS stable -HbA1c 7.0 -On ISS, consistent carb diet, FS AC/HS Stage IIA lung CA -Treated o/p with chemoradiation History of CAD and coronary stents -Stable, c/w current meds Dyslipidemia -Holding statin with recent transaminitis History of thoracic aortic aneurysm -BP controlled -No abdominal pain GERD -PPI DVT px -Eliquis BID, teds, SCD Resolved issues: Hypotension likely 2/2 to atrial fib with RVR Transaminitis, improving DISPOSITION: ARU consult placed. PT : Would benefit from continued rehab after d/c, will determine after weekend if this will be inpatient vs. at home. Remai ns in PCU on vapotherm. DNR/DNI with updated MOLST. VS, I&O, 24H, Fishbone Vital Signs/I&O Vital Signs Date Time Temp Pulse Resp B/P (MAP) Pulse Ox O2 Delivery O2 Flow Rate FiO2 01/06/21 12:00 97.6 123 20 116/20 (52) 96 HVNI-Vapotherm 10.0 40 I&O- Last 24 Hours up to 6 AM 01/06/21 06:00 Intake Total 1400 ml Output Total 625 ml Balance 775 ml Laboratory Data 24H LABS Laboratory Tests 2 01/05/21 17:24: Bedside Glucose (Misc Panel) 179H 01/05/21 20:16: Bedside Glucose (Misc Panel) 106 01/05/21 22:02: Magnesium Level 1.6L 01/06/21 05:24: Magnesium Level 2.0, Nucleated Red Blood Cells % (auto) 0.0, Anion Gap 5L, Glomerular Filtration Rate > 60.0, Calcium Level 7.8L, Phosphorus Level 3.3, Total Bilirubin 0.4, Aspartate Amino Transf (AST/SGOT) 16, Alanine Aminotransferase (ALT/SGPT) 28, Alkaline Phosphatase 104, Total Protein 5.1L, Albumin 1.6L, Albumin/Globulin Ratio 0.5 01/06/21 11:37: Bedside Glucose (Misc Panel) 157H CBC/BMP Laboratory Tests 01/05/21 22:02 01/06/21 05:24 Microbiology Microbiology 01/01/21 Stool Occult Blood (CHARLETTE) - Final, Complete 12/30/20 Gram Stain - Final, Complete 12/30/20 Sputum Culture - Final, Complete Yeast Like Organism Current Medications Current Medications Medications (Trade) Dose Ordered Sig/Laura Route PRN Reason Start Time Stop Time Status Last Admin Dose Admin Amlodipine Besylate (Norvasc) 5 mg DAILY PO 01/01/21 09:00 01/06/21 09:40 Apixaban (Eliquis) 2.5 mg BID PO 12/28/20 21:00 01/06/21 09:41 Apixaban (Eliquis) 5 mg BID PO 12/28/20 21:00 12/28/20 14:50 DC Aspirin (Ecotrin) 325 mg DAILY PO 12/26/20 09:00 01/06/21 09:40 Atovaquone (Mepron 750mg/ 5ml Suspension) 1,500 mg DAILY PO 12/29/20 09:00 12/29/20 16:56 DC 12/29/20 11:45 Cefdinir (Omnicef) 300 mg BID PO 01/04/21 09:00 01/05/21 22:37 DC 01/05/21 20:19 Ceftriaxone Sodium 2 gm/ Dextrose 50 ml @ 100 mls/hr Q24H IV 12/29/20 18:00 01/04/21 08:26 DC 01/03/21 17:41 Cilostazol (Pletal) 100 mg BID@0730,1730 PO 12/26/20 17:30 01/05/21 08:45 Codeine Phosphate/ Guaifenesin (Robitussin Ac) 5 ml Q6H PRN PO COUGH 12/26/20 16:15 12/31/20 12:38 DC 12/26/20 17:27 Dextrose (Dextrose 50%) 25 ml ASDIRECTED PRN IV SEE LABEL COMMENTS 12/29/20 14:30 Enoxaparin Sodium (Lovenox) 40 mg DAILY SC 12/27/20 09:00 12/28/20 14:46 DC 12/28/20 09:35 Famotidine (Pepcid) 20 mg BID PO 12/26/20 21:00 01/06/21 09:40 Fidaxomicin (Dificid) 200 mg BID PO 01/05/21 21:00 01/06/21 10:02 Furosemide (Lasix) 40 mg DAILY PO 12/31/20 09:00 01/03/21 14:38 DC 01/03/21 10:14 Glucagon (Glucagon) 1 mg ASDIRECTED PRN SC SEE LABEL COMMENTS 12/29/20 14:30 Glucose (Glucose) 16 GM ASDIRECTED PRN PO SEE LABEL COMMENTS 12/29/20 14:30 Guaifenesin (Mucinex Tab Er) 1,200 mg BID PO 12/29/20 09:00 01/03/21 21:51 DC 01/03/21 10:14 Guaifenesin (Robitussin) 10 ml Q6H PO 01/04/21 00:00 01/06/21 12:13 Home Med (Med Rec Complete!) ASDIRECTED XX 12/26/20 13:35 12/26/20 13:39 DC Insulin Human Lispro (HumaLOG INSULIN) SEE PROTOCOL TABLE AC [place] 12/29/20 17:30 12/29/20 14:40 DC Insulin Human Lispro (HumaLOG INSULIN) SEE PROTOCOL TABLE AC [place] 12/31/20 12:00 01/06/21 12:13 Insulin Human Lispro (HumaLOG INSULIN) [facility] 12/29/20 12:00 12/31/20 12:53 DC 12/31/20 06:22 Insulin Human Lispro (HumaLOG INSULIN) SEE PROTOCOL TABLE QHS [place] 12/29/20 21:00 12/29/20 14:41 DC Insulin Human Lispro (HumaLOG INSULIN) [facility] 12/[facility] 21:00 Lactobacillus Acidophilus (Bacid) 1 ea BIDWM PO 01/03/21 18:00 01/06/21 09:40 Levalbuterol HCl (Xopenex Neb) 1.25 mg Q1HP PRN INH SHORTNESS OF BREATH 12/27/20 08:25 Levalbuterol HCl (Xopenex Neb) 1.25 mg RQID INH 12/27/20 12:00 01/06/21 11:33 Lidocaine/ Diphenhydr/Alum/ Mg/Simeth (Magic Mouthwash) 5ML Q4HP PRN SS DISCOMFORT 01/05/21 03:30 Meropenem 1 gm/IV Miscellaneous Supplies 50 ml @ 100 mls/hr Q12H IV 12/29/20 20:00 12/29/20 16:56 DC Meropenem 1 gm/IV Miscellaneous Supplies 50 ml @ 100 mls/hr Q8H IV 12/26/20 18:00 12/29/20 09:30 DC 12/29/20 08:33 Meropenem 500 mg/ IV Miscellaneous Supplies 50 ml @ 100 mls/hr Q8H IV 12/26/20 12:05 12/26/20 13:26 DC Methylprednisolone (SOLU medrol) 40 mg Q12H IV 12/31/20 15:00 01/02/21 07:59 DC 01/02/21 03:41 Methylprednisolone (SOLU medrol) 40 mg Q8H IV 12/27/20 11:00 12/28/20 07:23 DC 12/28/20 02:01 Methylprednisolone (SOLU medrol) 40 mg Q8H IV 12/29/20 11:00 12/31/20 09:39 DC 12/31/20 04:04 Methylprednisolone (SOLUmedrol) 60 mg Q6H IV 12/26/20 20:00 12/27/20 08:23 DC 12/27/20 02:54 Metoprolol Succinate (TopROL XL) 50 mg BID PO 12/27/20 07:20 12/28/20 12:48 DC 12/27/20 20:57 Metoprolol Succinate (TopROL XL) 50 mg DAILY PO 12/27/20 09:00 12/27/20 07:17 DC Midodrine (Proamatine) 10 mg 08,12,16 PO 12/28/20 12:00 12/29/20 14:51 DC 12/29/20 11:55 Nystatin (Mycostatin) 5 ml Q6H SS 01/06/21 12:00 01/09/21 11:59 01/06/21 12:13 Omeprazole (PriLOSEC) 40 mg DAILY PO 12/28/20 09:00 01/06/21 09:40 Ondansetron HCl (Zofran Odt) 8 mg TID PRN PO NAUSEA OR VOMITING 12/26/20 16:15 01/02/21 10:32 Pantoprazole Sodium (Protonix) 40 mg DAILY PO 12/26/20 09:00 12/27/20 07:18 DC 12/26/20 16:43 Potassium Chloride (Micro-K Extencaps) 30 meq BID PO 12/31/20 09:00 01/03/21 20:05 DC 01/03/21 10:12 Potassium Chloride (Micro-K Extencaps) 30 meq BID@0900,1200 PO 12/29/20 09:00 12/29/20 12:01 DC 12/29/20 11:45 Potassium Chloride (Micro-K Extencaps) 40 meq TID PO 12/27/20 16:00 12/28/20 07:16 DC 12/27/20 20:57 Potassium Chloride (Potassium Chloride Liquid) 30 meq BID PO 01/03/21 21:00 01/06/21 09:39 Prednisone (Deltasone) 40 mg DAILY PO 12/28/20 09:00 12/29/20 10:34 DC 12/29/20 07:39 Prednisone (Deltasone) 40 mg DAILY PO 01/07/21 09:00 Prednisone (Deltasone) 60 mg DAILY PO 01/02/21 09:00 01/06/21 09:57 DC 01/06/21 09:40 Rosuvastatin Calcium (Crestor) 20 mg DAILY PO 12/26/20 09:00 12/29/20 14:45 DC 12/29/20 07:39 Sodium Chloride 1,000 ml @ 80 mls/hr [id number] IV 01/05/21 14:05 01/06/21 09:56 DC 01/06/21 04:34 Sodium Chloride 1,000 ml @ 100 mls/hr Q10H IV 12/28/20 07:15 12/28/20 12:46 DC 12/28/20 07:48 Sodium Chloride ([place] Nasal [place]) 2 spray BID NA 12/31/20 09:00 01/06/21 09:41 Sodium Chloride (Saline Lock Flush) 2 ml ASDIRECTED PRN IV SEE LABEL COMMENTS 12/26/20 15:30 Sodium Chloride (Saline Lock Flush) 2 ml SLF IV 12/26/20 22:00 01/06/21 04:34 Vancomycin HCl (First-Vancomycin 50(Firvanq)- 250mg/5ml) 250 mg Q6H PO 01/04/21 06:00 01/05/21 15:38 DC 01/05/21 11:43 Vancomycin HCl 1000 mg/IV Miscellaneous Supplies 1 each/ Sodium Chloride 270 ml @ 270 mls/hr Q12H IV 12/26/20 16:00 12/27/20 15:10 DC 12/27/20 05:08 Vancomycin HCl 1000 mg/IV Miscellaneous Supplies 1 each/ Sodium Chloride 270 ml @ 270 mls/hr Q24H IV 12/30/20 10:00 12/29/20 16:56 DC Allergies Coded Allergies: Penicillins (Verified Adverse Reaction, Mild, itch, 12/29/20) Evelia Gonzalez MD Jan 06, 2021 14:54
[2021-01-06] MEDS: METOPROLOL TART 12.5 MG PER 1/2 TAB PO SCH (21:07)
[2021-01-07] VITALS: BP 108/62
[2021-01-07 04:00] VITALS: BP 115/56
[2021-01-07] MEDS: NYSTATIN 500,000 U/5 ML SUSP UDC SS SCH ×4 (05:46→18:01)
[2021-01-07] MEDS: SLF 3 ML SYR IV SCH ×3 (05:47→20:32)
[2021-01-07] MEDS: guaiFENesin SYRUP 200 MG/10 ML UDC PO SCH ×4 (05:47→18:00)
[2021-01-07 06:07] LABS: HEMOGLOBIN 8.3 g/dl (13.5-17.5); MEAN CORPUSCULAR HGB CONC 30.7 g/dl (32.0-36.5); MEAN CORPUSCULAR VOLUME 91.2 fl (80.0-96.0); PLATELET COUNT, AUTOMATED 266 10^3/uL (150-450); RED BLOOD COUNT 2.96 10^6/uL (4.30-6.10); WHITE BLOOD COUNT 17.2 10^3/uL (4.0-10.0)
[2021-01-07 06:28] LABS: ALBUMIN 1.7 GM/DL (3.2-5.2); ALT/SGPT 33 U/L (12-78); BILIRUBIN,TOTAL 0.3 MG/DL (0.2-1.0); BLOOD UREA NITROGEN 27 MG/DL (7-18); CARBON DIOXIDE LEVEL 27 MEQ/L (21-32); CHLORIDE LEVEL 109 MEQ/L (98-107); CREATININE FOR GFR 0.85 MG/DL (0.70-1.30); GLOMERULAR FILTRATION RATE > 60.0 (>42); GLUCOSE, FASTING 122 MG/DL (70-100); POTASSIUM SERUM 4.5 MEQ/L (3.5-5.1); SODIUM LEVEL 141 MEQ/L (136-145); TOTAL PROTEIN 4.8 GM/DL (6.4-8.2)
[2021-01-07] MEDS: LEVALBUTEROL 1.25 MG/0.5 ML CONCENTRATE NEB INH SCH ×4 (07:08→19:59)
[2021-01-07 08:00] VITALS: BP 112/56
[2021-01-07] MEDS: FAMOTIDINE 20 MG TAB PO SCH ×2 (08:09→20:32)
[2021-01-07] MEDS: OMEPRAZOLE 20 MG CAP PO SCH (08:10)
[2021-01-07] MEDS: POTASSIUM CHLORIDE 10% LIQ 20 MEQ/15 ML UDC PO SCH ×2 (08:10→20:33)
[2021-01-07] MEDS: predniSONE 20 MG TAB PO SCH (08:10)
[2021-01-07] MEDS: CILOSTAZOL 100 MG TAB (PLETAL) PO SCH ×2 (08:10→18:01)
[2021-01-07] MEDS: FIDAXOMICIN 200 MG TAB (DIFICID) PO SCH ×2 (08:11→20:32)
[2021-01-07] MEDS: LACTOBACILLUS ACIDOPHILUS CAP (BACID) PO SCH ×2 (08:11→18:01)
[2021-01-07] MEDS: APIXABAN 2.5 MG TAB (ELIQUIS) PO SCH ×2 (08:11→20:34)
[2021-01-07] MEDS: METOPROLOL TART 12.5 MG PER 1/2 TAB PO SCH ×2 (08:11→20:33)
[2021-01-07] MEDS: ASPIRIN ENTERIC 325 MG TAB PO SCH (08:11)
[2021-01-07] MEDS: HumaLOG INSULIN (NovoLOG) PER UNIT SC SCH ×4 (08:12→20:34)
[2021-01-07] MEDS: SODIUM CHLORIDE NASAL 0.65% SPRAY BTL (OCEAN) SCH ×2 (08:43→20:34)
--- NOTE | 2021-01-07 10:06 | IPNPDOC ---
Date Seen The patient was seen on 01/07/21. Progress Note SUBJECTIVE: No bowel movements recorded yesterday. Complains of not sleeping at night. Denies increased shortness of breath, fevers, chills, n/v. OBJECTIVE: PHYSICAL EXAM: VITAL SIGNS: Please see below GENERAL: AAOx 3, resting in bed, NAD HEENT: AT/NC, PERRLA, EOM intact, nasal cannula in place NECK: No JVD. LUNGS: improved aeration,improving bilateral crackles in post lung odom. No wheezing, rhonchi, rales HEART: S1 and S2, sinus tachycardia. No murmurs, rubs or gallops. CHEST: Right side infusaport ABDOMEN: Soft, nontender, nondistended. Positive bowel sounds. EXTREMITIES: No cyanosis, clubbing or pitting edema. NEURO: CN 2-12 intact, no focal deficits. LABORATORY: Please see below MICROBIOLOGY: C diff + BCx NG x 2 sets at 72 H Sputum GS: QUALITY: GOOD, MODERATE WBCS, MANY GRAM POSITIVE COCCI IN PAIRS AND CHAINS, MANY GRAM NEGATIVE COCCI Sputum Cx: Organism 1 STREPTOCOCCUS PNEUMONIAE QUANTITY OF GROWTH HEAVY Organism 2 HAEMOPHILUS INFLUENZAE QUANTITY OF GROWTH HEAVY Organism 3 STREP AGALACTIAE GROUP B QUANTITY OF GROWTH HEAVY Repeat Sputum GS: QUALITY: GOOD, MODERATE WBCS, FEW EPITHELIAL CELLS, NO ORGANISMS SEEN Repeat Sputum Cx: yeast IMAGING: CXR 01/03/21: A right-sided Yvygma-F-Vvpp catheter remains in place. There is been some interval improvement in the bilateral upper lobe infiltrate pattern. Interstitial m arkings remain increased in the bases bilaterally and in the upper lobes but there are improved. Heart is not enlarged. No new area of consolidation is seen. Monitoring electrodes and oxygen delivery tubing are seen.. Liver US: No acute sonographic findings. CXR: Increased parenchymal infiltrate in the left perihilar region. Echocardiogram 12/26/20: EF 60-65% Normal global left ventricular systolic function. Not mentioned above, the basal portion of the posterior wall appeared to be hypokinetic. There are features of left ventricular diastolic dysfunction manifested by abnormal relaxation, grade 1. Aortic valve sclerosis with mild aortic regurgitation. Trace mitral regurgitation. Mild tricuspid regurgitation with mild pulmonary hypertension. Trace pericardial effusion, no evidence of cardiac tamponade. ASSESSMENT: 75-year-old male with Stage IIA adenocarcinoma of the lung undergoing chemotherapy and radiation, COPD, hypertension, CAD, HLD, stent, thoracic aortic aneurysm, macular degeneration, chronic hypoxic respiratory failure, admitted on 12/26/2020 for acute on chronic hypoxic respiratory failure likely multifactorial 2/2 to HCAP, COPD exacerbation, CHF exacerbation, r/o developing ARDS. PLAN: C. difficile infection, resolved sepsis -WBC 17.2, afebrile, BM decreased, improved tachycardia -Prolonged hospital stay, immunocompromised baseline, has been on abx here -Encouraging PO intake of fluids -Stopped IVFs, cefdinir. -C/w dificid, probiotic. -F/u daily labs -ID following CAP vs. HCAP, resolved sepsis -WBC 17.2- likely elevation multifactorial 2/2 c. diff infection and steroids combined -Recent CXR above, improved HR, afebrile -MRSA neg -BCx NG -Sputum cx above with three microbes: STREPTOCOCCUS PNEUMONIAE, HAEMOPHILUS INFLUENZAE, STREP AGALACTIAE GROUP B -Repeat Sputum culture ordered by ID: yeast -Completed 11 days cefdinir -Encouraging IS Acute on chronic hypoxic respiratory failure likely multifactorial 2/2 to HCAP, COPD exacerbation, Hx of lung Ca, plueral effusions, CHF exacerbation -Remains on 40% FiO2, down to 10L, comfortable, Vapotherm -CXR from 01/03/21 above -Pulmonary has evaluated and will f/u o/p -Please see individual treatment of issues Acute COPD exacerbation -Less wheezing, improved b/l lung aeration -Improved CXR 01/03/21 -C/w chest physiotherapy, PO prednisone decreased 01/06 and can likely be fu rther deescalated on 01/08/21, levalbuterol ATC and PRN -Monitor for uncontrolled BS as previously Atrial fibrillation, paroxysmal -Improved tachycardia with switch to metoprolol BID -TSH wnl -Echocardiogram above -Monitor on tele -Currently on eliquis BID, metoprolol BID Insomnia -Patient complains of staying awake 3/4 of the night, not sleeping well -Started on low dose trazodone HS HFpEF with mild exacerbation -BNP improving -Echo above: preserved EF, grade 1 diastolic dysfunction -Monitor while having diarrhea and patient needs to be on IVFs -Consider resuming lasix 01/08/21, c/w BB BID -Monitor I&O's closely, daily wt Acute kidney injury secondary to medications -Cr wnl, BL is wnl -Monitor daily labs, U/O closely -Avoid other nephrotoxic medications. Hypokalemia, acute -K wnl today -C/w supplemented BID -Monitor on tele DM type II -BS 106-240 -HbA1c 7.0 -Held off on insulin glargine due to diarrhea, improving intake -On ISS, consistent carb diet, FS AC/HS Stage IIA lung CA -Treated o/p with chemoradiation History of CAD and coronary stents -Stable, c/w current meds Dyslipidemia -Holding statin with recent transaminitis History of thoracic aortic aneurysm -BP controlled -No abdominal pain GERD -PPI DVT px -Eliquis BID, teds, SCD Resolved issues: Hypotension likely 2/2 to atrial fib with RVR Transaminitis DISPOSITION: ARU consult placed. PT : Would benefit from continued rehab after d/c, will determine after weekend if this will be inpatient vs. at home. Remains in PCU on vapotherm. DNR/DNI with updated MOLST. Updated granddaughter at great length 01/06/21 who will update patient's . VS, I&O, 24H, Fishbone Vital Signs/I&O Vital Signs Date Time Temp Pulse Resp B/P (MAP) Pulse Ox O2 Delivery O2 Flow Rate FiO2 01/07/21 08:11 90 115/56 01/07/21 08:00 97.6 18 95 HVNI-Vapotherm 10.0 40 I&O- Last 24 Hours up to 6 AM 01/07/21 06:00 Intake Total 1090 ml Output Total 525 ml Balance 565 ml Laboratory Data 24H LABS Laboratory Tests 2 01/06/21 11:37: Bedside Glucose (Misc Panel) 157H 01/06/21 18:28: Bedside Glucose (Misc Panel) 240H 01/06/21 21:04: Bedside Glucose (Misc Panel) 172H 01/07/21 05:18: Nucleated Red Blood Cells % (auto) 0.0, Anion Gap 5L, Glomerular Filtration Rate > 60.0, Calcium Level 8.0L, Total Bilirubin 0.3, Aspartate Amino Transf (AST/SGOT) 26, Alanine Aminotransferase (ALT/SGPT) 33, Alkaline Phosphatase 107, Total Protein 4.8L, Albumin 1.7L, Albumin/Globulin Ratio 0.5 CBC/BMP Laboratory Tests 01/07/21 05:18 Microbiology Microbiology 01/01/21 Stool Occult Blood (CHARLETTE) - Final, Complete 12/30/20 Gram Stain - Final, Complete 12/30/20 Sputum Culture - Final, Complete Yeast Like Organism Current Medications Current Medications Medications (Trade) Dose Ordered Sig/Laura Route PRN Reason Start Time Stop Time Status Last Admin Dose Admin Amlodipine Besylate (Norvasc) 5 mg DAILY PO 01/01/21 09:00 01/06/21 14:49 DC 01/06/21 09:40 Apixaban (Eliquis) 2.5 mg BID PO 12/28/20 21:00 01/07/21 08:11 Apixaban (Eliquis) 5 mg BID PO 12/28/20 21:00 12/28/20 14:50 DC Aspirin (Ecotrin) 325 mg DAILY PO 12/26/20 09:00 01/07/21 08:11 Atovaquone (Mepron 750mg/ 5ml Suspension) 1,500 mg DAILY PO 12/29/20 09:00 12/29/20 16:56 DC 12/29/20 11:45 Cefdinir (Omnicef) 300 mg BID PO 01/04/21 09:00 01/05/21 22:37 DC 01/05/21 20:19 Ceftriaxone Sodium 2 gm/ Dextrose 50 ml @ 100 mls/hr Q24H IV 12/29/20 18:00 01/04/21 08:26 DC 01/03/21 17:41 Cilostazol (Pletal) 100 mg BID@0730,1730 PO 12/26/20 17:30 01/07/21 08:10 Codeine Phosphate/ Guaifenesin (Robitussin Ac) 5 ml Q6H PRN PO COUGH 12/26/20 16:15 12/31/20 12:38 DC 12/26/20 17:27 Dextrose (Dextrose 50%) 25 ml ASDIRECTED PRN IV SEE LABEL COMMENTS 12/29/20 14:30 Enoxaparin Sodium (Lovenox) 40 mg DAILY SC 12/27/20 09:00 12/28/20 14:46 DC 12/28/20 09:35 Famotidine (Pepcid) 20 mg BID PO 12/26/20 21:00 01/07/21 08:09 Fidaxomicin (Dificid) 200 mg BID PO 01/05/21 21:00 01/07/21 08:11 Furosemide (Lasix) 40 mg DAILY PO 12/31/20 09:00 01/03/21 14:38 DC 01/03/21 10:14 Glucagon (Glucagon) 1 mg ASDIRECTED PRN SC SEE LABEL COMMENTS 12/29/20 14:30 Glucose (Glucose) 16 GM ASDIRECTED PRN PO SEE LABEL COMMENTS 12/29/20 14:30 Guaifenesin (Mucinex Tab Er) 1,200 mg BID PO 12/29/20 09:00 01/03/21 21:51 DC 01/03/21 10:14 Guaifenesin (Robitussin) 10 ml Q6H PO 01/04/21 00:00 01/06/21 12:13 Home Med (Med Rec Complete!) ASDIRECTED XX 12/26/20 13:35 12/26/20 13:39 DC Insulin Human Lispro (HumaLOG INSULIN) SEE PROTOCOL TABLE AC ID 12/29/20 17:30 12/29/20 14:40 DC Insulin Human Lispro (HumaLOG INSULIN) SEE PROTOCOL TABLE AC ID 12/31/20 12:00 01/07/21 08:12 Insulin Human Lispro (HumaLOG INSULIN) SEE PROTOCOL TABLE Q6H ID 12/29/20 12:00 12/31/20 12:53 DC 12/31/20 06:22 Insulin Human Lispro (HumaLOG INSULIN) SEE PROTOCOL TABLE QHS ID 12/29/20 21:00 12/29/20 14:41 DC Insulin Human Lispro (HumaLOG INSULIN) SEE PROTOCOL TABLE QHS ID 12/31/20 21:00 Lactobacillus Acidophilus (Bacid) 1 ea BIDWM PO 01/03/21 18:00 01/07/21 08:11 Levalbuterol HCl (Xopenex Neb) 1.25 mg Q1HP PRN INH SHORTNESS OF BREATH 12/27/20 08:25 Levalbuterol HCl (Xopenex Neb) 1.25 mg RQID INH 12/27/20 12:00 01/07/21 07:08 Lidocaine/ Diphenhydr/Alum/ Mg/Simeth (Magic Mouthwash) 5ML Q4HP PRN SS DISCOMFORT 01/05/21 03:30 Meropenem 1 gm/IV Miscellaneous Supplies 50 ml @ 100 mls/hr Q12H IV 12/29/20 20:00 12/29/20 16:56 DC Meropenem 1 gm/IV Miscellaneous Supplies 50 ml @ 100 mls/hr Q8H IV 12/26/20 18:00 12/29/20 09:30 DC 12/29/20 08:33 Meropenem 500 mg/ IV Miscellaneous Supplies 50 ml @ 100 mls/hr Q8H IV 12/26/20 12:05 12/26/20 13:26 DC Methylprednisolone (SOLU medrol) 40 mg Q12H IV 12/31/20 15:00 01/02/21 07:59 DC 01/02/21 03:41 Methylprednisolone (SOLU medrol) 40 mg Q8H IV 12/27/20 11:00 12/28/20 07:23 DC 12/28/20 02:01 Methylprednisolone (SOLU medrol) 40 mg Q8H IV 12/29/20 11:00 12/31/20 09:39 DC 12/31/20 04:04 Methylprednisolone (SOLUmedrol) 60 mg Q6H IV 12/26/20 20:00 12/27/20 08:23 DC 12/27/20 02:54 Metoprolol Succinate (TopROL XL) 50 mg BID PO 12/27/20 07:20 12/28/20 12:48 DC 12/27/20 20:57 Metoprolol Succinate (TopROL XL) 50 mg DAILY PO 12/27/20 09:00 12/27/20 07:17 DC Metoprolol Tartrate (Lopressor) 12.5 mg BID PO 01/06/21 21:00 01/07/21 08:11 Midodrine (Proamatine) 10 mg 08,12,16 PO 12/28/20 12:00 12/29/20 14:51 DC 12/29/20 11:55 Nystatin (Mycostatin) 5 ml Q6H SS 01/06/21 12:00 01/09/21 11:59 01/07/21 05:46 Omeprazole (PriLOSEC) 40 mg DAILY PO 12/28/20 09:00 01/07/21 08:10 Ondansetron HCl (Zofran Odt) 8 mg TID PRN PO NAUSEA OR VOMITING 12/26/20 16:15 01/02/21 10:32 Pantoprazole Sodium (Protonix) 40 mg DAILY PO 12/26/20 09:00 12/27/20 07:18 DC 12/26/20 16:43 Potassium Chloride (Micro-K Extencaps) 30 meq BID PO 12/31/20 09:00 01/03/21 20:05 DC 01/03/21 10:12 Potassium Chloride (Micro-K Extencaps) 30 meq BID@0900,1200 PO 12/29/20 09:00 12/29/20 12:01 DC 12/29/20 11:45 Potassium Chloride (Micro-K Extencaps) 40 meq TID PO 12/27/20 16:00 12/28/20 07:16 DC 12/27/20 20:57 Potassium Chloride (Potassium Chloride Liquid) 30 meq BID PO 01/03/21 21:00 01/07/21 08:10 Prednisone (Deltasone) 40 mg DAILY PO 12/28/20 09:00 12/29/20 10:34 DC 12/29/20 07:39 Prednisone (Deltasone) 40 mg DAILY PO 01/07/21 09:00 01/07/21 08:10 Prednisone (Deltasone) 60 mg DAILY PO 01/02/21 09:00 01/06/21 09:57 DC 01/06/21 09:40 Rosuvastatin Calcium (Crestor) 20 mg DAILY PO 12/26/20 09:00 12/29/20 14:45 DC 12/29/20 07:39 Sodium Chloride 1,000 ml @ 80 mls/hr [id number] IV 01/05/21 14:05 01/06/21 09:56 DC 01/06/21 04:34 Sodium Chloride 1,000 ml @ 100 mls/hr Q10H IV 12/28/20 07:15 12/28/20 12:46 DC 12/28/20 07:48 Sodium Chloride ([place] Nasal [place]) 2 spray BID NA 12/31/20 09:00 01/07/21 08:43 Sodium Chloride (Saline Lock Flush) 2 ml ASDIRECTED PRN IV SEE LABEL COMMENTS 12/26/20 15:30 Sodium Chloride (Saline Lock Flush) 2 ml SLF IV 12/26/20 22:00 01/07/21 05:47 Trazodone HCl (Desyrel) 25 mg QHS PO 01/07/21 21:00 Vancomycin HCl (First-Vancomycin 50(Firvanq)- 250mg/5ml) 250 mg Q6H PO 01/04/21 06:00 01/05/21 15:38 DC 01/05/21 11:43 Vancomycin HCl 1000 mg/IV Miscellaneous Supplies 1 each/ Sodium Chloride 270 ml @ 270 mls/hr Q12H IV 12/26/20 16:00 12/27/20 15:10 DC 12/27/20 05:08 Vancomycin HCl 1000 mg/IV Miscellaneous Supplies 1 each/ Sodium Chloride 270 ml @ 270 mls/hr Q24H IV 12/30/20 10:00 12/29/20 16:56 DC Allergies Coded Allergies: Penicillins (Verified Adverse Reaction, Mild, itch, 12/29/20) Evelia Gonzalez MD Jan 07, 2021 10:06
[2021-01-07 11:58] VITALS: BP 101/53
[2021-01-07 16:00] VITALS: BP 104/51
[2021-01-07] MEDS: traZODone 25MG PER 1/2 TABLET PO SCH (20:32)
[2021-01-07 20:35] VITALS: BP 98/56
--- NOTE | 2021-01-07 21:20 | IPNPDOC ---
Text Note Date of Service The patient was seen on 01/07/21. NOTE INFECTIOUS DISEASE PROGRESS NOTE SUBJECTIVE: Mr. Troncoso is seen at bedside this afternoon. He is feeling much better today, and has not passed a bowel movement today. He is eating a dinner brought by his and is having no issues with keeping food down. He is on day two of Dificid for C. difficile infection. He is breathing easier today, and has not coughed up any mucus in the last two days. He has no pain, no nausea or vomiting. He is afebrile, and his white blood count remains elevated but trending down. He denies fevers, chills and dizziness. OBJECTIVE: VITALS: See below GENERAL: Patient is thin gentleman seen lying in bed, in no acute distress. HEAD: Normocephalic, atraumatic HEART: Normal S1 and S2. Regular rate and rhythm. No murmurs, rubs or gallops we re noted, LUNGS: Lung auscultation shows marked improvement in respiration, with reduced crackling of all lung odom. Faint wheezing is heard at the lung bases bilaterally. Chest rise is symmetric on inhalation. Abdomen: Soft, nontender, no hepatosplenomegaly. Extremities: No edema. LABORATORY DATA: CBC: White count is 17.2, hemoglobin 8.3, hematocrit 27.0, platelets 266 BMP: sodium 141, potassium 4.5, chloride 109, bicarbonate 27, BUN 27, creatinine 0.85, glucose 122, calcium 8.0, Liver Function Tests: AST 26, ALT 33, alkaline phosphatase 107. MEDS: Finished #11 of antibiotics for pneumonia, started with 3 days of meropenem, then Rocephin, and then Cefdinir. PO Vancomycin was discontinued yesterday, switched to Dificid 200mg BID p.o. for C. difficile infection, on day #2 IMPRESSION 1. Community-Acquired Pneumonia with H. influenza, pneumococcus and Group B streptococcus. Pneumonia appears to have resolved and broad spectrum antibiotics have been discontinued. His pulmonary symptoms are much improved, both clinically and by X-ray. His WBC continues to trend down. 2- C. difficile colitis. He was started on Dificid, and his diarrhea has resolved. We advise avoiding a prolonged course of broad-spectrum antibiotics to decrease his risk of recurrent and worsening C. difficile, and recommend followup treatment with Zimplava as an outpatient. 3. Lung cancer. Immunocompromised, and the patient has expressed a desire to discontinue chemotherapy. 4. Persistent leukocytosis. Likely multifactorial, as the patient has been treated with steroids, and developed C. difficile colitis. He is currently taking oral prednisone, 60mg per day. PLAN: Continue treatment with PO [id number] mg PO BID for a total of 14 days, currently on day #2. If authorized, consider using zinplava 600 mg IVx 1 dose to decrease risk of recurrent C. difficile colitis as outpatient. He should be encouraged to eat yogurt and take probiotics. Chemotherapy will be discussed by his oncologist as an outpatient, and patient has expressed the desire to stop chemotherapy VS,Fishbone, I+O VS, Fishbone, I+O Laboratory Tests 01/07/21 05:18 Vital Signs Date Time Temp Pulse Resp B/P (MAP) Pulse Ox O2 Delivery O2 Flow Rate FiO2 01/07/21 20:35 96.4 101 18 98/56 (70) 98 HVNI-Vapotherm 10.0 40 I&O- Last 24 Hours up to 6 AM 01/07/21 06:00 Intake Total 1090 ml Output Total 525 ml Balance 565 ml GME ATTESTATION GME ATTESTATION My faculty preceptor for this patient encounter was physically present during the encounter and was fully available. All aspects of the patient interview, examination, medical decision making process, and medical care plan development were reviewed and approved by the faculty preceptor. The faculty preceptor is aware and concurs with the plan as stated in the body of this note and will attest to such by his/her cosignature. EUGENIO MENDEZ Jan 07, 2021 21:12 Kali Cee MD Jan 08, 2021 00:20
[2021-01-08] VITALS (15 sets, daily range): BP systolic 97–117; BP diastolic 51–59; O2SAT 90–99
[2021-01-08] MEDS: NYSTATIN 500,000 U/5 ML SUSP UDC SS SCH ×4 (00:21→18:15)
[2021-01-08] MEDS: SLF 3 ML SYR IV SCH ×3 (05:19→22:15)
[2021-01-08 05:37] LABS: HEMATOCRIT 25.5 % (42.0-52.0); MEAN CORPUSCULAR HEMOGLOBIN 28.5 pg (27.0-33.0); MEAN CORPUSCULAR HGB CONC 31.4 g/dl (32.0-36.5); MEAN CORPUSCULAR VOLUME 90.7 fl (80.0-96.0); PLATELET COUNT, AUTOMATED 255 10^3/uL (150-450); RED BLOOD COUNT 2.81 10^6/uL (4.30-6.10); WHITE BLOOD COUNT 15.3 10^3/uL (4.0-10.0)
[2021-01-08] MEDS: guaiFENesin SYRUP 200 MG/10 ML UDC PO SCH ×4 (06:00→18:00)
[2021-01-08 06:12] LABS: ALBUMIN 1.7 GM/DL (3.2-5.2); ALT/SGPT 69 U/L (12-78); BILIRUBIN,TOTAL 0.3 MG/DL (0.2-1.0); BLOOD UREA NITROGEN 29 MG/DL (7-18); CALCIUM LEVEL 7.7 MG/DL (8.8-10.2); CARBON DIOXIDE LEVEL 26 MEQ/L (21-32); CHLORIDE LEVEL 109 MEQ/L (98-107); CREATININE FOR GFR 0.84 MG/DL (0.70-1.30); GLOMERULAR FILTRATION RATE > 60.0 (>42); GLUCOSE, FASTING 98 MG/DL (70-100); POTASSIUM SERUM 4.6 MEQ/L (3.5-5.1); SODIUM LEVEL 141 MEQ/L (136-145); TOTAL PROTEIN 4.7 GM/DL (6.4-8.2)
[2021-01-08] MEDS: LEVALBUTEROL 1.25 MG/0.5 ML CONCENTRATE NEB INH SCH ×4 (07:16→20:38)
[2021-01-08] MEDS: CILOSTAZOL 100 MG TAB (PLETAL) PO SCH ×2 (07:30→18:15)
[2021-01-08] MEDS: HumaLOG INSULIN (NovoLOG) PER UNIT SC SCH ×4 (07:30→21:29)
--- NOTE | 2021-01-08 08:12 | IPNPDOC ---
Text Note Date of Service The patient was seen on 01/08/21. NOTE SUBJECTIVE: Patient was asleep in bed when I entered the room. He was easily aroused. He is awake, alert, oriented, he is a good historian. He states that he had a bowel movement earlier this morning, and that it was formed. He is not complaining of any pain at this time. He does continue to be on 10 L Vapotherm, he is not on oxygen at home, he is not complaining of any shortness of breath at this time though. The remainder of his review systems is negative. OBJECTIVE: PHYSICAL EXAM: VITAL SIGNS: Please see below GENERAL: AAOx 3, resting in bed, NAD HEENT: AT/NC, PERRLA, EOM intact, nasal cannula in place NECK: No JVD. LUNGS: No wheezing, rhonchi, rales HEART: S1 and S2, sinus tachycardia. No murmurs, rubs or gallops. CHEST: Right side infusaport ABDOMEN: Soft, nontender, nondistended. Positive bowel sounds. EXTREMITIES: No cyanosis, clubbing or pitting edema. NEURO: CN 2-12 intact, no focal deficits. LABORATORY: Please see below ASSESSMENT: 75-year-old male with Stage IIA adenocarcinoma of the lung undergoing chemotherapy and radiation, COPD, hypertension, CAD, HLD, stent, thoracic aortic aneurysm, macular degeneration, chronic hypoxic respiratory failure, admitted on 12/26/2020 for acute on chronic hypoxic respiratory failure likely multifactorial 2/2 to HCAP, COPD exacerbation, CHF exacerbation, r/o developing ARDS. PLAN: C. difficile infection, resolved sepsis -WBC still elevated, afebrile, BM decreased and are now formed, tachycardic rate trending down -Prolonged hospital stay, immunocompromised baseline, has been on abx here -Encouraging PO intake of fluids -Stopped IVFs, cefdinir. -C/w dificid, probiotic. -F/u daily labs -ID following CAP vs. HCAP, resolved sepsis -WBC 17.2- likely elevation multifactorial 2/2 c. diff infection and steroids combined -Recent CXR above, improved HR, afebrile -MRSA neg -BCx NG -Sputum cx above with three microbes: STREPTOCOCCUS PNEUMONIAE, HAEMOPHILUS INFLUENZAE, STREP AGALACTIAE GROUP B -Repeat Sputum culture ordered by ID: yeast -Completed 11 days cefdinir -Encouraging IS Acute on chronic hypoxic respiratory failure likely multifactorial 2/2 to HCAP, COPD exacerbation, Hx of lung Ca, plueral effusions, CHF exacerbation -Remains on 40% FiO2, down to 10L, comfortable, Vapotherm -CXR from 01/03/21 above -Pulmonary has evaluated and will f/u o/p -Please see individual treatment of issues Acute COPD exacerbation -Less wheezing, improved b/l lung aeration -Improved CXR 01/03/21 -C/w chest physiotherapy, PO prednisone decreased from 60mg to 40mg daily on 01/06, now reduced to 20mg daily. Continue levalbuterol ATC and PRN -Monitor for uncontrolled BS as previously Atrial fibrillation, paroxysmal -Improved tachycardia with switch to metoprolol BID -TSH wnl -Echocardiogram above -Monitor on tele -Currently on eliquis BID, metoprolol BID Insomnia -Patient complains of staying awake 3/4 of the night, not sleeping well -Started on low dose trazodone HS -Seems to have slept better last night HFpEF with mild exacerbation -BNP improving -Echo above: preserved EF, grade 1 diastolic dysfunction -Monitor while having diarrhea and patient needs to be on IVFs -c/w BB BID - No signs of fluid overload at this time, not on lasix at home, will continue to monitor fluid status on a daily basis. -Monitor I&O's closely, daily wt Acute kidney injury secondary to medications -Cr wnl, BL is wnl -Monitor daily labs, U/O closely -Avoid other nephrotoxic medications. Hypokalemia, acute -K wnl today -C/w supplemented BID -Monitor on tele DM type II -BS 106-240 -HbA1c 7.0 -Held off on insulin glargine due to diarrhea, improving intake -On ISS, consistent carb diet, FS AC/HS Stage IIA lung CA -Treated o/p with chemoradiation History of CAD and coronary stents -Stable, c/w current meds Dyslipidemia -Holding statin with recent transaminitis History of thoracic aortic aneurysm -BP controlled -No abdominal pain GERD -PPI DVT px -Eliquis BID, teds, SCD Resolved issues: Hypotension likely 2/2 to atrial fib with RVR Transaminitis DISPOSITION: ARU consult placed. PT : Would benefit from continued rehab after d/c, will determine after weekend if this will be inpatient vs. at home. Remains in PCU on vapotherm. Not on oxygen at home. DNR/DNI with updated MOLST. VS,Fishbone, I+O VS, Fishbone, I+O Laboratory Tests 01/08/21 04:42 Vital Signs Date Time Temp Pulse Resp B/P (MAP) Pulse Ox O2 Delivery O2 Flow Rate FiO2 01/08/21 05:19 96.6 102 16 113/59 (77) 92 HVNI-Vapotherm 10.0 40 I&O- Last 24 Hours up to 6 AM 01/08/21 05:59 Intake Total 1230 ml Output Total 575 ml Balance 655 ml JONAS GOSS DO Jan 08, 2021 08:12
[2021-01-08] MEDS: FAMOTIDINE 20 MG TAB PO SCH ×2 (09:35→21:22)
[2021-01-08] MEDS: predniSONE 20 MG TAB PO SCH (09:35)
[2021-01-08] MEDS: OMEPRAZOLE 20 MG CAP PO SCH (09:35)
[2021-01-08] MEDS: APIXABAN 2.5 MG TAB (ELIQUIS) PO SCH ×2 (09:36→21:23)
[2021-01-08] MEDS: LACTOBACILLUS ACIDOPHILUS CAP (BACID) PO SCH ×2 (09:36→18:15)
[2021-01-08] MEDS: ASPIRIN ENTERIC 325 MG TAB PO SCH (09:37)
[2021-01-08] MEDS: METOPROLOL TART 12.5 MG PER 1/2 TAB PO SCH ×2 (09:37→21:00)
[2021-01-08] MEDS: FIDAXOMICIN 200 MG TAB (DIFICID) PO SCH ×2 (09:37→21:23)
[2021-01-08] MEDS: SODIUM CHLORIDE NASAL 0.65% SPRAY BTL (OCEAN) SCH ×2 (09:38→21:24)
[2021-01-08] MEDS: POTASSIUM CHLORIDE 10% LIQ 20 MEQ/15 ML UDC PO SCH ×2 (09:39→21:20)
[2021-01-08] MEDS: traZODone 25MG PER 1/2 TABLET PO SCH (21:00)
[2021-01-09] VITALS (20 sets, daily range): BP systolic 92–133; BP diastolic 52–70; O2SAT 90–100
[2021-01-09] MEDS: NYSTATIN 500,000 U/5 ML SUSP UDC SS SCH ×2 (00:05→06:08)
[2021-01-09] MEDS: guaiFENesin SYRUP 200 MG/10 ML UDC PO SCH ×4 (06:00→17:34)
[2021-01-09 06:03] LABS: HEMATOCRIT 25.4 % (42.0-52.0); HEMOGLOBIN 7.8 g/dl (13.5-17.5); MEAN CORPUSCULAR HGB CONC 30.7 g/dl (32.0-36.5); PLATELET COUNT, AUTOMATED 273 10^3/uL (150-450); RED BLOOD COUNT 2.79 10^6/uL (4.30-6.10); WHITE BLOOD COUNT 12.3 10^3/uL (4.0-10.0)
[2021-01-09] MEDS: SLF 3 ML SYR IV SCH ×3 (06:09→21:32)
[2021-01-09 06:21] LABS: BLOOD UREA NITROGEN 27 MG/DL (7-18); CALCIUM LEVEL 7.8 MG/DL (8.8-10.2); CARBON DIOXIDE LEVEL 26 MEQ/L (21-32); CHLORIDE LEVEL 108 MEQ/L (98-107); CREATININE FOR GFR 0.73 MG/DL (0.70-1.30); GLOMERULAR FILTRATION RATE > 60.0 (>42); GLUCOSE, FASTING 113 MG/DL (70-100); POTASSIUM SERUM 4.6 MEQ/L (3.5-5.1); SODIUM LEVEL 139 MEQ/L (136-145)
[2021-01-09] MEDS: LEVALBUTEROL 1.25 MG/0.5 ML CONCENTRATE NEB INH SCH ×4 (07:11→20:47)
[2021-01-09] MEDS: FAMOTIDINE 20 MG TAB PO SCH ×2 (08:49→21:31)
[2021-01-09] MEDS: CILOSTAZOL 100 MG TAB (PLETAL) PO SCH ×2 (08:49→17:33)
[2021-01-09] MEDS: SODIUM CHLORIDE NASAL 0.65% SPRAY BTL (OCEAN) SCH ×2 (08:50→21:32)
[2021-01-09] MEDS: OMEPRAZOLE 20 MG CAP PO SCH (08:50)
[2021-01-09] MEDS: POTASSIUM CHLORIDE 10% LIQ 20 MEQ/15 ML UDC PO SCH ×2 (08:50→21:30)
[2021-01-09] MEDS: FIDAXOMICIN 200 MG TAB (DIFICID) PO SCH ×2 (08:51→21:31)
[2021-01-09] MEDS: APIXABAN 2.5 MG TAB (ELIQUIS) PO SCH ×2 (08:51→21:31)
[2021-01-09] MEDS: LACTOBACILLUS ACIDOPHILUS CAP (BACID) PO SCH ×2 (08:51→17:33)
[2021-01-09] MEDS: ASPIRIN ENTERIC 325 MG TAB PO SCH (08:51)
[2021-01-09] MEDS: METOPROLOL TART 12.5 MG PER 1/2 TAB PO SCH ×2 (08:51→21:31)
[2021-01-09] MEDS: HumaLOG INSULIN (NovoLOG) PER UNIT SC SCH ×4 (08:52→21:00)
[2021-01-09] MEDS ORDERED: predniSONE 20 MG TAB PO SCH (09:00)
--- NOTE | 2021-01-09 14:29 | IPNPDOC ---
Text Note Date of Service The patient was seen on 01/09/21. NOTE SUBJECTIVE: The patient was sitting upright eating breakfast when I entered the room. His only complaint is about food. Otherwise, despite the fact that he continues to be on 10 L via Vapotherm he is not complaining of shortness of breath right at this time. More than anything he indicates that he would just like to get better and go home. OBJECTIVE: PHYSICAL EXAM: VITAL SIGNS: Please see below GENERAL: AAOx 3, resting in bed, NAD HEENT: AT/NC, PERRLA, EOM intact, nasal cannula in place NECK: No JVD. LUNGS: Crackles noted at the right lung base, otherwise remainder of the lung odom are clear at this time HEART: sinus tachycardia. No murmurs, rubs or gallops. CHEST: Right side infusaport ABDOMEN: Soft, nontender, nondistended. Positive bowel sounds. EXTREMITIES: No cyanosis, clubbing or pitting edema. NEURO: CN 2-12 intact, no focal deficits. ASSESSMENT: 75-year-old male with Stage IIA adenocarcinoma of the lung undergoing chemotherapy and radiation, COPD, hypertension, CAD, HLD, stent, thoracic aortic aneurysm, macular degeneration, chronic hypoxic respiratory failure, admitted on 12/26/2020 for acute on chronic hypoxic respiratory failure likely multifactorial 2/2 to HCAP, COPD exacerbation, CHF exacerbation, r/o developing ARDS. PLAN: C. difficile infection, resolved sepsis -WBC trending down, afebrile, BM decreased and are now formed -Prolonged hospital stay, immunocompromised baseline, has been on abx here -Encouraging PO intake of fluids -Stopped IVFs, cefdinir. -C/w dificid, probiotic. -F/u daily labs -ID following CAP vs. HCAP, resolved sepsis -WBC still elevated, but improving. Likely elevation multifactorial 2/2 c. diff infection and steroids combined -afebrile -MRSA neg -BCx NG -Sputum cx above with three microbes: STREPTOCOCCUS PNEUMONIAE, HAEMOPHILUS INFLUENZAE, STREP AGALACTIAE GROUP B -Repeat Sputum culture ordered by ID: yeast -Completed 11 days cefdinir -Encouraging IS Acute on chronic hypoxic respiratory failure likely multifactorial 2/2 to HCAP, COPD exacerbation, Hx of lung Ca, plueral effusions, CHF exacerbation -Still requiring 10 L Vapotherm -Repeat chest x-ray will be ordered today -Pulmonary has evaluated and will f/u o/p -Please see individual treatment of issues Acute COPD exacerbation -C/w chest physiotherapy -Continue levalbuterol ATC and PRN -Monitor for uncontrolled BS as previously -Continuing to wean down prednisone Atrial fibrillation, paroxysmal -Continue metoprolol BID -TSH wnl -Echocardiogram performed 12/27/2020 -Monitor on tele -Currently on eliquis BID, metoprolol BID Insomnia -Patient complains of not sleeping well -Started on low dose trazodone HS, but he did not like this medication therefore it has been discontinued at this time HFpEF with mild exacerbation -BNP improving -Echo performed during this hospitalization 12/27/2020: preserved EF, grade 1 diastolic dysfunction -Monitor while having diarrhea and patient needs to be on IVFs -c/w BB BID - No signs of fluid overload at this time, not on lasix at home, will continue to monitor fluid status on a daily basis. -Monitor I&O's closely, daily wt DM type II -HbA1c 7.0 -On ISS, consistent carb diet, FS AC/HS Stage IIA lung CA -Treated o/p with chemoradiation History of CAD and coronary stents -Stable, c/w current meds Dyslipidemia -Holding statin with recent transaminitis History of thoracic aortic aneurysm -BP controlled -No abdominal pain GERD -PPI DVT px -Eliquis BID, teds, SCD Resolved issues: Hypotension likely 2/2 to atrial fib with RVR Transaminitis Hypokalemia Acute kidney injury secondary to medications DISPOSITION: ARU consult placed. PT : Would benefit from continued rehab after d/c, will determine after weekend if this will be inpatient vs. at home. Remains in PCU on vapotherm. Not on oxygen at home. DNR/DNI with updated MOLST. VS,Fishbone, I+O VS, Fishbone, I+O Laboratory Tests 01/09/21 05:24 Vital Signs Date Time Temp Pulse Resp B/P (MAP) Pulse Ox O2 Delivery O2 Flow Rate FiO2 01/09/21 12:00 5.0 01/09/21 12:00 97.7 102 18 104/52 (69) 97 High Flow Cannula 01/09/21 08:00 40 I&O- Last 24 Hours up to 6 AM 01/09/21 06:00 Intake Total 800 ml Output Total 600 ml Balance 200 ml JONAS GOSS DO Jan 09, 2021 14:29
--- NOTE | 2021-01-09 15:01 | REP ---
INDICATION: PNA. COMPARISON: Portable chest dated 01/03/2021. TECHNIQUE: Portable AP chest with the patient upright. FINDINGS: There is an incomplete inspiratory effort with under aeration of the lung odom. Lung odom are otherwise unchanged. Cardiac size is normal. Right IJ [id number]-[id number] catheter is unchanged with the tip in the superior vena cava at the confluence of the right atrium. IMPRESSION: Incomplete inspiratory effort with under aeration of the lung odom. No other interval change. <Electronically signed by Enoch Bartholomew > 01/09/21 [id number]
[2021-01-10] VITALS (13 sets, daily range): BP systolic 103–126; BP diastolic 53–61; O2SAT 91–97
[2021-01-10] MEDS: SLF 3 ML SYR IV SCH ×3 (05:54→21:55)
[2021-01-10] MEDS: guaiFENesin SYRUP 200 MG/10 ML UDC PO SCH ×4 (05:54→17:01)
[2021-01-10 06:18] LABS: HEMATOCRIT 26.3 % (42.0-52.0); MEAN CORPUSCULAR HGB CONC 30.4 g/dl (32.0-36.5); PLATELET COUNT, AUTOMATED 270 10^3/uL (150-450); RED BLOOD COUNT 2.86 10^6/uL (4.30-6.10); WHITE BLOOD COUNT 12.3 10^3/uL (4.0-10.0)
[2021-01-10 06:38] LABS: BLOOD UREA NITROGEN 23 MG/DL (7-18); CALCIUM LEVEL 7.9 MG/DL (8.8-10.2); CARBON DIOXIDE LEVEL 28 MEQ/L (21-32); CHLORIDE LEVEL 108 MEQ/L (98-107); CREATININE FOR GFR 0.73 MG/DL (0.70-1.30); GLOMERULAR FILTRATION RATE > 60.0 (>42); GLUCOSE, FASTING 88 MG/DL (70-100); NT-PRO BNP 883 PG/ML (<450); POTASSIUM SERUM 4.4 MEQ/L (3.5-5.1); SODIUM LEVEL 140 MEQ/L (136-145)
[2021-01-10] MEDS: LEVALBUTEROL 1.25 MG/0.5 ML CONCENTRATE NEB INH SCH ×4 (07:18→20:25)
[2021-01-10] MEDS: HumaLOG INSULIN (NovoLOG) PER UNIT SC SCH ×4 (07:30→21:00)
--- NOTE | 2021-01-10 08:13 | IPNPDOC ---
Text Note Date of Service The patient was seen on 01/10/21. NOTE SUBJECTIVE: He was sleeping in bed when I entered the room, but was easily arousable. He reports that he had multiple bouts of diarrhea last night that was pretty miserable for him. He is still on dificid, no additional antibiotics will be given at this time. Otherwise, his breathing is feeling well, he does not have shortness of breath or orthopnea. He is now off the Vapotherm and was weaned down on his O2, he is only requiring 1L via nasal cannula at this time to diogenes garciain sats above 90% OBJECTIVE: PHYSICAL EXAM: GENERAL: AAOx 3, resting in bed, NAD HEENT: AT/NC, PERRLA, EOM intact, nasal cannula in place NECK: No JVD. LUNGS: Mild crackles noted at bilateral bases, otherwise remainder of the lung odom are clear at this time HEART: sinus tachycardia. No murmurs, rubs or gallops. CHEST: Right side infusaport ABDOMEN: Soft, nontender, nondistended. Positive bowel sounds. EXTREMITIES: No cyanosis, clubbing or pitting edema. NEURO: CN 2-12 intact, no focal deficits. ASSESSMENT: 75-year-old male with Stage IIA adenocarcinoma of the lung undergoing chemotherapy and radiation, COPD, hypertension, CAD, HLD, stent, thoracic aortic aneurysm, macular degeneration, chronic hypoxic respiratory failure, admitted on 12/26/2020 for acute on chronic hypoxic respiratory failure likely multifactorial 2/2 to HCAP, COPD exacerbation, CHF exacerbation, r/o developing ARDS. PLAN: C. difficile infection, resolved sepsis -BM were formed for a few days, but had some liquid stools last night. WBC is still trending down -Prolonged hospital stay, immunocompromised baseline, has been on abx here -Encouraging PO intake of fluids -Stopped IVFs, cefdinir. -C/w dificid, probiotic. -F/u daily labs -ID following CAP vs. HCAP, resolved sepsis -WBC still elevated, but improving. Likely elevation multifactorial 2/2 c. diff infection and steroids combined -afebrile -MRSA neg -BCx NG -Sputum cx above with three microbes: STREPTOCOCCUS PNEUMONIAE, HAEMOPHILUS INFLUENZAE, STREP AGALACTIAE GROUP B -Repeat Sputum culture ordered by ID: yeast -Completed 11 days cefdinir -Encouraging IS Acute on chronic hypoxic respiratory failure likely multifactorial 2/2 to HCAP, COPD exacerbation, Hx of lung Ca, plueral effusions, CHF exacerbation -O2 requirements significantly improved over the last 24 hours. Now only on 1 L nasal cannula. -Repeat chest x-ray yesterday showed no interval change -Pulmonary has evaluated and will f/u o/p Acute COPD exacerbation -C/w chest physiotherapy -Continue levalbuterol ATC and PRN -Monitor for uncontrolled BS as previously -Continuing to wean down prednisone Atrial fibrillation, paroxysmal -Continue metoprolol BID -TSH wnl -Echocardiogram performed 12/27/2020 -Currently on eliquis BID, metoprolol BID Insomnia -Patient complains of not sleeping well -Started on low dose trazodone HS, but he did not like this medication therefore it has been discontinued HFpEF with mild exacerbation -BNP improving -Echo performed during this hospitalization 12/27/2020: preserved EF, grade 1 diastolic dysfunction -Monitor while having diarrhea and patient needs to be on IVFs -c/w BB BID - No signs of fluid overload at this time, not on lasix at home, will continue to monitor fluid status on a daily basis. -Monitor I&O's closely, daily wt DM type II -HbA1c 7.0 -On ISS, consistent carb diet, FS AC/HS Stage IIA lung CA -Treated o/p with chemoradiation History of CAD and coronary stents -Stable, c/w current meds Dyslipidemia -Holding statin with recent transaminitis History of thoracic aortic aneurysm -BP controlled -No abdominal pain GERD -PPI DVT px -Eliquis BID, teds, SCD Resolved issues: Hypotension likely 2/2 to atrial fib with RVR Transaminitis Hypokalemia Acute kidney injury secondary to medications DISPOSITION: Will be transferred to Med/Surg status today, down to 1L O2 today, not on oxygen at home. ARU consult placed. PT : Would benefit from continued rehab after d/c, will determine after weekend if this will be inpatient vs. at home. VS,Claudio, I+O VS, Michaelbone, I+O Laboratory Tests 01/10/21 05:31 Vital Signs Date Time Temp Pulse Resp B/P (MAP) Pulse Ox O2 Delivery O2 Flow Rate FiO2 01/10/21 07:19 97.4 92 20 126/61 (82) 90 Room Air 01/10/21 06:00 1.0 01/09/21 10:00 30 I&O- Last 24 Hours up to 6 AM 01/10/21 06:00 Intake Total 850 ml Output Total 550 ml Balance 300 ml JONAS GOSS DO Jan 10, 2021 08:13
[2021-01-10] MEDS ORDERED: predniSONE 10 MG TAB PO SCH (09:00)
[2021-01-10] MEDS: CILOSTAZOL 100 MG TAB (PLETAL) PO SCH ×2 (09:12→16:59)
[2021-01-10] MEDS: FAMOTIDINE 20 MG TAB PO SCH ×3 (09:12→22:12)
[2021-01-10] MEDS: FIDAXOMICIN 200 MG TAB (DIFICID) PO SCH ×2 (09:12→21:47)
[2021-01-10] MEDS: APIXABAN 2.5 MG TAB (ELIQUIS) PO SCH ×2 (09:12→21:49)
[2021-01-10] MEDS: ASPIRIN ENTERIC 325 MG TAB PO SCH (09:12)
[2021-01-10] MEDS: LACTOBACILLUS ACIDOPHILUS CAP (BACID) PO SCH ×2 (09:12→16:59)
[2021-01-10] MEDS: SODIUM CHLORIDE NASAL 0.65% SPRAY BTL (OCEAN) SCH ×2 (09:13→21:54)
[2021-01-10] MEDS: OMEPRAZOLE 20 MG CAP PO SCH (09:19)
[2021-01-10] MEDS: POTASSIUM CHLORIDE 10% LIQ 20 MEQ/15 ML UDC PO SCH ×2 (09:19→21:45)
[2021-01-10] MEDS: METOPROLOL TART 12.5 MG PER 1/2 TAB PO SCH ×2 (09:24→21:00)
[2021-01-11] MEDS: SLF 3 ML SYR IV SCH ×3 (05:21→22:16)
[2021-01-11] MEDS: guaiFENesin SYRUP 200 MG/10 ML UDC PO SCH ×4 (05:21→18:00)
[2021-01-11 06:00] VITALS: BP 115/56
[2021-01-11 06:49] LABS: HEMATOCRIT 25.5 % (42.0-52.0); HEMOGLOBIN 8.2 g/dl (13.5-17.5); MEAN CORPUSCULAR HEMOGLOBIN 29.6 pg (27.0-33.0); MEAN CORPUSCULAR HGB CONC 32.2 g/dl (32.0-36.5); MEAN CORPUSCULAR VOLUME 92.1 fl (80.0-96.0); PLATELET COUNT, AUTOMATED 267 10^3/uL (150-450); RED BLOOD COUNT 2.77 10^6/uL (4.30-6.10); WHITE BLOOD COUNT 9.5 10^3/uL (4.0-10.0)
[2021-01-11 07:21] LABS: BLOOD UREA NITROGEN 19 MG/DL (7-18); CALCIUM LEVEL 8.1 MG/DL (8.8-10.2); CARBON DIOXIDE LEVEL 27 MEQ/L (21-32); CHLORIDE LEVEL 109 MEQ/L (98-107); CREATININE FOR GFR 0.64 MG/DL (0.70-1.30); GLOMERULAR FILTRATION RATE > 60.0 (>42); GLUCOSE, FASTING 69 MG/DL (70-100); POTASSIUM SERUM 4.8 MEQ/L (3.5-5.1); SODIUM LEVEL 140 MEQ/L (136-145)
[2021-01-11] MEDS: LEVALBUTEROL 1.25 MG/0.5 ML CONCENTRATE NEB INH SCH ×4 (07:25→20:08)
[2021-01-11] MEDS: HumaLOG INSULIN (NovoLOG) PER UNIT SC SCH ×4 (07:30→21:00)
[2021-01-11 08:14] VITALS: BP 110/60
[2021-01-11] MEDS: CILOSTAZOL 100 MG TAB (PLETAL) PO SCH ×2 (08:23→17:44)
[2021-01-11] MEDS: LACTOBACILLUS ACIDOPHILUS CAP (BACID) PO SCH ×2 (08:23→17:44)
[2021-01-11] MEDS: METOPROLOL TART 25 MG TABLET PO SCH ×3 (09:00→21:00)
[2021-01-11] MEDS: POTASSIUM CHLORIDE 10% LIQ 20 MEQ/15 ML UDC PO SCH ×2 (09:39→22:09)
[2021-01-11] MEDS: OMEPRAZOLE 20 MG CAP PO SCH (09:40)
[2021-01-11] MEDS: ASPIRIN ENTERIC 325 MG TAB PO SCH (09:41)
[2021-01-11] MEDS: FAMOTIDINE 20 MG TAB PO SCH ×2 (09:41→22:10)
[2021-01-11] MEDS: APIXABAN 5 MG TAB (ELIQUIS) PO SCH ×2 (09:42→22:11)
[2021-01-11] MEDS: SODIUM CHLORIDE NASAL 0.65% SPRAY BTL (OCEAN) SCH ×2 (09:42→22:15)
[2021-01-11] MEDS: FIDAXOMICIN 200 MG TAB (DIFICID) PO SCH ×2 (12:16→22:10)
[2021-01-11 14:00] VITALS: BP 113/56
--- NOTE | 2021-01-11 16:30 | IPNPDOC ---
Text Note Date of Service The patient was seen on 01/11/21. NOTE SUBJECTIVE: Resting comfortably in bed. He is still on nasal cannula looks like it is down to 1.5 L at this time. He is in no acute distress. He does not have any complaints at this time, he just would like to continue working with physical therapy with the goal of being able to go home if possible. OBJECTIVE: PHYSICAL EXAM: GENERAL: AAOx 3, resting in bed, NAD HEENT: AT/NC, PERRLA, EOM intact, nasal cannula in place NECK: No JVD. LUNGS: Clear to auscultation bilaterally HEART: sinus tachycardia. No murmurs, rubs or gallops. CHEST: Right side infusaport ABDOMEN: Soft, nontender, nondistended. Positive bowel sounds. EXTREMITIES: No cyanosis, clubbing or pitting edema. NEURO: CN 2-12 intact, no focal deficits. ASSESSMENT: 75-year-old male with Stage IIA adenocarcinoma of the lung undergoing chemotherapy and radiation, COPD, hypertension, CAD, HLD, stent, th oracic aortic aneurysm, macular degeneration, chronic hypoxic respiratory failure, admitted on 12/26/2020 for acute on chronic hypoxic respiratory failure likely multifactorial 2/2 to HCAP, COPD exacerbation, CHF exacerbation, r/o developing ARDS. PLAN: C. difficile infection, resolved sepsis -BM were formed for a few days, but had some liquid stools last night. WBC is still trending down -Prolonged hospital stay, immunocompromised baseline, has been on abx here -Encouraging PO intake of fluids -Stopped IVFs, cefdinir. -C/w dificid, probiotic. -F/u daily labs -ID following CAP vs. HCAP, resolved sepsis -WBC now within normal limits. Likely elevation multifactorial 2/2 c. diff in fection and steroids combined -afebrile -MRSA neg -BCx NG -Sputum cx above with three microbes: STREPTOCOCCUS PNEUMONIAE, HAEMOPHILUS INFLUENZAE, STREP AGALACTIAE GROUP B -Repeat Sputum culture ordered by ID: yeast -Completed 11 days cefdinir -Encouraging IS Acute on chronic hypoxic respiratory failure likely multifactorial 2/2 to HCAP, COPD exacerbation, Hx of lung Ca, plueral effusions, CHF exacerbation -Continue to attempt to wean off oxygen -Pulmonary has evaluated and will f/u o/p Acute COPD exacerbation -C/w chest physiotherapy -Continue levalbuterol ATC and PRN -Monitor for uncontrolled BS as previously -Continuing to wean down prednisone Atrial fibrillation, paroxysmal -Increase dose of metoprolol tartrate to 25 BID with hold parameters -TSH wnl -Echocardiogram performed 12/27/2020 -Currently on eliquis BID, metoprolol BID Insomnia -Patient complains of not sleeping well -Started on low dose trazodone HS, but he did not like this medication therefore it has been discontinued HFpEF with mild decompensation -No longer in decompensation at this time -Echo performed during this hospitalization 12/27/2020: preserved EF, grade 1 diastolic dysfunction -Monitor while having diarrhea and patient needs to be on IVFs -c/w BB BID - No signs of fluid overload at this time, not on lasix at home, will continue to monitor fluid status on a daily basis. -Monitor I&O's closely, daily wt DM type II -HbA1c 7.0 -On ISS, consistent carb diet, FS AC/HS Stage IIA lung CA -Treated o/p with chemoradiation History of CAD and coronary stents -Stable, c/w current meds Dyslipidemia -Holding statin with recent transaminitis History of thoracic aortic aneurysm -BP controlled -No abdominal pain GERD -PPI DVT px -Eliquis BID, previously he was on 2.5 mg twice a day due to renal insufficiency, since this is now resolved his dose is increased to 5 mg twice a day today -teds, SCD Resolved issues: Hypotension likely 2/2 to atrial fib with RVR Transaminitis Hypokalemia Acute kidney injury secondary to medications DISPOSITION: -Will stop his prednisone today and wean oxygen, not on oxygen at home. -ARU consult placed. PT to determine if rehab will be inpatient vs. at home. VS,Fishbone, I+O VS, Fishbone, I+O Laboratory Tests 01/11/21 06:30 Vital Signs Date Time Temp Pulse Resp B/P (MAP) Pulse Ox O2 Delivery O2 Flow Rate FiO2 01/11/21 06:00 97.1 99 19 115/56 (75) 94 High Flow Cannula 2.0 01/09/21 10:00 30 I&O- Last 24 Hours up to 6 AM 01/11/21 06:00 Intake Total 1390 ml Output Total 700 ml Balance 690 ml JONAS GOSS DO Jan 11, 2021 07:35
[2021-01-11 22:00] VITALS: BP 108/57
[2021-01-12] MEDS: SLF 3 ML SYR IV SCH ×3 (05:26→21:21)
[2021-01-12] MEDS: guaiFENesin SYRUP 200 MG/10 ML UDC PO SCH ×5 (05:26→22:08)
[2021-01-12 06:00] VITALS: BP 118/59
[2021-01-12 06:45] LABS: HEMATOCRIT 26.7 % (42.0-52.0); HEMOGLOBIN 8.3 g/dl (13.5-17.5); MEAN CORPUSCULAR HEMOGLOBIN 28.2 pg (27.0-33.0); MEAN CORPUSCULAR HGB CONC 31.1 g/dl (32.0-36.5); MEAN CORPUSCULAR VOLUME 90.8 fl (80.0-96.0); PLATELET COUNT, AUTOMATED 180 10^3/uL (150-450); RED BLOOD COUNT 2.94 10^6/uL (4.30-6.10); WHITE BLOOD COUNT 11.4 10^3/uL (4.0-10.0)
[2021-01-12 07:19] LABS: BLOOD UREA NITROGEN 15 MG/DL (7-18); CALCIUM LEVEL 7.9 MG/DL (8.8-10.2); CARBON DIOXIDE LEVEL 24 MEQ/L (21-32); CHLORIDE LEVEL 109 MEQ/L (98-107); GLOMERULAR FILTRATION RATE > 60.0 (>42); GLUCOSE, FASTING 84 MG/DL (70-100); POTASSIUM SERUM 4.9 MEQ/L (3.5-5.1); SODIUM LEVEL 137 MEQ/L (136-145)
[2021-01-12] MEDS: LEVALBUTEROL 1.25 MG/0.5 ML CONCENTRATE NEB INH SCH ×4 (07:20→20:00)
[2021-01-12] MEDS: HumaLOG INSULIN (NovoLOG) PER UNIT SC SCH ×4 (07:30→21:00)
[2021-01-12] MEDS: LACTOBACILLUS ACIDOPHILUS CAP (BACID) PO SCH ×2 (08:37→17:56)
[2021-01-12] MEDS: CILOSTAZOL 100 MG TAB (PLETAL) PO SCH ×2 (08:37→17:05)
[2021-01-12 09:00] VITALS: BP 104/62
[2021-01-12] MEDS: METOPROLOL TART 25 MG TABLET PO SCH ×2 (09:00→21:20)
[2021-01-12] MEDS: POTASSIUM CHLORIDE 10% LIQ 20 MEQ/15 ML UDC PO SCH ×2 (10:07→21:19)
[2021-01-12] MEDS: OMEPRAZOLE 20 MG CAP PO SCH (10:09)
[2021-01-12] MEDS: ASPIRIN ENTERIC 325 MG TAB PO SCH (10:09)
[2021-01-12] MEDS: APIXABAN 5 MG TAB (ELIQUIS) PO SCH ×2 (10:09→21:19)
[2021-01-12] MEDS: FAMOTIDINE 20 MG TAB PO SCH ×2 (10:10→21:19)
[2021-01-12] MEDS: FIDAXOMICIN 200 MG TAB (DIFICID) PO SCH ×2 (10:10→21:19)
[2021-01-12] MEDS: SODIUM CHLORIDE NASAL 0.65% SPRAY BTL (OCEAN) SCH ×2 (10:13→21:20)
[2021-01-12 13:11] VITALS: BP 102/61
[2021-01-12 14:00] VITALS: BP 114/58
[2021-01-12] MEDS ORDERED: METOPROLOL TART 25 MG TABLET PO ONE (16:50)
--- NOTE | 2021-01-12 21:29 | IPNPDOC ---
Subjective Date Seen The patient was seen on 01/12/21. Subjective Chief Complaint/HPI Mr. Troncoso is a 75 year old male with Lung cancer stage II on chemotherapy, COPD, and atrial fibrillation who presents with COPD exacerbation 2/2 pneumonia. This morning, he denied any chest pain or dyspnea. He was being weaned off of his oxygen. Objective Physical Examination General Exam: Positive: Alert, Cooperative Eye Exam: Positive: EOMI; Negative: Sclera icteric ENT Exam: Positive: Atraumatic Neck Exam: Positive: Supple Chest Exam: Positive: Clear to auscultation; Negative: Wheezing Heart Exam: Positive: Tachycardic, Regular Rhythm Abdomen Exam: Positive: Normal bowel sounds, Soft; Negative: Tenderness Neuro Exam: Positive: Normal Speech Psych Exam: Positive: Mental status NL, Mood NL Assessment /Plan Assessment Mr. Troncoso is a 75 year old male with Lung cancer stage II on chemotherapy, COPD, and atrial fibrillation who presents with COPD exacerbation 2/2 pneumonia. He had atrial fibrillation with RVR of which he is on Eliquis and Lopressor. His Lopressor was held morning of 01/12/2021, this afternoon, his heart rate increased. Will give extra dose of Lopressor. May need additional doses of Lopressor to control heart rate. Plan/VTE VTE Prophylaxis Ordered?: Yes Plan 1. C. difficile infection -ID following recommendations appreciated -Continue with Dificid and probiotic 2. CAP vs. HCAP -Sputum culture grew Streptococcus pneumoniae, H. influenzae, and group B strep -Completed antibiotic course (11 days) -Encourage IS 3. Acute on chronic hypoxic respiratory failure likely multifactorial 2/2 to HCAP, COPD exacerbation, Hx of lung Ca, plueral effusions, CHF exacerbation -Continue to attempt to wean off oxygen -Pulmonary has evaluated and will follow up outpatient 4. Acute COPD exacerbation -Resolved -Continue Xopenex as needed 5. Atrial fibrillation, paroxysmal -Continue Lopressor and Eliquis -TSH within normal -Echocardiogram on 12/27/2020 demonstrates EF 60 to 65%, grade 1 diastolic dysfunction 6. HFpEF with mild decompensation -Resolved -Echocardiogram on 12/27/2020 demonstrates EF 60 to 65%, grade 1 diastolic dysfunction 7. DM type II -HbA1c 7.0 -Sliding scale insulin -Consistent carbohydrate diet 8. Stage IIA lung CA -Follow up outpatient with oncology 9. History of CAD and coronary stents -Stable, no active chest pain -continue with cardiac medication 10. Dyslipidemia -Holding statin due to recent transaminitis 11. GERD -PPI 12. DVT px -Eliquis BID VS, I&O, 24H, Fishbone Vital Signs/I&O Vital Signs Date Time Temp Pulse Resp B/P (MAP) Pulse Ox O2 Delivery O2 Flow Rate FiO2 01/12/21 17:12 127 103/60 01/12/21 14:00 98.7 18 93 Nasal Cannula 2.0 01/09/21 10:00 30 I&O- Last 24 Hours up to 6 AM 01/12/21 06:00 Intake Total 1090 ml Output Total 200 ml Balance 890 ml Laboratory Data 24H LABS Laboratory Tests 2 01/11/21 21:37: Bedside Glucose (Misc Panel) 99 01/12/21 06:28: Nucleated Red Blood Cells % (auto) 0.0, Anion Gap 4L, Glomerular Filtration Rate > 60.0, Calcium Level 7.9L 01/12/21 11:28: Bedside Glucose (Misc Panel) 181H 01/12/21 11:52: Bedside Glucose (Misc Panel) 165H 01/12/21 16:25: Bedside Glucose (Misc Panel) 119H CBC/BMP Laboratory Tests 01/12/21 06:28 ROBERTO PALACIOS DO Jan 12, 2021 21:29
--- NOTE | 2021-01-12 21:59 | ECGEPIP ---
[facility] Test Date: 2021-01-12 Pat Name: GISELA VILLA Department: Room: [place] [address] Gender: Male [place]er[place] Preparer: SANTHOSH : 1945 Requested By: ROBERTO Cherry Order Number: [id number] Reading MD: Gisela Sousa Measurements Intervals [place] Rate: 125 P: 55 WA: 140 QRS: 47 QRSD: 70 T: 51 QT: 286 QTc: 412 Interpretive Statements Sinus tachycardia Otherwise normal Electronically Signed on 01-12-2021 21:59:14 EDT by Gisela Sousa
[2021-01-12 22:00] VITALS: BP 98/59
[2021-01-13] MEDS: SLF 3 ML SYR IV SCH ×3 (05:22→21:18)
[2021-01-13] MEDS: guaiFENesin SYRUP 200 MG/10 ML UDC PO SCH ×3 (05:22→17:19)
[2021-01-13 06:00] VITALS: BP 101/58
[2021-01-13 06:13] LABS: HEMATOCRIT 26.5 % (42.0-52.0); HEMOGLOBIN 8.2 g/dl (13.5-17.5); MEAN CORPUSCULAR HEMOGLOBIN 28.3 pg (27.0-33.0); MEAN CORPUSCULAR HGB CONC 30.9 g/dl (32.0-36.5); MEAN CORPUSCULAR VOLUME 91.4 fl (80.0-96.0); PLATELET COUNT, AUTOMATED 239 10^3/uL (150-450)
[2021-01-13 06:40] LABS: BLOOD UREA NITROGEN 17 MG/DL (7-18); CARBON DIOXIDE LEVEL 28 MEQ/L (21-32); CHLORIDE LEVEL 108 MEQ/L (98-107); CREATININE FOR GFR 0.79 MG/DL (0.70-1.30); GLOMERULAR FILTRATION RATE > 60.0 (>42); GLUCOSE, FASTING 85 MG/DL (70-100); POTASSIUM SERUM 4.9 MEQ/L (3.5-5.1); SODIUM LEVEL 139 MEQ/L (136-145)
[2021-01-13] MEDS: HumaLOG INSULIN (NovoLOG) PER UNIT SC SCH ×4 (07:30→21:00)
[2021-01-13] MEDS: LEVALBUTEROL 1.25 MG/0.5 ML CONCENTRATE NEB INH SCH ×4 (07:50→19:13)
[2021-01-13] MEDS: FIDAXOMICIN 200 MG TAB (DIFICID) PO SCH ×2 (08:09→21:15)
[2021-01-13] MEDS: CILOSTAZOL 100 MG TAB (PLETAL) PO SCH ×2 (08:09→17:30)
[2021-01-13] MEDS: APIXABAN 5 MG TAB (ELIQUIS) PO SCH ×2 (08:09→21:15)
[2021-01-13] MEDS: FAMOTIDINE 20 MG TAB PO SCH ×2 (08:09→21:15)
[2021-01-13] MEDS: POTASSIUM CHLORIDE 10% LIQ 20 MEQ/15 ML UDC PO SCH ×2 (08:12→21:17)
[2021-01-13] MEDS: OMEPRAZOLE 20 MG CAP PO SCH (08:12)
[2021-01-13] MEDS: METOPROLOL TART 25 MG TABLET PO SCH ×2 (08:12→21:00)
[2021-01-13] MEDS: ASPIRIN ENTERIC 325 MG TAB PO SCH (08:13)
[2021-01-13] MEDS: SODIUM CHLORIDE NASAL 0.65% SPRAY BTL (OCEAN) SCH ×2 (08:13→21:18)
[2021-01-13] MEDS: LACTOBACILLUS ACIDOPHILUS CAP (BACID) PO SCH ×2 (08:13→17:30)
[2021-01-13 14:00] VITALS: BP 102/60
[2021-01-13 19:13] VITALS: O2SAT 95
[2021-01-13 21:19] VITALS: BP 99/55
--- NOTE | 2021-01-13 22:52 | IPNPDOC ---
Subjective Date Seen The patient was seen on 01/13/21. Subjective Chief Complaint/HPI Mr. Troncoso is a 75 year old male with Lung cancer stage II on chemotherapy, COPD, and atrial fibrillation who presents with COPD exacerbation 2/2 pneumonia. Patient was seen in the morning. Denies chest pain or dyspnea. Objective Physical Examination General Exam: Positive: Alert, Cooperative Eye Exam: Positive: EOMI; Negative: Sclera icteric ENT Exam: Positive: Atraumatic Neck Exam: Positive: Supple Chest Exam: Positive: Clear to auscultation; Negative: Wheezing Heart Exam: Positive: Tachycardic, Regular Rhythm Abdomen Exam: Positive: Normal bowel sounds, Soft; Negative: Tenderness Neuro Exam: Positive: Normal Speech Psych Exam: Positive: Mental status NL, Mood NL Assessment /Plan Assessment Mr. Troncoso is a 75 year old male with Lung cancer stage II on chemotherapy, COPD, and atrial fibrillation who presents with COPD exacerbation 2/2 pneumonia. He had atrial fibrillation with RVR of which he is on Eliquis and Lopressor. Plan/VTE VTE Prophylaxis Ordered?: Yes Plan 1. C. difficile infection -ID following recommendations appreciated -Continue with Dificid and probiotic 2. CAP vs. HCAP -Sputum culture grew Streptococcus pneumoniae, H. influenzae, and group B strep -Completed antibiotic course (11 days) -Encourage IS 3. Acute on chronic hypoxic respiratory failure likely multifactorial 2/2 to HCAP, COPD exacerbation, Hx of lung Ca, plueral effusions, CHF exacerbation -Continue to attempt to wean off oxygen -Pulmonary has evaluated and will follow up outpatient 4. Acute COPD exacerbation -Resolved -Continue Xopenex as needed 5. Atrial fibrillation, paroxysmal -Continue Lopressor and Eliquis -TSH within normal -Echocardiogram on 12/27/2020 demonstrates EF 60 to 65%, grade 1 diastolic dysfunction 6. HFpEF with mild decompensation -Resolved -Echocardiogram on 12/27/2020 demonstrates EF 60 to 65%, grade 1 diastolic dysfunction 7. DM type II -HbA1c 7.0 -Sliding scale insulin -Consistent carbohydrate diet 8. Stage IIA lung CA -Follow up outpatient with oncology 9. History of CAD and coronary stents -Stable, no active chest pain -continue with cardiac medication 10. Dyslipidemia -Holding statin due to recent transaminitis 11. GERD -PPI 12. DVT px -Eliquis BID Disposition: pending placement VS, I&O, 24H, Fishbone Vital Signs/I&O Vital Signs Date Time Temp Pulse Resp B/P (MAP) Pulse Ox O2 Delivery O2 Flow Rate FiO2 01/13/21 21:19 97.4 115 17 99/55 (70) 93 Nasal Cannula 2.0 01/13/21 19:13 28 I&O- Last 24 Hours up to 6 AM 01/13/21 06:00 Intake Total 1780 ml Output Total 625 ml Balance 1155 ml Laboratory Data 24H LABS Laboratory Tests 2 01/13/21 05:48: Nucleated Red Blood Cells % (auto) 0.0, Anion Gap 3L, Glomerular Filtration Rate > 60.0, Calcium Level 8.0L 01/13/21 12:12: Bedside Glucose (Misc Panel) 142H 01/13/21 16:47: Bedside Glucose (Misc Panel) 163H 01/13/21 20:12: Bedside Glucose (Misc Panel) 66L 01/13/21 21:14: Bedside Glucose (Misc Panel) 103 CBC/BMP Laboratory Tests 01/13/21 05:48 ROBERTO PALACIOS DO Jan 13, 2021 22:52
[2021-01-14] VITALS (12 sets, daily range): BP systolic 100–130; BP diastolic 54–92; O2SAT 95
[2021-01-14] MEDS: SLF 3 ML SYR IV SCH ×3 (05:40→21:31)
[2021-01-14] MEDS: guaiFENesin SYRUP 200 MG/10 ML UDC PO SCH ×4 (05:40→17:12)
[2021-01-14] MEDS: LEVALBUTEROL 1.25 MG/0.5 ML CONCENTRATE NEB INH SCH ×4 (07:06→20:44)
[2021-01-14] MEDS ORDERED: NS 500 ML IV ONE ×2 (07:40→13:10)
[2021-01-14] MEDS: LACTOBACILLUS ACIDOPHILUS CAP (BACID) PO SCH ×2 (07:43→17:12)
[2021-01-14] MEDS: CILOSTAZOL 100 MG TAB (PLETAL) PO SCH ×2 (07:43→17:12)
[2021-01-14 08:00] LABS: HEMATOCRIT 24.3 % (42.0-52.0); HEMOGLOBIN 7.6 g/dl (13.5-17.5); MEAN CORPUSCULAR HEMOGLOBIN 28.3 pg (27.0-33.0); MEAN CORPUSCULAR HGB CONC 31.3 g/dl (32.0-36.5); MEAN CORPUSCULAR VOLUME 90.3 fl (80.0-96.0); PLATELET COUNT, AUTOMATED 215 10^3/uL (150-450); RED BLOOD COUNT 2.69 10^6/uL (4.30-6.10); WHITE BLOOD COUNT 8.9 10^3/uL (4.0-10.0)
[2021-01-14 08:19] LABS: BLOOD UREA NITROGEN 18 MG/DL (7-18); CALCIUM LEVEL 8.1 MG/DL (8.8-10.2); CARBON DIOXIDE LEVEL 26 MEQ/L (21-32); CHLORIDE LEVEL 106 MEQ/L (98-107); CREATININE FOR GFR 0.73 MG/DL (0.70-1.30); GLOMERULAR FILTRATION RATE > 60.0 (>42); GLUCOSE, FASTING 113 MG/DL (70-100); POTASSIUM SERUM 4.3 MEQ/L (3.5-5.1); SODIUM LEVEL 138 MEQ/L (136-145)
[2021-01-14] MEDS: ASPIRIN ENTERIC 325 MG TAB PO SCH (08:37)
[2021-01-14] MEDS: FAMOTIDINE 20 MG TAB PO SCH ×2 (08:37→21:29)
[2021-01-14] MEDS: OMEPRAZOLE 20 MG CAP PO SCH (08:37)
[2021-01-14] MEDS: FIDAXOMICIN 200 MG TAB (DIFICID) PO SCH ×2 (08:37→21:29)
[2021-01-14] MEDS: APIXABAN 5 MG TAB (ELIQUIS) PO SCH (08:37)
[2021-01-14] MEDS: POTASSIUM CHLORIDE 10% LIQ 20 MEQ/15 ML UDC PO SCH ×2 (08:38→21:30)
[2021-01-14] MEDS: SODIUM CHLORIDE NASAL 0.65% SPRAY BTL (OCEAN) SCH ×2 (08:38→21:30)
[2021-01-14] MEDS: HumaLOG INSULIN (NovoLOG) PER UNIT SC SCH ×4 (08:48→21:00)
[2021-01-14] MEDS: METOPROLOL TART 25 MG TABLET PO SCH ×2 (08:49→21:29)
[2021-01-14 14:13] LABS: HEMATOCRIT 23.8 % (42.0-52.0); HEMOGLOBIN 7.3 g/dl (13.5-17.5); MEAN CORPUSCULAR HEMOGLOBIN 28.6 pg (27.0-33.0); MEAN CORPUSCULAR HGB CONC 30.7 g/dl (32.0-36.5); MEAN CORPUSCULAR VOLUME 93.3 fl (80.0-96.0); PLATELET COUNT, AUTOMATED 208 10^3/uL (150-450); RED BLOOD COUNT 2.55 10^6/uL (4.30-6.10); WHITE BLOOD COUNT 8.6 10^3/uL (4.0-10.0)
[2021-01-14 14:52] LABS: PERCENT SATURATION 13.9 % (19.7-50.0)
[2021-01-14] MEDS ORDERED: NS 1,000 ML IV SCH (15:25)
--- NOTE | 2021-01-14 15:49 | IPNPDOC ---
Subjective Date Seen The patient was seen on 01/14/21. Subjective Chief Complaint/HPI Mr. Troncoso is a 75 year old male with Lung cancer stage II on chemotherapy, COPD, and atrial fibrillation who presents with COPD exacerbation 2/2 pneumonia. Denies chest pain or dyspnea. This morning, hemoglobin and blood pressure was low. Blood pressure responded to 1L of fluid, but hemoglobin continued to drop. Patient does have bleeding risk as he is on apixaban. Discussed blood transfusion with patient and in room. Patient is agreeable to blood transfusion. Will transfuse 2u pRBC Objective Physical Examination General Exam: Positive: Alert, Cooperative Eye Exam: Positive: EOMI; Negative: Sclera icteric ENT Exam: Positive: Atraumatic Neck Exam: Positive: Supple Chest Exam: Positive: Clear to auscultation; Negative: Wheezing Heart Exam: Positive: Tachycardic, Regular Rhythm Abdomen Exam: Positive: Normal bowel sounds, Soft; Negative: Tenderness Neuro Exam: Positive: Normal Speech Psych Exam: Positive: Mental status NL, Mood NL Assessment /Plan Assessment Mr. Troncoso is a 75 year old male with Lung cancer stage II on chemotherapy, COPD, and atrial fibrillation who presents with COPD exacerbation 2/2 pneumonia. He has atrial fibrillation of which he is on Lopressor and apixaban. Today, hemoglobin continued to drop to 7.3. Patient will be transfused 2u pRBC Plan/VTE VTE Prophylaxis Ordered?: Yes Plan 1. Acute anemia -Hemoglobin continued to drop -May be secondary to blood loss as patient is on apixaban -Ordered for Hemoccult stool -Transfuse 2u pRBC 2. C. difficile infection -ID following recommendations appreciated -Continue with Dificid and probiotic 3. CAP vs. HCAP -Sputum culture grew Streptococcus pneumoniae, H. influenzae, and group B strep -Completed antibiotic course (11 days) -Encourage IS 4. Acute on chronic hypoxic respiratory failure likely multifactorial 2/2 to HCAP, COPD exacerbation, Hx of lung Ca, plueral effusions, CHF exacerbation -Continue to attempt to wean off oxygen -Pulmonary has evaluated and will follow up outpatient 5. Acute COPD exacerbation -Resolved -Continue Xopenex as needed 6. Atrial fibrillation, paroxysmal -Continue Lopressor -Hold apixaban due to acute anemia -TSH within normal -Echocardiogram on 12/27/2020 demonstrates EF 60 to 65%, grade 1 diastolic dysfunction 7. HFpEF with mild decompensation -Resolved -Echocardiogram on 12/27/2020 demonstrates EF 60 to 65%, grade 1 diastolic dysfunction 8. DM type II -HbA1c 7.0 -Sliding scale insulin -Consistent carbohydrate diet 9. Stage IIA lung CA -Follow up outpatient with oncology 10. History of CAD and coronary stents -Stable, no active chest pain -continue with cardiac medication 11. Dyslipidemia -Holding statin due to recent transaminitis 12. GERD -PPI 13. DVT px -Eliquis BID Disposition: Pending stability of hemoglobin and placement VS, I&O, 24H, Fishbone Vital Signs/I&O Vital Signs Date Time Temp Pulse Resp B/P (MAP) Pulse Ox O2 Delivery O2 Flow Rate FiO2 01/14/21 14:27 92 19 118/56 (76) 96 Nasal Cannula 2.0 01/14/21 14:00 98.2 01/13/21 19:13 28 I&O- Last 24 Hours up to 6 AM 01/14/21 06:00 Intake Total 1040 ml Output Total 1075 ml Balance -35 ml Laboratory Data 24H LABS Laboratory Tests 2 01/13/21 16:47: Bedside Glucose (Misc Panel) 163H 01/13/21 20:12: Bedside Glucose (Misc Panel) 66L 01/13/21 21:14: Bedside Glucose (Misc Panel) 103 01/14/21 07:38: Nucleated Red Blood Cells % (auto) 0.0, Anion Gap 6L, Glomerular Filtration Rate > 60.0, Calcium Level 8.1L 01/14/21 11:20: Bedside Glucose (Misc Panel) 165H 01/14/21 14:02: Reticulocyte # (auto) 55.1, Nucleated Red Blood Cells % (auto) 0.0, Percent Reticulocyte Count 2.2H, Reticulocyte Hemoglobin Equivalent 30.8, Iron Level 17L, Total Iron Binding Capacity 122L, Transferrin % Saturation 13.9L, Ferritin 1382H, Lactate Dehydrogenase 208 CBC/BMP Laboratory Tests 01/14/21 07:38 01/14/21 14:02 ROBERTO PALACIOS DO Jan 14, 2021 15:25
[2021-01-15 01:07] LABS: HEMATOCRIT 30.3 % (42.0-52.0); MEAN CORPUSCULAR HEMOGLOBIN 29.4 pg (27.0-33.0); MEAN CORPUSCULAR HGB CONC 32.3 g/dl (32.0-36.5); PLATELET COUNT, AUTOMATED 174 10^3/uL (150-450); RED BLOOD COUNT 3.33 10^6/uL (4.30-6.10); WHITE BLOOD COUNT 9.5 10^3/uL (4.0-10.0)
[2021-01-15 01:57] LABS: HEMOGLOBIN 9.8 g/dl (13.5-17.5)
[2021-01-15 06:00] VITALS: BP 104/60
[2021-01-15] MEDS: SLF 3 ML SYR IV SCH ×3 (06:00→21:40)
[2021-01-15] MEDS: guaiFENesin SYRUP 200 MG/10 ML UDC PO SCH ×5 (06:00→18:04)
[2021-01-15 07:04] LABS: HEMATOCRIT 30.5 % (42.0-52.0); HEMOGLOBIN 9.9 g/dl (13.5-17.5); MEAN CORPUSCULAR HEMOGLOBIN 29.4 pg (27.0-33.0); MEAN CORPUSCULAR HGB CONC 32.5 g/dl (32.0-36.5); MEAN CORPUSCULAR VOLUME 90.5 fl (80.0-96.0); PLATELET COUNT, AUTOMATED 190 10^3/uL (150-450); RED BLOOD COUNT 3.37 10^6/uL (4.30-6.10); WHITE BLOOD COUNT 9.1 10^3/uL (4.0-10.0)
[2021-01-15] MEDS: LEVALBUTEROL 1.25 MG/0.5 ML CONCENTRATE NEB INH SCH ×4 (07:05→20:47)
[2021-01-15 07:30] LABS: BLOOD UREA NITROGEN 14 MG/DL (7-18); CALCIUM LEVEL 7.9 MG/DL (8.8-10.2); CARBON DIOXIDE LEVEL 24 MEQ/L (21-32); CHLORIDE LEVEL 108 MEQ/L (98-107); CREATININE FOR GFR 0.65 MG/DL (0.70-1.30); GLOMERULAR FILTRATION RATE > 60.0 (>42); GLUCOSE, FASTING 62 MG/DL (70-100); POTASSIUM SERUM 4.2 MEQ/L (3.5-5.1); SODIUM LEVEL 140 MEQ/L (136-145)
[2021-01-15] MEDS: HumaLOG INSULIN (NovoLOG) PER UNIT SC SCH ×4 (07:30→20:46)
[2021-01-15] MEDS: ASPIRIN ENTERIC 325 MG TAB PO SCH (08:18)
[2021-01-15] MEDS: CILOSTAZOL 100 MG TAB (PLETAL) PO SCH ×2 (08:18→18:04)
[2021-01-15] MEDS: FAMOTIDINE 20 MG TAB PO SCH ×2 (08:18→21:40)
[2021-01-15] MEDS: POTASSIUM CHLORIDE 10% LIQ 20 MEQ/15 ML UDC PO SCH ×2 (08:18→21:39)
[2021-01-15] MEDS: OMEPRAZOLE 20 MG CAP PO SCH (08:18)
[2021-01-15] MEDS: FIDAXOMICIN 200 MG TAB (DIFICID) PO SCH (08:18)
[2021-01-15] MEDS: LACTOBACILLUS ACIDOPHILUS CAP (BACID) PO SCH ×2 (08:18→18:04)
[2021-01-15] MEDS: SODIUM CHLORIDE NASAL 0.65% SPRAY BTL (OCEAN) SCH ×2 (08:19→21:42)
[2021-01-15] MEDS: METOPROLOL TART 25 MG TABLET PO SCH ×2 (08:20→21:00)
--- NOTE | 2021-01-15 10:59 | IPNPDOC ---
Subjective Date Seen The patient was seen on 01/15/21. Subjective Chief Complaint/HPI Mr. Troncoso is a 75 year old male with Lung cancer stage II on chemotherapy, COPD, and atrial fibrillation who presents with COPD exacerbation 2/2 pneumonia. Last night, he received 2u pRBC and responded appropriately. This morning, he denies any chest pain or dyspnea. Objective Physical Examination General Exam: Positive: Alert, Cooperative Eye Exam: Positive: EOMI; Negative: Sclera icteric ENT Exam: Positive: Atraumatic Neck Exam: Positive: Supple Chest Exam: Positive: Clear to auscultation; Negative: Wheezing Heart Exam: Positive: Tachycardic, Regular Rhythm Abdomen Exam: Positive: Normal bowel sounds, Soft; Negative: Tenderness Neuro Exam: Positive: Normal Speech Psych Exam: Positive: Mental status NL, Mood NL Assessment /Plan Assessment Mr. Troncoso is a 75 year old male with Lung cancer stage II on chemotherapy, COPD, and atrial fibrillation who presents with COPD exacerbation 2/2 pneumonia. He has atrial fibrillation of which he is on Lopressor and apixaban. Apixaban held due to drop in hemoglobin. He received 2u pRBC's and responded appropriately. Continue to monitor Plan/VTE VTE Prophylaxis Ordered?: Yes Plan 1. Acute anemia -Hemoglobin continued to drop -May be secondary to blood loss as patient is on apixaban -Ordered for Hemoccult stool -Transfuse 2u pRBC 2. C. difficile infection -ID following recommendations appreciated -Continue probiotic -Completed Dificid 3. CAP vs. HCAP -Sputum culture grew Streptococcus pneumoniae, H. influenzae, and group B strep -Completed antibiotic course (11 days) -Encourage IS 4. Acute on chronic hypoxic respiratory failure likely multifactorial 2/2 to HCAP, COPD exacerbation, Hx of lung Ca, plueral effusions, CHF exacerbation -Continue to attempt to wean off oxygen -Pulmonary has evaluated and will follow up outpatient 5. Acute COPD exacerbation -Resolved -Continue Xopenex as needed 6. Atrial fibrillation, paroxysmal -Continue Lopressor -Hold apixaban due to acute anemia -TSH within normal -Echocardiogram on 12/27/2020 demonstrates EF 60 to 65%, grade 1 diastolic dysfunction 7. HFpEF with mild decompensation -Resolved -Echocardiogram on 12/27/2020 demonstrates EF 60 to 65%, grade 1 diastolic dysfunction 8. DM type II -HbA1c 7.0 -Sliding scale insulin -Consistent carbohydrate diet 9. Stage IIA lung CA -Follow up outpatient with oncology 10. History of CAD and coronary stents -Stable, no active chest pain -continue with cardiac medication 11. Dyslipidemia -Holding statin due to recent transaminitis 12. GERD -PPI 13. DVT px -Eliquis BID Disposition: Pending stability of hemoglobin and placement. Possible placement on Monday VS, I&O, 24H, Fishbone Vital Signs/I&O Vital Signs Date Time Temp Pulse Resp B/P (MAP) Pulse Ox O2 Delivery O2 Flow Rate FiO2 01/15/21 08:20 104 106/61 01/15/21 06:00 98.2 19 94 Nasal Cannula 2.0 01/14/21 20:44 28 I&O- Last 24 Hours up to 6 AM 01/15/21 06:00 Intake Total 2880 ml Output Total 1250 ml Balance 1630 ml Laboratory Data 24H LABS Laboratory Tests 2 01/14/21 11:20: Bedside Glucose (Misc Panel) 165H 01/14/21 14:02: Reticulocyte # (auto) 55.1, Nucleated Red Blood Cells % (auto) 0.0, Percent Reticulocyte Count 2.2H, Reticulocyte Hemoglobin Equivalent 30.8, Iron Level 17L, Total Iron Binding Capacity 122L, Transferrin % Saturation 13.9L, Ferritin 1382H, Lactate Dehydrogenase 208 01/14/21 16:35: Bedside Glucose (Misc Panel) 99 01/14/21 20:31: Bedside Glucose (Misc Panel) 133H 01/15/21 00:56: Nucleated Red Blood Cells % (auto) 0.0 01/15/21 05:46: Nucleated Red Blood Cells % (auto) 0.0, Anion Gap 8, Glomerular Filtration Rate > 60.0, Calcium Level 7.9L 01/15/21 08:23: Bedside Glucose (Misc Panel) 125H CBC/BMP Laboratory Tests 01/14/21 14:02 01/15/21 00:56 01/15/21 05:46 ROBERTO PALACIOS DO Jan 15, 2021 10:59
--- NOTE | 2021-01-15 13:56 | IPN ---
PROGRESS NOTE DATE: 01/15/2021 Mr. Troncoso seems to be doing well. He has not had any more diarrhea. His bowels are still somewhat soft, but he only had one bowel movement today. He has had no fever or chills. His oxygen is down to 2 liters nasal cannula. He has a mild cough. PHYSICAL EXAMINATION: pulse 92, respirations 19, blood pressure 104/60, oxygen saturation 94% on 2 liters nasal cannula. HEART: Normal S1, S2. No murmurs appreciated. LUNGS: Few crackles at both bases. Good air entry. ABDOMEN: Soft, nontender. No hepatosplenomegaly. EXTREMITIES: No clubbing, cyanosis, or edema. Oropharynx is clear with no lesion, no thrush. He has peripheral intravenous (IV) access in his arm. A few ecchymosis from frequent blood draws. IMPRESSION: 1. Clostridium (C) difficile infection. Patient finished 10 days of oral Dificid today. This will be discontinued. Continue with probiotics. 2. Anemia. Concern for gastrointestinal (GI) blood loss, and therefore patient is on a proton pump inhibitor (PPI) and Pepcid.Recommend with C.difficile PPI to be discontinued if possible, to decrease recurrence 3. Community-acquired pneumonia with Streptococcus pneumoniae, H flu and group B streptococcus. Patient has finished a 10-day course of antibiotic, doing well. Oxygen requirement has decreased to 2 liters nasal cannula. PLAN: Infectious disease signing off. IV Zinplava would have been recommended if the patient was discharged home but could not be given as an inpatient. If the patient is discharged home, this could be arranged on the day of discharge to decrease the risk of recurrent C. difficile colitis. [facility]
[2021-01-15 14:49] VITALS: BP 97/53
[2021-01-15 19:47] VITALS: BP 103/56
[2021-01-15 20:47] VITALS: O2SAT 95
[2021-01-16] MEDS: guaiFENesin SYRUP 200 MG/10 ML UDC PO SCH ×5 (05:31→23:41)
[2021-01-16] MEDS: SLF 3 ML SYR IV SCH ×3 (05:50→21:20)
[2021-01-16 06:05] LABS: HEMATOCRIT 30.8 % (42.0-52.0); HEMOGLOBIN 9.9 g/dl (13.5-17.5); MEAN CORPUSCULAR HEMOGLOBIN 29.5 pg (27.0-33.0); MEAN CORPUSCULAR HGB CONC 32.1 g/dl (32.0-36.5); MEAN CORPUSCULAR VOLUME 91.7 fl (80.0-96.0); PLATELET COUNT, AUTOMATED 185 10^3/uL (150-450); RED BLOOD COUNT 3.36 10^6/uL (4.30-6.10); WHITE BLOOD COUNT 8.3 10^3/uL (4.0-10.0)
[2021-01-16 06:23] LABS: BLOOD UREA NITROGEN 14 MG/DL (7-18); CALCIUM LEVEL 7.9 MG/DL (8.8-10.2); CARBON DIOXIDE LEVEL 25 MEQ/L (21-32); CHLORIDE LEVEL 105 MEQ/L (98-107); CREATININE FOR GFR 0.63 MG/DL (0.70-1.30); GLOMERULAR FILTRATION RATE > 60.0 (>42); GLUCOSE, FASTING 84 MG/DL (70-100); POTASSIUM SERUM 4.3 MEQ/L (3.5-5.1); SODIUM LEVEL 136 MEQ/L (136-145)
[2021-01-16 06:27] VITALS: BP 123/61
[2021-01-16] MEDS ORDERED: ACETAMINOPHEN TAB 650MG DOSE (2X325MG) PO ONE (07:05)
[2021-01-16] MEDS: HumaLOG INSULIN (NovoLOG) PER UNIT SC SCH ×4 (07:30→20:09)
[2021-01-16 07:36] VITALS: BP 120/61
[2021-01-16] MEDS: LEVALBUTEROL 1.25 MG/0.5 ML CONCENTRATE NEB INH SCH ×4 (07:51→19:18)
[2021-01-16] MEDS: CILOSTAZOL 100 MG TAB (PLETAL) PO SCH ×2 (08:14→18:21)
[2021-01-16] MEDS: LACTOBACILLUS ACIDOPHILUS CAP (BACID) PO SCH ×2 (08:14→18:21)
[2021-01-16] MEDS: FAMOTIDINE 20 MG TAB PO SCH ×2 (08:42→21:19)
[2021-01-16] MEDS: ASPIRIN ENTERIC 325 MG TAB PO SCH (08:42)
[2021-01-16] MEDS: OMEPRAZOLE 20 MG CAP PO SCH (08:43)
[2021-01-16] MEDS: METOPROLOL TART 25 MG TABLET PO SCH ×2 (08:43→21:00)
[2021-01-16] MEDS: SODIUM CHLORIDE NASAL 0.65% SPRAY BTL (OCEAN) SCH ×2 (08:44→21:19)
[2021-01-16] MEDS: POTASSIUM CHLORIDE 10% LIQ 20 MEQ/15 ML UDC PO SCH ×2 (08:44→21:19)
[2021-01-16 10:46] VITALS: BP 106/59
--- NOTE | 2021-01-16 12:03 | IPNPDOC ---
Subjective Date Seen The patient was seen on 01/16/21. Subjective Chief Complaint/HPI Mr. Troncoso is a 75 year old male with Lung cancer stage II on chemotherapy, COPD, and atrial fibrillation who presents with COPD exacerbation 2/2 pneumonia. He was seen this morning. Denies chest pain or dyspnea. Objective Physical Examination General Exam: Positive: Alert, Cooperative Eye Exam: Positive: EOMI; Negative: Sclera icteric ENT Exam: Positive: Atraumatic Neck Exam: Positive: Supple Chest Exam: Positive: Clear to auscultation; Negative: Wheezing Heart Exam: Positive: Tachycardic, Regular Rhythm Abdomen Exam: Positive: Normal bowel sounds, Soft; Negative: Tenderness Neuro Exam: Positive: Normal Speech Psych Exam: Positive: Mental status NL, Mood NL Assessment /Plan Assessment Mr. Troncoso is a 75 year old male with Lung cancer stage II on chemotherapy, COPD, and atrial fibrillation who presents with COPD exacerbation 2/2 pneumonia. He has atrial fibrillation of which he is on Lopressor and apixaban. Apixaban held due to drop in hemoglobin. He received 2u pRBC's and responded appropriately. Continue to monitor Plan/VTE VTE Prophylaxis Ordered?: Yes Plan 1. Acute anemia -Hemoglobin continued to drop -May be secondary to blood loss as patient is on apixaban -Ordered for Hemoccult stool -Transfuse 2u pRBC -Has remained stable 2. C. difficile infection -ID following recommendations appreciated -Continue probiotic -Completed Dificid (10 days) 3. CAP vs. HCAP -Sputum culture grew Streptococcus pneumoniae, H. influenzae, and group B strep -Completed antibiotic course (11 days) -Encourage IS 4. Acute on chronic hypoxic respiratory failure likely multifactorial 2/2 to HCAP, COPD exacerbation, Hx of lung Ca, plueral effusions, CHF exacerbation -Continue to attempt to wean off oxygen -Pulmonary has evaluated and will follow up outpatient 5. Acute COPD exacerbation -Resolved -Continue Xopenex as needed 6. Atrial fibrillation, paroxysmal -Continue Lopressor -Hold apixaban due to acute anemia -TSH within normal -Echocardiogram on 12/27/2020 demonstrates EF 60 to 65%, grade 1 diastolic dysfunction 7. HFpEF with mild decompensation -Resolved -Echocardiogram on 12/27/2020 demonstrates EF 60 to 65%, grade 1 diastolic dysfunction 8. DM type II -HbA1c 7.0 -Sliding scale insulin -Consistent carbohydrate diet 9. Stage IIA lung CA -Follow up outpatient with oncology 10. History of CAD and coronary stents -Stable, no active chest pain -continue with cardiac medication 11. Dyslipidemia -Holding statin due to recent transaminitis 12. GERD -PPI 13. DVT px -Eliquis BID Disposition: Pending stability of hemoglobin and placement. Possible placement on Monday VS, I&O, 24H, Fishbone Vital Signs/I&O Vital Signs Date Time Temp Pulse Resp B/P (MAP) Pulse Ox O2 Delivery O2 Flow Rate FiO2 01/16/21 10:46 97.9 109 18 106/59 (75) 92 Nasal Cannula 2.0 01/15/21 20:47 28 I&O- Last 24 Hours up to 6 AM 01/16/21 06:00 Intake Total 1680 ml Output Total 2000 ml Balance -320 ml Laboratory Data 24H LABS Laboratory Tests 2 01/15/21 16:50: Bedside Glucose (Misc Panel) 141H 01/15/21 19:52: Bedside Glucose (Misc Panel) 132H 01/16/21 05:43: Anion Gap 6L, Glomerular Filtration Rate > 60.0, Calcium Level 7.9L 01/16/21 05:44: Nucleated Red Blood Cells % (auto) 0.0 01/16/21 11:58: Bedside Glucose (Misc Panel) 218H CBC/BMP Laboratory Tests 01/16/21 05:43 01/16/21 05:44 Microbiology Microbiology 01/16/21 Stool Occult Blood (CHARLETTE), Received Pending ROBERTO PALACIOS DO Jan 16, 2021 12:03
[2021-01-16 14:00] VITALS: BP 105/58
[2021-01-16 19:18] VITALS: O2SAT 97
[2021-01-16 19:33] VITALS: BP 101/57
[2021-01-17] MEDS: guaiFENesin SYRUP 200 MG/10 ML UDC PO SCH ×3 (05:23→17:34)
[2021-01-17] MEDS: SLF 3 ML SYR IV SCH ×3 (05:25→22:06)
[2021-01-17 06:14] VITALS: BP 103/80
[2021-01-17] MEDS: HumaLOG INSULIN (NovoLOG) PER UNIT SC SCH ×4 (07:30→21:00)
[2021-01-17 07:40] LABS: HEMATOCRIT 30.8 % (42.0-52.0); HEMOGLOBIN 9.8 g/dl (13.5-17.5); MEAN CORPUSCULAR HGB CONC 31.8 g/dl (32.0-36.5); MEAN CORPUSCULAR VOLUME 91.1 fl (80.0-96.0); PLATELET COUNT, AUTOMATED 205 10^3/uL (150-450); RED BLOOD COUNT 3.38 10^6/uL (4.30-6.10); WHITE BLOOD COUNT 8.6 10^3/uL (4.0-10.0)
[2021-01-17] MEDS: LEVALBUTEROL 1.25 MG/0.5 ML CONCENTRATE NEB INH SCH ×4 (08:00→20:04)
[2021-01-17 08:39] LABS: BLOOD UREA NITROGEN 13 MG/DL (7-18); CALCIUM LEVEL 7.9 MG/DL (8.8-10.2); CARBON DIOXIDE LEVEL 27 MEQ/L (21-32); CHLORIDE LEVEL 105 MEQ/L (98-107); CREATININE FOR GFR 0.64 MG/DL (0.70-1.30); GLOMERULAR FILTRATION RATE > 60.0 (>42); GLUCOSE, FASTING 82 MG/DL (70-100); POTASSIUM SERUM 4.3 MEQ/L (3.5-5.1); SODIUM LEVEL 137 MEQ/L (136-145)
[2021-01-17] MEDS: POTASSIUM CHLORIDE 10% LIQ 20 MEQ/15 ML UDC PO SCH ×2 (09:11→22:04)
[2021-01-17] MEDS: CILOSTAZOL 100 MG TAB (PLETAL) PO SCH ×2 (09:12→17:47)
[2021-01-17] MEDS: OMEPRAZOLE 20 MG CAP PO SCH (09:12)
[2021-01-17] MEDS: FAMOTIDINE 20 MG TAB PO SCH ×2 (09:12→22:05)
[2021-01-17] MEDS: SODIUM CHLORIDE NASAL 0.65% SPRAY BTL (OCEAN) SCH ×2 (09:12→22:05)
[2021-01-17] MEDS: ASPIRIN ENTERIC 325 MG TAB PO SCH (09:12)
[2021-01-17] MEDS: LACTOBACILLUS ACIDOPHILUS CAP (BACID) PO SCH ×2 (09:12→17:47)
[2021-01-17] MEDS: METOPROLOL TART 25 MG TABLET PO SCH ×2 (09:12→22:07)
[2021-01-17 14:00] VITALS: BP 95/76
--- NOTE | 2021-01-17 19:20 | IPNPDOC ---
Subjective Date Seen The patient was seen on 01/17/21. Subjective Chief Complaint/HPI Mr. Troncoso is a 75 year old male with Lung cancer stage II on chemotherapy, COPD, and atrial fibrillation who presents with COPD exacerbation 2/2 pneumonia. This morning, he denies any chest pain or dyspnea. Objective Physical Examination General Exam: Positive: Alert, Cooperative Eye Exam: Positive: EOMI; Negative: Sclera icteric ENT Exam: Positive: Atraumatic Neck Exam: Positive: Supple Chest Exam: Positive: Clear to auscultation; Negative: Wheezing Heart Exam: Positive: Tachycardic, Regular Rhythm Abdomen Exam: Positive: Normal bowel sounds, Soft; Negative: Tenderness Neuro Exam: Positive: Normal Speech Psych Exam: Positive: Mental status NL, Mood NL Assessment /Plan Assessment Mr. Troncoso is a 75 year old male with Lung cancer stage II on chemotherapy, COPD, and atrial fibrillation who presents with COPD exacerbation 2/2 pneumonia. He has atrial fibrillation of which he is on Lopressor and apixaban. Apixaban held due to drop in hemoglobin. He received 2u pRBC's and responded appropriately. Continue to monitor Plan/VTE VTE Prophylaxis Ordered?: Yes Plan 1. Acute anemia -Hemoglobin continued to drop -May be secondary to blood loss as patient is on apixaban -Ordered for Hemoccult stool -Transfuse 2u pRBC -Has remained stable 2. C. difficile infection -ID following recommendations appreciated -Continue probiotic -Completed Dificid (10 days) 3. CAP vs. HCAP -Sputum culture grew Streptococcus pneumoniae, H. influenzae, and group B strep -Completed antibiotic course (11 days) -Encourage IS 4. Acute on chronic hypoxic respiratory failure likely multifactorial 2/2 to HCAP, COPD exacerbation, Hx of lung Ca, plueral effusions, CHF exacerbation -Continue to attempt to wean off oxygen -Pulmonary has evaluated and will follow up outpatient 5. Acute COPD exacerbation -Resolved -Continue Xopenex as needed 6. Atrial fibrillation, paroxysmal -Continue Lopressor -Hold apixaban due to acute anemia -TSH within normal -Echocardiogram on 12/27/2020 demonstrates EF 60 to 65%, grade 1 diastolic dys function 7. HFpEF with mild decompensation -Resolved -Echocardiogram on 12/27/2020 demonstrates EF 60 to 65%, grade 1 diastolic dysfunction 8. DM type II -HbA1c 7.0 -Sliding scale insulin -Consistent carbohydrate diet 9. Stage IIA lung CA -Follow up outpatient with oncology 10. History of CAD and coronary stents -Stable, no active chest pain -continue with cardiac medication 11. Dyslipidemia -Holding statin due to recent transaminitis 12. GERD -PPI 13. DVT px -Eliquis BID Disposition: Anticipate transfer to [facility] tomorrow VS, I&O, 24H, Fishbone Vital Signs/I&O Vital Signs Date Time Temp Pulse Resp B/P (MAP) Pulse Ox O2 Delivery O2 Flow Rate FiO2 01/17/21 14:00 97.9 94 19 95/76 (82) 96 Nasal Cannula 2.0 01/16/21 19:18 28 I&O- Last 24 Hours up to 6 AM 01/17/21 06:00 Intake Total 1740 ml Output Total 750 ml Balance 990 ml Laboratory Data 24H LABS Laboratory Tests 2 01/16/21 19:35: Bedside Glucose (Misc Panel) 160H 01/17/21 06:45: Nucleated Red Blood Cells % (auto) 0.0, Anion Gap 5L, Glomerular Filtration Rate > 60.0, Calcium Level 7.9L 01/17/21 11:39: Bedside Glucose (Misc Panel) 142H 01/17/21 16:30: Bedside Glucose (Misc Panel) 144H 01/17/21 17:53: Coronavirus (COVID-19)(PCR) NEGATIVE CBC/BMP Laboratory Tests 01/17/21 06:45 Microbiology Microbiology 01/16/21 Stool Occult Blood (CHARLETTE) - Final, Complete ROBERTO PALACIOS DO Jan 17, 2021 19:20
[2021-01-17 20:06] VITALS: O2SAT 96
[2021-01-17 22:00] VITALS: BP 102/63
[2021-01-17] MEDS ORDERED: METO1TAB87 PO (23:43)
[2021-01-17] MEDS ORDERED: LEVA12INH INH (23:43)
[2021-01-17] MEDS ORDERED: POTA20EL PO (23:43)
[2021-01-17] MEDS ORDERED: RISATAB3 PO (23:43)
[2021-01-18] MEDS: SLF 3 ML SYR IV SCH (05:44)
[2021-01-18] MEDS: guaiFENesin SYRUP 200 MG/10 ML UDC PO SCH ×3 (05:44→11:31)
[2021-01-18 06:00] VITALS: BP 120/69
[2021-01-18] MEDS: HumaLOG INSULIN (NovoLOG) PER UNIT SC SCH ×2 (07:30→11:38)
[2021-01-18 07:34] VITALS: O2SAT 98
[2021-01-18] MEDS: LEVALBUTEROL 1.25 MG/0.5 ML CONCENTRATE NEB INH SCH ×2 (07:34→11:23)
[2021-01-18] MEDS ORDERED: ELIQ5TAB PO (07:56)
--- NOTE | 2021-01-18 08:06 | DS.PDOC ---
Discharge Summary General Date of Admission Dec 28, 2020 at 07:21 Date of Discharge Jan 18, 2021 Specialist/Consultants Involve ID, Dr. Jaye Veloz/Crit care, Dr. Lebron Discharge Summary PROCEDURES PERFORMED DURING STAY: None ADMITTING DIAGNOSES: 1. Healthcare associated pneumonia 2. COPD exacerbation 3. Sinus tachycardia 4. History of CAD s/p stents 5. Dyslipidemia 6. GERD DISCHARGE DIAGNOSES: 1. Healthcare associated pneumonia 2. COPD exacerbation 3. Sinus tachycardia 4. History of CAD s/p stents 5. Dyslipidemia 6. GERD 7. Acute decompensated heart failure with preserved ejection fraction 8. Acute kidney injury 9. C.diff associated diarrhea 10. Acute blood loss anemia 11. Steroid induced hyperglycemia 12. Stage IIA lung cancer 13. Dyslipidemia 14. Paroxysmal atrial fibrillation COMPLICATIONS/CHIEF COMPLAINT: Pneumonia. HISTORY OF PRESENT ILLNESS: Mr. Troncoso is a 75 year old male with COPD, CAD s/p stent, and history of stage IIA adenocarcinoma of the lung who was recently admitted for symptomatic anemia, now has a cough with chills and dyspnea at rest. He had decrease in appetite and reports some weight loss. CTA chest was negative for PE, but does demonstrate bilateral infiltrates. He required 6L of oxygen. He was started on Cefepime in the ER, but switched to meropenem and vancomycin for HCAP. Patient also received steroids for COPD exacerbation HOSPITAL COURSE: Hospitalization course was complicated with iatrogenic CHF. Echo obtained demonstrated EF of 60-65% with grade 1 diastolic dysfunction. He was given IV Lasix but developed LAUREEN. Patient also developed afib with RVR which was controlled. MRSA PCR was negative and vancomycin was discontinued. Patient was not improving and required Vapotherm. Pulmonary and ID was consulted. Pulmonary recommended the reintroduction of vancomycin. Sputum cultures were obtained. Grew group B strep and streptococcus pneumoniae. Due to patent's PCN allergy, he was started on ceftriaxone instead. He was given more diuretics as well and patient oxygen status improved. He was eventually tapered off of steroids. Afterwards, patient developed watery diarrhea and had C.diff associated diarrhea. Patient was treated with 10 days of Dificid and diarrhea improved. Otherwise, patient did developed anemia requiring 2u pRBC. Eliquis was held. Since then hemoglobin has remained stable. It's been about 5 days since then, he will be restarted on Eliquis. Physical therapy worked with patient and recommended rehab. Today, patient feels well. Denies chest pain, dyspnea, or abdominal pain. He will be discharged to [facility] today. DISCHARGE MEDICATIONS: Please see below. ALLERGIES: Please see below. PHYSICAL EXAMINATION ON DISCHARGE: VITAL SIGNS: Please see below. GENERAL: Comfortable, in no apparent distress HEENT: Head normocephalic, atraumatic NECK: Supple CARDIOVASCULAR EXAMINATION: Tachycardic but regular RESPIRATORY EXAMINATION: Lungs clear to auscultation bilaterally ABDOMINAL EXAMINATION: Soft, non-tender, normal bowel sounds EXTREMITIES: No pitting edema bilaterally SKIN: Warm and dry NEUROLOGICAL EXAMINATION: CN 3-12 grossly intact PSYCHIATRIC EXAMINATION: Normal mood and affect LABORATORY DATA: Please see below. IMAGING: Radiologist interpretation CT angio chest There are bilateral upper lobe and bilateral lower lobe infiltrates as interval changes. There is a small right pleural effusion is slightly increased There is a small left pleural effusion as an interval change. The known right suprahilar lung mass, paratracheal mass and right hilar adenopathy are unchanged. There are no pulmonary emboli. PROGNOSIS: Good ACTIVITY: As tolerated. DIET: Consistent carbohydrate with Ensure Enlive DISCHARGE PLAN: Transfer to [facility] DISPOSITION: Transfer to [facility]. ITEMS TO FOLLOWUP ON ON OUTPATIENT: 1. Follow up with PCP within 1 week of discharge DISCHARGE CONDITION: Stable. Total time spent on discharge planning, discharge summary, and medication reconciliation: 75 minutes Vital Signs/I&Os Vital Signs Date Time Temp Pulse Resp B/P (MAP) Pulse Ox O2 Delivery O2 Flow Rate FiO2 01/17/21 22:07 124 102/62 01/17/21 22:00 99.2 19 92 Nasal Cannula 2.0 01/17/21 20:06 28 I&O- Last 24 Hours up to 6 AM 01/17/21 06:00 Intake Total 1740 ml Output Total 750 ml Balance 990 ml Laboratory Data Labs 24H Laboratory Tests 2 01/17/21 06:45: Nucleated Red Blood Cells % (auto) 0.0, Anion Gap 5L, Glomerular Filtration Rate > 60.0, Calcium Level 7.9L 01/17/21 11:39: Bedside Glucose (Misc Panel) 142H 01/17/21 16:30: Bedside Glucose (Misc Panel) 144H 01/17/21 17:53: Coronavirus (COVID-19)(PCR) NEGATIVE 01/17/21 20:25: Bedside Glucose (Misc Panel) 126H CBC/BMP Laboratory Tests 01/17/21 06:45 FSBS Laboratory Tests Test 01/17/21 11:39 01/17/21 16:30 01/17/21 20:25 Range/Units Bedside Glucose (Misc Panel) 142 144 126 83-110 MG/DL Microbiology Microbiology 01/16/21 Stool Occult Blood (CHARLETTE) - Final, Complete Discharge Medications Scheduled Apixaban (Eliquis) 5 Mg Tablet, 5 MG PO BID Aspirin (Aspirin EC) 325 Mg Tabec, 325 MG PO DAILY, (Reported) Cilostazol (Cilostazol) 100 Mg Tab, 100 MG PO BID, (Reported) Famotidine (Famotidine) 20 Mg Tablet, 20 MG PO BID, (Reported) L.acidoph/L.bulg/B.bif/S.therm (Ramona-Bid Caplet) 1 Each Tablet, 1 EA PO BIDWM Metoprolol Tartrate (Metoprolol Tartrate) 25 Mg Tablet, 25 MG PO BID Pantoprazole Sodium (Pantoprazole Sodium) 40 Mg Tablet.dr, 40 MG PO DAILY, (Reported) Potassium Chloride (Potassium Chloride) 20 Meq/15 Ml Liquid, 30 MEQ PO BID Rosuvastatin Calcium (Rosuvastatin Calcium) 20 Mg Tab, 20 MG PO DAILY, (Reported) Tiotropium [place] Monohydrate (Spiriva) 18 Mcg Cap.w.dev, 1 PUFF INH DAILY, (Re ported) Vit C/E/Zn/Coppr/Lutein/Zeaxan (Preservision Areds 2 Softgel) 1 Each Capsule, 1 EACH PO BID, (Reported) Scheduled PRN Levalbuterol Hydrochloride (Xopenex Concentrate) 1.25 Mg/0.5 Ml Vial.neb, 1.25 MG INH Q1HP PRN for SHORTNESS OF BREATH Ondansetron (Ondansetron Odt) 8 Mg Tab.rapdis, 8 MG PO TID PRN for NAUSEA OR VOMITING, (Reported) Allergies Coded Allergies: Penicillins (Verified Adverse Reaction, Mild, itch, 12/29/20) ROBERTO PALACIOS DO Jan 17, 2021 23:05
[2021-01-18 08:32] LABS: HEMATOCRIT 33.9 % (42.0-52.0); HEMOGLOBIN 10.8 g/dl (13.5-17.5); MEAN CORPUSCULAR HEMOGLOBIN 29.4 pg (27.0-33.0); MEAN CORPUSCULAR HGB CONC 31.9 g/dl (32.0-36.5); MEAN CORPUSCULAR VOLUME 92.4 fl (80.0-96.0); PLATELET COUNT, AUTOMATED 222 10^3/uL (150-450); RED BLOOD COUNT 3.67 10^6/uL (4.30-6.10); WHITE BLOOD COUNT 6.8 10^3/uL (4.0-10.0)
[2021-01-18] MEDS: FAMOTIDINE 20 MG TAB PO SCH (08:47)
[2021-01-18] MEDS: ASPIRIN ENTERIC 325 MG TAB PO SCH (08:47)
[2021-01-18] MEDS: OMEPRAZOLE 20 MG CAP PO SCH (08:47)
[2021-01-18] MEDS: CILOSTAZOL 100 MG TAB (PLETAL) PO SCH (08:47)
[2021-01-18] MEDS: LACTOBACILLUS ACIDOPHILUS CAP (BACID) PO SCH (08:47)
[2021-01-18] MEDS: POTASSIUM CHLORIDE 10% LIQ 20 MEQ/15 ML UDC PO SCH (08:48)
[2021-01-18 08:50] VITALS: BP 116/67
[2021-01-18] MEDS: SODIUM CHLORIDE NASAL 0.65% SPRAY BTL (OCEAN) SCH (08:50)
[2021-01-18] MEDS: METOPROLOL TART 25 MG TABLET PO SCH (08:50)
[2021-01-18 08:53] LABS: BLOOD UREA NITROGEN 13 MG/DL (7-18); CALCIUM LEVEL 8.3 MG/DL (8.8-10.2); CARBON DIOXIDE LEVEL 28 MEQ/L (21-32); CHLORIDE LEVEL 104 MEQ/L (98-107); GLOMERULAR FILTRATION RATE > 60.0 (>42); GLUCOSE, FASTING 87 MG/DL (70-100); POTASSIUM SERUM 4.3 MEQ/L (3.5-5.1); SODIUM LEVEL 138 MEQ/L (136-145)
== END 2021-01-18 13:10 | DRG 193 ==
LOC: M ED 08:32 → EDBD 08:32 → M ED INP 11:59 → ENRESERV 12:20 → M PCU 13:43 → M MSPAV 12-27 23:30 → OBSVTOIN 12-28 07:21 → M PCU 12-28 13:43 → M MS5PR 01-10 17:11
PROVIDERS: ADMIT General Practice; ATTEND Internal Medicine
PROC: 30233N1 Transfusion of Nonautologous Red Blood Cells into Peripheral Vein, Percutaneous Approach (ICD-10-PCS; principal; 2021-01-14)
DX: J13 Pneumonia due to Streptococcus pneumoniae (principal); J96.21 Acute and chronic respiratory failure with hypoxia; I50.33 Acute on chronic diastolic (congestive) heart failure; A41.9 Sepsis, unspecified organism; J44.0 Chronic obstructive pulmonary disease with (acute) lower respiratory infection; C34.11 Malignant neoplasm of upper lobe, right bronchus or lung; E87.4 Mixed disorder of acid-base balance; J44.1 Chronic obstructive pulmonary disease with (acute) exacerbation; N17.9 Acute kidney failure, unspecified; A04.72 Enterocolitis due to Clostridium difficile, not specified as recurrent; I11.0 Hypertensive heart disease with heart failure; I25.10 Atherosclerotic heart disease of native coronary artery without angina pectoris; Z66 Do not resuscitate; I48.0 Paroxysmal atrial fibrillation; E78.5 Hyperlipidemia, unspecified; R74.01 Elevation of levels of liver transaminase levels; E87.6 Hypokalemia; R32 Unspecified urinary incontinence; E83.42 Hypomagnesemia; E83.51 Hypocalcemia; E11.65 Type 2 diabetes mellitus with hyperglycemia; D64.9 Anemia, unspecified; G47.00 Insomnia, unspecified; I71.2 Thoracic aortic aneurysm, without rupture; H35.30 Unspecified macular degeneration; D70.9 Neutropenia, unspecified; Z99.81 Dependence on supplemental oxygen; Z95.5 Presence of coronary angioplasty implant and graft; Y95 Nosocomial condition; K21.9 Gastro-esophageal reflux disease without esophagitis; Z98.49 Cataract extraction status, unspecified eye; Z95.828 Presence of other vascular implants and grafts; Z90.49 Acquired absence of other specified parts of digestive tract; Z79.82 Long term (current) use of aspirin; Z88.0 Allergy status to penicillin; Z87.891 Personal history of nicotine dependence; Z20.822 Contact with and (suspected) exposure to COVID-19

== ENCOUNTER → 2021-02-22 | Outpatient (CLI) | payer MEDICARE ==
[~2021-02-22] MED LIST changes: +ELIQ5TAB PO; +LEVA12INH INH; +METO1TAB87 PO; +PANT-23 PO; +POTA20EL PO; +RISATAB3 PO; +TIOT18INH INH
[2021-02-22 12:23] LABS: HEMOGLOBIN 11.1 g/dl (13.5-17.5); MEAN CORPUSCULAR HEMOGLOBIN 28.2 pg (27.0-33.0); MEAN CORPUSCULAR HGB CONC 30.8 g/dl (32.0-36.5); MEAN CORPUSCULAR VOLUME 91.4 fl (80.0-96.0); PLATELET COUNT, AUTOMATED 379 10^3/uL (150-450); RED BLOOD COUNT 3.94 10^6/uL (4.30-6.10); WHITE BLOOD COUNT 12.6 10^3/uL (4.0-10.0)
[2021-02-22 12:48] LABS: BLOOD UREA NITROGEN 26 MG/DL (7-18); CARBON DIOXIDE LEVEL 27 MEQ/L (21-32); CHLORIDE LEVEL 106 MEQ/L (98-107); CREATININE FOR GFR 0.91 MG/DL (0.70-1.30); GLOMERULAR FILTRATION RATE > 60.0 (>42); GLUCOSE, FASTING 116 MG/DL (70-100); POTASSIUM SERUM 4.2 MEQ/L (3.5-5.1); SODIUM LEVEL 141 MEQ/L (136-145)
[2021-02-22 15:04] LABS: FERRITIN 1643 NG/ML (26-388); IRON (FE) 32 UG/DL (65-175); PERCENT SATURATION 22.4 % (19.7-50.0); TOTAL IRON BINDING CAPACITY 143 UG/DL (250-450)
[2021-02-22 15:11] LABS: FOLATE 8.1 NG/ML (>5.4); VITAMIN B12 LEVEL 812 PG/ML (247-911)
== END ==
LOC: M LAB 11:40
PROVIDERS: ATTEND Nurse Practitioner Family
DX: I25.119 Atherosclerotic heart disease of native coronary artery with unspecified angina pectoris (principal); D50.9 Iron deficiency anemia, unspecified

== ENCOUNTER 2021-03-01 09:25 | Inpatient (IN) | payer MEDICARE, OTHER ==
[~2021-03-01] VITALS: Ht 170.2 cm; Wt 51.4 kg
[2021-03-01] VITALS (8 sets, daily range): BP systolic 84–118; BP diastolic 48–67
[2021-03-01 10:48] LABS: BASO # 0.1 10^3/uL (0.0-0.2); BASO % 0.5 % (0.0-1.0); EOS # 0.1 10^3/uL (0.0-0.5); EOS % 0.3 % (0.0-3.0); HEMATOCRIT 41.8 % (42.0-52.0); HEMOGLOBIN 12.5 g/dl (13.5-17.5); LYMPH # 0.4 10^3/uL (1.5-5.0); LYMPH % 2.1 % (24.0-44.0); MEAN CORPUSCULAR HEMOGLOBIN 27.8 pg (27.0-33.0); MEAN CORPUSCULAR HGB CONC 29.9 g/dl (32.0-36.5); MEAN CORPUSCULAR VOLUME 92.9 fl (80.0-96.0); MONO # 1.2 10^3/uL (0.0-0.8); MONO % 6.8 % (2.0-8.0); NEUTROPHILS # 15.7 10^3/uL (1.5-8.5); NEUTROPHILS % 89.4 % (36.0-66.0); PLATELET COUNT, AUTOMATED 470 10^3/uL (150-450); WHITE BLOOD COUNT 17.6 10^3/uL (4.0-10.0)
--- NOTE | 2021-03-01 10:57 | REP ---
INDICATION: fatigue COMPARISON: 01/09/2021 TECHNIQUE: Portable AP view of the chest FINDINGS: Mediastinum and cardiac silhouette are stable. [id number] again identified with tip in the SVC. The lung odom demonstrate diffuse chronic interstitial changes bilaterally. Superimposed increased opacities involving the perihilar and right upper lobe region are suggested. IMPRESSION: Increased right perihilar and upper lobe ill-defined opacities. <Electronically signed by Lawrence Steele > 03/01/21 1055
[2021-03-01 10:58] LABS: INR 1.05; PROTHROMBIN TIME 13.9 SECONDS (12.5-14.3)
[2021-03-01 11:26] LABS: ALBUMIN 2.1 GM/DL (3.2-5.2); ALT/SGPT 48 U/L (12-78); BILIRUBIN,TOTAL 0.5 MG/DL (0.2-1.0); BLOOD UREA NITROGEN 32 MG/DL (7-18); CALCIUM LEVEL 8.7 MG/DL (8.8-10.2); CARBON DIOXIDE LEVEL 22 MEQ/L (21-32); CHLORIDE LEVEL 104 MEQ/L (98-107); CREATININE FOR GFR 1.05 MG/DL (0.70-1.30); GLOMERULAR FILTRATION RATE > 60.0 (>42); GLUCOSE, FASTING 98 MG/DL (70-100); POTASSIUM SERUM 4.1 MEQ/L (3.5-5.1); SODIUM LEVEL 141 MEQ/L (136-145); TOTAL PROTEIN 6.6 GM/DL (6.4-8.2)
--- NOTE | 2021-03-01 12:07 | REP ---
INDICATION: upper lobe opacities COMPARISON: 12/26/2020 TECHNIQUE: Axial noncontrast images from the thoracic inlet to the upper abdomen with coronal and sagittal reformations. This CT examination was performed using the following dose reduction techniques: Automated exposure control, adjustment of mA and/or kv according to the patient's size, and use of iterative reconstruction technique. FINDINGS: Diffuse chronic COPD/emphysematous changes, scarring and fibrosis are again noted. Overall appearance demonstrates decreased infiltrates as compared with prior examination. However, the current examination does demonstrate increased area of consolidation extending from the right perihilar region along the posterior aspect of the right mid upper lung zone. No effusion. No pneumothorax. IMPRESSION: 1. Diffuse chronic changes remains stable. 2. In comparison with prior examination much of the previous multifocal infiltrates have resolved. However there does appear to be an area of increased consolidation/atelectasis extending from the right perihilar region to the posterior mid/upper lung zone. Short-term follow-up examination is recommended. <Electronically signed by Lawrence Steele > 03/01/21 [id number]
[2021-03-01 13:27] LABS: BILIRUBIN,DIRECT 0.1 MG/DL (0.0-0.2); CK-MB VALUE MASS 1.5 NG/ML (<3.6); CPK CREATINE PHOSPHOKINASE 54 U/L (39-308); LIPASE 11 U/L (73-393); MB/CK RELATIVE INDEX 2.78 (< OR =4); TROPONIN I < 0.02 NG/ML (< 0.10)
[2021-03-01] MEDS ORDERED: NS 500 ML IV ONE (13:40)
[2021-03-01] MEDS ORDERED: SODIUM CHLORIDE 0.9% INJ 10 ML SYR IV PRN (13:50)
[2021-03-01] MEDS ORDERED: FERR32TA PO (14:14)
[2021-03-01] MEDS ORDERED: POTA4.25 PO (14:14)
[2021-03-01] MEDS ORDERED: MIRT1TAB PO (14:14)
[2021-03-01] MEDS ORDERED: PANT40TA29 PO (14:14)
[2021-03-01] MEDS ORDERED: ONDANSETRON 4 MG ORAL DISINTEGRATING TAB PO PRN (14:20)
[2021-03-01] MEDS: NS 1,000 ML IV SCH ×2 (14:20→22:08)
[2021-03-01] MEDS ORDERED: NS 1,000 ML IV ONE (14:20)
--- NOTE | 2021-03-01 14:40 | REP ---
INDICATION: hx of c. diff, incr diarrhea r/o worsening colitis COMPARISON: None TECHNIQUE: Axial noncontrast images from the lung bases to the pubic symphysis with coronal and sagittal reformations. This CT examination was performed using the following dose reduction techniques: Automated exposure control, adjustment of mA and/or kv according to the patient's size, and use of iterative reconstruction technique. FINDINGS: Lung bases demonstrate chronic emphysematous changes and scattered fibrosis/scarring. Liver and spleen demonstrate few scattered calcifications suggesting prior granulomatous disease. Atrophic appearance to the pancreas is unremarkable. Bilateral adrenal glands are normal. Kidneys demonstrate chronic age-related changes and 2 mm left nephrolith along with renovascular calcifications. Mild mucosal thickening and pericolonic stranding primarily identified involving the ascending/proximal transverse colon and portions of the descending and sigmoid colon consistent with the given history of colitis. No bowel obstruction or free air to suggest perforation. No drainable collection/abscess or ascites. Colonic diverticulosis also identified. The small bowel is unremarkable. Pelvis demonstrates normal bladder and age-appropriate prostate/seminal vesicles. Abdominal aortic aneurysm measures up to 4.2 cm transverse diameter without mary-aortic fluid or stranding. Atherosclerotic changes to the arterial vasculature noted. No ascites. No free air. No adenopathy. Musculoskeletal structures demonstrate osteopenia and degenerative changes without acute osseous abnormality. IMPRESSION: 1. Colonic findings consistent with the given history of colitis. No evidence for obstruction or perforation. No ascites. No adenopathy. Small bowel is unremarkable. 2. Diverticulosis noted without definite acute diverticulitis. 3. Abdominal aortic aneurysm measuring 4.2 cm maximal transverse diameter. 4. Moderately distended gallbladder with small amount of gravel is nonspecific and without further evidence for acute cholecystitis by CT. <Electronically signed by Lawrence Steele > 03/01/21 [id number]
--- NOTE | 2021-03-01 15:12 | HPEPDOC ---
[facility] Medical History & Physical Date of Admission March 01, 2021 Date of Service: March 01, 2021 Attending Physician: Evelia Gonzalez MD History and Physical CHIEF COMPLAINT: Diarrhea, dehydration HISTORY OF PRESENT ILLNESS: Patient is a 75-year-old male with past medical history of stage II lung car cinoma status post chemotherapy and radiation, history of recent hospitalization for healthcare associated pneumonia and C. difficile colitis, history of COPD, CAD, GERD, anemia who presented to [facility] emergency room with the chief complaint of increased diarrhea over the past several days. The patient states that he recently left [facility] for rehabilitation and nursing 02/18/21. At the time he came home he had always had a decreased appetite which hadn't really picked up since his last hospitalization listed above. He states over the past several days he's had 34 diarrhea episodes daily, nonbloody, no associated abdominal pain. These episodes are associated with vo miting, nonbloody with increased diarrhea. The patient also complains of increased weakness, chills. He has a chronic cough that has not changed at all over the past several months. He denies chest pain, increased shortness of breath, abdominal pain, recent use of antibiotics. During the patient's last hospitalization for C. difficile colitis he was seen by infectious disease who treated him with 10 days of dificid. The patient was brought to the ER today to be further evaluated for recurrence. In the emergency room his BP initially was good at 126 mmHg; however, gradually decreased to 77 mmHg. HR 105, RR 20, T 97F, 100% on 2 L NC. Bolus was ordered but on evaluation this was not administered. Bolus fluids were encouraged with addition of IVFs continuous. CT chest: 1. Diffuse chronic changes remains stable, 2. In comparison with prior examination much of the previous multifocal infiltrates have resolved, there does appear to be an area of increased consolidation/atelectasis extending from the right perihilar region to the posterior mid/upper lung zone. CT abd/pelvis: 1. Colonic findings consistent with the given history of colitis, 2. Diverticulosis noted without definite acute diverticulitis, 3. Abdominal aortic aneurysm measuring 4.2 cm maximal transverse diameter. WBC 17K, left shift. Gi panel and lactic acid ordered. Patient was admitted to ICU for hypotension r/o septic shock vs. hypovolemia 2/2 to diarrhea, r/o c. diff colitis, sepsis. REVIEW OF SYSTEMS: Neg except mentioned above PAST MEDICAL HISTORY: Stage IIA lung cancer s/p chemo/ radiation C. diff colitis 12/2020 s/p dificid tx Hx of HCAP COPD HTN Thoracic aneurysm CAD s/p AL with stent HLD GERD Macular degeneration Anemia Paroxysmal atrial fibrillation HFpEF PAST SURGICAL HISTORY: Coronary stents Appendectomy Cataract surgery [id number] right chest SOCIAL HISTORY: For kayleigh smoker, 1 PPD for over 65 years, quit 09/2021. Denies alcohol, recreational drug use. Recently discharged from rehab, lives with who helps with ADLs, uses walker. DNR/DNI. PCP- Shannon Monge, med/onc- Dr. Whelan, rad/onc- Dr. Basilio, [place] Superintendent- Dr. Brumfiled FAMILY HISTORY: Mother of CAD. Father in World War II due to ruptured aorta. ALLERGIES: Please see below. HOME MEDICATIONS: Please see below. PHYSICAL EXAMINATION: CONSTITUTIONAL: thin male, no acute distress, resting comfortably, AAO x 3 EYES: PERRLA, EOM intact HENT, MOUTH: Normocephalic, atraumatic, dry mucous membranes NECK: SUPPLE, no JVD, no lymphadenopathy, no carotid bruit CV: sinus tachycardia , S1S2 normal, no murmurs/rubs/gallops CHEST: infusaport in right chest RESPIRATORY: Clear to auscultation bilaterally, no rales/rhonchi/wheezes GI: BS positive in 4 quadrants, soft, nontender, nondistended, no rebound or guarding, no organomegaly : Deferred MUSCULOSKELETAL: thin extremities, Normal ROM. No cyanosis, clubbing, swelling, joint deformity, extremity edema INTEGUMENTARY: Intact, no rashes, no lesions, no erythema NEUROLOGIC: Cranial Nerves II-XII are intact, no focal deficits PSYCHIATRIC: Mood and affect are normal LABORATORY DATA: Please see below MICROBIOLOGY: F/u BCx x 2 sets F/u UA IMAGING: CT abd/pelvis: 1. Colonic findings consistent with the given history of colitis. No evidence for obstruction or perforation. No ascites. No adenopathy. Small bowel is unremarkable. 2. Diverticulosis noted without definite acute diverticulitis. 3. Abdominal aortic aneurysm measuring 4.2 cm maximal transverse diameter. 4. Moderately distended gallbladder with small amount of gravel is nonspecific and without further evidence for acute cholecystitis by CT. CT chest: 1. Diffuse chronic changes remains stable. 2. In comparison with prior examination much of the previous multifocal infiltrates have resolved. However there does appear to be an area of increased consolidation/atelectasis extending from the right perihilar region to the posterior mid/upper lung zone. Short-term follow-up examination is recommended. ASSESSMENT: 75-year-old male with past medical history of stage II lung carcinoma status post chemotherapy and radiation, history of recent hospitalization /09/28 for healthcare associated pneumonia and C. difficile colitis, history of COPD, CAD, GERD, anemia admitted to ICU for hypotension r/o septic shock vs. hypovolemia 2/2 to diarrhea, r/o c. diff colitis, sepsis. PLAN: Hypotension r/o septic shock vs. hypovolemia 2/2 to diarrhea -Hx of HTN normally -BP above, low as systolic 77 mmHg -C/w fluid resuscitation with continuous fluids and boluses under sepsis protocol. -Dificid started, monitor on tele, ICU admission. -Discussed with family the need for pressors if patient does not improve with fluids alone. -f/u lactic acid, cultures above Diarrhea r/o c. diff colitis, sepsis -WBC 17K, HR > 90, colitis identified on CT abd/pelvis. Currently afebrile with no abdominal pain -CT abd/pelvis above -Txed in 12/2020 for c. diff with dificid x 10 days, ID was consulted at that time. -F/u GI panel, all cultures above -D/w ID again today, starting dificid. -IVFs continuous plus boluses if needed -If sepsis worsens, consider starting Ciprofloxacin, flagyl. -Daily labs ? infiltrate vs. atelectasis on CT chest above / Chronic hypoxic respiratory failure 2/2 to COPD, Stage II lung CA / Hx of HCAP on last admission -Currently saturating well on 2 L NC, home amount of O2 -CT chest above -Not complaining of any respiratory symptoms aside from chronic cough-unchanged. -With higher suspicion of C. diff colitis, will hold off on abx to tx -Procalcitonin ordered but may be high with colitis also -If WBC or sepsis worsens consider coverage for HCAP -Will add IS COPD not currently in exacerbation -C/w spiriva, albuterol PRN -On home O2 AAA -CT above -F/u closely o/p CAD s/p AL with stent -c/w home medications -Denies chest pain, SOB, diaphoresis HLD -C/w statin Anemia -H/h stable -CBC daily Paroxysmal atrial fibrillation hx -Previously on eliquis on last admission but no longer on this -Currently sinus tachycardia -Watch for changes on tele. HFpEF (EF 50-55% 12/2020), not currently in exacerbation -Watch for s/s of fluid overload while trying to fluid resuscitate -currently stable -Not on any home meds for this issue DM type II -Last HbA1c 7.0 -Holding ISS, on CLD, FS AC/HS Stage IIA lung CA -Treated o/p with chemoradiation History of CAD and coronary stents -Stable, c/w current meds Dyslipidemia -Holding statin with recent transaminitis History of thoracic aortic aneurysm -BP controlled -No abdominal pain GERD -famotidine DVT px -Enoxaparin DISPOSITION: Admit to ICU while hypotensive, hemodynamically unstable. ID consulted. TOTAL AMOUNT OF ICU TIME SPENT CARING FOR PATIENT (nonprocedural): 70 mins Vital Signs Vital Signs Date Time Temp Pulse Resp B/P (MAP) Pulse Ox O2 Delivery O2 Flow Rate FiO2 03/01/21 12:30 105 92/53 (66) 100 03/01/21 09:26 97.0 20 Nasal Cannula 2.0 Laboratory Data Labs 24H Laboratory Tests 2 03/01/21 10:05: Immature Granulocyte % (Auto) 0.9, Neutrophils (%) (Auto) 89.4H, Lymphocytes (%) (Auto) 2.1L, Monocytes (%) (Auto) 6.8, Eosinophils (%) (Auto) 0.3, Basophils (%) (Auto) 0.5, Neutrophils # (Auto) 15.7H, Lymphocytes # (Auto) 0.4L, Monocytes # (Auto) 1.2H, Eosinophils # (Auto) 0.1, Basophils # (Auto) 0.1, Nucleated Red Blood Cells % (auto) 0.0, Prothrombin Time 13.9, Prothromb Time International Ratio 1.05, Activated Partial Thromboplast Time 27.0, Anion Gap 15, Glomerular Filtration Rate > 60.0, Calcium Level 8.7L, Total Bilirubin 0.5, Direct Bilirubin 0.1, Aspartate Amino Transf (AST/SGOT) 34, Alanine Aminotransferase (ALT/SGPT) 48, Alkaline Phosphatase 116, Total Creatine Kinase 54, Creatine Kinase MB 1.5, Creatine Kinase MB Relative Index 2.78, Troponin I < 0.02, Total Protein 6.6, Albumin 2.1L, Albumin/Globulin Ratio 0.5, Lipase 11L, Thyroid Stimulating Hormone (TSH) 1.380 03/01/21 14:48: CBC/BMP Laboratory Tests 03/01/21 10:05 Home Medications Scheduled Aspirin (Aspirin EC) 325 Mg Tabec, 325 MG PO DAILY Cilostazol (Cilostazol) 100 Mg Tab, 100 MG PO BID Famotidine (Famotidine) 20 Mg Tablet, 20 MG PO BID Ferrous Gluconate (Ferrous Gluconate) 324 Mg Tablet, 324 MG PO DAILY Rosuvastatin Calcium (Rosuvastatin Calcium) 20 Mg Tab, 20 MG PO DAILY Tiotropium [place] Monohydrate (Spiriva) 18 Mcg Cap.w.dev, 1 PUFF INH DAILY Vit C/E/Zn/Coppr/Lutein/Zeaxan (Preservision Areds 2 Softgel) 1 Each Capsule, 1 EACH PO BID Scheduled PRN Ondansetron (Ondansetron Odt) 8 Mg Tab.rapdis, 8 MG PO TID PRN for NAUSEA OR VOMITING Allergies Coded Allergies: Penicillins (Verified Adverse Reaction, Mild, itch, 12/29/20) A-FIB/CHADSVASC A-FIB History Current/History of A-Fib/PAF?: No Current PO Anticoag Therapy: No Age/Risk Factor Scoring CHADSVASC: CHADSVASC Response (Comments) Value Age Risk Factor Age >/= 75 years old 2 Gender Risk Factor Male 0 Hx of CHF Yes 1 Hx of HTN Yes 1 Hx of Diabetes Yes 1 Hx of Vascular Disease No 0 Total 5 Treatment Treatment ordered: Other Other anticoagulant ordered: Evelia Ramsey MD March 01, 2021 15:12
[2021-03-01 15:34] LABS: RSV AMPLIFICATION NEGATIVE (NEGATIVE)
[2021-03-01] MEDS ORDERED: ALBUTEROL SULFATE 2.5 MG/0.5 ML INH NEB SOLN NEB PRN (15:50)
[2021-03-01] MEDS: LACTOBACILLUS ACIDOPHILUS CAP (BACID) PO SCH (17:51)
[2021-03-01] MEDS: ENOXAPARIN 40MG/0.4ML SYRINGE (J1650 PER 10MG) SC SCH (17:51)
[2021-03-01] MEDS: FIDAXOMICIN 200 MG TAB (DIFICID) PO SCH (18:20)
--- NOTE | 2021-03-01 20:09 | ECGEPIP ---
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
[2021-03-01] MEDS ORDERED: FIDAXOMICIN 200 MG TAB (DIFICID) PO SCH (21:00)
[2021-03-01] MEDS: FAMOTIDINE 20 MG TAB PO SCH (21:04)
[2021-03-01] MEDS: CILOSTAZOL 100 MG TAB (PLETAL) PO SCH (21:04)
[2021-03-02] VITALS (9 sets, daily range): BP systolic 97–129; BP diastolic 52–63
[2021-03-02 05:02] LABS: HEMATOCRIT 33.1 % (42.0-52.0); MEAN CORPUSCULAR HEMOGLOBIN 27.6 pg (27.0-33.0); MEAN CORPUSCULAR HGB CONC 29.9 g/dl (32.0-36.5); MEAN CORPUSCULAR VOLUME 92.2 fl (80.0-96.0); PLATELET COUNT, AUTOMATED 372 10^3/uL (150-450); RED BLOOD COUNT 3.59 10^6/uL (4.30-6.10); WHITE BLOOD COUNT 13.7 10^3/uL (4.0-10.0)
[2021-03-02 05:06] LABS: HEMOGLOBIN 9.9 g/dl (13.5-17.5)
[2021-03-02 05:27] LABS: ALBUMIN 1.7 GM/DL (3.2-5.2); ALT/SGPT 28 U/L (12-78); BILIRUBIN,TOTAL 0.4 MG/DL (0.2-1.0); BLOOD UREA NITROGEN 27 MG/DL (7-18); CALCIUM LEVEL 8.1 MG/DL (8.8-10.2); CARBON DIOXIDE LEVEL 20 MEQ/L (21-32); CHLORIDE LEVEL 116 MEQ/L (98-107); CREATININE FOR GFR 0.74 MG/DL (0.70-1.30); GLOMERULAR FILTRATION RATE > 60.0 (>42); GLUCOSE, FASTING 70 MG/DL (70-100); POTASSIUM SERUM 3.4 MEQ/L (3.5-5.1); SODIUM LEVEL 145 MEQ/L (136-145)
[2021-03-02] MEDS: NS 1,000 ML IV SCH (05:32)
[2021-03-02] MEDS: TIOTROPIUM INHALER/CAPSULE (SPIRIVA) INH SCH (07:57)
[2021-03-02] MEDS: FERROUS GLUCONATE 324 MG TAB PO SCH (08:53)
[2021-03-02] MEDS: ASPIRIN ENTERIC 325 MG TAB PO SCH (08:53)
[2021-03-02] MEDS: FAMOTIDINE 20 MG TAB PO SCH ×2 (08:53→20:04)
[2021-03-02] MEDS: CILOSTAZOL 100 MG TAB (PLETAL) PO SCH ×2 (08:53→20:05)
[2021-03-02] MEDS: LACTOBACILLUS ACIDOPHILUS CAP (BACID) PO SCH ×2 (08:53→17:31)
[2021-03-02] MEDS: FIDAXOMICIN 200 MG TAB (DIFICID) PO SCH ×2 (08:53→20:05)
[2021-03-02] MEDS: ENOXAPARIN 40MG/0.4ML SYRINGE (J1650 PER 10MG) SC SCH (08:53)
[2021-03-02] MEDS: ROSUVASTATIN 10 MG TAB (CRESTOR) PO SCH (08:54)
--- NOTE | 2021-03-02 09:48 | IPN ---
PROGRESS NOTE DATE: 03/02/2021 SUBJECTIVE: Leander is seen in the ICU. History of lung cancer status post chemotherapy and radiation therapy. Recent hospitalization mid December through mid January for health care-associated pneumonia, difficile colitis, history of hypotension, septic shock, hypovolemia, and probable C. difficile colitis. His blood pressure has recovered. GI panel is not done yet. Being treated empirically with Dificid. CT scan at baseline showed infiltrate, but procalcitonin is low and he is not currently on antibiotic therapy. He had just been discharged from [facility] rehab on 02/18. Denies any abdominal pain. He says he has only had a few episodes of diarrhea overnight that seems to be lessening. OBJECTIVE: VITAL SIGNS: Afebrile, blood pressure 111/58. GENERAL APPEARANCE: Alert, conversant, and in no distress. LUNGS: Clear. HEART: Regular rhythm. ABDOMEN: Soft, mildly tender, and nondistended. Good bowel sounds. EXTREMITIES: No clubbing, cyanosis, or edema. LABORATORY DATA: White count is down to 13.7, hemoglobin 9.9 after hydration, platelets 372,000. Sodium 145, potassium 3.4, BUN 27, creatinine 0.7. Albumin is 1.7. COVID test is negative. GI panel is pending. IMAGING DATA: CT abdomen and pelvis was consistent with colitis. He also has an abdominal aortic aneurysm 42 mm. IMPRESSION/PLAN: 1. Presumed Clostridium difficile colitis. He is on Dificid. We are still waiting for the gastrointestinal (GI) panel. Intravenous (IV) fluids will be changed to half-normal saline. He will be transferred out of the intensive care unit (ICU) as the blood pressure has recovered. 2. Septic shock with hypotension. Blood pressure has recovered. He no longer needs the ICU. IV fluids will be de-escalated. 3. Chronic obstructive pulmonary disease (COPD). Continue current bronchodilator therapy. 4. Abdominal aortic aneurysm. He needs outpatient follow-up for this. 5. History of coronary artery disease, asymptomatic. Continue his home medications. 6. Paroxysmal atrial fibrillation. Currently in sinus rhythm. He has had strict sinus rhythm overnight. 7. Diabetes. Continue sliding scale insulin with coverage. He can resume his home medications upon discharge. Anticipate discharge in the next two or three days.
[2021-03-02] MEDS ORDERED: POTASSIUM CHLORIDE 10 MEQ SR TABLET PO ONE (10:00)
[2021-03-02] MEDS: KCL 20MEQ IN 0.45NS 1000ML 1,000 ML IV SCH ×2 (10:16→20:04)
--- NOTE | 2021-03-02 17:13 | CR.PDOC ---
General Date of Consultation: March 02, 2021 Attending Physician: Kali Cee MD Consultation INFECTIOUS DISEASE CONSULTATION NOTE: REASON FOR CONSULTATION: Recurrent C dificile infection HISTORY OF PRESENT ILLNESS: Leander Troncoso is a 75 YO M wit history of stage II adenocarcinoma of the lung, recent hospitalization 12/28/20 - 01/18/21 for pneumonia and C dificile infection sensitive to the ED on 03/01/2021 with s everal days of watery diarrhea. The patient after last hospitalization was discharged to the [facility] where he stayed for about 3 weeks. His states that his diarrhea was ongoing and "never really went away." The patient reports feeling fatigued and having decreased appetite at the assisted. He was discharged from the assisted and went to his home for about 1 week prior to this admission. He denies any fevers but his reports he has had ongoing chills. He denies any night sweats or recent weight loss. On the last admission took 10 days of oral Dificid with completion on 01/15/21. Since the patient was discharged to assisted he was not able to receive IV Zinplava at that time. At this time, he is on day 2 of a second course of Dificid. This hospitalization has been complicated by episodes of hypotension but the patient is not currently requiring any pressors. ID was consulted for further antibiotic management in light of his ongoing C dificile infection. ALLERGIES: Please see below. HOME MEDICATIONS: Please see below. 1. Stage IIA/T2N2 right upper lobe PDL-1 negative, VRAF negative, EGFR negative adenocarcinoma of the lung 2. Chronic obstructive pulmonary disease (COPD). 3. Coronary artery disease with history of myocardial infarction (LA) status post stent placement. 4. History of thoracic aneurysm. 5. Hypertension. 6. Dyslipidemia. 7. Gastroesophageal reflux disease (GERD). 8. Macular degeneration. 9. Recent hospitalization for C dificile 12/2020 PAST SURGICAL HISTORY: 1. Coronary artery stents. 2. Infusaport in right upper chest. 3. Cataract surgery. 4. Appendectomy. SOCIAL HISTORY: Patient is ('s name is Emerita). He is a former cigarette smoker, having quit in September upon the time of his diagnosis. Patient has at least a 120 pack year history, having smoked two packs per day for at least 60 years. He has no significant alcohol history and denies any illicit drug use. FAMILY HISTORY: Father is , having in WWII. Mother is , history of coronary artery disease. Uncle due to ruptured aorta. REVIEW OF SYSTEMS: Constitutional: No Weight Change, No Fever, reports chills, no night sweats ENT/Mouth: No Hearing Changes, No Ear Pain, No Nasal Congestion, No Sinus Pain Eyes: No Eye Pain, No Swelling, No Redness, No Foreign Body, No Discharge, No Vision Changes Cardiovascular: No Chest Pain, No SOB, No PND, No Dyspnea on Exertion, No Orthopnea, No Claudication, No Edema, No Palpitations Respiratory: No Cough, No Wheezing, No Dyspnea Gastrointestinal: Reports ongoing watery diarrhea, 4 bowel movements yesterday. Denies nausea, denies vomiting Genitourinary: No Dysuria Musculoskeletal: No Arthralgias, No Myalgias, No Joint Swelling Skin: No Skin Lesions, No Pruritis Neuro: reports Weakness, No Numbness, No Paresthesias, No Loss of Consciousness , No Syncope Psych: No Anxiety/Panic, No Depression, No Insomnia, No Personality Changes, No Delusions Heme/Lymph: No Bruising, No Bleeding, No Transfusions History, No Lymphadenopathy Endocrine: No Polyuria, No Polydipsia, No Temperature Intolerance PHYSICAL EXAMINATION: VITAL SIGNS: Please see below. GENERAL: Appears stated age, very tired appearing, alert and oriented, in no apparent distress, pleasant and conversant in full sentences, he is shaking but not having rigors HEENT: PERRL, EOMI, Oral mucous membranes are moist without lesions. NECK: The patient has no noted JVD. No adenopathy is appreciated. No thyromegaly CHEST/LUNGS: Lungs are clear bilaterally without rhonchi, rales, or wheezes. There is no subcutaneous air appreciated. There is no tenderness to the chest wall. HEART: Regular rate and rhythm. No murmurs, rubs, or gallops are appreciated. Distal pulses are 2+. No carotid bruits appreciated. ABDOMEN: Soft, nontender, and nondistended. Bowel sounds are positive. No o rganomegaly is appreciated. No masses are appreciated. There are no peritoneal signs. There is no [place] sign. EXTREMITIES: No peripheral edema. There is no focal long bone tenderness or deformity. SKIN: The patients skin is warm and dry, without rashes or lesions. PSYCHIATRIC: AAO x 3, normal mood/affect NEUROLOGIC: No obvious focal deficits LABORATORY DATA: Please see below. IMAGING: CT ABD/PEL 03/01/21: IMPRESSION: 1. Colonic findings consistent with the given history of colitis. No evidence for obstruction or perforation. No ascites. No adenopathy. Small bowel is unremarkable. 2. Diverticulosis noted without definite acute diverticulitis. 3. Abdominal aortic aneurysm measuring 4.2 cm maximal transverse diameter. 4. Moderately distended gallbladder with small amount of gravel is nonspecific and without further evidence for acute cholecystitis by CT. CT CHEST 03/01/21: IMPRESSION: 1. Diffuse chronic changes remains stable. 2. In comparison with prior examination much of the previous multifocal infiltrates have resolved. However there does appear to be an area of increased consolidation/atelectasis extending from the right perihilar region to the posterior mid/upper lung zone. Short-term follow-up examination is recommended. ASSESSMENT: This is a 75-year-old male with history of recent pneumonia and C. difficile infection infection admitted for ongoing diarrhea concerning for recurrence of C. difficile and hypotension. ID consult in place for further anti biotic management. PLAN: -CT Abd/pel noted to have colitis without evidence of perforation or obstruction -Continue Dificid 200 mg PO BID for 10 days then 200mg daily for 5 days then QOD for 10 days Plan to to do tapering schedule as this is the 2nd occurrence of C difficile within 3 months -Concurrently, the patient can get IV Zinplava 10mg/kg dose after discharge once medically stable -Send stool for C difficile PCR today to document recurrence Vital Signs/I&O Vital Signs Date Time Temp Pulse Resp B/P (MAP) Pulse Ox O2 Delivery O2 Flow Rate FiO2 03/02/21 12:00 98.6 79 20 129/63 (85) 95 Nasal Cannula 2.0 I&O- Last 24 Hours up to 6 AM 03/02/21 06:00 Intake Total 3573 ml Output Total 400 ml Balance 3173 ml Laboratory Data Labs 24H Laboratory Tests 2 03/01/21 18:19: Bedside Glucose (Misc Panel) 66L 03/01/21 21:07: Bedside Glucose (Misc Panel) 96 03/02/21 04:27: Nucleated Red Blood Cells % (auto) 0.0, Anion Gap 9, Glomerular Filtration Rate > 60.0, Calcium Level 8.1L, Total Bilirubin 0.4, Aspartate Amino Transf (AST/SGOT) 19, Alanine Aminotransferase (ALT/SGPT) 28, Alkaline Phosphatase 86, Total Protein 5.0#L, Albumin 1.7L, Albumin/Globulin Ratio 0.5 03/02/21 07:48: Bedside Glucose (Misc Panel) 77L 03/02/21 12:37: Bedside Glucose (Misc Panel) 112H CBC/BMP Laboratory Tests 03/02/21 04:27 Microbiology Microbiology 03/01/21 Blood Culture - Preliminary, Resulted No growth after 24 hours . All specim... 03/01/21 Blood Culture - Preliminary, Resulted No growth after 24 hours . All specim... 03/01/21 Gastrointestinal Tract Panel (PCR), Received Pending Allergies Coded Allergies: Penicillins (Verified Adverse Reaction, Mild, itch, 12/29/20) Home Medications Scheduled Aspirin (Aspirin EC) 325 Mg Tabec, 325 MG PO DAILY, (Reported) Cilostazol (Cilostazol) 100 Mg Tab, 100 MG PO BID, (Reported) Famotidine (Famotidine) 20 Mg Tablet, 20 MG PO BID, (Reported) Ferrous Gluconate (Ferrous Gluconate) 324 Mg Tablet, 324 MG PO DAILY, (Reported) Fidaxomicin (Dificid) 200 Mg Tablet, 200 MG PO BID for 10 Days, #20 L.acidoph/L.bulg/B.bif/S.therm (Ramona-Bid Caplet) 1 Each Tablet, 1 EA PO BIDWM for 30 Days, #60 Metoprolol Tartrate (Metoprolol Tartrate) 25 Mg Tablet, 25 MG PO DAILY for 30 Days, #30 Rosuvastatin Calcium (Rosuvastatin Calcium) 20 Mg Tab, 20 MG PO DAILY, (Reported) Tiotropium [place] Monohydrate (Spiriva) 18 Mcg Cap.w.dev, 1 PUFF INH DAILY, (Reported) Vit C/E/Zn/Coppr/Lutein/Zeaxan (Preservision Areds 2 Softgel) 1 Each Capsule, 1 EACH PO BID, (Reported) Scheduled PRN Ondansetron (Ondansetron Odt) 8 Mg Tab.rapdis, 8 MG PO TID PRN for NAUSEA OR VOMITING, (Reported) GME ATTESTATION GME ATTESTATION My faculty preceptor for this patient encounter was physically present during the encounter and was fully available. All aspects of the patient interview, examination, medical decision making process, and medical care plan development were reviewed and approved by the faculty preceptor. The faculty preceptor is aware and concurs with the plan as stated in the body of this note and will attest to such by his/her cosignature. SARAH GUTIERRES MD March 02, 2021 17:13 Kali Cee MD March 05, 2021 14:29
[2021-03-03] MEDS: KCL 20MEQ IN 0.45NS 1000ML 1,000 ML IV SCH ×2 (05:47→14:58)
[2021-03-03 05:59] LABS: HEMATOCRIT 30.1 % (42.0-52.0); HEMOGLOBIN 9.3 g/dl (13.5-17.5); MEAN CORPUSCULAR HEMOGLOBIN 28.3 pg (27.0-33.0); MEAN CORPUSCULAR HGB CONC 30.9 g/dl (32.0-36.5); MEAN CORPUSCULAR VOLUME 91.5 fl (80.0-96.0); PLATELET COUNT, AUTOMATED 356 10^3/uL (150-450); RED BLOOD COUNT 3.29 10^6/uL (4.30-6.10); WHITE BLOOD COUNT 10.9 10^3/uL (4.0-10.0)
[2021-03-03 06:00] VITALS: BP 118/54
[2021-03-03 06:21] LABS: ALBUMIN 1.5 GM/DL (3.2-5.2); ALT/SGPT 22 U/L (12-78); BILIRUBIN,TOTAL 0.2 MG/DL (0.2-1.0); BLOOD UREA NITROGEN 23 MG/DL (7-18); CALCIUM LEVEL 8.3 MG/DL (8.8-10.2); CARBON DIOXIDE LEVEL 21 MEQ/L (21-32); CHLORIDE LEVEL 116 MEQ/L (98-107); CREATININE FOR GFR 0.74 MG/DL (0.70-1.30); GLOMERULAR FILTRATION RATE > 60.0 (>42); GLUCOSE, FASTING 77 MG/DL (70-100); POTASSIUM SERUM 3.6 MEQ/L (3.5-5.1); SODIUM LEVEL 144 MEQ/L (136-145); TOTAL PROTEIN 4.8 GM/DL (6.4-8.2)
[2021-03-03] MEDS: ENOXAPARIN 40MG/0.4ML SYRINGE (J1650 PER 10MG) SC SCH (08:00)
[2021-03-03] MEDS: FAMOTIDINE 20 MG TAB PO SCH ×2 (08:00→21:42)
[2021-03-03] MEDS: ROSUVASTATIN 10 MG TAB (CRESTOR) PO SCH (08:01)
[2021-03-03] MEDS: LACTOBACILLUS ACIDOPHILUS CAP (BACID) PO SCH ×2 (08:01→18:37)
[2021-03-03] MEDS: CILOSTAZOL 100 MG TAB (PLETAL) PO SCH ×2 (08:01→21:42)
[2021-03-03] MEDS: FIDAXOMICIN 200 MG TAB (DIFICID) PO SCH ×2 (08:01→21:42)
[2021-03-03] MEDS: ASPIRIN ENTERIC 325 MG TAB PO SCH (08:01)
[2021-03-03] MEDS: FERROUS GLUCONATE 324 MG TAB PO SCH (08:01)
[2021-03-03] MEDS: TIOTROPIUM INHALER/CAPSULE (SPIRIVA) INH SCH (12:19)
[2021-03-03 14:00] VITALS: BP 110/56
--- NOTE | 2021-03-03 15:11 | IPNPDOC ---
Text Note Date of Service The patient was seen on 03/03/21. NOTE Hospitalist Progress Note Subjective: Patient reports that he has continued to have multiple liquidy bowels throughout the night. His GI panel has come back positive for C. difficile colitis. Otherwise, he does report that he is feeling much better, albeit a little bit weak today. Objective: General: Awake, alert, oriented 3. Not in any acute distress. HEENT: Head normocephalic, atraumatic, sclera are nonicteric. Hearing is grossly intact to conversation. Respiratory: Clear to auscultation bilaterally with no wheezes, rales, or r honchi. Cardiovascular: Regular rate and rhythm, with no rubs, gallops, or murmur. Abdomen: Soft, nontender, nondistended, no hepatosplenomegaly appreciated. Bowel sounds present. Extremities: 2+ pulses in the radial and dorsalis pedis bilaterally. No evidence of clubbing or cyanosis. Assessment: Clostridium difficile colitis Septic shock with hypotension, resolved COPD Abdominal aortic aneurysm, chronic Coronary artery disease, chronic Paroxysmal atrial fibrillation Diabetes mellitus type 2 Plan: Confirmed C. difficile colitis today, continue Dificid at this time, and will put him on a tapering schedule upon discharge. Also will plan on getting IV Zinplava upon discharge as well. Leukocytosis is improving at this time. Vital signs, particularly blood pressur es remained stable. He does continue to have liquidy bowel movements, however they seem to have slowed down somewhat. We will discontinue fluids at this time, and if he continues to remain stable clinically, would anticipate discharge in next 1-2 days. VS,Fishbone, I+O VS, Fishbone, I+O Laboratory Tests 03/03/21 05:39 Vital Signs Date Time Temp Pulse Resp B/P (MAP) Pulse Ox O2 Delivery O2 Flow Rate FiO2 03/03/21 10:39 2.0 03/03/21 06:00 97.2 110 16 118/54 (75) 93 Nasal Cannula I&O- Last 24 Hours up to 6 AM 03/03/21 06:00 Intake Total 3365 ml Output Total 475 ml Balance 2890 ml JONAS GOSS DO March 03, 2021 15:11
[2021-03-03] MEDS ORDERED: ACETAMINOPHEN TAB 650MG DOSE (2X325MG) PO PRN (21:45)
[2021-03-03 22:00] VITALS: BP 128/63
[2021-03-04 06:00] VITALS: BP 119/65
[2021-03-04 06:30] LABS: HEMATOCRIT 27.6 % (42.0-52.0); HEMOGLOBIN 8.6 g/dl (13.5-17.5); MEAN CORPUSCULAR HEMOGLOBIN 27.7 pg (27.0-33.0); MEAN CORPUSCULAR HGB CONC 31.2 g/dl (32.0-36.5); PLATELET COUNT, AUTOMATED 368 10^3/uL (150-450); WHITE BLOOD COUNT 12.8 10^3/uL (4.0-10.0)
[2021-03-04 06:51] LABS: ALBUMIN 1.4 GM/DL (3.2-5.2); ALT/SGPT 22 U/L (12-78); BILIRUBIN,TOTAL 0.3 MG/DL (0.2-1.0); BLOOD UREA NITROGEN 18 MG/DL (7-18); CALCIUM LEVEL 7.7 MG/DL (8.8-10.2); CARBON DIOXIDE LEVEL 22 MEQ/L (21-32); CHLORIDE LEVEL 117 MEQ/L (98-107); CREATININE FOR GFR 0.79 MG/DL (0.70-1.30); GLOMERULAR FILTRATION RATE > 60.0 (>42); GLUCOSE, FASTING 114 MG/DL (70-100); POTASSIUM SERUM 3.4 MEQ/L (3.5-5.1); SODIUM LEVEL 146 MEQ/L (136-145); TOTAL PROTEIN 4.4 GM/DL (6.4-8.2)
[2021-03-04] MEDS: TIOTROPIUM INHALER/CAPSULE (SPIRIVA) INH SCH (07:14)
[2021-03-04] MEDS ORDERED: POTASSIUM CHLORIDE 10 MEQ SR TABLET PO ONE (08:15)
[2021-03-04] MEDS: FERROUS GLUCONATE 324 MG TAB PO SCH (08:40)
[2021-03-04] MEDS: FAMOTIDINE 20 MG TAB PO SCH ×2 (08:40→21:16)
[2021-03-04] MEDS: FIDAXOMICIN 200 MG TAB (DIFICID) PO SCH ×2 (08:40→21:16)
[2021-03-04] MEDS: ASPIRIN ENTERIC 325 MG TAB PO SCH (08:40)
[2021-03-04] MEDS: ROSUVASTATIN 10 MG TAB (CRESTOR) PO SCH (08:40)
[2021-03-04] MEDS: LACTOBACILLUS ACIDOPHILUS CAP (BACID) PO SCH ×2 (08:40→18:43)
[2021-03-04] MEDS: CILOSTAZOL 100 MG TAB (PLETAL) PO SCH ×2 (08:40→21:16)
[2021-03-04] MEDS: ENOXAPARIN 40MG/0.4ML SYRINGE (J1650 PER 10MG) SC SCH (08:41)
--- NOTE | 2021-03-04 12:51 | IPNPDOC ---
Text Note Date of Service The patient was seen on 03/04/21. NOTE Hospitalist Progress Note Subjective: Patient reports that he only had approximately 2-3 stools during the night, which is an improvement from prior. Apparently they're still liquid, but at least slowing down. Otherwise, he does not have any other additional complaints at this time. Objective: General: Awake, alert, oriented 3. Not in any acute distress. HEENT: Head normocephalic, atraumatic, sclera are nonicteric. Hearing is grossly intact to conversation. Respiratory: Clear to auscultation bilaterally with no wheezes, rales, or rhonchi. Cardiovascular: Regular rate and rhythm, with no rubs, gallops, or murmur. Abdomen: Soft, nontender, nondistended, no hepatosplenomegaly appreciated. Bowel sounds hyperactive. Extremities: 2+ pulses in the radial and dorsalis pedis bilaterally. No evidence of clubbing or cyanosis. Assessment: Clostridium difficile colitis Septic shock with hypotension, resolved COPD Abdominal aortic aneurysm, chronic Coronary artery disease, chronic Paroxysmal atrial fibrillation Diabetes mellitus type 2 Plan: -Continue Dificid at this time, recommendation from ID to put him on a tapering schedule upon discharge. -Also will plan on getting IV Zinplava upon discharge as well. - Leukocytosis jumped up again slightly, and spiked a low-grade temperature of 100.4 last night, but clinically he is doing well. - Discontinue fluids at this time, is able to maintain blood pressure and potassium orally, then at that time would be considered a candidate for discharge. Hopefully within the next few days. VS,Fishbone, I+O VS, Fishbone, I+O Laboratory Tests 03/04/21 06:09 Vital Signs Date Time Temp Pulse Resp B/P (MAP) Pulse Ox O2 Delivery O2 Flow Rate FiO2 03/04/21 06:32 109 03/04/21 06:00 98.3 20 119/65 (83) 99 Room Air 03/03/21 21:42 2.0 I&O- Last 24 Hours up to 6 AM 03/04/21 06:00 Intake Total 520 ml Output Total 675 ml Balance -155 ml JONAS GOSS DO March 04, 2021 12:51
[2021-03-04 14:00] VITALS: BP 114/64
[2021-03-04 22:00] VITALS: BP 124/68
[2021-03-05 06:00] VITALS: BP 116/66
[2021-03-05] MEDS: FIDAXOMICIN 200 MG TAB (DIFICID) PO SCH ×2 (08:31→20:19)
[2021-03-05] MEDS: FERROUS GLUCONATE 324 MG TAB PO SCH (08:31)
[2021-03-05] MEDS: FAMOTIDINE 20 MG TAB PO SCH ×2 (08:31→20:18)
[2021-03-05] MEDS: LACTOBACILLUS ACIDOPHILUS CAP (BACID) PO SCH ×2 (08:31→20:19)
[2021-03-05] MEDS: ENOXAPARIN 40MG/0.4ML SYRINGE (J1650 PER 10MG) SC SCH (08:31)
[2021-03-05] MEDS: ASPIRIN ENTERIC 325 MG TAB PO SCH (08:31)
[2021-03-05] MEDS: CILOSTAZOL 100 MG TAB (PLETAL) PO SCH ×2 (08:31→20:19)
[2021-03-05] MEDS: ROSUVASTATIN 10 MG TAB (CRESTOR) PO SCH (08:31)
[2021-03-05 09:26] LABS: BASO # 0.1 10^3/uL (0.0-0.2); BASO % 0.6 % (0.0-1.0); EOS # 0.4 10^3/uL (0.0-0.5); EOS % 3.6 % (0.0-3.0); HEMATOCRIT 35.4 % (42.0-52.0); LYMPH # 0.4 10^3/uL (1.5-5.0); LYMPH % 3.8 % (24.0-44.0); MEAN CORPUSCULAR HEMOGLOBIN 28.1 pg (27.0-33.0); MEAN CORPUSCULAR HGB CONC 31.4 g/dl (32.0-36.5); MEAN CORPUSCULAR VOLUME 89.6 fl (80.0-96.0); MONO # 0.9 10^3/uL (0.0-0.8); MONO % 7.7 % (2.0-8.0); NEUTROPHILS # 9.8 10^3/uL (1.5-8.5); NEUTROPHILS % 83.1 % (36.0-66.0); PLATELET COUNT, AUTOMATED 390 10^3/uL (150-450); RED BLOOD COUNT 3.95 10^6/uL (4.30-6.10); WHITE BLOOD COUNT 11.7 10^3/uL (4.0-10.0)
[2021-03-05 09:31] LABS: HEMOGLOBIN 11.1 g/dl (13.5-17.5)
[2021-03-05] MEDS: TIOTROPIUM INHALER/CAPSULE (SPIRIVA) INH SCH (09:40)
[2021-03-05 09:54] LABS: ALBUMIN 1.8 GM/DL (3.2-5.2); ALT/SGPT 27 U/L (12-78); BILIRUBIN,TOTAL 0.3 MG/DL (0.2-1.0); BLOOD UREA NITROGEN 16 MG/DL (7-18); CALCIUM LEVEL 8.4 MG/DL (8.8-10.2); CARBON DIOXIDE LEVEL 21 MEQ/L (21-32); CHLORIDE LEVEL 116 MEQ/L (98-107); GLOMERULAR FILTRATION RATE > 60.0 (>42); GLUCOSE, FASTING 86 MG/DL (70-100); MAGNESIUM LEVEL 1.7 MG/DL (1.8-2.4); POTASSIUM SERUM 3.7 MEQ/L (3.5-5.1); SODIUM LEVEL 144 MEQ/L (136-145); TOTAL PROTEIN 5.5 GM/DL (6.4-8.2)
[2021-03-05] MEDS ORDERED: METOPROLOL TART 25 MG TABLET PO ONE (10:45)
[2021-03-05] MEDS ORDERED: RISATAB3 PO (11:46)
[2021-03-05] MEDS ORDERED: DIFI200T PO (11:46)
[2021-03-05] MEDS ORDERED: METO1TAB87 PO (11:46)
[2021-03-05] MEDS ORDERED: POTASSIUM CHLORIDE 10 MEQ SR TABLET PO ONE (12:00)
[2021-03-05] MEDS ORDERED: MAGNESIUM GLUCONATE 500 MG TAB PO ONE (14:00)
--- NOTE | 2021-03-05 15:19 | IPN ---
PROGRESS NOTE DATE: 03/05/2021 SUBJECTIVE: Mr. Troncoso seems to be doing well. He is anxious to go home. He only had five bowel movements yesterday, but today he has had none documented yet. OBJECTIVE: He has had no fever or chills. No abdominal pain. His appetite is good. MEDICATIONS: Fidaxomicin 200 mg p.o. b.i.d. currently day #4. LABORATORY DATA: White count 11.7 down from 17.6, hemoglobin 11.1, hematocrit 35.4, platelets 390,000. Sodium 144, potassium 3.7, chloride 116, bicarb 21, BUN 16, creatinine 0.8, glucose 86, calcium 8.4, magnesium 1.7. GI panel was positive for C. diff. On 03/01, blood cultures were negative x2 sets. IMPRESSION AND PLAN: Recurrent Clostridium difficile (C. diff) colitis on Dificid 200 mg p.o. b.i.d. with improvement. The patient would benefit from discharge home on Dificid to finish a 10 day course followed by a tapering schedule. I would suggest doing it 200 mg p.o. b.i.d. for 10 days followed by 200 mg daily for five days and every other day for 10 days. He also would benefit from IV Zinplava infusion at a dose of 500 mg x1 dose at the infusion unit. There is some concern about his insurance and this will need prior authorization from the [place]. This is being worked up by secondary social studies teacher. Please let me know if his Zinplava is authorized; otherwise, I will work on it next week to get it [facility] as [facility]
[2021-03-05 22:00] VITALS: BP 106/54
[2021-03-06 06:00] VITALS: BP 100/58
[2021-03-06 06:56] LABS: HEMATOCRIT 30.2 % (42.0-52.0); HEMOGLOBIN 9.7 g/dl (13.5-17.5); MEAN CORPUSCULAR HEMOGLOBIN 28.4 pg (27.0-33.0); MEAN CORPUSCULAR HGB CONC 32.1 g/dl (32.0-36.5); MEAN CORPUSCULAR VOLUME 88.3 fl (80.0-96.0); PLATELET COUNT, AUTOMATED 379 10^3/uL (150-450); RED BLOOD COUNT 3.42 10^6/uL (4.30-6.10); WHITE BLOOD COUNT 12.8 10^3/uL (4.0-10.0)
[2021-03-06 07:36] LABS: BLOOD UREA NITROGEN 17 MG/DL (7-18); CARBON DIOXIDE LEVEL 23 MEQ/L (21-32); CHLORIDE LEVEL 117 MEQ/L (98-107); GLOMERULAR FILTRATION RATE > 60.0 (>42); GLUCOSE, FASTING 82 MG/DL (70-100); MAGNESIUM LEVEL 1.6 MG/DL (1.8-2.4); POTASSIUM SERUM 3.8 MEQ/L (3.5-5.1); SODIUM LEVEL 147 MEQ/L (136-145)
[2021-03-06] MEDS: TIOTROPIUM INHALER/CAPSULE (SPIRIVA) INH SCH (07:38)
[2021-03-06] MEDS ORDERED: METOPROLOL TART 25 MG TABLET PO SCH (09:00)
[2021-03-06] MEDS: LACTOBACILLUS ACIDOPHILUS CAP (BACID) PO SCH (09:39)
[2021-03-06] MEDS: FIDAXOMICIN 200 MG TAB (DIFICID) PO SCH (09:39)
[2021-03-06] MEDS: CILOSTAZOL 100 MG TAB (PLETAL) PO SCH (09:39)
[2021-03-06] MEDS: FERROUS GLUCONATE 324 MG TAB PO SCH (09:39)
[2021-03-06] MEDS: ROSUVASTATIN 10 MG TAB (CRESTOR) PO SCH (09:39)
[2021-03-06] MEDS: ASPIRIN ENTERIC 325 MG TAB PO SCH (09:39)
[2021-03-06] MEDS: FAMOTIDINE 20 MG TAB PO SCH (09:39)
[2021-03-06] MEDS: ENOXAPARIN 40MG/0.4ML SYRINGE (J1650 PER 10MG) SC SCH (09:48)
[2021-03-06 09:56] VITALS: BP 98/48
[2021-03-06] MEDS ORDERED: NS 1,000 ML IV ONE (10:00)
[2021-03-06] MEDS ORDERED: MAG SULF 1GM/100ML (MAG RUN) 1 GM in IV 1 EA IV ONE (11:00)
--- NOTE | 2021-03-06 12:33 | DS.PDOC ---
Discharge Summary General Date of Admission March 01, 2021 at 14:18 Date of Discharge 03/06/21 Discharge Summary PROCEDURES PERFORMED DURING STAY: [None]. ADMITTING DIAGNOSES: Clostridium difficile colitis Septic shock with hypotension, resolved COPD Abdominal aortic aneurysm, chronic Coronary artery disease, chronic Paroxysmal atrial fibrillation Diabetes mellitus type 2 DISCHARGE DIAGNOSES: Clostridium difficile colitis Septic shock with hypotension, resolved COPD Abdominal aortic aneurysm, chronic Coronary artery disease, chronic Paroxysmal atrial fibrillation Diabetes mellitus type 2 Protein Calorie Malnutrition COMPLICATIONS/CHIEF COMPLAINT: Diarrhea, Pneumonia. HISTORY OF PRESENT ILLNESS: Patient is a 75-year-old male with past medical history of stage II lung carcinoma status post chemotherapy and radiation, history of recent hospitalization for healthcare associated pneum onia and C. difficile colitis, history of COPD, CAD, GERD, anemia who presented to [facility] emergency room with the chief complaint of increased diarrhea over the past several days. The patient states that he recently left [facility] for rehabilitation and nursing 02/18/21. At the time he came home he had always had a decreased appetite which hadn't really picked up since his last hospitalization listed above. He states over the past several days he's had 34 diarrhea episodes daily, nonbloody, no associated abdominal pain. These episodes are associated with vomiting, nonbloody with increased diarrhea. The patient also complains of increased weakness, chills. He has a chronic cough that has not changed at all over the past several months. He denies chest pain, increased shortness of breath, abdominal pain, recent use of antibiotics. During the patient's last hospitalization for C. difficile colitis he was seen by infectious disease who treated him with 10 days of dificid. The patient was brought to the ER today to be further evaluated for recurrence. In the emergency room his BP initially was good at 126 mmHg; however, gradually decreased to 77 mmHg. HR 105, RR 20, T 97F, 100% on 2 L NC. Bolus was ordered but on evaluation this was not administered. Bolus fluids were encouraged with addition of IVFs continuous. CT chest: 1. Diffuse chronic changes remains stable, 2. In co mparison with prior examination much of the previous multifocal infiltrates have resolved, there does appear to be an area of increased consolidation/atelectasis extending from the right perihilar region to the posterior mid/upper lung zone. CT abd/pelvis: 1. Colonic findings consistent with the given history of colitis, 2. Diverticulosis noted without definite acute diverticulitis, 3. Abdominal aortic aneurysm measuring 4.2 cm maximal transverse diameter. WBC 17K, left shift. Gi panel and lactic acid ordered. Patient was admitted to ICU for hypotension r/o septic shock vs. hypovolemia 2/2 to diarrhea, r/o c. diff colitis, sepsis HOSPITAL COURSE: During hospital stay the following issues addressed 1 . Recurrent Clostridium difficile (C. diff) colitis Patient received Dificid 200 mg p.o. b.i.d. with improvement 2. Septic shock with hypotension. Patient received antibiotic therapy and IV fluid resuscitation 3. Chronic obstructive pulmonary disease (COPD). Patient received bronchodilator therapy. 4. Abdominal aortic aneurysm. He needs outpatient follow-up for this. 5. History of coronary artery disease, asymptomatic. Continue his home medications. 6. Paroxysmal atrial fibrillation. Currently in sinus rhythm. He has had strict sinus rhythm overnight. 7. Diabetes. Continue sliding scale insulin with coverage. He can resume his home medications upon discharge. DISCHARGE MEDICATIONS: Please see below. ALLERGIES: Please see below. PHYSICAL EXAMINATION ON DISCHARGE: General: Awake, alert, oriented 3. Not in any acute distress. HEENT: Head normocephalic, atraumatic, sclera are nonicteric. Hearing is grossly intact to conversation. Respiratory: Clear to auscultation bilaterally with no wheezes, rales, or rhonchi. Cardiovascular: Regular rate and rhythm, with no rubs, gallops, or murmur. Abdomen: Soft, nontender, nondistended, no hepatosplenomegaly appreciated. Bowel sounds hyperactive. Extremities: 2+ pulses in the radial and dorsalis pedis bilaterally. No evidence of clubbing or cyanosis. LABORATORY DATA: Please see below. IMAGING: See above PROGNOSIS: Fair ACTIVITY: [As tolerated]. DIET: Cardiac DISPOSITION: home DISCHARGE INSTRUCTIONS: The patient would benefit from discharge home on Dificid to finish a 10 day course followed by a tapering schedule. Recommended 200 mg p.o. b.i.d. for 10 days followed by 200 mg daily for five days and every other day for 10 days. He also would benefit from IV Zinplava infusion at a dose of 500 mg x1 dose at the infusion unit. . ITEMS TO FOLLOWUP ON ON OUTPATIENT: Follow-up with ID specialist in 5-7 days, follow-up with PCP in 3-5 days DISCHARGE CONDITION: [Stable]. TIME SPENT ON DISCHARGE: 40 minutes. Vital Signs/I&Os Vital Signs Date Time Temp Pulse Resp B/P (MAP) Pulse Ox O2 Delivery O2 Flow Rate FiO2 03/06/21 11:36 2.0 03/06/21 09:56 110 98/48 03/06/21 06:00 97.8 20 96 Nasal Cannula I&O- Last 24 Hours up to 6 AM 03/06/21 06:00 Intake Total 790 ml Output Total 895 ml Balance -105 ml Laboratory Data Labs 24H Laboratory Tests 2 03/05/21 16:54: Bedside Glucose (Misc Panel) 100 03/05/21 20:58: Bedside Glucose (Misc Panel) 116H 03/06/21 06:33: Nucleated Red Blood Cells % (auto) 0.0, Anion Gap 7L, Glomerular Filtration Rate > 60.0, Calcium Level 8.0L, Magnesium Level 1.6L 03/06/21 11:32: Bedside Glucose (Misc Panel) 121H CBC/BMP Laboratory Tests 03/06/21 06:33 FSBS Laboratory Tests Test 03/05/21 16:54 03/05/21 20:58 03/06/21 11:32 Range/Units Bedside Glucose (Misc Panel) 100 116 121 83-110 MG/DL Microbiology Microbiology 03/01/21 Blood Culture - Preliminary, Resulted No Growth after 72 hours. All specime... 03/01/21 Blood Culture - Preliminary, Resulted No Growth after 72 hours. All specime... 03/01/21 Gastrointestinal Tract Panel (PCR) - Final, Complete Clostridium Difficile A/B Discharge Medications Scheduled Aspirin (Aspirin EC) 325 Mg Tabec, 325 MG PO DAILY, (Reported) Cilostazol (Cilostazol) 100 Mg Tab, 100 MG PO BID, (Reported) Famotidine (Famotidine) 20 Mg Tablet, 20 MG PO BID, (Reported) Ferrous Gluconate (Ferrous Gluconate) 324 Mg Tablet, 324 MG PO DAILY, (Reported) Fidaxomicin (Dificid) 200 Mg Tablet, 200 MG PO BID L.acidoph/L.bulg/B.bif/S.therm (Ramona-Bid Caplet) 1 Each Tablet, 1 EA PO BIDWM Metoprolol Tartrate (Metoprolol Tartrate) 25 Mg Tablet, 25 MG PO DAILY Rosuvastatin Calcium (Rosuvastatin Calcium) 20 Mg Tab, 20 MG PO DAILY, (Reported) Tiotropium [place] Monohydrate (Spiriva) 18 Mcg Cap.w.dev, 1 PUFF INH DAILY, (Reported) Vit C/E/Zn/Coppr/Lutein/Zeaxan (Preservision Areds 2 Softgel) 1 Each Capsule, 1 EACH PO BID, (Reported) Scheduled PRN Ondansetron (Ondansetron Odt) 8 Mg Tab.rapdis, 8 MG PO TID PRN for NAUSEA OR VOMITING, (Reported) Allergies Coded Allergies: Penicillins (Verified Adverse Reaction, Mild, itch, 12/29/20) VIVIAN LAGOS DO March 06, 2021 12:33
[2021-03-06 14:15] VITALS: BP 110/58
== END 2021-03-06 14:15 | disposition home health service (06) | DRG 871 ==
LOC: M ED 09:25 → M ED INP 14:18 → ENRESERV 15:56 → M ICU 17:21 → M MSPAV 03-02 20:21
PROVIDERS: ADMIT Internal Medicine; ATTEND Internal Medicine
DX: A41.9 Sepsis, unspecified organism (principal); R65.21 Severe sepsis with septic shock; I50.32 Chronic diastolic (congestive) heart failure; J96.11 Chronic respiratory failure with hypoxia; A04.71 Enterocolitis due to Clostridium difficile, recurrent; E46 Unspecified protein-calorie malnutrition; Z68.1 Body mass index [BMI] 19.9 or less, adult; I25.10 Atherosclerotic heart disease of native coronary artery without angina pectoris; K21.9 Gastro-esophageal reflux disease without esophagitis; Z66 Do not resuscitate; D64.9 Anemia, unspecified; I11.0 Hypertensive heart disease with heart failure; E78.5 Hyperlipidemia, unspecified; E11.9 Type 2 diabetes mellitus without complications; H35.30 Unspecified macular degeneration; I71.4 Abdominal aortic aneurysm, without rupture; I48.0 Paroxysmal atrial fibrillation; Z99.81 Dependence on supplemental oxygen; Z95.5 Presence of coronary angioplasty implant and graft; Z98.49 Cataract extraction status, unspecified eye; Z90.49 Acquired absence of other specified parts of digestive tract; Z92.21 Personal history of antineoplastic chemotherapy; Z92.3 Personal history of irradiation; Z79.82 Long term (current) use of aspirin; Z79.899 Other long term (current) drug therapy; Z88.0 Allergy status to penicillin; Z87.891 Personal history of nicotine dependence; Z85.118 Personal history of other malignant neoplasm of bronchus and lung

== ENCOUNTER → 2021-03-11 | Outpatient (REF) | payer MEDICARE ==
[~2021-03-11] MED LIST changes: +DIFI200T PO; +FERR32TA PO; +METO25TA4 PO; +MIRT1TAB PO; +OLAN10TA2 PO; +OMEP40CA4 PO; -OMEP40CA97 PO; +ONDA8TAB10 PO; +POTA4.25 PO; +PROC10TA4 PO
[2021-03-11 13:34] LABS: BASO # 0.1 10^3/uL (0.0-0.2); BASO % 0.4 % (0.0-1.0); EOS # 0.4 10^3/uL (0.0-0.5); EOS % 2.9 % (0.0-3.0); HEMATOCRIT 32.4 % (42.0-52.0); HEMOGLOBIN 9.8 g/dl (13.5-17.5); LYMPH # 0.4 10^3/uL (1.5-5.0); MEAN CORPUSCULAR HEMOGLOBIN 27.5 pg (27.0-33.0); MEAN CORPUSCULAR HGB CONC 30.2 g/dl (32.0-36.5); MEAN CORPUSCULAR VOLUME 90.8 fl (80.0-96.0); MONO # 0.9 10^3/uL (0.0-0.8); MONO % 6.9 % (2.0-8.0); NEUTROPHILS % 85.9 % (36.0-66.0); PLATELET COUNT, AUTOMATED 422 10^3/uL (150-450); RED BLOOD COUNT 3.57 10^6/uL (4.30-6.10); WHITE BLOOD COUNT 12.8 10^3/uL (4.0-10.0)
[2021-03-11 13:57] LABS: ALBUMIN 1.8 GM/DL (3.2-5.2); ALT/SGPT 61 U/L (12-78); BILIRUBIN,TOTAL 0.3 MG/DL (0.2-1.0); BLOOD UREA NITROGEN 13 MG/DL (7-18); CALCIUM LEVEL 8.3 MG/DL (8.8-10.2); CARBON DIOXIDE LEVEL 29 MEQ/L (21-32); CHLORIDE LEVEL 104 MEQ/L (98-107); CREATININE FOR GFR 0.72 MG/DL (0.70-1.30); GLOMERULAR FILTRATION RATE > 60.0 (>42); GLUCOSE, FASTING 86 MG/DL (70-100); POTASSIUM SERUM 3.6 MEQ/L (3.5-5.1); SODIUM LEVEL 138 MEQ/L (136-145); TOTAL PROTEIN 5.5 GM/DL (6.4-8.2)
== END ==
LOC: M SFHCPLAZ 11:31
PROVIDERS: ATTEND Internal Medicine Infectious Disease
DX: A04.71 Enterocolitis due to Clostridium difficile, recurrent (principal); Z79.899 Other long term (current) drug therapy
CPT/HCPCS: 36415; 80053; 85025; G0463

== ENCOUNTER 2021-03-21 15:44 | Emergency (ER) | payer MEDICARE ==
[~2021-03-21] VITALS: Ht 170.2 cm; Wt 62.3 kg
[~2021-03-21 15:44] MED LIST changes: -METO25TA4 PO; -OMEP40CA4 PO; +OMEP40CA97 PO
[2021-03-21 16:18] LABS: BASO # 0.1 10^3/uL (0.0-0.2); BASO % 0.5 % (0.0-1.0); EOS # 0.1 10^3/uL (0.0-0.5); EOS % 0.5 % (0.0-3.0); HEMATOCRIT 28.9 % (42.0-52.0); LYMPH # 0.4 10^3/uL (1.5-5.0); MEAN CORPUSCULAR HEMOGLOBIN 28.8 pg (27.0-33.0); MEAN CORPUSCULAR HGB CONC 31.1 g/dl (32.0-36.5); MEAN CORPUSCULAR VOLUME 92.3 fl (80.0-96.0); MONO # 1.1 10^3/uL (0.0-0.8); MONO % 9.1 % (2.0-8.0); NEUTROPHILS # 10.6 10^3/uL (1.5-8.5); NEUTROPHILS % 86.5 % (36.0-66.0); PLATELET COUNT, AUTOMATED 390 10^3/uL (150-450); RED BLOOD COUNT 3.13 10^6/uL (4.30-6.10); WHITE BLOOD COUNT 12.3 10^3/uL (4.0-10.0)
--- NOTE | 2021-03-21 16:39 | REP ---
INDICATION: DYSPNEA/COUGH. COMPARISON: Comparison portable chest x-ray March 01, 2021. TECHNIQUE: Portable upright AP chest radiograph. FINDINGS: Monitoring electrodes are seen. Right internal jugular central venous [id number] catheter is seen with its tip in the expected location of the superior vena cava. There is an area of parenchymal consolidation in the right upper lobe with adjacent pleural thickening. This is more prominent than on the March 01, 2021 and January 09, 2021 prior radiographs. There is slight blunting of the right lateral pleural angle. No infiltrate is visible in the left chest. There is subtle fullness in the right paratracheal region unchanged.. IMPRESSION: Right upper lobe opacity increased in size and density compared with the March 01, 2026 1 study. New pleural thickening adjacent to this, and slight blunting of the right lateral pleural angle noted. [id number] catheter. <Electronically signed by Kenneth Hazel > 03/21/21 [id number]
[2021-03-21] MEDS ORDERED: MORPHINE 2 MG/ML 1ML VIAL (J2270) IV PRN (16:40)
[2021-03-21] MEDS ORDERED: ONDANSETRON 4MG/2ML VIAL IV ONE (16:40)
[2021-03-21 16:49] LABS: ALBUMIN 2.1 GM/DL (3.2-5.2); BILIRUBIN,DIRECT 0.2 MG/DL (0.0-0.2); BILIRUBIN,TOTAL 0.4 MG/DL (0.2-1.0); THYROID STIMULATING HORMONE 2.6 uIU/ML (0.358-3.740); THYROXINE (T4) 7.4 UG/DL (4.5-12.0); TOTAL PROTEIN 6.1 GM/DL (6.4-8.2)
[2021-03-21] MEDS ORDERED: ISOVUE-370 76% 100ML VIAL As Ordered ONE (17:03)
[2021-03-21 17:04] LABS: RSV AMPLIFICATION NEGATIVE (NEGATIVE)
--- NOTE | 2021-03-21 18:24 | REPVR ---
PROCEDURE INFORMATION: Exam: CTA Chest With Contrast Exam date and time: 03/21/2021 4:57 PM Age: 75 years old Clinical indication: Chest wall pain; Additional info: Pleuritic cp TECHNIQUE: Imaging protocol: Computed tomographic angiography of the chest with contrast. 3D rendering (Not supervised by radiologist): MIP and/or 3D reconstructed images were created by the technologist. Radiation optimization: All CT scans at this facility use at least one of these dose optimization techniques: automated exposure control; mA and/or kV adjustment per patient size (includes targeted exams where dose is matched to clinical indication); or iterative reconstruction. Contrast material: ISOVUE 370; Contrast volume: 75 ml; Contrast route: INTRAVENOUS (IV); COMPARISON: CT CHEST WITHOUT CONTRAST 03/01/2021; CT ANGIO CHEST 12/26/2020 10:00 AM FINDINGS: Tubes, catheters and devices: Right chest wall port present with catheter tip at the cavoatrial junction, unchanged. Pulmonary arteries: No pulmonary arterial embolism. Aorta: Mild atherosclerosis of the thoracic aorta and coronary arteries. Lungs: The right upper lobe/right suprahilar mass is unchanged. Multifocal patchy opacities, coarse linear markings and consolidation are unchanged. Pulmonary emphysema, unchanged. Right lower lobe mucous plugging. Pleural spaces: Small right pleural effusion, increased in size compared to the previous exam. Heart: Trace pericardial thickening. Lymph nodes: Mediastinal and right hilar lymphadenopathy, unchanged. Small calcified lymph nodes in the left pulmonary hilum. Spleen: Calcified granulomas within the spleen. Bones/joints: No fracture or suspicious bone lesion. Soft tissues: Unremarkable. IMPRESSION: 1. No pulmonary arterial embolism. 2. Bilateral lung opacities and emphysema, unchanged. 3. Right upper lobe/right suprahilar mass, unchanged. 4. Small right pleural effusion, increased in size compared to the previous exam. Electronically signed by: Delroy Rojas On 03/21/2021 18:23:23 PM
[2021-03-21 18:31] LABS: VENOUS BASE EXCESS 2.8 (-2.0-2.0); VENOUS HCO3 29.2 MEQ/L (23.0-27.0); VENOUS O2 SATURATION 90.5 % (60.0-80.0); VENOUS PARTIAL PRESSURE CO2 54.2 mmHg (38.0-50.0); VENOUS PARTIAL PRESSURE O2 65.5 mmHg (30.0-50.0); VENOUS STANDARD HCO3 26.9 MEQ/L; VENOUS TOTAL CO2 30.8 MEQ/L (24.0-28.0)
[2021-03-21 18:32] LABS: VENOUS PH 7.349 UNITS (7.330-7.430)
[2021-03-21] MEDS ORDERED: NS 500 ML IV ONE (18:35)
[2021-03-21] MEDS ORDERED: MIRT1TAB PO (18:43)
[2021-03-21] MEDS ORDERED: PANT40TA29 PO (18:43)
[2021-03-21] MEDS ORDERED: RISATAB3 PO (18:55)
[2021-03-21] MEDS ORDERED: METO25TA4 PO (18:55)
[2021-03-21] MEDS ORDERED: DIFI200T PO (18:55)
[2021-03-21] MEDS ORDERED: OXYCODONE/APAP 5MG/325MG(BULK FOR ED) 1 TABLET PO ONE (22:35)
[2021-03-21 22:45] VITALS: BP 96/53
--- NOTE | 2021-03-22 16:56 | ECGEPIP ---
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
--- NOTE | 2021-03-22 16:59 | ECGEPIP ---
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
== END 2021-03-21 23:00 | disposition home or self-care (01) ==
LOC: M ED 15:44
DX: R07.89 Other chest pain (principal); E11.9 Type 2 diabetes mellitus without complications; J44.9 Chronic obstructive pulmonary disease, unspecified; I48.91 Unspecified atrial fibrillation; C34.90 Malignant neoplasm of unspecified part of unspecified bronchus or lung; Z99.81 Dependence on supplemental oxygen; Z95.5 Presence of coronary angioplasty implant and graft; Z79.899 Other long term (current) drug therapy; Z79.82 Long term (current) use of aspirin; Z88.0 Allergy status to penicillin; F17.210 Nicotine dependence, cigarettes, uncomplicated
CPT/HCPCS: 71045; 71275; 80047; 80076; 82803; 83605; 83880; 84436; 84443; 84484; 85025; 87040; 87631; 93005; 93041; 96361; 96374; 96375; 99285; J2270; J2405; Q9967

== ENCOUNTER 2021-04-01 15:52 | Outpatient (CLI) | payer MEDICARE ==
[~2021-04-01] VITALS: Ht 170.2 cm; Wt 53.1 kg
[~2021-04-01 15:52] MED LIST changes: +METO25TA4 PO; +OMEP40CA4 PO; -OMEP40CA97 PO
[2021-04-01 16:00] VITALS: BP 142/65
[2021-04-01] MEDS ORDERED: BEZLOTOXUMAB 500 MG in NS 100 ML IV ONE (16:00)
[2021-04-01 17:26] VITALS: BP 134/79
== END 2021-04-01 17:30 | disposition home or self-care (01) ==
LOC: M INFU 15:52
PROVIDERS: ATTEND Internal Medicine Infectious Disease
DX: A04.71 Enterocolitis due to Clostridium difficile, recurrent (principal)
CPT/HCPCS: 96365; J0565

== ENCOUNTER → 2021-04-19 | Outpatient (CLI) | payer MEDICARE ==
[~2021-04-19] MED LIST changes: +ASPI81CH33 PO; +ERGO500029 PO; +FURO40TA2 PO; -OLAN10TA2 PO; +OLAN1TAB20 PO; +ONDA-84 PO; -ONDA8TAB10 PO; -PROC10TA4 PO; +PROC10TA5 PO; +[UNRECOGNIZED DRUG - CODE] EX
== END ==
LOC: M PLARAD 14:27
PROVIDERS: ATTEND Internal Medicine Hematology & Oncology
DX: C34.12 Malignant neoplasm of upper lobe, left bronchus or lung (principal)
CPT/HCPCS: 78815; A9552

== ENCOUNTER → 2021-05-11 | Outpatient (CLI) | payer MEDICARE ==
[~2021-05-11] MED LIST changes: -ASPI81CH33 PO; -ERGO500029 PO; -ONDA-84 PO; +ONDA8TAB10 PO; +PROC10TA4 PO; -PROC10TA5 PO; -[UNRECOGNIZED DRUG - CODE] EX
--- NOTE | 2021-05-12 08:30 | RADONC ---
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 He completed chemoradiation 60 Gy in 30 fractions with weekly carbo/taxol on 11/11/20. His post-treatment course was complicated by HCAP and C difficile colitis, which resulted in a 2 month long hospitalization. He is seen today for follow up. Diagnosis/Treatment History Oncologic History Patient smoked 1 ppd for 60 years. On 08/01/20 he was hunting and became SOB, later in the day he had epigastric pain, this led to an ED visit the following day during which he underwent CT chest showing a RUL mass lesion right level 4 and 10 adenopathy. He underwent EBUS biopsy on 08/21/20 at [facility] which showed adenocarcinoma. He was referred to [facility] to pursue treatment closer to home. 09/15/20 PET-CT with right perihilar mass and ipsilateral mediastinal adenopathy [id number] stage IIIA 09/18/20 MRI head negative 09/29/20-11/11/20 Chemoradiation 60 Gy in 30 fractions with weekly carbo/taxol 12/17/20 Received cycle 1 of 2 of adjuvant full dose carbo/taxol 12/26/20-03/06/21 Admitted x2 first with HCAP, then developed subsequent C diff, lost 30 lbs. 04/19/21 PET-CT with residual RLL inflammation/pneumonia resolving, indeterminate right hilar/subcarinal uptake 05/06/21 Started durvalumab Interval History Here with his , reports he lost 30 lbs with the frequent hospitalizations this spring. He is feeling better however, mild residual HO[place], which is similar to before treatment. His appetite is recovering. He has no chest pain. He has a productive cough. Current Therapy Durvalumab Stage RUL NSCLC [id number] stage IIIA Social History: Former smoker quit 07/2020 smoked for 60+ years Drinks per 4-5 cans per week Allergies / Meds Allergies: Coded Allergies: Penicillins (Verified Adverse Reaction, Mild, itch, 12/29/20) Home Meds Active Scripts Famotidine (Famotidine) 20 Mg Tablet, 20 MG PO BID, #60 TAB 3 Refills Prov:KUDELKA,JOSE P. MD 05/11/21 Reported Medications Furosemide (Furosemide) 40 Mg Tablet, 40 MG PO DAILY for 30 Days, #30 TAB 04/15/21 Metoprolol Tartrate (Metoprolol Tartrate) 25 Mg Tablet, 25 MG PO DAILY, TAB 03/21/21 L.acidoph/L.bulg/B.bif/S.therm (Ramona-Bid Caplet) 1 Each Tablet, 1 TAB PO BIDWM, TAB 03/21/21 Tiotropium Fay Monohydrate (Spiriva) 18 Mcg Cap.w.dev, 1 PUFF INH DAILY, INHALER 12/26/20 Vit C/E/Zn/Coppr/Lutein/Zeaxan (Preservision Areds 2 Softgel) 1 Each Capsule, 1 EACH PO BID, CAP 09/16/20 Aspirin (Aspirin EC) 325 Mg Tabec, 325 MG PO DAILY 11/16/17 Cilostazol (Cilostazol) 100 Mg Tab, 100 MG PO BID 11/16/17 Rosuvastatin Calcium (Rosuvastatin Calcium) 20 Mg Tab, 20 MG PO DAILY 11/16/17 Review of Systems Review of Systems Constitutional: Reports: Fatigue, Weight Loss; Denies: Fever Eyes: Denies: Pain HEENT: Denies: Head Aches Skin: Denies: Rash Pulmonary: Reports: Dyspnea, Cough Cardiovascular: Denies: Chest Pain, Palpitations Gastrointestinal: Denies: Abdominal Pain, Diarrhea Musculoskeletal: Denies: Neck pain, Back pain Neurological: Denies: Weakness, Numbness Psych: Reports: Mood Normal Physical Examination Vital Signs Wt 114 lbs T 97 P 103 RR 20 BP 103/67 O2 99% Pain 0 Fatigue 1 General Exam: Positive: Alert, Cooperative, No Acute Distress Eye Exam: Positive: PERRLA, EOMI ENT EXAM: Positive: Atraumatic Neck Exam: Positive: Supple; Negative: Lymphadenopathy Chest Exam: Positive: Clear to auscultation, Rales (Right sided) Heart Exam: Positive: Rate Normal, Regular Rhythm Abdomen Exam: Positive: Soft Extremity Exam: Negative: Edema Skin Exam: Positive: Nl turgor and temperature Neuro Exam: Positive: Normal Gait, Normal Speech, Cranial Nerves 3-12 NL Psych Exam: Positive: Mental status NL Diagnostic and Laboratory Diagnostic Review Radiologic images, relevant labs and pathology reports were personally reviewed and discussed with Mr. Troncoso. Assessment and Plan Impression Assessment Mr. 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 He completed chemoradiation 60 Gy in 30 fractions with weekly carbo/taxol on 11/11/20. His post-treatment course was complicated by HCAP and C difficile colitis, which resulted in a 2 month long hospitalization. He is seen today for follow up and survivorship care. He is recovering slowly from severe right sided pneumonia and subsequent C diff. He has no apparent late effects of RT at this time. Reviewed his PET-CT results in detail, explained that the resolving pneumonia is confounding but that compared to the initial staging PET-CT from September 2020, there has been a marked and favorable response. I stated that I would hope for continued improvement in the mild hypermetabolism in the hilum and mediastinum on subsequent imaging, which has been planned by medical oncology for ~ 3 months post-initiation of durvalumab. I will see him back at that time. I encouraged him to strive to gain back some of the lost weight and exercise. He should focus on high protein foods. His stated they are working on this. Performance Status ECOG 1 Plan Follow up in 3 months Imaging per medical oncology Mr. Troncoso was encouraged to call with questions or concerns in the interim period. Billing Statement Total time of [26] minutes was spent preparing for the visit [1], obtaining HPI [6], examining the patient [2], reviewing diagnostic tests [4], discussing management options [6], coordinating care [1], and writing this note [6]. KEILY CAMPUZANO MD May 12, 2021 08:30
== END ==
LOC: M ONCR 15:12
PROVIDERS: ATTEND General Practice
DX: C34.11 Malignant neoplasm of upper lobe, right bronchus or lung (principal); Z79.899 Other long term (current) drug therapy; Z87.891 Personal history of nicotine dependence; Z88.0 Allergy status to penicillin; Z92.21 Personal history of antineoplastic chemotherapy; Z92.3 Personal history of irradiation

== ENCOUNTER → 2021-05-24 | Outpatient (CLI) | payer MEDICARE ==
--- NOTE | 2021-05-24 10:15 | REP ---
INDICATION: F/U AAA COMPARISON: Comparison with CT dated 03/01/2021 TECHNIQUE: Real time torres scale ultrasound examination using curved array transducer. FINDINGS: Infrarenal abdominal aortic aneurysm measures 3.9 x 4.9 cm maximal diameter and approximately 10 cm in craniocaudal length originating less than 1 cm from the main renal arteries and extending into the right iliac artery. Proximal aorta: 1.7 x 2.1 cm Aorta at renal arteries: 1.7 x 2.2 cm Mid aorta: 2.8 x 2.9 cm Distal aorta: 3.9 x 4.9 cm Right common iliac artery: 1.2 x 2.1 cm Left common iliac artery: 0.7 x 1.2 cm IMPRESSION: Abdominal aortic aneurysm with extension to the right iliac artery as described above. <Electronically signed by Lawrence Steele > 05/24/21 1011
== END ==
LOC: M RAD 09:09
PROVIDERS: ATTEND Internal Medicine Medical Oncology
DX: I71.4 Abdominal aortic aneurysm, without rupture (principal)

== ENCOUNTER → 2021-08-26 | Outpatient (CLI) | payer MEDICARE ==
[~2021-08-26] MED LIST changes: +ASPI81CH33 PO; +ERGO500029 PO; +ONDA-84 PO; -ONDA8TAB10 PO; -PROC10TA4 PO; +PROC10TA5 PO; +[UNRECOGNIZED DRUG - CODE] EX
== END ==
LOC: M ONCR 14:01
PROVIDERS: ATTEND General Practice
DX: C34.11 Malignant neoplasm of upper lobe, right bronchus or lung (principal); I25.10 Atherosclerotic heart disease of native coronary artery without angina pectoris; Z87.891 Personal history of nicotine dependence; Z92.3 Personal history of irradiation; Z92.21 Personal history of antineoplastic chemotherapy; Z88.0 Allergy status to penicillin; Z79.899 Other long term (current) drug therapy

== ENCOUNTER → 2021-11-04 | Outpatient (CLI) | payer MEDICARE ==
[~2021-11-04] MED LIST changes: -[UNRECOGNIZED DRUG - CODE] EX
== END ==
LOC: M WUC 14:45
PROVIDERS: ATTEND Physician Assistant Medical
DX: M54.50 Low back pain, unspecified (principal)

== ENCOUNTER → 2021-11-25 | Outpatient (CLI) | payer MEDICARE ==
[~2021-11-25] MED LIST changes: +[UNRECOGNIZED DRUG - CODE] EX
== END ==
LOC: M RAD 11:28
PROVIDERS: ATTEND Internal Medicine Hematology & Oncology
DX: C18.9 Malignant neoplasm of colon, unspecified (principal)

== ENCOUNTER → 2021-12-06 | Outpatient (CLI) | payer MEDICARE ==
[~2021-12-06] MED LIST changes: +NAPR-837 PO
== END ==
LOC: M PLARAD 11:18
PROVIDERS: ATTEND Internal Medicine Medical Oncology
DX: R93.89 Abnormal findings on diagnostic imaging of other specified body structures (principal); S22.080A Wedge compression fracture of T11-T12 vertebra, initial encounter for closed fracture; C34.11 Malignant neoplasm of upper lobe, right bronchus or lung; D59.9 Acquired hemolytic anemia, unspecified
CPT/HCPCS: 78815; A9552

== ENCOUNTER → 2021-12-24 | Outpatient (CLI) | payer MEDICARE ==
[~2021-12-24] MED LIST changes: +PROHANCE 279.3MG/ML 5ML VIAL ONE
== END ==
LOC: M PLAIMG 09:59
PROVIDERS: ATTEND Internal Medicine Medical Oncology
DX: C34.90 Malignant neoplasm of unspecified part of unspecified bronchus or lung (principal)
CPT/HCPCS: 72157; 72158; A9576

== ENCOUNTER → 2022-01-07 | Outpatient (CLI) | payer MEDICARE ==
[~2022-01-07] MED LIST changes: +CVS5000S2 SL; +HYDR-4517 PO; +LIDOCAINE 1% MDV 20ML VIAL As Ordered ONE; -PROHANCE 279.3MG/ML 5ML VIAL ONE
[2022-01-07 14:03] VITALS: BP 140/70
== END ==
LOC: M IRPRO 11:58
PROVIDERS: ATTEND Internal Medicine Hematology & Oncology
DX: G95.9 Disease of spinal cord, unspecified (principal)

== ENCOUNTER → 2022-01-13 | Outpatient (REF) | payer MEDICARE ==
[~2022-01-13] MED LIST changes: -LIDOCAINE 1% MDV 20ML VIAL As Ordered ONE
[2022-01-13 10:45] LABS: FREE T3 2.4 PG/ML (2.2-4.0); FREE T4 1.35 NG/DL (0.76-1.46); THYROID STIMULATING HORMONE 5.23 uIU/ML (0.358-3.740)
[2022-01-13 10:46] LABS: THYROID PEROXIDASE ANTIBODY 35.7 U/ML (<60.0)
[2022-01-14 10:09] LABS: THRYOGLOBULIN ANTIBODIES (ATA) < 1.0 IU/mL (0.0-0.9); THYROGLOBULIN QUANTITATIVE 7.9 ng/mL (1.4-29.2)
== END ==
LOC: M LAB REF 09:47
PROVIDERS: ATTEND Nurse Practitioner Adult Health
DX: E03.9 Hypothyroidism, unspecified (principal)

== ENCOUNTER → 2022-01-13 | Outpatient (CLI) | payer MEDICARE | LOC: M ONCR 11:41 | PROVIDERS: ATTEND General Practice | DX: C34.11 Malignant neoplasm of upper lobe, right bronchus or lung (principal); S32.050A Wedge compression fracture of fifth lumbar vertebra, initial encounter for closed fracture ==

== ENCOUNTER → 2022-01-25 | Outpatient (POV) | payer MEDICARE ==
[~2022-01-25] VITALS: Ht 170.2 cm; Wt 54.4 kg
[2022-01-25 10:35] VITALS: BP 133/71
== END ==
LOC: M IRPOV 10:26
PROVIDERS: ATTEND Radiology Diagnostic Radiology
DX: S32.050A Wedge compression fracture of fifth lumbar vertebra, initial encounter for closed fracture (principal); X50.0XXD Overexertion from strenuous movement or load, subsequent encounter; Z85.118 Personal history of other malignant neoplasm of bronchus and lung; Z87.891 Personal history of nicotine dependence; Z88.0 Allergy status to penicillin; Z92.21 Personal history of antineoplastic chemotherapy; Z92.3 Personal history of irradiation

== ENCOUNTER → 2022-02-15 | Outpatient (POV) | payer MEDICARE ==
[~2022-02-15] VITALS: Ht 170.2 cm; Wt 54.5 kg
[2022-02-15 09:55] VITALS: BP 151/69
== END ==
LOC: M IRPOV 09:48
PROVIDERS: ATTEND Radiology Diagnostic Radiology
DX: S32.050D Wedge compression fracture of fifth lumbar vertebra, subsequent encounter for fracture with routine healing (principal); Z88.0 Allergy status to penicillin

== ENCOUNTER → 2022-02-23 | Outpatient (REF) | payer MEDICARE | LOC: M LAB REF 12:23 | PROVIDERS: ATTEND Physician Assistant Medical | DX: N39.0 Urinary tract infection, site not specified (principal) ==

== ENCOUNTER → 2022-02-24 | Outpatient (CLI) | payer MEDICARE | LOC: M ONCR 09:55 | PROVIDERS: ATTEND General Practice | DX: C34.11 Malignant neoplasm of upper lobe, right bronchus or lung (principal); N39.0 Urinary tract infection, site not specified; I25.10 Atherosclerotic heart disease of native coronary artery without angina pectoris; I25.2 Old myocardial infarction; Z86.19 Personal history of other infectious and parasitic diseases; Z87.891 Personal history of nicotine dependence; Z88.0 Allergy status to penicillin; Z79.82 Long term (current) use of aspirin; Z79.899 Other long term (current) drug therapy; Z92.21 Personal history of antineoplastic chemotherapy; Z92.3 Personal history of irradiation | CPT/HCPCS: 84153; G0463 ==

== ENCOUNTER → 2022-02-24 | Outpatient (REF) | payer MEDICARE | LOC: M LAB REF 11:38 | PROVIDERS: ATTEND General Practice | DX: R97.20 Elevated prostate specific antigen [PSA] (principal) ==

== ENCOUNTER → 2022-03-15 | Outpatient (CLI) | payer MEDICARE | LOC: M RAD 10:32 | PROVIDERS: ATTEND Physician Assistant Medical | DX: R10.2 Pelvic and perineal pain (principal) ==

== ENCOUNTER → 2022-06-28 | Outpatient (CLI) | payer MEDICARE | LOC: M RAD 14:38 | PROVIDERS: ATTEND Nurse Practitioner | DX: C34.11 Malignant neoplasm of upper lobe, right bronchus or lung (principal); I71.4 Abdominal aortic aneurysm, without rupture; K57.30 Diverticulosis of large intestine without perforation or abscess without bleeding ==

== ENCOUNTER → 2022-08-25 | Outpatient (CLI) | payer MEDICARE ==
[~2022-08-25] MED LIST changes: +ALEN70TA82 PO; -CILO100T PO; +CILO100T3 PO; +FAMO20TA PO
== END ==
LOC: M ONCR 09:52
PROVIDERS: ATTEND General Practice
DX: C34.11 Malignant neoplasm of upper lobe, right bronchus or lung (principal); M80.08XA Age-related osteoporosis with current pathological fracture, vertebra(e), initial encounter for fracture; Z79.82 Long term (current) use of aspirin; Z79.899 Other long term (current) drug therapy; Z87.891 Personal history of nicotine dependence; Z88.0 Allergy status to penicillin; Z92.21 Personal history of antineoplastic chemotherapy; Z92.3 Personal history of irradiation

== ENCOUNTER 2022-09-04 11:04 | Inpatient (IN) | payer MEDICARE ==
[~2022-09-04] VITALS: Ht 170.2 cm; Wt 58.2 kg
[2022-09-04] MEDS ORDERED: predniSONE 20 MG TAB PO ONE (11:25)
[2022-09-04] MEDS: COMBIVENT RESPIMAT 100-20MCG INHALER 4GM INH SCH ×3 (11:34→11:45)
[2022-09-04 11:58] LABS: VENOUS BASE EXCESS -1.1 (-2.0-2.0); VENOUS HCO3 24.7 MEQ/L (23.0-27.0); VENOUS O2 SATURATION 47.5 % (60.0-80.0); VENOUS PARTIAL PRESSURE CO2 45.7 mmHg (38.0-50.0); VENOUS PARTIAL PRESSURE O2 26.3 mmHg (30.0-50.0); VENOUS PH 7.351 UNITS (7.330-7.430); VENOUS STANDARD HCO3 22.4 MEQ/L; VENOUS TOTAL CO2 26.1 MEQ/L (24.0-28.0)
[2022-09-04 11:59] LABS: BASO % 0.2 % (0.0-1.0); EOS % 0.1 % (0.0-3.0); HEMATOCRIT 37.2 % (42.0-52.0); HEMOGLOBIN 12.4 g/dl (13.5-17.5); LYMPH # 0.6 10^3/uL (1.5-5.0); LYMPH % 2.9 % (24.0-44.0); MEAN CORPUSCULAR HEMOGLOBIN 30.3 pg (27.0-33.0); MEAN CORPUSCULAR HGB CONC 33.3 g/dl (32.0-36.5); NEUTROPHILS # 17.5 10^3/uL (1.5-8.5); NEUTROPHILS % 91.3 % (36.0-66.0); PLATELET COUNT, AUTOMATED 252 10^3/uL (150-450); RED BLOOD COUNT 4.09 10^6/uL (4.30-6.10); WHITE BLOOD COUNT 19.2 10^3/uL (4.0-10.0)
[2022-09-04] MEDS ORDERED: ZITHTAB PO (12:18)
[2022-09-04] MEDS ORDERED: CEFD300C PO (12:18)
[2022-09-04] MEDS ORDERED: PRED20TA PO (12:19)
[2022-09-04 13:03] LABS: ALBUMIN 3.5 G/DL (3.2-5.2); ALKALINE PHOSPHATASE 113 U/L (46-116); ALT/SGPT 11 U/L (7.0-40); AST/SGOT 17 U/L (<34); BILIRUBIN,DIRECT 0.4 MG/DL (<0.4); BLOOD UREA NITROGEN 22 MG/DL (9-23); CALCIUM LEVEL 9.4 MG/DL (8.3-10.6); CARBON DIOXIDE LEVEL 25 MMOL/L (20-31); CHLORIDE LEVEL 102 MMOL/L (98-107); CREATININE FOR GFR 1.13 MG/DL (0.70-1.30); GLOMERULAR FILTRATION RATE > 60.0 (>42); GLUCOSE, FASTING 141 MG/DL (74-106); POTASSIUM SERUM 4.1 MMOL/L (3.5-5.1); SODIUM LEVEL 137 MMOL/L (136-145); TOTAL PROTEIN 7.7 G/DL (5.7-8.2)
[2022-09-04 13:17] VITALS: O2SAT 91
[2022-09-04] MEDS ORDERED: AZITHROMYCIN 250MG TABLET PO ONE (13:35)
[2022-09-04] MEDS ORDERED: cefTRIAXone SOD 1 GM in D5W MINI-BAG PLUS 50 ML IV ONE (13:35)
[2022-09-04] MEDS: IPRATROPIUM 0.5MG/ALBUTEROL 2.5MG INH SOL UD 3ML (DUONEB) NEB SCH ×2 (14:00→19:09)
[2022-09-04] MEDS ORDERED: SPIR12.9 INH (14:03)
[2022-09-04] MEDS ORDERED: ASPI81TA27 PO (14:03)
[2022-09-04] MEDS ORDERED: HOME MED LIST COMPLETE! XX SCH (14:05)
[2022-09-04] MEDS ORDERED: ISOVUE-370 76% 100ML VIAL As Ordered ONE (14:30)
[2022-09-04] MEDS ORDERED: SODIUM CHLORIDE 0.9% 1000ML IV STA (14:42)
[2022-09-04] MEDS ORDERED: IPRATROPIUM 0.5MG/ALBUTEROL 2.5MG INH SOL UD 3ML (DUONEB) NEB PRN (14:50)
[2022-09-04 16:15] VITALS: BP 120/70
[2022-09-04] MEDS: NS 1,000 ML IV SCH ×2 (16:36→23:08)
[2022-09-04] MEDS: CILOSTAZOL 100 MG TAB (PLETAL) PO SCH (17:45)
[2022-09-04 19:40] VITALS: BP 98/56
[2022-09-04] MEDS: methylPREDNISolone 40MG 1ML VIAL IV SCH (20:46)
[2022-09-04] MEDS: FAMOTIDINE 20 MG TAB PO SCH (20:47)
[2022-09-04 23:08] VITALS: BP_SYST 95; BP_SYST 98; BP_DIAS 55; BP_DIAS 58
[2022-09-04 23:56] VITALS: BP 86/50
[2022-09-05] MEDS ORDERED: NS 500 ML IV ONE
[2022-09-05] MEDS ORDERED: guaiFENesin ER 600 MG TAB PO ONE (00:35)
[2022-09-05] MEDS ORDERED: guaiFENesin DM LIQ 10ML UD PO PRN (00:35)
[2022-09-05 00:39] VITALS: BP 98/56
[2022-09-05] MEDS: IPRATROPIUM 0.5MG/ALBUTEROL 2.5MG INH SOL UD 3ML (DUONEB) NEB SCH ×3 (02:48→14:18)
[2022-09-05 06:00] VITALS: BP 92/48
[2022-09-05 06:06] LABS: HEMATOCRIT 28.7 % (42.0-52.0); MEAN CORPUSCULAR HGB CONC 33.1 g/dl (32.0-36.5); MEAN CORPUSCULAR VOLUME 90.5 fl (80.0-96.0); PLATELET COUNT, AUTOMATED 194 10^3/uL (150-450); RED BLOOD COUNT 3.17 10^6/uL (4.30-6.10); WHITE BLOOD COUNT 14.4 10^3/uL (4.0-10.0)
[2022-09-05 06:19] LABS: HEMOGLOBIN 9.5 g/dl (13.5-17.5)
[2022-09-05 07:03] LABS: BLOOD UREA NITROGEN 25 MG/DL (9-23); CALCIUM LEVEL 8.4 MG/DL (8.3-10.6); CARBON DIOXIDE LEVEL 19 MMOL/L (20-31); CHLORIDE LEVEL 108 MMOL/L (98-107); CREATININE FOR GFR 0.94 MG/DL (0.70-1.30); GLOMERULAR FILTRATION RATE > 60.0 (>42); GLUCOSE, FASTING 208 MG/DL (74-106); MAGNESIUM LEVEL 1.6 MG/DL (1.8-2.4); POTASSIUM SERUM 3.4 MMOL/L (3.5-5.1); SODIUM LEVEL 138 MMOL/L (136-145)
[2022-09-05] MEDS ORDERED: MAG SULF 1GM/100ML (MAG RUN) 1 GM in IV 1 EA IV ONE (08:00)
[2022-09-05] MEDS ORDERED: VITAMIN D 50,000 UNITS CAPSULE (ERGOCALCIFEROL 1.25MG) PO SCH (09:00)
[2022-09-05] MEDS: METOPROLOL TART 25 MG TABLET PO SCH ×2 (09:00→17:01)
[2022-09-05] MEDS ORDERED: AZITHROMYCIN INJ 500 MG, VIAL MATE ADAPTER 1 EACH in NS 250 ML IV SCH (09:00)
[2022-09-05] MEDS ORDERED: POTASSIUM CHLORIDE 10MEQ SR TABLET PO ONE (09:00)
[2022-09-05] MEDS: ASPIRIN 81MG ENTERIC TABLET PO SCH (09:55)
[2022-09-05] MEDS: guaiFENesin ER 600 MG TAB PO SCH ×2 (09:55→20:28)
[2022-09-05] MEDS: methylPREDNISolone 40MG 1ML VIAL IV SCH ×2 (09:55→20:29)
[2022-09-05] MEDS: ROSUVASTATIN 10 MG TAB (CRESTOR) PO SCH (09:55)
[2022-09-05] MEDS: CILOSTAZOL 100 MG TAB (PLETAL) PO SCH ×2 (09:56→17:02)
[2022-09-05] MEDS: FAMOTIDINE 20 MG TAB PO SCH ×2 (09:56→20:28)
[2022-09-05] MEDS: NS 1,000 ML IV SCH (09:59)
[2022-09-05] MEDS: cefTRIAXone SOD 1 GM in D5W MINI-BAG PLUS 50 ML IV SCH (13:53)
[2022-09-05 14:00] VITALS: BP 94/53
[2022-09-05] MEDS ORDERED: IPRATROPIUM 0.02% SOLN 0.5MG 2.5ML NEB INH PRN (16:00)
[2022-09-05] MEDS ORDERED: MIRALAX *UNIT DOSE* 17GM PACKET PO PRN (16:00)
[2022-09-05] MEDS ORDERED: SENNA 8.6 MG TAB (SENOKOT) PO PRN (16:00)
[2022-09-05 18:49] VITALS: BP 95/56
[2022-09-05] MEDS: IPRATROPIUM 0.02% SOLN 0.5MG 2.5ML NEB NEB SCH (19:16)
[2022-09-05 21:10] VITALS: BP 95/48
[2022-09-06] MEDS: IPRATROPIUM 0.02% SOLN 0.5MG 2.5ML NEB NEB SCH ×4 (01:24→20:25)
[2022-09-06 06:00] VITALS: BP 108/60
[2022-09-06 06:15] LABS: HEMATOCRIT 28.3 % (42.0-52.0); MEAN CORPUSCULAR HEMOGLOBIN 29.2 pg (27.0-33.0); MEAN CORPUSCULAR HGB CONC 31.8 g/dl (32.0-36.5); MEAN CORPUSCULAR VOLUME 91.9 fl (80.0-96.0); PLATELET COUNT, AUTOMATED 215 10^3/uL (150-450); RED BLOOD COUNT 3.08 10^6/uL (4.30-6.10); WHITE BLOOD COUNT 19.4 10^3/uL (4.0-10.0)
[2022-09-06 06:30] LABS: CHLORIDE LEVEL 109 MMOL/L (98-107); SODIUM LEVEL 140 MMOL/L (136-145)
[2022-09-06 06:31] LABS: CARBON DIOXIDE LEVEL 22 MMOL/L (20-31)
[2022-09-06 06:36] LABS: CALCIUM LEVEL 8.8 MG/DL (8.3-10.6); GLUCOSE, FASTING 122 MG/DL (74-106)
[2022-09-06 06:37] LABS: BLOOD UREA NITROGEN 34 MG/DL (9-23); MAGNESIUM LEVEL 1.9 MG/DL (1.8-2.4)
[2022-09-06 06:39] LABS: CREATININE FOR GFR 0.96 MG/DL (0.70-1.30); GLOMERULAR FILTRATION RATE > 60.0 (>42)
[2022-09-06 06:44] LABS: POTASSIUM SERUM 4.6 MMOL/L (3.5-5.1)
[2022-09-06] MEDS: CILOSTAZOL 100 MG TAB (PLETAL) PO SCH ×3 (09:09→17:29)
[2022-09-06] MEDS: METOPROLOL TART 25 MG TABLET PO SCH (09:14)
[2022-09-06] MEDS: FAMOTIDINE 20 MG TAB PO SCH ×2 (09:14→20:57)
[2022-09-06] MEDS: guaiFENesin ER 600 MG TAB PO SCH ×2 (09:14→20:57)
[2022-09-06] MEDS: ASPIRIN 81MG ENTERIC TABLET PO SCH (09:14)
[2022-09-06] MEDS: AZITHROMYCIN 250MG TABLET PO SCH (09:15)
[2022-09-06] MEDS: ROSUVASTATIN 10 MG TAB (CRESTOR) PO SCH (09:15)
[2022-09-06] MEDS: methylPREDNISolone 40MG 1ML VIAL IV SCH ×2 (09:15→20:56)
[2022-09-06] MEDS ORDERED: MAG SULF 1GM/100ML (MAG RUN) 1 GM in IV 1 EA IV ONE (12:00)
[2022-09-06] MEDS: cefTRIAXone SOD 1 GM in D5W MINI-BAG PLUS 50 ML IV SCH (13:21)
[2022-09-06 14:00] VITALS: BP 114/72
[2022-09-06 20:58] VITALS: BP 127/78
[2022-09-07] MEDS: IPRATROPIUM 0.02% SOLN 0.5MG 2.5ML NEB NEB SCH ×3 (02:19→13:03)
[2022-09-07 05:28] VITALS: BP 117/75
[2022-09-07 05:55] LABS: HEMATOCRIT 28.5 % (42.0-52.0); HEMOGLOBIN 9.3 g/dl (13.5-17.5); MEAN CORPUSCULAR HEMOGLOBIN 29.3 pg (27.0-33.0); MEAN CORPUSCULAR HGB CONC 32.6 g/dl (32.0-36.5); MEAN CORPUSCULAR VOLUME 89.9 fl (80.0-96.0); PLATELET COUNT, AUTOMATED 254 10^3/uL (150-450); RED BLOOD COUNT 3.17 10^6/uL (4.30-6.10); WHITE BLOOD COUNT 14.4 10^3/uL (4.0-10.0)
[2022-09-07 06:13] LABS: CHLORIDE LEVEL 111 MMOL/L (98-107); POTASSIUM SERUM 4.4 MMOL/L (3.5-5.1); SODIUM LEVEL 141 MMOL/L (136-145)
[2022-09-07 06:14] LABS: CARBON DIOXIDE LEVEL 22 MMOL/L (20-31)
[2022-09-07 06:19] LABS: BLOOD UREA NITROGEN 42 MG/DL (9-23)
[2022-09-07 06:20] LABS: CALCIUM LEVEL 8.6 MG/DL (8.3-10.6); GLUCOSE, FASTING 119 MG/DL (74-106)
[2022-09-07 06:22] LABS: CREATININE FOR GFR 0.97 MG/DL (0.70-1.30); GLOMERULAR FILTRATION RATE > 60.0 (>42)
[2022-09-07] MEDS: methylPREDNISolone 40MG 1ML VIAL IV SCH (07:57)
[2022-09-07] MEDS: CILOSTAZOL 100 MG TAB (PLETAL) PO SCH (07:57)
[2022-09-07] MEDS ORDERED: TREL1AER PO (08:39)
[2022-09-07] MEDS ORDERED: IPRAINH INH (08:39)
[2022-09-07] MEDS ORDERED: PRED10TA2 PO (08:39)
[2022-09-07] MEDS ORDERED: METO25TA4 PO (08:39)
[2022-09-07] MEDS ORDERED: CEFD300C41 PO (08:39)
[2022-09-07] MEDS ORDERED: DOXY100C3 PO (08:39)
[2022-09-07] MEDS ORDERED: PRED20TA PO (08:40)
[2022-09-07] MEDS ORDERED: IPRA0.00 INH (08:40)
[2022-09-07 08:45] VITALS: BP 140/89
[2022-09-07] MEDS: AZITHROMYCIN 250MG TABLET PO SCH (09:09)
[2022-09-07] MEDS: ASPIRIN 81MG ENTERIC TABLET PO SCH (09:10)
[2022-09-07] MEDS: guaiFENesin ER 600 MG TAB PO SCH (09:10)
[2022-09-07] MEDS: ROSUVASTATIN 10 MG TAB (CRESTOR) PO SCH (09:11)
[2022-09-07 09:12] VITALS: BP 140/89
[2022-09-07] MEDS: METOPROLOL TART 25 MG TABLET PO SCH (09:12)
[2022-09-07] MEDS: FAMOTIDINE 20 MG TAB PO SCH (09:12)
[2022-09-07] MEDS ORDERED: LEVAINH INH (11:01)
[2022-09-07 13:00] VITALS: BP 122/68
[2022-09-07 17:08] LABS: BODY FLUID CULTURE Not indicated. (.); LEGIONELLA ANTIGEN URINE Negative (Negative); ORGANISM ID Not indicated. (.); SPECIMEN SOURCE Urine (.); URINE STREP PNEUMONIAE ANTIGEN Negative (Negative)
== END 2022-09-07 13:30 | disposition home health service (06) | DRG 871 ==
LOC: M ED 11:04 → M ED INP 13:53 → ENRESERV 14:46 → M MSPAV 16:09
PROVIDERS: ADMIT Internal Medicine; ATTEND Internal Medicine
DX: A41.9 Sepsis, unspecified organism (principal); J96.01 Acute respiratory failure with hypoxia; J18.9 Pneumonia, unspecified organism; I50.32 Chronic diastolic (congestive) heart failure; J44.0 Chronic obstructive pulmonary disease with (acute) lower respiratory infection; J44.1 Chronic obstructive pulmonary disease with (acute) exacerbation; C34.11 Malignant neoplasm of upper lobe, right bronchus or lung; M80.00XA Age-related osteoporosis with current pathological fracture, unspecified site, initial encounter for fracture; E83.42 Hypomagnesemia; E87.6 Hypokalemia; I25.10 Atherosclerotic heart disease of native coronary artery without angina pectoris; N18.31 Chronic kidney disease, stage 3a; K44.9 Diaphragmatic hernia without obstruction or gangrene; I71.40 Abdominal aortic aneurysm, without rupture, unspecified; I73.9 Peripheral vascular disease, unspecified; K21.9 Gastro-esophageal reflux disease without esophagitis; E78.5 Hyperlipidemia, unspecified; Z92.21 Personal history of antineoplastic chemotherapy; Z92.3 Personal history of irradiation; K59.00 Constipation, unspecified; M54.9 Dorsalgia, unspecified; Z87.891 Personal history of nicotine dependence; Z79.82 Long term (current) use of aspirin; Z79.52 Long term (current) use of systemic steroids; Z79.899 Other long term (current) drug therapy; Z88.0 Allergy status to penicillin

== ENCOUNTER → 2022-12-29 | Outpatient (CLI) | payer MEDICARE ==
[~2022-12-29] MED LIST changes: +ASPI81TA27 PO; +CEFD300C PO; +CEFD300C41 PO; +DOXY100C3 PO; +IPRA0.00 INH; +IPRAINH INH; +LEVAINH INH; +PRED10TA2 PO; +PRED20TA PO; +SPIR12.9 INH; +TREL1AER PO; +ZITHTAB PO
[2022-12-29 13:09] LABS: BASO # 0.1 10^3/uL (0.0-0.2); BASO % 0.8 % (0.0-1.0); EOS # 0.3 10^3/uL (0.0-0.5); HEMATOCRIT 42.4 % (42.0-52.0); HEMOGLOBIN 13.3 g/dl (13.5-17.5); LYMPH # 0.9 10^3/uL (1.5-5.0); LYMPH % 10.6 % (24.0-44.0); MEAN CORPUSCULAR HEMOGLOBIN 29.1 pg (27.0-33.0); MEAN CORPUSCULAR HGB CONC 31.4 g/dl (32.0-36.5); MEAN CORPUSCULAR VOLUME 92.8 fl (80.0-96.0); MONO # 0.9 10^3/uL (0.0-0.8); MONO % 10.2 % (2.0-8.0); NEUTROPHILS # 6.6 10^3/uL (1.5-8.5); NEUTROPHILS % 74.9 % (36.0-66.0); PLATELET COUNT, AUTOMATED 265 10^3/uL (150-450); RED BLOOD COUNT 4.57 10^6/uL (4.30-6.10); WHITE BLOOD COUNT 8.9 10^3/uL (4.0-10.0)
[2022-12-29 13:25] LABS: ALBUMIN 3.4 G/DL (3.2-5.2); ALKALINE PHOSPHATASE 100 U/L (46-116); ALT/SGPT < 9 U/L (7.0-40); AST/SGOT 22 U/L (<34); BILIRUBIN,TOTAL 0.7 MG/DL (0.3-1.2); BLOOD UREA NITROGEN 25 MG/DL (9-23); CALCIUM LEVEL 9.2 MG/DL (8.3-10.6); CARBON DIOXIDE LEVEL 29 MMOL/L (20-31); CHLORIDE LEVEL 105 MMOL/L (98-107); CREATININE FOR GFR 1.17 MG/DL (0.70-1.30); GLOMERULAR FILTRATION RATE > 60.0 (>42); GLUCOSE, FASTING 156 MG/DL (74-106); SODIUM LEVEL 141 MMOL/L (136-145); TOTAL PROTEIN 7.1 G/DL (5.7-8.2)
== END ==
LOC: M WUC 09:42
PROVIDERS: ATTEND Internal Medicine Hematology & Oncology
DX: C34.90 Malignant neoplasm of unspecified part of unspecified bronchus or lung (principal)

== ENCOUNTER → 2023-01-04 | Outpatient (CLI) | payer MEDICARE ==
[~2023-01-04] MED LIST changes: +ISOVUE-370 76% 100ML VIAL As Ordered ONE
== END ==
LOC: M RAD 09:24
PROVIDERS: ATTEND Internal Medicine Hematology & Oncology
DX: C34.90 Malignant neoplasm of unspecified part of unspecified bronchus or lung (principal)
CPT/HCPCS: 71260; Q9967

== ENCOUNTER → 2023-01-13 | Outpatient (CLI) | payer MEDICARE ==
[~2023-01-13] MED LIST changes: -ISOVUE-370 76% 100ML VIAL As Ordered ONE
== END ==
LOC: M EKG 09:35
PROVIDERS: ATTEND Nurse Practitioner Adult Health
DX: R55 Syncope and collapse (principal)

== ENCOUNTER → 2023-05-24 | Outpatient (CLI) | payer MEDICARE ==
[~2023-05-24] MED LIST changes: -ROSU20TA5 PO; +ROSU20TA61 PO
== END ==
LOC: M WUC 11:02
PROVIDERS: ATTEND Nurse Practitioner Adult Health
DX: C34.11 Malignant neoplasm of upper lobe, right bronchus or lung (principal); F44.9 Dissociative and conversion disorder, unspecified

== ENCOUNTER → 2023-07-13 | Outpatient (CLI) | payer MEDICARE ==
[~2023-07-13] MED LIST changes: +GASTROGRAFIN SOLUTION 30ML As Ordered ONE; +ISOVUE-370 76% 100ML VIAL As Ordered ONE
== END ==
LOC: M RAD 08:54
PROVIDERS: ATTEND Nurse Practitioner
DX: C34.90 Malignant neoplasm of unspecified part of unspecified bronchus or lung (principal)
CPT/HCPCS: 71260; 74177; Q9963; Q9967

== ENCOUNTER → 2023-08-15 | Outpatient (CLI) | payer MEDICARE ==
[~2023-08-15] MED LIST changes: +AZIT-12 PO; -CEFD300C41 PO; +CEFD300C42 PO; -GASTROGRAFIN SOLUTION 30ML As Ordered ONE; -ISOVUE-370 76% 100ML VIAL As Ordered ONE; +PRED50TA PO
== END ==
LOC: M ONCR 09:43
PROVIDERS: ATTEND General Practice
DX: C34.31 Malignant neoplasm of lower lobe, right bronchus or lung (principal); C34.11 Malignant neoplasm of upper lobe, right bronchus or lung; Z71.2 Person consulting for explanation of examination or test findings; Z79.82 Long term (current) use of aspirin; Z79.899 Other long term (current) drug therapy; Z87.891 Personal history of nicotine dependence; Z88.0 Allergy status to penicillin; Z88.1 Allergy status to other antibiotic agents; Z92.21 Personal history of antineoplastic chemotherapy; Z92.3 Personal history of irradiation

== ENCOUNTER 2023-08-23 10:12 | Outpatient (RCR) | payer MEDICARE | END 2023-09-07 | LOC: M ONCR 10:12 | PROVIDERS: ATTEND General Practice | DX: Z51.0 Encounter for antineoplastic radiation therapy (principal); C34.31 Malignant neoplasm of lower lobe, right bronchus or lung ==

== ENCOUNTER 2023-09-15 13:47 | Outpatient (RCR) | payer MEDICARE ==
[~2023-09-15 13:47] MED LIST changes: +CEFD1CAP9 PO; -CEFD300C42 PO
== END 2023-10-08 ==
LOC: M ONCR 13:47
PROVIDERS: ATTEND General Practice
DX: Z51.0 Encounter for antineoplastic radiation therapy (principal); C34.31 Malignant neoplasm of lower lobe, right bronchus or lung

== ENCOUNTER → 2023-12-06 | Outpatient (CLI) | payer MEDICARE ==
[~2023-12-06] MED LIST changes: +ISOVUE-370 76% 100ML VIAL As Ordered ONE; -POTA20EL PO; +POTA20LI16 PO
== END ==
LOC: M RAD 12:46
PROVIDERS: ATTEND General Practice
DX: C34.90 Malignant neoplasm of unspecified part of unspecified bronchus or lung (principal)
CPT/HCPCS: 71260; Q9967

== ENCOUNTER → 2023-12-14 | Outpatient (CLI) | payer MEDICARE ==
[~2023-12-14] MED LIST changes: -ISOVUE-370 76% 100ML VIAL As Ordered ONE
== END ==
LOC: M ONCR 13:17
PROVIDERS: ATTEND General Practice
DX: C34.31 Malignant neoplasm of lower lobe, right bronchus or lung (principal); C34.11 Malignant neoplasm of upper lobe, right bronchus or lung; R42 Dizziness and giddiness; Z71.2 Person consulting for explanation of examination or test findings; Z87.891 Personal history of nicotine dependence; Z88.0 Allergy status to penicillin; Z88.1 Allergy status to other antibiotic agents; Z79.82 Long term (current) use of aspirin; Z79.899 Other long term (current) drug therapy; Z92.21 Personal history of antineoplastic chemotherapy; Z92.3 Personal history of irradiation

== ENCOUNTER → 2024-01-16 | Outpatient (CLI) | payer MEDICARE | LOC: M WUC 11:16 | PROVIDERS: ATTEND Nurse Practitioner Adult Health | DX: R06.02 Shortness of breath (principal); R05.9 Cough, unspecified ==

== ENCOUNTER 2024-01-18 14:41 | Emergency (ER) | payer MEDICARE ==
[~2024-01-18] VITALS: Ht 170.2 cm; Wt 54.2 kg
[2024-01-18 16:51] LABS: BASO % 0.3 % (0.0-1.0); EOS # 0.1 10^3/uL (0.0-0.5); EOS % 0.9 % (0.0-3.0); HEMATOCRIT 35.3 % (42.0-52.0); HEMOGLOBIN 11.7 g/dl (13.5-17.5); LYMPH # 0.6 10^3/uL (1.5-5.0); LYMPH % 5.1 % (24.0-44.0); MEAN CORPUSCULAR HEMOGLOBIN 29.6 pg (27.0-33.0); MEAN CORPUSCULAR HGB CONC 33.1 g/dl (32.0-36.5); MEAN CORPUSCULAR VOLUME 89.4 fl (80.0-96.0); MONO # 0.9 10^3/uL (0.0-0.8); MONO % 6.9 % (2.0-8.0); NEUTROPHILS # 10.8 10^3/uL (1.5-8.5); PLATELET COUNT, AUTOMATED 385 10^3/uL (150-450); RED BLOOD COUNT 3.95 10^6/uL (4.30-6.10); WHITE BLOOD COUNT 12.5 10^3/uL (4.0-10.0)
[2024-01-18 17:23] LABS: CK-MB VALUE MASS < 1.0 NG/ML (<3.6)
[2024-01-18 17:25] LABS: CPK CREATINE PHOSPHOKINASE 28 U/L (46-171); MB/CK RELATIVE INDEX 3.57 (< OR =4)
[2024-01-18 17:26] LABS: BLOOD UREA NITROGEN 21 MG/DL (9-23); CALCIUM LEVEL 9.3 MG/DL (8.3-10.6); CARBON DIOXIDE LEVEL 29 MMOL/L (20-31); CHLORIDE LEVEL 106 MMOL/L (98-107); CREATININE FOR GFR 1.14 MG/DL (0.70-1.30); GLOMERULAR FILTRATION RATE > 60.0 (>35); GLUCOSE, FASTING 134 MG/DL (74-106); POTASSIUM SERUM 3.8 MMOL/L (3.5-5.1); SODIUM LEVEL 142 MMOL/L (136-145)
[2024-01-18] MEDS: IPRATROPIUM 0.5MG/ALBUTEROL 2.5MG INH SOL UD 3ML (DUONEB) NEB ONE (18:16)
[2024-01-18] MEDS: BENZONATATE 100MG CAPSULE PO ONE (18:17)
[2024-01-18] MEDS ORDERED: OXYGEN CONCENTRATOR XX (19:29)
[2024-01-18] MEDS ORDERED: BENZ200C70 PO (19:32)
[2024-01-18 19:54] VITALS: BP 130/73; TEMP 97.9; O2SAT 94
== END 2024-01-18 20:02 | disposition home or self-care (01) ==
LOC: M ED 14:41
DX: R09.02 Hypoxemia (principal); J42 Unspecified chronic bronchitis; I25.2 Old myocardial infarction; I25.119 Atherosclerotic heart disease of native coronary artery with unspecified angina pectoris; I10 Essential (primary) hypertension; E78.5 Hyperlipidemia, unspecified; Z87.891 Personal history of nicotine dependence; Z88.0 Allergy status to penicillin; Z79.51 Long term (current) use of inhaled steroids; Z79.1 Long term (current) use of non-steroidal anti-inflammatories (NSAID); Z79.899 Other long term (current) drug therapy

== ENCOUNTER → 2024-03-27 | Outpatient (CLI) | payer MEDICARE ==
[~2024-03-27] MED LIST changes: +BENZ200C70 PO; +ISOVUE-370 76% 100ML VIAL ONE; +ONDA-284 PO; -ONDA8TAB8 PO; +OXYGEN CONCENTRATOR XX
== END ==
LOC: M PLAIMG 12:30
PROVIDERS: ATTEND Nurse Practitioner Adult Health
DX: R55 Syncope and collapse (principal)
CPT/HCPCS: 70470; Q9967

== ENCOUNTER → 2024-06-11 | Outpatient (CLI) | payer MEDICARE ==
[~2024-06-11] MED LIST changes: -ISOVUE-370 76% 100ML VIAL ONE
== END ==
LOC: M RAD 14:55
PROVIDERS: ATTEND General Practice
DX: C34.90 Malignant neoplasm of unspecified part of unspecified bronchus or lung (principal)

== ENCOUNTER → 2024-06-18 | Outpatient (CLI) | payer MEDICARE ==
[~2024-06-18] MED LIST changes: +BUDE10.7 IH
== END ==
LOC: M ONCR 13:20
PROVIDERS: ATTEND General Practice
DX: Z08 Encounter for follow-up examination after completed treatment for malignant neoplasm (principal); Z85.818 Personal history of malignant neoplasm of other sites of lip, oral cavity, and pharynx; J70.1 Chronic and other pulmonary manifestations due to radiation; W88.8XXA Exposure to other ionizing radiation, initial encounter; J44.9 Chronic obstructive pulmonary disease, unspecified; Z92.21 Personal history of antineoplastic chemotherapy; Z92.3 Personal history of irradiation; Z79.51 Long term (current) use of inhaled steroids; Z88.0 Allergy status to penicillin; Z88.1 Allergy status to other antibiotic agents; Z79.82 Long term (current) use of aspirin; Z79.899 Other long term (current) drug therapy

== ENCOUNTER 2024-08-01 12:15 | Emergency (ER) | payer MEDICARE ==
[~2024-08-01] VITALS: Ht 170.2 cm; Wt 55.7 kg
[~2024-08-01 12:15] MED LIST changes: -ROSU20TA61 PO; +ROSU20TA86 PO
[2024-08-01 12:52] LABS: BASO # 0.1 10^3/uL (0.0-0.2); BASO % 0.5 % (0.0-1.0); EOS % 0.3 % (0.0-3.0); HEMATOCRIT 42.3 % (42.0-52.0); HEMOGLOBIN 14.1 g/dl (13.5-17.5); LYMPH # 0.6 10^3/uL (1.5-5.0); LYMPH % 5.1 % (24.0-44.0); MEAN CORPUSCULAR HEMOGLOBIN 30.1 pg (27.0-33.0); MEAN CORPUSCULAR HGB CONC 33.3 g/dl (32.0-36.5); MEAN CORPUSCULAR VOLUME 90.4 fl (80.0-96.0); MONO # 0.7 10^3/uL (0.0-0.8); MONO % 6.7 % (2.0-8.0); NEUTROPHILS # 9.6 10^3/uL (1.5-8.5); NEUTROPHILS % 86.9 % (36.0-66.0); PLATELET COUNT, AUTOMATED 250 10^3/uL (150-450); RED BLOOD COUNT 4.68 10^6/uL (4.30-6.10); WHITE BLOOD COUNT 11.1 10^3/uL (4.0-10.0)
[2024-08-01 13:05] LABS: INR 1.09; PROTHROMBIN TIME 13.8 SECONDS (12.5-14.5)
[2024-08-01 13:22] LABS: ALBUMIN 3.5 G/DL (3.2-5.2); BILIRUBIN,DIRECT 0.2 MG/DL (<0.4); CK-MB VALUE MASS 3.3 NG/ML (<3.6); TOTAL PROTEIN 7.9 G/DL (5.7-8.2)
[2024-08-01 13:23] LABS: MB/CK RELATIVE INDEX 3.23 (< OR =4)
[2024-08-01] MEDS ORDERED: ISOVUE-370 76% 100ML VIAL As Ordered ONE (13:24)
[2024-08-01] MEDS ORDERED: HYDR-3713 PO (15:17)
[2024-08-01] MEDS: NORCO, ANEXSIA 5/325MG TABLET (HYDROcodone/ACETAMINOPHEN) PO ONE (15:37)
[2024-08-01 16:43] VITALS: BP 121/74; TEMP 97.2; O2SAT 98
[2024-08-02] MEDS ORDERED: HYDR-3713 PO (14:26)
[2024-08-02] MEDS ORDERED: LACT20EL PO (14:27)
== END 2024-08-01 16:46 | disposition home or self-care (01) ==
LOC: M ED 12:15
DX: C34.90 Malignant neoplasm of unspecified part of unspecified bronchus or lung (principal); C79.51 Secondary malignant neoplasm of bone; I10 Essential (primary) hypertension; E78.5 Hyperlipidemia, unspecified; I25.2 Old myocardial infarction; J44.9 Chronic obstructive pulmonary disease, unspecified; K21.9 Gastro-esophageal reflux disease without esophagitis; Z87.891 Personal history of nicotine dependence; Z88.0 Allergy status to penicillin; Z79.1 Long term (current) use of non-steroidal anti-inflammatories (NSAID); Z79.51 Long term (current) use of inhaled steroids; Z79.899 Other long term (current) drug therapy
CPT/HCPCS: 36415; 71045; 71275; 72128; 80047; 80076; 82550; 82553; 83690; 84484; 85025; 85610; 93005; 93041; 94760; 99285; Q9967

== ENCOUNTER → 2024-08-02 | Outpatient (CLI) | payer MEDICARE ==
[~2024-08-02] MED LIST changes: +HYDR-3713 PO; +LACT20EL PO
== END ==
LOC: M ONCR 13:54
PROVIDERS: ATTEND General Practice
DX: S22.029 Unspecified fracture of second thoracic vertebra (principal); S22.069A Unspecified fracture of T7-T8 vertebra, initial encounter for closed fracture; M81.0 Age-related osteoporosis without current pathological fracture; Z79.83 Long term (current) use of bisphosphonates

== ENCOUNTER → 2024-08-09 | Outpatient (CLI) | payer MEDICARE | LOC: M RAD 10:23 | PROVIDERS: ATTEND Internal Medicine Hematology & Oncology | DX: I71.40 Abdominal aortic aneurysm, without rupture, unspecified (principal); C34.90 Malignant neoplasm of unspecified part of unspecified bronchus or lung ==

== ENCOUNTER → 2024-08-12 | Outpatient (CLI) | payer MEDICARE | LOC: M WHC 13:36 | PROVIDERS: ATTEND General Practice | DX: C34.90 Malignant neoplasm of unspecified part of unspecified bronchus or lung (principal); M81.0 Age-related osteoporosis without current pathological fracture ==

== ENCOUNTER → 2024-08-19 | Outpatient (CLI) | payer MEDICARE ==
[~2024-08-19] MED LIST changes: +FENT1DIS14 TOP; +LEVA15HF2 INH; -LEVAINH INH; +PROHANCE 279.3MG/ML 15ML VIAL As Ordered ONE
== END ==
LOC: M RAD 16:25
PROVIDERS: ATTEND General Practice
DX: C34.90 Malignant neoplasm of unspecified part of unspecified bronchus or lung (principal)
CPT/HCPCS: 72157; A9576

== ENCOUNTER → 2024-08-20 | Outpatient (CLI) | payer MEDICARE ==
[~2024-08-20] MED LIST changes: -PROHANCE 279.3MG/ML 15ML VIAL As Ordered ONE
== END ==
LOC: M PLARAD 12:04
PROVIDERS: ATTEND General Practice
DX: C34.90 Malignant neoplasm of unspecified part of unspecified bronchus or lung (principal)
CPT/HCPCS: 78815; A9552

== ENCOUNTER 2024-08-28 12:44 | Emergency (ER) | payer MEDICARE ==
[~2024-08-28] VITALS: Ht 167.6 cm; Wt 117.0 kg
[2024-08-28 13:35] LABS: BASO % 0.2 % (0.0-1.0); EOS % 0.1 % (0.0-3.0); HEMATOCRIT 39.2 % (42.0-52.0); HEMOGLOBIN 12.8 g/dl (13.5-17.5); LYMPH # 0.6 10^3/uL (1.5-5.0); LYMPH % 2.9 % (24.0-44.0); MEAN CORPUSCULAR HEMOGLOBIN 30.6 pg (27.0-33.0); MEAN CORPUSCULAR HGB CONC 32.7 g/dl (32.0-36.5); MEAN CORPUSCULAR VOLUME 93.8 fl (80.0-96.0); MONO # 1.5 10^3/uL (0.0-0.8); MONO % 7.8 % (2.0-8.0); NEUTROPHILS % 88.6 % (36.0-66.0); PLATELET COUNT, AUTOMATED 252 10^3/uL (150-450); RED BLOOD COUNT 4.18 10^6/uL (4.30-6.10); WHITE BLOOD COUNT 19.2 10^3/uL (4.0-10.0)
[2024-08-28] MEDS ORDERED: fentaNYL 100 MCG/2 ML INJECTION IV ONE (13:50)
[2024-08-28] MEDS: ACETAMINOPHEN 325 MG TAB PO ONE (14:10)
[2024-08-28 14:11] LABS: ALKALINE PHOSPHATASE 98 U/L (40-129); ALT/SGPT 16 U/L (7.0-40); AST/SGOT 16 U/L (<34); BILIRUBIN,DIRECT 0.4 MG/DL (<0.4); BILIRUBIN,TOTAL 1.1 MG/DL (0.3-1.2); BLOOD UREA NITROGEN 23 MG/DL (9-23); CALCIUM LEVEL 9.6 MG/DL (8.3-10.6); CARBON DIOXIDE LEVEL 25 MMOL/L (20-31); CHLORIDE LEVEL 102 MMOL/L (98-107); CREATININE FOR GFR 0.92 MG/DL (0.70-1.30); GLOMERULAR FILTRATION RATE > 60.0 (>35); GLUCOSE, FASTING 114 MG/DL (74-106); POTASSIUM SERUM 4.3 MMOL/L (3.5-5.1); SODIUM LEVEL 139 MMOL/L (136-145); TOTAL PROTEIN 7.5 G/DL (5.7-8.2)
[2024-08-28 14:12] LABS: THYROXINE (T4) 10.6 UG/DL (4.5-10.9)
[2024-08-28 14:13] LABS: THYROID STIMULATING HORMONE 0.917 uIU/ML (0.55-4.78)
[2024-08-28] MEDS: ONDANSETRON 4MG 2ML VIAL IV ONE (14:13)
[2024-08-28] MEDS ORDERED: ISOVUE-370 76% 100ML VIAL As Ordered ONE (14:28)
[2024-08-28] MEDS: NS 1,000 ML IV SCH (14:45)
[2024-08-28] MEDS: NS 500 ML IV ONE (14:45)
[2024-08-28] MEDS: LevoFLOXacin IV 750 MG in IV 1 EA IV ONE (15:07)
[2024-08-28 16:07] LABS: PROCALCITONIN 0.35 ng/ml
[2024-08-28 18:05] VITALS: TEMP 96.9
[2024-08-28 19:00] VITALS: BP 102/56
[2024-08-28 19:05] VITALS: O2SAT 99
[2024-08-29] MEDS ORDERED: CONS10SO3 PO (08:13)
== END 2024-08-28 19:27 | disposition short-term general hospital (02) ==
LOC: EDBD 12:44 → M ED 12:44
DX: J18.9 Pneumonia, unspecified organism (principal); I71.40 Abdominal aortic aneurysm, without rupture, unspecified; R00.0 Tachycardia, unspecified; I25.2 Old myocardial infarction; I10 Essential (primary) hypertension; E03.9 Hypothyroidism, unspecified; Z85.118 Personal history of other malignant neoplasm of bronchus and lung
CPT/HCPCS: 71045; 71260; 74177; 80048; 80076; 83605; 83880; 84145; 84436; 84443; 85025; 87040; 87486; 87581; 87633; 87798; 93005; 93041; 94760; 96374; 96375; 99285; J1956; J2405; Q9967

== ENCOUNTER → 2024-09-17 | Outpatient (CLI) | payer MEDICARE ==
[~2024-09-17] MED LIST changes: +CONS10SO3 PO; +DEXA4TA PO; +SENN-186 PO
== END ==
LOC: M ONCR 09:00
PROVIDERS: ATTEND General Practice
DX: C34.11 Malignant neoplasm of upper lobe, right bronchus or lung (principal); C34.31 Malignant neoplasm of lower lobe, right bronchus or lung; Z87.891 Personal history of nicotine dependence; Z92.21 Personal history of antineoplastic chemotherapy; Z92.3 Personal history of irradiation; Z79.51 Long term (current) use of inhaled steroids; Z88.0 Allergy status to penicillin; Z88.1 Allergy status to other antibiotic agents; Z79.82 Long term (current) use of aspirin; Z79.899 Other long term (current) drug therapy
CPT/HCPCS: G0463 ×2

== ENCOUNTER → 2024-09-17 | Outpatient (CLI) | payer MEDICARE ==
[~2024-09-17] VITALS: Ht 170.2 cm; Wt 53.0 kg
[2024-09-17 10:18] VITALS: BP 144/71; O2SAT 96
== END ==
LOC: M PAL 09:01
PROVIDERS: ATTEND Nurse Practitioner Adult Health
DX: C34.11 Malignant neoplasm of upper lobe, right bronchus or lung (principal); C34.31 Malignant neoplasm of lower lobe, right bronchus or lung; R59.0 Localized enlarged lymph nodes; K59.00 Constipation, unspecified; R53.81 Other malaise; R53.83 Other fatigue; R63.0 Anorexia; Z51.5 Encounter for palliative care; Z92.21 Personal history of antineoplastic chemotherapy; Z92.3 Personal history of irradiation; Z66 Do not resuscitate; Z79.52 Long term (current) use of systemic steroids; Z99.81 Dependence on supplemental oxygen; Z79.891 Long term (current) use of opiate analgesic; Z79.899 Other long term (current) drug therapy; Z79.82 Long term (current) use of aspirin; Z88.0 Allergy status to penicillin; Z88.1 Allergy status to other antibiotic agents; Z87.891 Personal history of nicotine dependence

== ENCOUNTER → 2024-10-23 | Outpatient (CLI) | payer MEDICARE | LOC: M ONCR 10:36 | PROVIDERS: ATTEND General Practice | DX: C34.11 Malignant neoplasm of upper lobe, right bronchus or lung (principal); C34.31 Malignant neoplasm of lower lobe, right bronchus or lung; I25.2 Old myocardial infarction; R60.0 Localized edema; Z87.891 Personal history of nicotine dependence; Z92.3 Personal history of irradiation; Z92.21 Personal history of antineoplastic chemotherapy; Z88.0 Allergy status to penicillin; Z88.1 Allergy status to other antibiotic agents; Z79.899 Other long term (current) drug therapy; Z99.81 Dependence on supplemental oxygen; Z79.52 Long term (current) use of systemic steroids; Z79.82 Long term (current) use of aspirin ==

== ENCOUNTER → 2024-11-25 | Outpatient (REF) | payer MEDICARE ==
[2024-11-25 17:17] LABS: BASOPHILS 1 % (0-1); EOSINOPHILS 1 % (0-3); LYMPHOCYTES 7 % (16-44); MONOCYTES 8 % (0-5); NEUTROPHILS 82 % (28-66); PLATELET ESTIMATE NORMAL (NORMAL)
== END ==
LOC: M LAB REF 16:06
PROVIDERS: ATTEND Nurse Practitioner Adult Health
DX: D72.9 Disorder of white blood cells, unspecified (principal)

== ENCOUNTER 2025-01-11 20:26 | Inpatient (IN) | payer MEDICARE ==
[~2025-01-11] VITALS: Ht 167.6 cm; Wt 59.5 kg
[~2025-01-11 20:26] MED LIST changes: -BUDE10.7 IH; +BUDE10.7 INH; -PRED50TA PO; +PRED50TA57 PO
[2025-01-11 20:55] LABS: VENOUS BASE EXCESS -1.2 (-2.0-2.0); VENOUS HCO3 21.3 MMOL/L (23.0-27.0); VENOUS O2 SATURATION 76.2 % (60.0-80.0); VENOUS PARTIAL PRESSURE CO2 29.4 mmHg (38.0-50.0); VENOUS PARTIAL PRESSURE O2 36.6 mmHg (30.0-50.0); VENOUS PH 7.478 UNITS (7.330-7.430); VENOUS TOTAL CO2 22.2 MMOL/L (24.0-28.0)
[2025-01-11 21:01] LABS: BASO % 0.2 % (0.0-1.0); HEMOGLOBIN 11.6 g/dl (13.5-17.5); LYMPH # 0.4 10^3/uL (1.5-5.0); LYMPH % 2.5 % (24.0-44.0); MEAN CORPUSCULAR HEMOGLOBIN 29.6 pg (27.0-33.0); MEAN CORPUSCULAR HGB CONC 32.2 g/dl (32.0-36.5); MEAN CORPUSCULAR VOLUME 91.8 fl (80.0-96.0); MONO % 6.4 % (2.0-8.0); NEUTROPHILS # 13.7 10^3/uL (1.5-8.5); NEUTROPHILS % 90.4 % (36.0-66.0); PLATELET COUNT, AUTOMATED 254 10^3/uL (150-450); RED BLOOD COUNT 3.92 10^6/uL (4.30-6.10); WHITE BLOOD COUNT 15.1 10^3/uL (4.0-10.0)
[2025-01-11 21:30] LABS: CK-MB VALUE MASS 1.9 NG/ML (<3.6)
[2025-01-11 21:32] LABS: ALBUMIN 2.9 G/DL (3.2-5.2); ALKALINE PHOSPHATASE 94 U/L (40-129); ALT/SGPT 14 U/L (7.0-40); AST/SGOT 20 U/L (<34); BILIRUBIN,DIRECT 0.5 MG/DL (<0.4); BILIRUBIN,TOTAL 1.5 MG/DL (0.3-1.2); BLOOD UREA NITROGEN 25 MG/DL (9-23); CALCIUM LEVEL 8.8 MG/DL (8.3-10.6); CARBON DIOXIDE LEVEL 22 MMOL/L (20-31); CHLORIDE LEVEL 105 MMOL/L (98-107); CREATININE FOR GFR 0.95 MG/DL (0.70-1.30); GLOMERULAR FILTRATION RATE > 60.0 (>35); GLUCOSE, FASTING 138 MG/DL (74-106); POTASSIUM SERUM 3.9 MMOL/L (3.5-5.1); SODIUM LEVEL 140 MMOL/L (136-145)
[2025-01-11 21:35] LABS: CPK CREATINE PHOSPHOKINASE 131 U/L (46-171); MB/CK RELATIVE INDEX 1.45 (< OR =4)
[2025-01-11] MEDS: IPRATROPIUM 0.5MG/ALBUTEROL 2.5MG INH SOL UD 3ML NEB ONE (21:38)
[2025-01-11] MEDS ORDERED: ISOVUE-370 76% 100ML VIAL As Ordered ONE (21:59)
[2025-01-11] MEDS: AZITHROMYCIN 250MG TABLET PO ONE (22:47)
[2025-01-11] MEDS: cefTRIAXone SOD 2 GM in DEXTROSE 5% (D5W) ADV/MINI-BAG 50 ML IV ONE (22:47)
[2025-01-11] MEDS: NS (Normal Saline) 0.9% 1,000 ML IV ONE (23:16)
[2025-01-12] MEDS ORDERED: ACETAMINOPHEN 325 MG TAB PO PRN (00:25)
[2025-01-12] MEDS: BUDESONIDE 0.5 MG/2 ML INHALATION SUSPENSION NEB SCH (01:00)
[2025-01-12] MEDS: predniSONE 20 MG TAB PO SCH (01:20)
[2025-01-12] MEDS: LEVALBUTEROL 1.25 MG 0.5ML CONCENTRATE NEB NEB SCH (01:23)
[2025-01-12] MEDS ORDERED: ALBU2.5V10 INH (03:24)
[2025-01-12] MEDS ORDERED: ONDA-284 PO (03:24)
[2025-01-12] MEDS ORDERED: SODI3NEB INH (03:24)
[2025-01-12] MEDS ORDERED: HOME MED LIST COMPLETE! XX SCH (03:25)
[2025-01-12 03:30] VITALS: BP 107/64; TEMP 97.9; O2SAT 97
[2025-01-12] MEDS ORDERED: ONDANSETRON 4MG ORAL DISINTEGRATING TAB PO PRN (03:50)
[2025-01-12] MEDS: NS (Normal Saline) 0.9% 1,000 ML IV SCH (04:21)
[2025-01-12 04:41] VITALS: BP 108/63; TEMP 97.7; O2SAT 96
[2025-01-12] MEDS: PANTOPRAZOLE 40MG VIAL IV SCH (04:47)
[2025-01-12] MEDS ORDERED: SODIUM CHLORIDE HYPERTONIC 3% 4ML NEB SOL INH PRN (07:35)
[2025-01-12] MEDS ORDERED: REFR0.5D8 OU (07:41)
[2025-01-12] MEDS ORDERED: PRES10CA2 PO (07:41)
[2025-01-12] MEDS: IPRATROPIUM 0.5MG/ALBUTEROL 2.5MG INH SOL UD 3ML NEB SCH (08:00)
[2025-01-12] MEDS: CILOSTAZOL 100 MG TAB (PLETAL) PO SCH (08:44)
[2025-01-12] MEDS: ASPIRIN 81MG ENTERIC TABLET PO SCH (08:44)
[2025-01-12] MEDS: ROSUVASTATIN 10 MG TAB (CRESTOR) PO SCH (08:44)
[2025-01-12] MEDS: METOPROLOL TART 25 MG TABLET PO SCH (08:45)
[2025-01-12] MEDS: ENOXAPARIN 40MG/0.4ML SYRINGE (J1650 PER 10MG) SC SCH (08:46)
[2025-01-12] MEDS ORDERED: ADVAIR HFA 230/21MCG INHALER INH SCH (09:00)
[2025-01-12 10:01] LABS: BASO % 0.1 % (0.0-1.0); HEMATOCRIT 31.2 % (42.0-52.0); HEMOGLOBIN 10.3 g/dl (13.5-17.5); LYMPH # 0.3 10^3/uL (1.5-5.0); LYMPH % 1.7 % (24.0-44.0); MEAN CORPUSCULAR HEMOGLOBIN 30.3 pg (27.0-33.0); MEAN CORPUSCULAR VOLUME 91.8 fl (80.0-96.0); MONO # 0.2 10^3/uL (0.0-0.8); MONO % 1.1 % (2.0-8.0); NEUTROPHILS # 14.6 10^3/uL (1.5-8.5); NEUTROPHILS % 96.6 % (36.0-66.0); PLATELET COUNT, AUTOMATED 220 10^3/uL (150-450); WHITE BLOOD COUNT 15.1 10^3/uL (4.0-10.0)
[2025-01-12 10:46] LABS: ALBUMIN 2.4 G/DL (3.2-5.2); ALKALINE PHOSPHATASE 78 U/L (40-129); ALT/SGPT 13 U/L (7.0-40); AST/SGOT 26 U/L (<34); BILIRUBIN,TOTAL 0.7 MG/DL (0.3-1.2); BLOOD UREA NITROGEN 27 MG/DL (9-23); C REACTIVE PROTEIN QUANTITATIV 20.39 MG/DL (<1.0); CALCIUM LEVEL 7.8 MG/DL (8.3-10.6); CARBON DIOXIDE LEVEL 22 MMOL/L (20-31); CHLORIDE LEVEL 110 MMOL/L (98-107); CREATININE FOR GFR 0.81 MG/DL (0.70-1.30); GLOMERULAR FILTRATION RATE > 60.0 (>35); GLUCOSE, FASTING 209 MG/DL (74-106); MAGNESIUM LEVEL 1.8 MG/DL (1.8-2.4); POTASSIUM SERUM 3.4 MMOL/L (3.5-5.1); SODIUM LEVEL 142 MMOL/L (136-145); TOTAL PROTEIN 6.1 G/DL (5.7-8.2)
[2025-01-12] MEDS: POTASSIUM CHLORIDE 10MEQ SR TABLET PO ONE (11:45)
[2025-01-12] MEDS: FAMOTIDINE 20 MG TAB PO SCH (11:45)
[2025-01-12] MEDS: fentaNYL 25 MCG/HR PATCH TOP SCH (11:47)
[2025-01-12] MEDS: SYMBICORT 160/4.5MCG INHALER 6GM INH SCH (11:49)
[2025-01-12] MEDS: TIOTROPIUM BROM 2.5MCG/ACTUATION 4GM INH IH SCH (11:49)
[2025-01-12 12:00] VITALS: BP 103/58; TEMP 97.5; O2SAT 94
[2025-01-12 19:53] VITALS: BP 101/57; TEMP 97.9; O2SAT 94
[2025-01-12] MEDS: guaiFENesin ER TABLET 600 MG TAB PO SCH (21:08)
[2025-01-12] MEDS: AZITHROMYCIN 250MG TABLET PO SCH (21:09)
[2025-01-12] MEDS: cefTRIAXone SOD 2 GM in DEXTROSE 5% (D5W) ADV/MINI-BAG 50 ML IV SCH (22:55)
[2025-01-13 03:46] VITALS: BP 107/58; TEMP 97.3; O2SAT 97
[2025-01-13 06:02] LABS: BASO % 0.1 % (0.0-1.0); HEMATOCRIT 28.3 % (42.0-52.0); HEMOGLOBIN 9.3 g/dl (13.5-17.5); LYMPH # 0.3 10^3/uL (1.5-5.0); LYMPH % 1.7 % (24.0-44.0); MEAN CORPUSCULAR HEMOGLOBIN 30.1 pg (27.0-33.0); MEAN CORPUSCULAR HGB CONC 32.9 g/dl (32.0-36.5); MEAN CORPUSCULAR VOLUME 91.6 fl (80.0-96.0); MONO # 0.8 10^3/uL (0.0-0.8); MONO % 4.4 % (2.0-8.0); NEUTROPHILS # 17.3 10^3/uL (1.5-8.5); PLATELET COUNT, AUTOMATED 231 10^3/uL (150-450); RED BLOOD COUNT 3.09 10^6/uL (4.30-6.10); WHITE BLOOD COUNT 18.6 10^3/uL (4.0-10.0)
[2025-01-13 06:50] LABS: BLOOD UREA NITROGEN 40 MG/DL (9-23); CALCIUM LEVEL 7.9 MG/DL (8.3-10.6); CARBON DIOXIDE LEVEL 21 MMOL/L (20-31); CHLORIDE LEVEL 113 MMOL/L (98-107); CREATININE FOR GFR 0.99 MG/DL (0.70-1.30); GLOMERULAR FILTRATION RATE > 60.0 (>35); GLUCOSE, FASTING 132 MG/DL (74-106); POTASSIUM SERUM 4.4 MMOL/L (3.5-5.1); SODIUM LEVEL 144 MMOL/L (136-145)
[2025-01-13 07:15] LABS: C REACTIVE PROTEIN QUANTITATIV 15.36 MG/DL (<1.0)
[2025-01-13] MEDS: NS (Normal Saline) 0.9% 1,000 ML IV ONE (08:33)
[2025-01-13 09:45] VITALS: BP 110/50
[2025-01-13 11:02] LABS: KETONE, URINE AUTO RFX NEGATIVE (NEGATIVE); LEUKOCYTE ESTERASE UR AUTO RFX 2+ (NEGATIVE); NITRITE, URINE AUTO RFX NEGATIVE (NEGATIVE); RBC, URINE AUTO RFX 6 /HPF (0-3); SQUAM EPITHELIAL CELL UR AURFX 2 /HPF (0-6); WBC, URINE AUTO RFX 45 /HPF (0-3); YEAST LIKE CELL URINE AUTO RFX LARGE
[2025-01-13 12:00] VITALS: BP 111/74; TEMP 97.7; O2SAT 96
[2025-01-13] MEDS: BREZTRI INH SCH (12:32)
[2025-01-13 20:21] VITALS: BP 114/74; TEMP 97.5; O2SAT 93
[2025-01-14 03:45] VITALS: BP 117/75; TEMP 97.7; O2SAT 93
[2025-01-14 05:55] LABS: BASO % 0.1 % (0.0-1.0); EOS % 0.1 % (0.0-3.0); HEMATOCRIT 28.7 % (42.0-52.0); HEMOGLOBIN 9.5 g/dl (13.5-17.5); LYMPH # 0.5 10^3/uL (1.5-5.0); LYMPH % 3.7 % (24.0-44.0); MEAN CORPUSCULAR HEMOGLOBIN 30.4 pg (27.0-33.0); MEAN CORPUSCULAR HGB CONC 33.1 g/dl (32.0-36.5); MEAN CORPUSCULAR VOLUME 91.7 fl (80.0-96.0); MONO # 0.9 10^3/uL (0.0-0.8); MONO % 7.2 % (2.0-8.0); NEUTROPHILS # 11.1 10^3/uL (1.5-8.5); NEUTROPHILS % 88.3 % (36.0-66.0); PLATELET COUNT, AUTOMATED 256 10^3/uL (150-450); RED BLOOD COUNT 3.13 10^6/uL (4.30-6.10); WHITE BLOOD COUNT 12.6 10^3/uL (4.0-10.0)
[2025-01-14 06:19] LABS: BLOOD UREA NITROGEN 29 MG/DL (9-23); C REACTIVE PROTEIN QUANTITATIV 6.77 MG/DL (<1.0); CARBON DIOXIDE LEVEL 22 MMOL/L (20-31); CHLORIDE LEVEL 115 MMOL/L (98-107); CREATININE FOR GFR 0.81 MG/DL (0.70-1.30); GLOMERULAR FILTRATION RATE > 60.0 (>35); GLUCOSE, FASTING 90 MG/DL (74-106); POTASSIUM SERUM 4.4 MMOL/L (3.5-5.1); SODIUM LEVEL 145 MMOL/L (136-145)
[2025-01-14 08:08] VITALS: BP 129/77
[2025-01-14 10:21] LABS: PROCALCITONIN 0.33 ng/ml
[2025-01-14] MEDS: IPRATROPIUM 0.5MG/ALBUTEROL 2.5MG INH SOL UD 3ML NEB PRN (10:41)
[2025-01-14] MEDS ORDERED: LEVO1TAB40 PO (11:40)
[2025-01-14] MEDS ORDERED: MUCI1TAB16 PO (11:40)
[2025-01-15] MEDS ORDERED: FENTANYL REMOVAL DOCUMENTATION MISC XX SCH (09:00)
[2025-01-15 18:42] LABS: URINE STREP PNEUMONIAE ANTIGEN NOT DETECTED (NOT DETECT)
[2025-01-16 17:52] LABS: MYCOPLASMA PNEUMONIAE IGG 1.45 (<=0.90)
[2025-01-23] MEDS ORDERED: FENT1DIS14 TOP (10:26)
== END 2025-01-14 12:28 | disposition home health service (06) | DRG 194 ==
LOC: EDBD 20:26 → M ED 20:26 → M ED INP 20:27 → M MSPAV 01-12 03:29 → INTOOBSV 01-13 08:13 → OBSVTOIN 01-13 08:13 → UNDODISIN 01-14 12:28
PROVIDERS: ADMIT Student in an Organized Health Care Education/Training Program; ATTEND Internal Medicine
DX: J18.9 Pneumonia, unspecified organism (principal); I50.32 Chronic diastolic (congestive) heart failure; J96.11 Chronic respiratory failure with hypoxia; J44.0 Chronic obstructive pulmonary disease with (acute) lower respiratory infection; C34.11 Malignant neoplasm of upper lobe, right bronchus or lung; C34.31 Malignant neoplasm of lower lobe, right bronchus or lung; I25.10 Atherosclerotic heart disease of native coronary artery without angina pectoris; I71.40 Abdominal aortic aneurysm, without rupture, unspecified; I73.9 Peripheral vascular disease, unspecified; I11.0 Hypertensive heart disease with heart failure; K21.9 Gastro-esophageal reflux disease without esophagitis; M81.0 Age-related osteoporosis without current pathological fracture; E78.5 Hyperlipidemia, unspecified; Z95.5 Presence of coronary angioplasty implant and graft; Z66 Do not resuscitate; Z79.899 Other long term (current) drug therapy; Z88.0 Allergy status to penicillin; Z99.81 Dependence on supplemental oxygen; G89.29 Other chronic pain; Z92.21 Personal history of antineoplastic chemotherapy; Z92.3 Personal history of irradiation

== ENCOUNTER → 2025-01-21 | Outpatient (CLI) | payer MEDICARE ==
[~2025-01-21] MED LIST changes: +ALBU2.5V10 INH; +LEVO1TAB40 PO; +MUCI1TAB16 PO; +PRED50TA PO; -PRED50TA57 PO; +REFR0.5D8 OU; +SODI3NEB INH
== END ==
LOC: M ONCR 11:09
PROVIDERS: ATTEND General Practice
DX: C34.11 Malignant neoplasm of upper lobe, right bronchus or lung (principal); Z92.21 Personal history of antineoplastic chemotherapy; Z92.3 Personal history of irradiation; Z88.0 Allergy status to penicillin; Z88.1 Allergy status to other antibiotic agents; Z79.82 Long term (current) use of aspirin; Z79.899 Other long term (current) drug therapy; Z79.891 Long term (current) use of opiate analgesic; Z87.891 Personal history of nicotine dependence

== ENCOUNTER → 2025-01-21 | Outpatient (CLI) | payer MEDICARE ==
[~2025-01-21] VITALS: Ht 170.2 cm; Wt 58.8 kg
[~2025-01-21] MED LIST changes: -PRED50TA PO; +PRED50TA57 PO
[2025-01-21 11:34] VITALS: BP 122/68; O2SAT 93
== END ==
LOC: M PAL 11:16
PROVIDERS: ATTEND Physician Assistant
DX: Z51.5 Encounter for palliative care (principal); Z66 Do not resuscitate; C34.90 Malignant neoplasm of unspecified part of unspecified bronchus or lung; R06.02 Shortness of breath; Z79.891 Long term (current) use of opiate analgesic; Z88.0 Allergy status to penicillin; Z88.1 Allergy status to other antibiotic agents; Z79.899 Other long term (current) drug therapy; Z79.82 Long term (current) use of aspirin
CPT/HCPCS: G0463 ×2

== ENCOUNTER → 2025-02-04 | Outpatient (CLI) | payer MEDICARE | LOC: M RAD 10:01 | PROVIDERS: ATTEND Physician Assistant | DX: I71.43 Infrarenal abdominal aortic aneurysm, without rupture (principal) ==

== ENCOUNTER → 2025-02-06 | Outpatient (CLI) | payer MEDICARE ==
[~2025-02-06] VITALS: Ht 170.2 cm; Wt 58.2 kg
[2025-02-06 11:43] VITALS: BP 116/65; O2SAT 94
== END ==
LOC: M PAL 11:20
PROVIDERS: ATTEND Physician Assistant
DX: Z51.5 Encounter for palliative care (principal); Z66 Do not resuscitate; C34.90 Malignant neoplasm of unspecified part of unspecified bronchus or lung; R06.02 Shortness of breath; R54 Age-related physical debility; Z79.891 Long term (current) use of opiate analgesic; Z99.81 Dependence on supplemental oxygen; Z88.0 Allergy status to penicillin; Z88.1 Allergy status to other antibiotic agents; Z79.899 Other long term (current) drug therapy; Z79.82 Long term (current) use of aspirin

== ENCOUNTER → 2025-04-14 | Outpatient (CLI) | payer MEDICARE ==
[~2025-04-14] VITALS: Ht 170.2 cm; Wt 57.7 kg
[~2025-04-14] MED LIST changes: +MORP1SOL4 PO
[2025-04-14 11:38] VITALS: BP 142/85; O2SAT 94
== END ==
LOC: M PAL 11:21
PROVIDERS: ATTEND Physician Assistant
DX: Z51.5 Encounter for palliative care (principal); Z66 Do not resuscitate; C34.90 Malignant neoplasm of unspecified part of unspecified bronchus or lung; R06.02 Shortness of breath; Z79.891 Long term (current) use of opiate analgesic; Z99.81 Dependence on supplemental oxygen; Z79.52 Long term (current) use of systemic steroids; Z88.0 Allergy status to penicillin; Z88.1 Allergy status to other antibiotic agents; Z79.899 Other long term (current) drug therapy